=== PATIENT | female | born 1975 | race African-American/Black ===

== ENCOUNTER 2023-04-30 12:06 | Outpatient (OUT) | payer MEDICAID, SELFPAY ==
--- NOTE | 2023-04-30 13:29 | CA_ITS ---
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 PVR waveform with normal upstroke, amplitude and dicrotic notch Right: - no significant pressure gradient between cuffs - normal TIFFANIE and TBI Left: - no significant pressure gradient between cuffs - normal TIFFANIE and TBI Impression: - normal arterial evaluation of the lower extremities without hemodynamic impairment of the B/L lower extremity at rest (right TIFFANIE 1.20, left TIFFANIE 1.17) Electronically Signed On 04-30-2023 20:44:20 EDT by LUCIEN PATEL
== END 2023-04-30 12:07 | disposition home or self-care (01) ==
LOC: CARD 12:13
PROVIDERS: PCP Nurse Practitioner Family; Visit Provider Internal Medicine Cardiovascular Disease
DX: I73.9 Peripheral vascular disease, unspecified (principal)
CPT/HCPCS: 93924

== ENCOUNTER 2023-06-29 11:48 | Outpatient (OUT) | payer MEDICAID, SELFPAY ==
[2023-06-29 12:43] LABS: Basophils Percent Auto 0.6 % (0.2-2.0); Eosinophils Absolute Auto 0.2 10^3/uL (0.0-0.7); Eosinophils Percent Auto 3.8 % (0.9-7.0); Hemoglobin 13.1 g/dL (12.0-16.0); Immature Granulocytes Abs Auto 0.01 10^3/uL (0.00-0.03); Immature Granulocytes Pct Auto 0.2 % (0.0-0.5); Lymphocytes Absolute Auto 2.7 10^3/uL (1.2-3.8); Lymphocytes Percent Auto 42.7 % (20.5-60.0); Mean Corpuscular HGB Conc 31.2 g/dL (29.9-35.2); Mean Corpuscular Hemoglobin 26.4 pg (26.7-34.0); Mean Corpuscular Volume 84.5 fL (81.0-99.0); Mean Platelet Volume 11.3 fL (9.5-13.5); Monocytes Absolute Auto 0.6 10^3/uL (0.3-0.8); Monocytes Percent Auto 8.8 % (1.7-12.0); Neutrophils Absolute Auto 2.8 10^3/uL (1.4-6.5); Neutrophils Percent Auto 43.9 % (43.0-75.0); Platelet Count 302 10^3/uL (150-450); Red Blood Count 4.97 10^6/uL (4.20-5.40); White Blood Count 6.3 10^3/uL (4.0-11.0)
[2023-06-29 13:47] LABS: Alanine Aminotransferase 18 U/L (14-59); Albumin Globulin Ratio 0.8; Albumin Level 3.5 g/dL (3.4-5.0); Alkaline Phosphatase 105 U/L (46-116); Anion Gap 14.6; Aspartate Amino Transferase 9 U/L (15-37); BUN Creatinine Ratio 23.7; Bilirubin Total 0.2 mg/dL (0.2-1.0); Calcium 9.4 mg/dL (8.5-10.1); Carbon Dioxide 25.1 mmol/L (21.0-32.0); Chloride 103 mmol/L (98-107); Chol HDL Ratio 3.7; Cholesterol 142 mg/dL (<=200); Estimated GFR (African America >60 (>=60); Estimated GFR (Non-African Ame >60 (>=60); Free T3 2.77 pg/mL (2.18-3.98); Globulin 4.5 g/dL; Glucose 268 mg/dL (74-106); HDL Cholesterol 38 mg/dL (40-60); Potassium 4.7 mmol/L (3.5-5.1); Sodium 138 mmol/L (136-145); Thyroid Stimulating Hormone 0.501 uIU/mL (0.358-3.740); Triglycerides 130 mg/dL (<=150)
[2023-06-29 14:06] LABS: Estimated Average Glucose 266 mg/dL; Glycohemoglobin A1C 10.9 % (4.5-6.2)
[2023-06-30 11:59] LABS: Occult Blood Negative
[2023-06-30 12:08] LABS: Insulin 6.6 uIU/mL (2.6-24.9)
[2023-06-30 12:54] LABS: C. Difficile PCR NEGATIVE (NEGATIVE)
== END 2023-06-29 11:49 | disposition home or self-care (01) ==
LOC: LAB 11:50
PROVIDERS: PCP Nurse Practitioner Family; Visit Provider Nurse Practitioner Family
DX: R53.82 Chronic fatigue, unspecified (principal); K29.50 Unspecified chronic gastritis without bleeding; R19.7 Diarrhea, unspecified
CPT/HCPCS: 36415; 80053; 80061; 82306; 83036; 83525; 83540; 84436; 84443; 84481; 85025; 87045; 87046; 87427; 87493; 87507; G0328

== ENCOUNTER 2023-07-29 01:48 | Observation (INO) | payer MEDICAID, SELFPAY ==
[2023-07-29] VITALS (78 sets, daily range): BP systolic 105–203; BP diastolic 71–133; PULSE 85–101; RESP 2–98; TEMP 36.6–37.1; O2SAT 91–100; BMI 34.2; BMI 35.2
--- NOTE | 2023-07-29 01:54 | ECG_ITS ---
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
--- NOTE | 2023-07-29 01:54 | ECG_ITS ---
The [facility] Test Date: 2023-07-29 Pat Name: ANTONI DIAZ Department: Room: 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
--- NOTE | 2023-07-29 02:10 | ED.CHESTPAI1 ---
HPI - Chest Pain General Chief Complaint: Chest Pain Stated Complaint: Chest Pain Abdominal Pain Back pain Time Seen by Provider: 07/29/23 02:01 Source: patient History of Present Illness HPI narrative: past history of CAD , IDDM/diabetes and pancreatitis. Presents complaining of epigastric pain, chest pain radiating into her back associated with nausea. States she does not have cardiac stents and her heart disease is managed medically. pain started tonight when she was trying to go to sleep Related Data Home Medications Medication Instructions Recorded Confirmed aspirin 81 mg tablet,delayed mg 07/29/23 release atorvastatin 80 mg tablet mg 07/29/23 carvedilol 12.5 mg tablet mg 07/29/23 carvedilol 25 mg tablet mg 07/29/23 clopidogrel 75 mg tablet mg 07/29/23 dulaglutide 1.5 mg/0.5 mL mg subcut 07/29/23 subcutaneous pen injector (Trulicity) furosemide 20 mg tablet mg 07/29/23 insulin glargine 100 unit/mL (3 unit subcut 07/29/23 mL) subcutaneous pen (Lantus Solostar U-100 Insulin) metformin 1,000 mg tablet mg 07/29/23 metoprolol succinate 100 mg mg PO 07/29/23 tablet,extended release 24 hr omeprazole 40 mg capsule,delayed mg 07/29/23 release sacubitril 24 mg-valsartan 26 mg tab 07/29/23 tablet (Entresto) spironolactone 50 mg tablet mg 07/29/23 venlafaxine 150 mg mg PO 07/29/23 capsule,extended release 24 hr Allergies Allergy/AdvReac Type Severity Reaction Status Date / Time cephalexin [From Keflex] Allergy Verified 07/29/23 01:57 Review of Systems ROS Status of ROS 10 or more systems reviewed and unremarkable except as noted in history and below PFSH PFS Social History Smoking status: Current every day smoker Exam Constitutional Vital Signs, click to edit/add: Last Vital Signs Temp 98.1 F 07/29/23 01:51 Pulse 94 H 07/29/23 05:20 Resp 31 H 07/29/23 05:20 BP 148/103 H 07/29/23 05:00 Pulse Ox 100 07/29/23 05:20 O2 Del Method Room Air 07/29/23 01:51 Common normals: no apparent distress, average body habitus, oriented x3, no limitations, healthy appearing and alert Eye Common normals: EOMs intact bilaterally and conjunctivae normal Respiratory Common normals: normal respiratory effort, no retractions, no use of accessory muscles and clear to auscultation bilaterally Cardio Common normals: regular rate, regular rhythm, S1 normal heart sound and S2 normal heart sound GI Other: mild epigastric tenderness. No guarding Extremity Common normals: normal to inspection and full ROM Neuro Common normals: oriented x3, CN's II-XII intact bilaterally, moves all extremities, no focal motor deficits and no sensory deficits noted Psych Appearance: grossly normal Course Vital Signs Vital signs: Vital Signs Temperature 98.1 F 07/29/23 01:51 Pulse Rate 95 H 07/29/23 01:51 Respiratory Rate 18 07/29/23 01:51 Blood Pressure 161/104 H 07/29/23 01:51 Pulse Oximetry 100 07/29/23 01:51 Oxygen Delivery Method Room Air 07/29/23 01:51 Temperature 98.1 F 07/29/23 01:51 Pulse Rate 94 H 07/29/23 05:20 Respiratory Rate 31 H 07/29/23 05:20 Blood Pressure 148/103 H 07/29/23 05:00 Pulse Oximetry 100 07/29/23 05:20 Oxygen Delivery Method Room Air 07/29/23 01:51 MDM - Chest Pain MDM Narrative Medical decision making narrative: patient has multiple co morbidities. history of CAD, DM, pancreatitis and HTN.. Presents with substernal chest pain and pain left chest. Pain radiates into her back and pain associated with nausea. CT neg for pancreatitis. EKG with asymmetric T wave inversion. Serial troponin neg x 2. Fentanyl help with pain but not complete relief. Also benefited from GI cocktail but not complete relief. Serial troponin neg x 2. Unclear what is causing her pain. Discussed with Hospitalist Dr Salinas and patient accepted for obs admission to continue workup Lab Data Labs: Lab Results 07/29/23 07/29/23 Range/Units 02:50 04:45 WBC 8.5 (4.0-11.0) 10^3/uL RBC 4.96 (4.20-5.40) 10^6/uL Hgb 13.0 (12.0-16.0) g/dL Hct 41.4 (36.0-48.0) % MCV 83.5 (81.0-99.0) fL MCH 26.2 L (26.7-34.0) pg MCHC 31.4 (29.9-35.2) g/dL RDW 13.0 (11.0-15.0) % Plt Count 324 (150-450) 10^3/uL MPV 11.1 (9.5-13.5) fL Neut % (Auto) 46.2 (43.0-75.0) % Lymph % (Auto) 41.8 (20.5-60.0) % [place] % (Auto) 8.0 (1.7-12.0) % Eos % (Auto) 3.2 (0.9-7.0) % Baso % (Auto) 0.4 (0.2-2.0) % Neut # (Auto) 3.9 (1.4-6.5) 10^3/uL Lymph # (Auto) 3.6 (1.2-3.8) 10^3/uL [place] # (Auto) 0.7 (0.3-0.8) 10^3/uL Eos # (Auto) 0.3 (0.0-0.7) 10^3/uL Baso # (Auto) 0.0 (0.0-0.1) 10^3/uL Abs Immat Gran (auto) 0.03 (0.00-0.03) 10^3/uL Imm/Tot Granulo (auto) 0.4 (0.0-0.5) % Sodium 134 L (136-145) mmol/L Potassium 3.6 (3.5-5.1) mmol/L Chloride 95 L (98-107) mmol/L Carbon Dioxide 28.7 (21.0-32.0) mmol/L Anion Gap 13.9 BUN 19.0 H (7.0-18.0) mg/dL Creatinine 1.10 H (0.55-1.02) mg/dL Est GFR ( Amer) >60 (>=60) Est GFR (Non-Af Amer) 53 L (>=60) BUN/Creatinine Ratio 17.3 Glucose 324 H (74-106) mg/dL Calcium 9.6 (8.5-10.1) mg/dL Total Bilirubin 0.4 (0.2-1.0) mg/dL AST 8 L (15-37) U/L ALT 16 (14-59) U/L Alkaline Phosphatase 116 (46-116) U/L Troponin I High Sens 8.7 9.6 (4.0-51.3) pg/mL Total Protein 8.6 H (6.4-8.2) g/dL Albumin 4.0 (3.4-5.0) g/dL Globulin 4.6 g/dL Albumin/Globulin Ratio 0.9 Lipase 311.0 H (16.0-77.0) U/L Discharge Plan Discharge Chief Complaint: Chest Pain Clinical Impression: Abdominal pain, Chest pain Patient Disposition: Admitted as Observation
--- NOTE | 2023-07-29 02:13 | XR_ITS ---
The [address] [address] Patient Name: ANTONI DIAZ MRN: [id number] date: 1975 Sex: F Assigned Patient Location: ER Current Patient Location: ER Accession/Order Number: [id number] Exam Date: 07/29/2023 02:38 Report Date: 07/29/2023 03:44 At the request of: DELIA LR Procedure: XR chest 1V EXAM: XR chest 1V HISTORY: chest pain COMPARISON: Chest radiograph dated 12/17/2022. TECHNIQUE: One view of the chest was obtained. FINDINGS: The cardiac silhouette is normal in size. The lungs are clear. There is no significant pneumothorax or pleural effusion. No acute osseous abnormality is seen. XR/XR chest 1V IMPRESSION: 1. No acute cardiopulmonary abnormality. Electronically authenticated by: Emmanuel COLLINS Date: 07/29/2023 03:44
--- NOTE | 2023-07-29 02:14 | CT_ITS ---
The [address] [address] Patient Name: ANTONI DIAZ MRN: [id number] date: 1975 Sex: F Assigned Patient Location: ER Current Patient Location: ER Accession/Order Number: [id number] Exam Date: 07/29/2023 02:38 Report Date: 07/29/2023 04:13 At the request of: DELIA LR Procedure: CT abdomen pelvis w con EXAM: CT abdomen pelvis w con HISTORY: pancreatitis COMPARISON: CT abdomen and pelvis examination dated 11/16/2021. TECHNIQUE: Axial CT images through the abdomen and pelvis were obtained after the intravenous administration of 100 mL Omnipaque 300 contrast. Coronal and sagittal reformats were obtained. Dose reduction techniques were achieved by using automated exposure control and/or adjustment of mA and/or kV according to patient size and/or use of iterative reconstruction technique. FINDINGS: The visualized portions of the lung bases are clear. Abdomen: The liver and spleen enhance homogeneously without focal lesion. There is no intra or extrahepatic biliary duct dilatation. The gallbladder is surgically absent. There is a prominent amount of stool in the colon without evidence of bowel obstruction. Otherwise, the adrenal glands, kidneys, and bowel loops, including the appendix, are unremarkable. There is no mesenteric or retroperitoneal lymphadenopathy. There is stable focal dilatation of the distal pancreatic duct measuring up to [address] evidence of acute pancreatitis is seen. Pelvis: The bladder and rectum are unremarkable. There is no iliac or inguinal lymphadenopathy. The uterus is present with a suspected fibroid measuring up to 2.3 x 2.1 cm (series 3, image 96). The ovaries are not well evaluated. Bone windows show no aggressive osseous lesions. There is nonspecific sclerosis about the sacroiliac joints. CT/CT abdomen pelvis w con IMPRESSION: 1. No CT evidence of acute pancreatitis is seen. 2. Status post cholecystectomy. 3. Prominent amount of stool in the colon without evidence of bowel obstruction. 4. Normal appendix. 5. Uterine fibroid. Electronically authenticated by: Emmanuel COLLINS Date: 07/29/2023 04:13
[2023-07-29] MEDS: FENTANYL CITRATE/PF 100 MCG/2 ML VIAL IV (02:45)
[2023-07-29] MEDS: ONDANSETRON PF 4 MG/2 ML VIAL IV (02:45)
[2023-07-29 03:41] LABS: Alanine Aminotransferase 16 U/L (14-59); Albumin Globulin Ratio 0.9; Alkaline Phosphatase 116 U/L (46-116); Aspartate Amino Transferase 8 U/L (15-37); BUN Creatinine Ratio 17.3; Bilirubin Total 0.4 mg/dL (0.2-1.0); Calcium 9.6 mg/dL (8.5-10.1); Carbon Dioxide 28.7 mmol/L (21.0-32.0); Estimated GFR (African America >60 (>=60); Estimated GFR (Non-African Ame 53 (>=60); Globulin 4.6 g/dL; Glucose 324 mg/dL (74-106); Total Protein 8.6 g/dL (6.4-8.2); Troponin I High Sensitivity 8.7 pg/mL (4.0-51.3)
[2023-07-29 04:05] LABS: Basophils Percent Auto 0.4 % (0.2-2.0); Eosinophils Absolute Auto 0.3 10^3/uL (0.0-0.7); Eosinophils Percent Auto 3.2 % (0.9-7.0); Hematocrit 41.4 % (36.0-48.0); Immature Granulocytes Abs Auto 0.03 10^3/uL (0.00-0.03); Immature Granulocytes Pct Auto 0.4 % (0.0-0.5); Lymphocytes Absolute Auto 3.6 10^3/uL (1.2-3.8); Lymphocytes Percent Auto 41.8 % (20.5-60.0); Mean Corpuscular HGB Conc 31.4 g/dL (29.9-35.2); Mean Corpuscular Hemoglobin 26.2 pg (26.7-34.0); Mean Corpuscular Volume 83.5 fL (81.0-99.0); Mean Platelet Volume 11.1 fL (9.5-13.5); Monocytes Absolute Auto 0.7 10^3/uL (0.3-0.8); Neutrophils Absolute Auto 3.9 10^3/uL (1.4-6.5); Neutrophils Percent Auto 46.2 % (43.0-75.0); Platelet Count 324 10^3/uL (150-450); Red Blood Count 4.96 10^6/uL (4.20-5.40); White Blood Count 8.5 10^3/uL (4.0-11.0)
[2023-07-29 05:00] LABS: Anion Gap 13.9; Chloride 95 mmol/L (98-107); Potassium 3.6 mmol/L (3.5-5.1); Sodium 134 mmol/L (136-145)
[2023-07-29 05:13] LABS: Troponin I High Sensitivity 9.6 pg/mL (4.0-51.3)
[2023-07-29] MEDS: lidocaine HCL 15 ML, MAG HYDROX/ALUMINUM HYD/SIMETH 30 ML, HYOSCYAMINE SULFATE 0.25 MG PO (05:15)
[2023-07-29] MEDS: PROMETHAZINE HCL 25 MG/ML VIAL 12.5 MG IV (06:27)
--- NOTE | 2023-07-29 07:41 | CA_ITS ---
Patient: ANTONI DIAZ Exam Date: 07/30/2023 : 1975 Gender:F Ordering : DR Earnest Salinas . 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 DESCRIPTION: Limited ECHOCARDIOGRAM Real-time transthoracic echocardiography with 2D and M-mode performed. QUALITY: Technical quality was good. Limited echocardiogram per physician order. LEFT VENTRICLE: Normal chamber size. Moderate concentric left ventricular hypertrophy. LV EF: Global left ventricular systolic function is normal; ejection fraction is estimated to be 55 to 60%. No wall motion abnormalities. LEFT ATRIUM: Normal chamber size. RIGHT ATRIUM: Normal chamber size. RIGHT VENTRICLE: Normal chamber size. TRICUSPID VALVE: Normal mobility and thickness. MITRAL VALVE: Normal mobility and thickness. No evidence of mitral valve stenosis. There is no mitral annular calcification. AORTIC VALVE: Normal trileaflet appearance. No visible sclerosis. Normal leaflet mobility. AORTIC ROOT: Normal diameter and appearance. PULMONIC VALVE: Normal thickness and mobility. PERICARDIUM: No evidence of pericardial effusion. IVC: Collapses with inspirations. CONCLUSION: Global left ventricular systolic function is normal; ejection fraction is estimated to be 55 to 60%. No wall motion abnormalities. A limited echocardiogram was performed. Adult Echocardiography Procedure Report Left Ventricle LVEDD (3.7 - 5.6 cm): 3.73 cm LVESD (2.2 - 4.0 cm): 2.63 cm LVIVS thickness (0.6 - 1.2 cm): 1.30 cm LVPW thickness (0.5 - 1.0 cm): 1.20 cm LVOT Diameter 2.29 cm Left Atrium LA Volume Index (2D A2C): 29.74 ml/m2 Left Atrium Systolic Dimension: 2.78 cm Mitral Valve Right Ventricle Aorta AO Root Diam: 3.09 cm Ascending Ao Diam: 2.88 cm Aortic Valve Tricuspid Valve Pulmonic Valve Right Atrium Right Atrium Systolic Pressure: 43.66 ml, 43.66 ml Dictated by: Maye Keller M.D. on 07/30/2023 at 15:37 Approved by: Maye Keller M.D. on 07/30/2023 at 15:45
[2023-07-29 08:17] LABS: Amylase 61 U/L (25-115)
[2023-07-29] MEDS: ACETAMINOPHEN 500 MG TABLET 1000 MG PO ×2 (08:21→15:35)
[2023-07-29] MEDS: CLOPIDOGREL BISULFATE 75 MG TABLET PO (08:21)
[2023-07-29] MEDS: ASPIRIN 81 MG TABLET.DR PO (08:21)
[2023-07-29] MEDS: HYOSCYAMINE SULFATE 0.125 MG TAB.SUBL SL ×3 (08:21→15:35)
[2023-07-29] MEDS: VENLAFAXINE HCL ER 150 MG CAPSULE PO (08:21)
[2023-07-29] MEDS: NITROGLYCERIN 2% 1 GRAM PACKET 1 GM TD ×2 (08:22→15:35)
[2023-07-29] MEDS: ATORVASTATIN CALCIUM 40 MG TABLET 80 MG PO (08:22)
[2023-07-29] MEDS: 0.9 % SODIUM CHLORIDE 1,000 ML 75 ML IV ×2 (08:22→20:39)
[2023-07-29] MEDS: PANTOPRAZOLE SODIUM 40 MG VIAL IV (08:22)
[2023-07-29] MEDS: INSULIN ASPART 300 UNIT/3 ML PEN SUBQ ×3 (08:24→21:58)
[2023-07-29] MEDS: SACUBITRIL/VALSARTAN 24 MG-26 MG TABLET 1 TAB PO ×2 (08:28→20:37)
[2023-07-29] MEDS: CARVEDILOL 25 MG TABLET PO ×2 (08:28→20:37)
[2023-07-29 08:29] LABS: Magnesium 1.6 mg/dL (1.8-2.4); Thyroid Stimulating Hormone 1.292 uIU/mL (0.358-3.740); Troponin I High Sensitivity 9.1 pg/mL (4.0-51.3)
[2023-07-29 08:32] LABS: Glucometer 286 mg/dL (74-106)
[2023-07-29 08:35] LABS: D Dimer 0.26 mg/L FEU (<=0.59)
--- NOTE | 2023-07-29 10:53 | P.HP_ITS ---
H&P: HPI History of Present Illness Chief complaint: Chest Pain Abdominal Pain Back pain Narrative: Patient with a history of nonischemic cardiomyopathy with ejection fraction on last echo that I could find of 25 to 30%, presented to the emergency room with chest pain. Similar to her previous episodes of cardiac chest pain. In ER also found to have acute pancreatitis. Cardiac markers were negative in the ER. She does have some mild changes on her ECG. Patient admitted to ICU. Review of Systems ROS Status of ROS 10 or more systems reviewed and unremarkable except as noted in history and below Constitutional Denies: fever Eyes Denies: change in vision Ears, nose, mouth, and throat Denies: throat pain Cardiovascular Reports: chest pain; Denies: palpitations or edema Respiratory Reports: shortness of breath Gastrointestinal Reports: abdominal pain, nausea and vomiting Genitourinary Denies: painful urination Musculoskeletal Reports: back pain Neurological Denies: headache Psychiatric Denies: anxiety Endocrine Denies: excessive urination Hematologic/Lymphatic Denies: easy bruising PFSH PFSH Social History Smoking status: Current every day smoker Meds Home Medications and Allergies Home Medications Medication Instructions Recorded Confirmed Type aspirin 81 mg tablet,delayed 81 mg PO .am 07/29/23 07/29/23 History release atorvastatin 80 mg tablet 80 mg PO DAILY 07/29/23 07/29/23 History carvedilol 25 mg tablet 25 mg PO BID 07/29/23 07/29/23 History clopidogrel 75 mg tablet 75 mg PO DAILY 07/29/23 07/29/23 History dulaglutide 1.5 mg/0.5 mL 0.75 mg subcut .WEEKLY 07/29/23 07/29/23 History subcutaneous pen injector (Trulicity) furosemide 20 mg tablet 20 mg PO DAILY 07/29/23 07/29/23 History insulin glargine 100 unit/mL (3 40 unit subcut BID 07/29/23 07/29/23 History mL) subcutaneous pen (Lantus Solostar U-100 Insulin) metformin 1,000 mg tablet 1,000 mg PO BID 07/29/23 07/29/23 History metoprolol succinate 100 mg 100 mg PO .am 07/29/23 07/29/23 History tablet,extended release 24 hr omeprazole 40 mg capsule,delayed 40 mg PO BID 07/29/23 07/29/23 History release sacubitril 24 mg-valsartan 26 mg 1 tab PO BID 07/29/23 07/29/23 History tablet (Entresto) spironolactone 50 mg tablet 50 mg PO DAILY 07/29/23 07/29/23 History venlafaxine 150 mg 150 mg PO DAILY 07/29/23 07/29/23 History capsule,extended release 24 hr Allergies Allergy/AdvReac Type Severity Reaction Status Date / Time cephalexin [From Keflex] Allergy Verified 07/29/23 01:57 Exam Constitutional Vital Signs, click to edit/add: Last Vital Signs Temp 98 F 07/29/23 06:34 Pulse 92 H 07/29/23 10:00 Resp 14 07/29/23 06:40 BP 150/115 H 07/29/23 06:34 Pulse Ox 96 07/29/23 10:18 O2 Del Method Room Air 07/29/23 10:18 Documenting provider has reviewed patient's vital signs: yes Common normals: apparent distress (Patient notes painful distress) HENMT Common normals: oral mucous membranes not moist (Dry) Chest Common normals: inspection of chest normal Respiratory Common normals: normal respiratory effort, no retractions and clear to auscultation bilaterally Cardio Common normals: regular rate and no murmurs GI Common normals: Normal to inspection, nondistended, normoactive bowel sounds present; tender Palpation: tender (More in epigastric left upper quadrant area) Extremity Common normals: normal to inspection Results Labs Labs: Short CBC 07/29/23 Range/Units 02:50 WBC 8.5 (4.0-11.0) 10^3/uL Hgb 13.0 (12.0-16.0) g/dL Hct 41.4 (36.0-48.0) % Plt Count 324 (150-450) 10^3/uL BMP 07/29/23 02:50 Sodium 134 L Potassium 3.6 Chloride 95 L Carbon Dioxide 28.7 BUN 19.0 H Creatinine 1.10 H Glucose 324 H Calcium 9.6 Liver Function 07/29/23 Range/Units 02:50 Total Bilirubin 0.4 (0.2-1.0) mg/dL AST 8 L (15-37) U/L ALT 16 (14-59) U/L Alkaline Phosphatase 116 (46-116) U/L Albumin 4.0 (3.4-5.0) g/dL Assessment and Plan Assessment and Plan (1) Chest pain: (2) Abdominal pain: Plan Respiratory distress, borderline sinus tachycardia, uncontrolled hypertension, chest pain-patient with a history of nonischemic cardiomyopathy, repeat echocardiogram, consult to cardiology, Nitropaste, ECG not consistent with pericarditis. D-dimer negative so hold off on CTA Epigastric tenderness-add IV Protonix. Some chest wall tenderness-we will give 1 dose of Decadron. Mild pancreatitis-CT scan did not show fluid around the pancreas. May check ultrasound tomorrow. N.p.o. except medications for now. Moderate constipation-lactulose Poorly controlled diabetes mellitus-insulin sliding scale. We will hold off on oral agents as she is n.p.o. currently Morbid obesity-diet management Depression-continue with current medications Patient admitted as a chest pain rule out-so far cardiac markers were negative, maintain patient as observation status.
[2023-07-29] MEDS: LACTULOSE 10 GM/15 ML UD CUP 30 GM PO ×2 (11:14→20:38)
[2023-07-29] MEDS: MAGNESIUM OXIDE 400 MG TABLET PO ×2 (11:15→20:37)
[2023-07-29] MEDS: HYDROMORPHONE HCL 0.5 MG/0.5 ML SYRINGE IV ×2 (11:15→21:57)
[2023-07-29] MEDS: DEXAMETHASONE SOD PHOS 10 MG/ML VIAL IV (11:18)
[2023-07-29 11:19] LABS: Glucometer 136 mg/dL (74-106)
[2023-07-29 17:30] LABS: Glucometer 318 mg/dL (74-106)
[2023-07-29 20:38] LABS: Glucometer 241 mg/dL (74-106)
[2023-07-30] VITALS (72 sets, daily range): BP systolic 84–142; BP diastolic 55–93; PULSE 71–101; RESP 0–37; TEMP 36.3–36.9; O2SAT 94–99
[2023-07-30] MEDS: HYDROMORPHONE HCL 0.5 MG/0.5 ML SYRINGE IV ×2 (03:56→09:30)
[2023-07-30 04:32] LABS: Bilirubin Urine NEGATIVE (NEGATIVE); Blood Urine NEGATIVE (NEGATIVE); Clarity Urine CLEAR (CLEAR); Color Urine YELLOW (YELLOW); Glucose Urine UA >=1000 mg/dL (NEGATIVE); Ketones Urine 15 mg/dL (NEGATIVE); Leukocyte Esterase Urine NEGATIVE (NEGATIVE); Nitrite Urine NEGATIVE (NEGATIVE); Protein Urine 30 mg/dL (NEG/TRACE); Specific Gravity Urine >=1.030 (1.005-1.025); Urobilinogen Urine 0.2 EU/dL (0.2-1.0)
[2023-07-30 04:35] LABS: Urine Microscopic Indicated YES
[2023-07-30 04:41] LABS: Bacteria Urine TRACE #/HPF (NONE SEEN); Cast Seen? NONE SEEN #/LPF (NONE SEEN); Crystals Seen? None Seen #/HPF (None Seen); Mucus Urine TRACE (NONE SEEN); RBC Urine 0-2 #/HPF (0-2); Squamous Epithelial Cell Urine FEW #/LPF (NONE/RARE); Urine Culture Indicated NO; WBC Urine 0-2 #/HPF (NONE SEEN)
[2023-07-30 04:45] LABS: Basophils Percent Auto 0.1 % (0.2-2.0); Eosinophils Percent Auto 0.1 % (0.9-7.0); Hematocrit 34.1 % (36.0-48.0); Hemoglobin 10.8 g/dL (12.0-16.0); Immature Granulocytes Abs Auto 0.03 10^3/uL (0.00-0.03); Immature Granulocytes Pct Auto 0.4 % (0.0-0.5); Lymphocytes Absolute Auto 1.9 10^3/uL (1.2-3.8); Mean Corpuscular HGB Conc 31.7 g/dL (29.9-35.2); Mean Corpuscular Hemoglobin 26.6 pg (26.7-34.0); Mean Platelet Volume 10.5 fL (9.5-13.5); Monocytes Absolute Auto 0.5 10^3/uL (0.3-0.8); Monocytes Percent Auto 5.9 % (1.7-12.0); Neutrophils Percent Auto 71.5 % (43.0-75.0); Platelet Count 286 10^3/uL (150-450); Red Blood Count 4.06 10^6/uL (4.20-5.40); Red Cell Distribution Width 13.1 % (11.0-15.0); White Blood Count 8.5 10^3/uL (4.0-11.0)
[2023-07-30 05:14] LABS: Alanine Aminotransferase 17 U/L (14-59); Albumin Globulin Ratio 0.8; Albumin Level 3.1 g/dL (3.4-5.0); Alkaline Phosphatase 96 U/L (46-116); Amylase 27 U/L (25-115); Anion Gap 13.5; Aspartate Amino Transferase 9 U/L (15-37); BUN Creatinine Ratio 23.9; Bilirubin Total 0.4 mg/dL (0.2-1.0); Calcium 8.6 mg/dL (8.5-10.1); Carbon Dioxide 24.7 mmol/L (21.0-32.0); Chloride 103 mmol/L (98-107); Estimated GFR (African America >60 (>=60); Estimated GFR (Non-African Ame >60 (>=60); Globulin 3.9 g/dL; Glucose 233 mg/dL (74-106); Potassium 4.2 mmol/L (3.5-5.1); Sodium 137 mmol/L (136-145); Troponin I High Sensitivity 5.1 pg/mL (4.0-51.3)
--- NOTE | 2023-07-30 07:08 | ECG_ITS ---
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
--- NOTE | 2023-07-30 07:40 | P.DS_ITS ---
DS: Providers Provider Date of admission: 07/29/23 06:30 Primary care physician: ANG SALMERON Consults: 07/29/23 07:41 Consult to Cardiology Routine Reason for consultation: CP,. Hx Cardiomyopathy Has provider been notified: No 07/29/23 10:48 Consult to Cardiology Routine Reason for consultation: cardiomyopathy - tomorrow is fine Has provider been notified: No 07/30/23 09:00 Consult to Life Cycle Assessment Analyst Routine Reason for consult:: Other Other reason:: asking questions about the disability process and paperwork DS: Diagnosis Discharge Diagnosis (1) Chest pain: (2) Abdominal pain: Plan Respiratory distress, borderline sinus tachycardia, uncontrolled hypertension, chest pain-patient with a history of nonischemic cardiomyopathy Epigastric tenderness Some chest wall tenderness- Mild pancreatitis Moderate constipation Poorly controlled diabetes mellitus Morbid obesity Depression DS: Summary Hospital Course Hospital Course: Patient presented to emergency room with upper abdominal pain and chest pain. She has a significant history of nonischemic cardiomyopathy with ejection fraction last reported at 35%. With the chest pain patient was admitted to the ICU. Work-up in the ER also found acute pancreatitis. Patient was maintained n.p.o. The following morning her lipase is back to normal. Her pain was improving. We advanced her diet. Echocardiogram shows much improved ejection fraction. Cardiology consulted and cleared patient for discharge. No further work-up at this time. Patient be discharged home in improving condition. Medications see list. Follow-up with her PCP-T[facility] within the next week Time Spent with Patient Time attestation: Total time spent providing and/or coordinating discharge services: Exam Constitutional Vital Signs, click to edit/add: Last Vital Signs Temp 98.5 F 07/30/23 04:00 Pulse 85 07/30/23 05:00 Resp 16 07/30/23 04:00 BP 142/83 H 07/30/23 04:00 Pulse Ox 95 07/30/23 05:00 O2 Del Method Room Air 07/30/23 04:00 Documenting provider has reviewed patient's vital signs: yes Common normals: apparent distress (Patient notes painful distress) HENMT Common normals: oral mucous membranes not moist (Dry) Chest Common normals: inspection of chest normal Respiratory Common normals: normal respiratory effort, no retractions and clear to auscultation bilaterally Cardio Common normals: regular rate and no murmurs GI Common normals: Normal to inspection, nondistended, normoactive bowel sounds present Extremity Common normals: normal to inspection DS: Data Data Completed and Pending Labs on day of discharge: Labs from last 24 hours 07/30/23 07/30/23 07/29/23 04:00 03:54 20:36 WBC 8.5 RBC 4.06 L Hgb 10.8 L Hct 34.1 L MCV 84.0 MCH 26.6 L MCHC 31.7 RDW 13.1 Plt Count 286 MPV 10.5 Neut % (Auto) 71.5 Lymph % (Auto) 22.0 [facility] % (Auto) 5.9 Eos % (Auto) 0.1 L Baso % (Auto) 0.1 L Neut # (Auto) 6.0 Lymph # (Auto) 1.9 [facility] # (Auto) 0.5 Eos # (Auto) 0.0 Baso # (Auto) 0.0 Abs Immat Gran (auto) 0.03 Imm/Tot Granulo (auto) 0.4 D-Dimer Sodium 137 Potassium 4.2 Chloride 103 Carbon Dioxide 24.7 Anion Gap 13.5 BUN 21.0 H Creatinine 0.88 Est GFR ( Amer) >60 Est GFR (Non-Af Amer) >60 BUN/Creatinine Ratio 23.9 Glucose 233 H Lactate Calcium 8.6 Magnesium Total Bilirubin 0.4 AST 9 L ALT 17 Alkaline Phosphatase 96 Troponin I High Sens 5.1 NT-Pro-B Natriuret Pep 85.0 Total Protein 7.0 Albumin 3.1 L Globulin 3.9 Albumin/Globulin Ratio 0.8 Amylase 27 Lipase 17.0 TSH Thyroxine (T4) Urine Color Yellow Urine Clarity Clear Urine pH 6.0 Ur Specific [place] >=1.030 A Urine Protein 30 A Urine Glucose (UA) >=1000 A Urine Ketones 15 A Urine Occult Blood Negative Urine Nitrite Negative Urine Bilirubin Negative Urine Urobilinogen 0.2 Ur Leukocyte Esterase Negative Urine RBC 0-2 Urine WBC 0-2 A Ur Squamous Epith Cells Few A Urine Crystals None seen Urine Bacteria Trace A Urine Casts None seen Urine Mucus Trace A Ur Culture Indicated? No POC Glucose 241 H 07/29/23 07/29/23 07/29/23 17:25 11:12 08:20 WBC RBC Hgb Hct MCV MCH MCHC RDW Plt Count MPV Neut % (Auto) Lymph % (Auto) [facility] % (Auto) Eos % (Auto) Baso % (Auto) Neut # (Auto) Lymph # (Auto) [facility] # (Auto) Eos # (Auto) Baso # (Auto) Abs Immat Gran (auto) Imm/Tot Granulo (auto) D-Dimer Sodium Potassium Chloride Carbon Dioxide Anion Gap BUN Creatinine Est GFR ( Amer) Est GFR (Non-Af Amer) BUN/Creatinine Ratio Glucose Lactate Calcium Magnesium Total Bilirubin AST ALT Alkaline Phosphatase Troponin I High Sens NT-Pro-B Natriuret Pep Total Protein Albumin Globulin Albumin/Globulin Ratio Amylase Lipase TSH Thyroxine (T4) Urine Color Urine Clarity Urine pH Ur Specific [place] Urine Protein Urine Glucose (UA) Urine Ketones Urine Occult Blood Urine Nitrite Urine Bilirubin Urine Urobilinogen Ur Leukocyte Esterase Urine RBC Urine WBC Ur Squamous Epith Cells Urine Crystals Urine Bacteria Urine Casts Urine Mucus Ur Culture Indicated? POC Glucose 318 H 136 H 286 H 07/29/23 07:56 WBC RBC Hgb Hct MCV MCH MCHC RDW Plt Count MPV Neut % (Auto) Lymph % (Auto) [facility] % (Auto) Eos % (Auto) Baso % (Auto) Neut # (Auto) Lymph # (Auto) [facility] # (Auto) Eos # (Auto) Baso # (Auto) Abs Immat Gran (auto) Imm/Tot Granulo (auto) D-Dimer 0.26 Sodium Potassium Chloride Carbon Dioxide Anion Gap BUN Creatinine Est GFR ( Amer) Est GFR (Non-Af Amer) BUN/Creatinine Ratio Glucose Lactate 1.0 Calcium Magnesium 1.6 L Total Bilirubin AST ALT Alkaline Phosphatase Troponin I High Sens 9.1 NT-Pro-B Natriuret Pep 122.0 Total Protein Albumin Globulin Albumin/Globulin Ratio Amylase 61 Lipase TSH 1.292 Thyroxine (T4) 12.20 Urine Color Urine Clarity Urine pH Ur Specific [place] Urine Protein Urine Glucose (UA) Urine Ketones Urine Occult Blood Urine Nitrite Urine Bilirubin Urine Urobilinogen Ur Leukocyte Esterase Urine RBC Urine WBC Ur Squamous Epith Cells Urine Crystals Urine Bacteria Urine Casts Urine Mucus Ur Culture Indicated? POC Glucose Discharge Plan Discharge Disposition: Home, Self-Care Discharge Medications: Continued atorvastatin 80 mg tablet 80 mg PO DAILY carvedilol 25 mg tablet 25 mg PO BID metoprolol succinate 100 mg tablet extended release 24 hr 100 mg PO .am venlafaxine 150 mg capsule,extended release 24hr 150 mg PO DAILY clopidogrel 75 mg tablet 75 mg PO DAILY omeprazole 40 mg capsule,delayed release(DR/EC) 40 mg PO BID aspirin 81 mg tablet,delayed release (DR/EC) 81 mg PO .am metformin 1,000 mg tablet 1,000 mg PO BID furosemide 20 mg tablet 20 mg PO DAILY spironolactone 50 mg tablet 50 mg PO DAILY insulin glargine [Lantus Solostar U-100 Insulin] 100 unit/mL (3 mL) insulin pen 40 unit SUBCUT BID Trulicity 1.5 mg/0.5 mL pen injector 0.75 mg SUBCUT .WEEKLY Entresto 24-26 mg tablet 1 tab PO BID Activity: increase activity as tolerated Diet: advance to your usual diet and low fat, low cholesterol Print Language: [place] Patient Instructions: Chest Pain (DC) Forms: Portal Instructions Follow Up Appointments: Call Dr. Salinas's office at [phone] tomorrow 07/31/2023 to schedule follow up. Discharge Date/Time: 07/30/23 17:37
[2023-07-30 08:14] LABS: Glucometer 253 mg/dL (74-106)
[2023-07-30] MEDS: INSULIN ASPART 300 UNIT/3 ML PEN SUBQ ×2 (08:15→12:22)
[2023-07-30] MEDS: ASPIRIN 81 MG TABLET.DR PO (08:17)
[2023-07-30] MEDS: VENLAFAXINE HCL ER 150 MG CAPSULE PO (08:18)
[2023-07-30] MEDS: CLOPIDOGREL BISULFATE 75 MG TABLET PO (08:18)
[2023-07-30] MEDS: CARVEDILOL 25 MG TABLET PO (08:18)
[2023-07-30] MEDS: ACETAMINOPHEN 500 MG TABLET 1000 MG PO (08:18)
[2023-07-30] MEDS: SACUBITRIL/VALSARTAN 24 MG-26 MG TABLET 1 TAB PO (08:19)
[2023-07-30] MEDS: MAGNESIUM OXIDE 400 MG TABLET PO (08:19)
[2023-07-30] MEDS: HYOSCYAMINE SULFATE 0.125 MG TAB.SUBL SL ×3 (08:19→16:29)
[2023-07-30] MEDS: NITROGLYCERIN 2% 1 GRAM PACKET 1 GM TD ×2 (08:19→15:11)
[2023-07-30] MEDS: ATORVASTATIN CALCIUM 40 MG TABLET 80 MG PO (08:20)
[2023-07-30] MEDS: PANTOPRAZOLE SODIUM 40 MG VIAL IV (08:22)
[2023-07-30] MEDS: LACTULOSE 10 GM/15 ML UD CUP 30 GM PO ×2 (08:28→12:21)
[2023-07-30] MEDS: METFORMIN HCL 500 MG TABLET 1000 MG PO ×2 (08:29→16:29)
[2023-07-30] MEDS: POLYETHYLENE GLYCOL 3350 17 GM POWDER PACKET PO (08:30)
[2023-07-30] MEDS: INSULIN DETEMIR 300 UNIT/3 ML INSULN.PEN 40 UNIT SUBQ (08:49)
[2023-07-30] MEDS: 0.9 % SODIUM CHLORIDE 1,000 ML 75 ML IV ×2 (10:36→11:00)
--- NOTE | 2023-07-30 10:46 | SWNOTE1 ---
SW consulted due to pt wanting information in regards to disability. SW printed information from social security office online and also provided phone numbers for pt to call or assistance. Information provided to pt.
[2023-07-30 11:59] LABS: Glucometer 281 mg/dL (74-106)
--- NOTE | 2023-07-30 12:57 | PM.CACN ---
History of Present Illness History of Present Illness Consult date: 07/30/23 Requesting physician: Earnest Salinas Chief complaint: Chest Pain Abdominal Pain Back pain Narrative: Jennifer is a 47-year-old female with past medical history of non-ischemic cardiomopathy- heart failure improved ejection fraction, non-obstructive coronary artery disease, hypertension, hyperlipidemia, and type II diabetes mellitus seen in consultation for chest pain. She presented to the ED yesterday for evaluation of epigastric pain and chest pain radiating into her back associated with nausea. She reports mid-sternal sharp chest pain radiating across her chest wall ongoing for hours prior to ED presentation.She was found to have elevated blood pressure readings with systolic in the 180s. Her ECG showed T-wave abnormalities in the inferior leads, high-sensitive troponin and BNP were unremarkable. Review of Systems ROS Cardiovascular Reports: chest pain Respiratory Reports: shortness of breath PFSH PFSH Social History Smoking status: Current every day smoker Meds Home Medications and Allergies Home Medications Medication Instructions Recorded Confirmed Type aspirin 81 mg tablet,delayed 81 mg PO .am 07/29/23 07/29/23 History release atorvastatin 80 mg tablet 80 mg PO DAILY 07/29/23 07/29/23 History carvedilol 25 mg tablet 25 mg PO BID 07/29/23 07/29/23 History clopidogrel 75 mg tablet 75 mg PO DAILY 07/29/23 07/29/23 History dulaglutide 1.5 mg/0.5 mL 0.75 mg subcut .WEEKLY 07/29/23 07/29/23 History subcutaneous pen injector (Trulicity) furosemide 20 mg tablet 20 mg PO DAILY 07/29/23 07/29/23 History insulin glargine 100 unit/mL (3 40 unit subcut BID 07/29/23 07/29/23 History mL) subcutaneous pen (Lantus Solostar U-100 Insulin) metformin 1,000 mg tablet 1,000 mg PO BID 07/29/23 07/29/23 History metoprolol succinate 100 mg 100 mg PO .am 07/29/23 07/29/23 History tablet,extended release 24 hr omeprazole 40 mg capsule,delayed 40 mg PO BID 07/29/23 07/29/23 History release sacubitril 24 mg-valsartan 26 mg 1 tab PO BID 10/29/23 10/29/23 History tablet (Entresto) spironolactone 50 mg tablet 50 mg PO DAILY 07/29/23 07/29/23 History venlafaxine 150 mg 150 mg PO DAILY 07/29/23 07/29/23 History capsule,extended release 24 hr Allergies Allergy/AdvReac Type Severity Reaction Status Date / Time cephalexin [From Keflex] Allergy Verified 07/29/23 01:57 Exam Constitutional Vital Signs, click to edit/add: Last Vital Signs Temp 97.4 F L 07/30/23 09:18 Pulse 79 07/30/23 11:00 Resp 6 L 07/30/23 10:40 BP 126/93 H 07/30/23 08:18 Pulse Ox 97 07/30/23 11:24 O2 Del Method Room Air 07/30/23 11:24 Common normals: no apparent distress and oriented x3 General appearance: cooperative and comfortable Cardio Common normals: regular rate, regular rhythm, S1 normal heart sound, S2 normal heart sound, no gallops, no clicks and no murmurs Rate: regular rate Rhythm: regular rhythm Heart sounds: S1 normal and S2 normal Peripheral pulses: pulses 2+ throughout, radial pulses present and posterior tibial pulses present Extremity Common normals: normal to inspection Results Labs and Meds Lab results: Cardiac Enzymes 07/30/23 Range/Units 03:54 AST 9 L (15-37) U/L CBC 07/30/23 Range/Units 03:54 WBC 8.5 (4.0-11.0) 10^3/uL RBC 4.06 L (4.20-5.40) 10^6/uL Hgb 10.8 L (12.0-16.0) g/dL Hct 34.1 L (36.0-48.0) % Plt Count 286 (150-450) 10^3/uL Neut # (Auto) 6.0 (1.4-6.5) 10^3/uL Lymph # (Auto) 1.9 (1.2-3.8) 10^3/uL [facility] # (Auto) 0.5 (0.3-0.8) 10^3/uL Eos # (Auto) 0.0 (0.0-0.7) 10^3/uL Baso # (Auto) 0.0 (0.0-0.1) 10^3/uL Comprehensive Metabolic Panel 07/30/23 Range/Units 03:54 Sodium 137 (136-145) mmol/L Potassium 4.2 (3.5-5.1) mmol/L Chloride 103 (98-107) mmol/L Carbon Dioxide 24.7 (21.0-32.0) mmol/L BUN 21.0 H (7.0-18.0) mg/dL Creatinine 0.88 (0.55-1.02) mg/dL Glucose 233 H (74-106) mg/dL Calcium 8.6 (8.5-10.1) mg/dL AST 9 L (15-37) U/L ALT 17 (14-59) U/L Alkaline Phosphatase 96 (46-116) U/L Total Protein 7.0 (6.4-8.2) g/dL Albumin 3.1 L (3.4-5.0) g/dL Intake and Output 07/29/23 07/30/23 07/30/23 23:59 07:59 15:59 Intake Total 921.25 / 921.25 1000 / 1000 Balance 921.25 / 921.25 1000 / 1000 Intake: IV 921.25 / 921.25 1000 / 1000 0.9 % Sodium Chloride 1,000 ml 921.25 / 921.25 1000 / 1000 @ 75 mls/hr IV .[id number] [facility] Rx# :[id number] Other: # Voids 2 EKG Interpretation EKG: sinus rhythm Assessment and Plan Assessment and Plan (1) Chest pain: Assessment and Plan: -Atypical chest pain unlikely anginal, I reviewed recent coronary angiogram from 01/2022 which showed mild non-obstrutive CAD. Recommend continued Aspirin therapy and high intensity statin with LDL goal <70. -Needs aggressive risk factor modification including improved glycemic and hypertension control -Her repeat echo shows a recovered LVEF, no wall motion abnormalities noted -She is stable for discharge from a cardiac standpoint without further workup -Can follow-up with outpatient cardiology as scheduled (2) Abdominal pain:
[2023-07-30] MEDS: FLU VACC QS 23-24(6MS UP)CEL/PF 60 MCG/0.5 ML SYRINGE IM (16:27)
--- NOTE | 2023-07-31 13:06 | CM.DCFOLLOWU ---
Person spoke with: patient How are you feeling? well, still some diarrhea How is your pain? no pain Did you understand your discharge instructions? yes Do you have any questions about your discharge instructions? no Were you given any prescriptions at discharge? no Were you able to get your prescriptions filled? N/A Do you understand how to take your medications as ordered? yes Do you have any questions about your follow up appointment and do you plan to keep your follow up appointment? no questions, calling Dr. Richardson office today to make follow up Is there anything else that you would like to discuss? no Questions/Comments/Concerns/Other:
== END 2023-07-30 17:37 | disposition home or self-care (01) ==
LOC: ER 06:18 → ICU 06:34
PROVIDERS: Admitting Provider Family Medicine; Emergency Provider Internal Medicine; PCP Nurse Practitioner Family; Visit Provider Family Medicine
DX: R07.9 Chest pain, unspecified (principal); R06.03 Acute respiratory distress; R00.0 Tachycardia, unspecified; I10 Essential (primary) hypertension; I42.8 Other cardiomyopathies; R10.13 Epigastric pain; K85.90 Acute pancreatitis without necrosis or infection, unspecified; K59.00 Constipation, unspecified; E11.65 Type 2 diabetes mellitus with hyperglycemia; E66.01 Morbid (severe) obesity due to excess calories; F32.A Depression, unspecified; I25.10 Atherosclerotic heart disease of native coronary artery without angina pectoris; Z68.35 Body mass index [BMI] 35.0-35.9, adult; F17.210 Nicotine dependence, cigarettes, uncomplicated; Z23 Encounter for immunization; Z79.82 Long term (current) use of aspirin; Z79.899 Other long term (current) drug therapy; Z79.4 Long term (current) use of insulin; Z79.85 Long-term (current) use of injectable non-insulin antidiabetic drugs
CPT/HCPCS: 36415; 71045; 74177; 80053; 81001; 82150; 82948; 83605; 83690; 83735; 83880; 84436; 84443; 84484; 85025; 85378; 90674; 93005; 93308; 94761; 96374; 96375; 96376; 99285; G0008; G0378; J1100; J1170; Q9967

== ENCOUNTER 2024-01-04 15:21 | Outpatient (OUT) | payer MEDICAID, SELFPAY ==
--- OUTSIDE RECORDS SUMMARY | 2024-01-04 15:31 | XMS_ITS | CCD ---
Author Organization [facility] Care Team Providers Care Mining Analyst Name Role Phone JOSE Salmeron Primary Care Provider MD Zahraa Ferrara Admit Provider MD Zahraa Ferrara Attending Provider OMEGA, MOHAMAD Attending Unavailable YOEL SALINAS Primary Care Unavailable SELF, REFERRED Referring Unavailable ALGHOTHANI, MOHAMAD Admitting Unavailable TEAGANY ., DR DIALLO Consulting Unavailable TEAGANY ., DR DIALLO Attending Unavailable TEAGANY ., DR DIALLO Admitting Unavailable FAVIOLA, VIVI Primary Care Unavailable ALANA, DR BRYCE Ramirez Consulting UnavailDELIA Gibbs Consulting Unavailable FALMELLISSA, LILA Consulting Unavailable NESS BRAR Consulting Unavailable ANKIT ., DR ATKINS Consulting Unavailable FAVIOLA, VIVI Primary Care Unavailable ANKIT ., DR ATKINS Attending Unavailable ANKIT ., DR ATKINS Admitting Unavailable FAVIOLA, VIVI Consulting Unavailable FAVIOLA, VIVI Primary Care Unavailable FAVIOLA, VIVI Attending Unavailable FAVIOLA, VIVI Admitting Unavailable ALGHOTHANI, MOHAMAD Consulting Unavailable FAVIOLA, VIVI Primary Care Unavailable ALGHOTHANI, MOHAMAD Attending Unavailable ALGHOTHANI, MOHAMAD Admitting Unavailable ALGHOTHANI, MOHAMAD Consulting Unavailable FAVIOLA, VIVI Primary Care Unavailable ALGHOTHANI, MOHAMAD Attending Unavailable ALGHOTHANI, MOHAMAD Admitting Unavailable MISC, DR DORMAN Consulting Unavailable FAVIOLA, VIVI Primary Care Unavailable MISC, DR DORMAN Attending Unavailable MISC, DR DORMAN Admitting Unavailable FANNY, DR KEYSHAWN Liriano Consulting Unavailable FAVIOLA, VIVI Consulting Unavailable FAVIOLA, VIVI Primary Care Unavailable FAVIOLA, VVII Attending Unavailable FAVIOLA, VIVI Admitting Unavailable KRYSTYNA, DASHAWN Consulting Unavailable FAVIOLA, VIVI Primary Care Unavailable KRYSTYNA, DASHAWN Attending Unavailable KRYSTYNA, DASHAWN Admitting Unavailable KRYSTYNA, DASHAWN Consulting Unavailable FAVIOLA, VIVI Primary Care Unavailable KRYSTYNA, DASHAWN Attending Unavailable KRYSTYNA, DASHAWN Admitting Unavailable Caleb Colunga Consulting Unavailable ADELINE, DELIA Attending Unavailable ADELINE, DELIA Admitting Unavailable FAVIOLA, VIVI Primary Care Unavailable SANTOSH DANIEL Consulting Unavailable DR KEYSHAWN ESCOBEDO Consulting Unavailable JUDY ., DEMOND Attending Unavailable JUDY ., DEMOND Admitting Unavailable FAVIOLA, VIVI Primary Care Unavailable KATHY RAMÍREZ Consulting Unavailable JUDY ., DEMOND Consulting Unavailable WALE OCAMPO Consulting Unavailable VANNESSA ., BABAK Attending Unavailable VANNESSA ., BABAK Admitting Unavailable FAVIOLA, VIVI Primary Care Unavailable VANNESSA ., BABAK Consulting Unavailable DIAB ., ELIZABETH Consulting Unavailable Jose Carmona Unavailable [facility] Primary [facility] Provider MD Jose Carmona Attending Provider [phone] Jose Carmona Attending Unavailable Jose Carmona Admitting Unavailable Faviola, Vivi Dalila Primary Care Unavailable SHERRIE LANDAVERDE Attending Unavailable VISHAL FOWLER Attending Unavailable VISHAL FOWLER Attending Unavailable Allergies Allergy Classification Reported Allergen(s) Allergy Type Date of Onset Reaction(s) Facility (5 sources) Cephalexin; Translations: [cephalexin] Drug Allergy 01-31-2022 [facility] (4 sources) Penicillins; Translations: [Penicillins] Allergy to drug (finding) 01-31-2022 [facility] (3 sources) Cephalexin Drug Allergy 10-28-2018 Unknown [facility] (2 sources) Penicillin Drug Allergy Unknown [facility] (1 source) Cephalexin Drug Allergy 08-02-2023 [facility] (1 source) Penicillins Drug allergy (disorder) 08-02-2023 [facility] Medications Current Medications Medication Drug Class(es) Dates Sig (Normalized) Sig (Original) Albuterol (2 sources) beta2-Adrenergic Agonist Start: 01-31-2022 Albuterol Active 2 MCG INHALATION 2-4 TIMES DAILY January 31, 2022 6:07pm Start: 01-31-2022 Albuterol Acti ve 2 MCG INHALATION 2-4 TIMES DAILY January 30, 2022 11:00pm aspirin 81 mg chewable tablet (3 sources) Platelet Aggregation Inhibitor, Nonsteroidal Anti-inflammatory Drug Start: 02-02-2022 take 1 tablet by mouth once daily Aspirin (Children's Aspirin) 81 mg Tablet,Chewable Active 81 MG PO Daily February 02, 2022 1:44pm take 1 tablet by imer th every twenty-four hours Aspirin 81 81 MG 1 tablet Orally Once a day Active atorvastatin 40 mg oral tablet (5 sources) HMG-CoA Reductase Inhibitor Start: 01-31-2022 End: 01-31-2022 take 1 mg by mouth once daily at bedtime Atorvastatin Discontinued 1 MG PO Daily at bedtime January 31, 2022 6:07pm January 31, 2022 8:18pm Start: 01-31-2022 take 40 mg by mouth once daily Atorvastatin Active 40 MG PO Daily January 31, 2022 6:11pm take 1 tablet by imer th every twenty-four hours Atorvastatin Calcium 80 MG 1 tablet Orally Once a day Active carvedilol 6.25 mg oral tablet (3 sources) alpha-Adrenergic Chloe, beta-Adrenergic Chloe Start: 02-02-2022 take 6.25 mg by mouth twice daily at mealtime Carvedilol Active 6.25 MG PO Twice daily with meals 60 February 02, 2022 1:43pm take 1 tablet by imer th every twelve hours Carvedilol 25 MG 1 tablet with food Oral ly Twice a day Active clopidogrel 75 mg oral tablet (2 sources) P2Y12 Platelet Inhibitor Start: 09-04-2023 take 75 mg by mouth once daily Clopidogrel Active 75 MG PO Daily September 04, 2023 12:00am take 1 tablet by imer th every twenty-four hours Clopidogrel Bisulfate 75 MG 1 tablet Orally Once a day Active dexlansoprazole 60 mg delayed release oral capsule (1 source) Proton Pump Inhibitor Start: 09-04-2023 take 60 mg by mouth once daily Dexlansoprazole Active 60 MG PO Daily September 04, 2023 12:00am 0.5 ml dulaglutide 3 mg/ml auto-injector (2 sources) GLP-1 Receptor Agonist Start: 09-04-2023 Dulaglutide (ulicity) 1.5 mg/0.5 mL pen injector Active 1.5 MG SUBCUT every week September 04, 2023 12:00am Trulicity 1.5 MG /0.5ML as directed Subcutaneous Active empagliflozin 10 mg oral tablet (2 sources) Sodium-Glucose Cotransporter 2 Inhibitor Start: 02-02-2022 End: 09-04-2023 take 1 tablet by mouth once daily Empagliflozin (Jardiance) 10 mg tablet Active 10 MG PO Daily February 02, 2022 1:45pm ferrous sulfate 325 mg oral tablet (6 sources) Start: 02-02-2022 Ferrous Sulfate (Ferosul) 325 mg (65 mg iron) tablet Active 325 MG PO Q48H February 02, 2022 12:56pm Start: 01-31-2022 End: 02-02-2022 take 1 tablet by mouth once daily Ferrous Sulfate (Ferosul) 325 mg (65 mg iron) tablet Discontinued 325 MG PO Daily January 31, 2022 6:11pm February 02, 2022 1:57pm furosemide 20 mg oral tablet (3 sources) Loop Diuretic Start: 02-02-2022 take 1 tablet by mouth once daily Furosemide (Lasix) 20 mg tablet Active 20 MG PO Daily February 02, 2022 1:44pm insulin aspart, human (3 sources) Insulin Analog Start: 01-31-2022 Insulin Aspart U-100 Active SUBCUT 3x/Day before meals January 31, 2022 6:10pm sliding scale Start: 01-31-2022 inject 1 [IU] by sub cutaneous injection once before mealtime Insulin Aspart U-100 Active 1 UNIT SUBCUT 3x/Day before meals January 30, 2022 11:00pm sliding scale NovoLOG Active magnesium chloride 598 mg delayed release oral tablet (2 sources) Start: 02-02-2022 End: 09-04-2023 take 2 tablets by mouth once daily Magnesium Chloride (Slow-Mag) 71.5 mg tablet,delayed release (DR/EC) Active 143 MG PO Daily February 02, 2022 3:31pm 24 hr metoprolol succinate 100 mg extended release oral tablet (2 sources) beta-Adrenergic Chloe Start: 09-04-2023 take 100 mg by mouth once daily Metoprolol Succinate Active 100 MG PO Daily September 04, 2023 12:00am take 1 capsule by mouth once [place] ly Metoprolol Succinate 100 MG 1 capsule Orally Once a day Active sacubitril 24 mg / valsartan 26 mg oral tablet (5 sources) Angiotensin 2 Receptor Chloe Start: 02-02-2022 take 1 tablet by mouth twice daily Sacubitril-Valsartan (Entresto) 24-26 mg Tablet Active 1 TAB PO Twice daily 60 February 02, 2022 1:43pm ENTRESTO 24 mg/2 6 mg 1 orally twice a day Active spironolactone 25 mg oral tablet (3 sources) Aldosterone Antagonist Start: 02-02-2022 take 25 mg by mouth once daily Spironolactone Active 25 MG PO Daily 30 February 02, 2022 1:44pm take 1 tablet by imer th every twenty-four hours Spironolactone 50 MG 1 tablet Orally Onc e a day Active valACYclovir 500 mg oral tablet (2 sources) Herpesvirus Nucleoside Analog DNA Polymerase Inhibitor, Herpes Simplex Virus Nucleoside Analog DNA Polymerase Inhibitor, Herpes Zoster Virus Nucleoside Analog DNA Polymerase Inhibitor Start: 01-31-2022 take 500 mg by mouth once daily Valacyclovir Active 500 MG PO Daily January 31, 2022 6:14pm 24 hr venlafaxine 150 mg extended release oral capsule (3 sources) Serotonin and Norepinephrine Reuptake Inhibitor Start: 01-31-2022 take 150 mg by mouth once daily Venlafaxine Active 150 MG PO Daily January 31, 2022 6:15pm Venlafaxine HCl 150mg Active Completed/Discontinued Medications Medication Drug Class(es) Dates Sig (Normalized) Sig (Original) glipiZIDE 5 mg oral tablet (4 sources) Sulfonylurea Start: 01-31-2022 End: 02-02-2022 take 5 mg by mouth twice daily Glipizide Discontinued 5 MG PO Twice daily January 31, 2022 6:12pm February 02, 2022 1:57pm 3 ml insulin glargine 100 unt/ml pen injector (5 sources) Insulin Analog Start: 01-31-2022 inject 45 [IU] by subcutaneous injection twice daily Insulin Glargine Active 45 UNIT SUBCUT Twice daily January 31, 2022 6:07pm Start: 01-31-2022 End: 01-31-2022 Insulin Glargine (Lantus Lolita ostar U-100 Insulin) 100 unit/mL (3 mL) Insulin Pen Discontinued 45 UNIT SUBCUT Twice daily January 31, 2022 6:10pm January 31, 2022 8:18pm Start: 01-31-2022 inject 45 [IU] by pace bcutaneous injection twice daily Insulin Glargine Active 45 UNIT SUBCUT Twice daily January 30, 2022 11:00pm Lantus 40mg BID Active losartan potassium 100 mg oral tablet (4 sources) Angiotensin 2 Receptor Chloe Start: 01-31-2022 End: 02-02-2022 take 100 mg by mouth once daily at bedtime Losartan Discontinued 100 MG PO Daily at bedtime January 31, 2022 6:12pm January 31, 2022 8:18pm metFORMIN hydrochloride 1000 mg oral tablet (5 sources) Biguanide Start: 01-31-2022 End: 01-31-2022 take 1000 mg by mouth twice daily Metformin Discontinued 1000 MG PO Twice daily January 31, 2022 6:13pm January 31, 2022 8:18pm Glucophage 1,000 BID Active omeprazole 40 mg delayed release oral capsule (5 sources) Proton Pump Inhibitor Start: 02-02-2022 End: 09-04-2023 take 20 mg by mouth once daily Omeprazole Discontinued 20 MG PO Daily February 02, 2022 12:56pm September 04, 2023 1:22pm Start: 01-31-2022 End: 02-02-2022 take 40 mg by mouth twice daily Omeprazole Discontinue d 40 MG PO Twice daily January 31, 2022 6:14pm February 02, 2022 1:57pm take 1 capsule by [facility] once daily Omeprazole 40 MG 1 capsule 30 minutes before morning meal Orally Once a day Active Problems Active Problems Problem Classification Problem Date Documented Da te Episodic/Chronic Abdominal pain (3 sources) Indigestion; Translations: [Epigastric pain] Onset: 09-04-2023 Episodic Acute myocardial infarction (1 source) Non-ST elevation (NSTEMI) myocardial infarction; Translations: [NON-ST ELEVATION MYOCARDIAL INFARCT] Onset: 02-02-2022 Chronic Anxiety disorders (1 source) Anxiety disorder, unspecified; Translations: [ANXIETY DISORDER UNSPECIFIED] Onset: 12-20-2022 Chronic Asthma (1 source) Unspecified asthma, uncomplicated; Translations: [UNSPECIFIED ASTHMA UNCOMPLICATED] Onset: 06-16-2022 Chronic Congestive heart failure; nonhypertensive (16 sources) Acute combined systolic (congestive) and diastolic (congestive) heart failure; Translations: [Chronic diastolic (congestive) heart failure] Onset: 07-12-2022 Chronic Coronary atherosclerosis and other heart disease (7 sources) Ischemic myocardial dysfunction; Translations: [Ischemic cardiomyopathy] Onset: 05-15-2022 02-01-2022 Chronic Diabetes mellitus with complications (1 source) Type 2 diabetes mellitus with hyperglycemia; Translations: [TYPE 2 DM W/HYPERGLYCEMIA] Onset: 12-20-2022 Chronic Diabetes mellitus without complication (4 sources) Type 2 diabetes mellitus; Translations: [Type 2 diabetes mellitus without complications] Onset: 06-16-2022 02-01-2022 Chronic Disorders of lipid metabolism (4 sources) Pure hypercholesterolemia , unspecified; Translations: [Hyperlipidemia, unspecified] Onset: 06-20-2022 Chronic Esophageal disorders (1 source) Gastro-esophageal reflux disease without esophagitis; Translations: [GERD WITHOUT ESOPHAGITIS] Onset: 12-20-2022 Chronic Essential hypertension (3 sources) Essential (primary) hypertension; Translations: [ESSENTIAL PRIMARY HYPERTENSION] Onset: 05-15-2022 Chronic Gastritis and duodenitis (2 sources) Chronic gastritis; Translations: [Unspecified chronic gastritis without bleeding] Chronic Hypertension with complications and secondary hypertension (4 sources) Hypertensive heart disease without heart failure; Translations: [Hypertensive heart disease with heart failure] Onset: 01-05-2023 Chronic Mood disorders (1 source) Major depressive disorder, single episode, unspecified; Translations: [SULLY DEPRESS D/O SINGLE EPIS UNS] Onset: 06-16-2022 Chronic Mood disorders (1 source) Mood disorders; Translations: [DEPRESSION UNSPECIFIED] Onset: 12-20-2022 Nonspecific chest pain (5 sources) Chest pain, unspecified; Translations: [Other chest pain] Onset: 06-16-2022 Episodic Other aftercare (1 source) [facility] (current) use of aspirin; Translations: [GROUP HOME CURRENT USE OF ASPIRIN] Onset: 12-20-2022 Episodic Other aftercare (1 source) 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; Translations: [CHIEF INFORMATICS OFFICER CURRENT USE OF INSULIN] Onset: 12-20-2022 Episodic Other aftercare (5 sources) Other intermediate (current) drug therapy; Translations: [OTH CHIEF INFORMATICS OFFICER CURRENT DRUG THERAPY] Onset: 10-30-2022 Episodic Other aftercare (1 source) [facility] (current) use of oral hypoglycemic drugs; Translations: [GROUP HOME USE ORAL HYPOGLYCEMIC DX] Onset: 12-20-2022 Episodic Other aftercare (1 source) [facility] (current) use of antithrombotics/anti platelets; Translations: [GROUP HOME ANTITHROMBOT/ANTIPLA TLETS] Onset: 12-20-2022 Episodic Other circulatory disease (1 source) Personal history of transient ischemic attack (TIA), and cerebral infarction without residual deficits; Translations: [PERS HX TIA AND CI NO RESID DEFICIT] Onset: 12-20-2022 Episodic Other gastrointestinal disorders (1 source) Dysphagia; Translations: [Dysphagia, unspecified] Episodic Other gastrointestinal disorders (2 sources) Dysphagia, unspecified; Translations: [Dysphagia, unspecified] Onset: 09-04-2023 Episodic Other hematologic conditions (1 source) High troponin I level; Translations: [Other specified abnormalities of plasma proteins] 01-31-2022 Episodic Other hematologic conditions (1 source) Other specified abnormalities of plasma proteins; Translations: [Other abnormal blood chemistry] Episodic Other injuries and conditions due to external causes (1 source) Elevated urine levels of drugs, medicaments and biological substances; Translations: [ELEV URIN LEVELS RX MEDS AND BIO SUBS] Onset: 12-20-2022 Episodic Other lower respiratory disease (1 source) Personal history of pneumonia (recurrent); Translations: [PERSONAL HX OF PNEUMONIA RECURRENT] Onset: 12-20-2022 Episodic Other screening for suspected conditions (not mental disorders or infectious disease) (4 sources) Echocardiogram abnormal; Translations: [Nonspecific (abnormal) findings on radiological and other examination of other intrathoracic organs] 01-31-2022 Episodic Karen-; endo-; and myocarditis; cardiomyopathy (except that caused by tuberculosis or sexually transmitted disease) (2 sources) Cardiomyopathy, unspecified; Translations: [Cardiomyopathy, unspecified] Onset: 01-05-2023 Chronic Peripheral and visceral atherosclerosis (6 sources) Peripheral vascular disease, unspecified; Translations: [PERIPHERAL VASCULAR DISEASE UNS] Onset: 11-27-2022 Chronic Residual codes; unclassified (1 source) Acquired absence of other specified parts of digestive tract; Translations: [ACQ ABSENCE OTH PART DIGESTV TRACT] Onset: 12-20-2022 Episodic Residual codes; unclassified (1 source) Early satiety; Translations: [Early satiety] Episodic Residual codes; unclassified (2 sources) Early satiety; Translations: [Early satiety] Onset: 09-04-2023 Episodic Substance-related disorders (3 sources) Nicotine dependence, cigarettes, uncomplicated; Translations: [Nicotine dependence, unspecified, uncomplicated] Onset: 12-20-2022 Chronic Syncope (6 sources) Near syncope; Translations: [Syncope and collapse] Onset: 01-31-2022 02-01-2022 Episodic Unclassified (1 source) CONTACT W/AND (SUSP) EXPOS COVID-19; Translations: [CONTACT W/AND (SUSP) EXPOS COVID-19] Onset: 02-23-2022 Past or Other Problems Problem Classification Problem Date Documented Date Episodic/Chronic Deficiency and other anemia (1 source) Anemia, unspecified; Translations: [ANEMIA UNSPECIFIED] Onset: 06-20-2022 Episodic Diabetes mellitus without complication (1 source) Other abnormal glucose; Translations: [OTHER ABNORMAL GLUCOSE] Onset: 06-20-2022 Episodic Immunizations and screening for infectious disease (1 source) Encounter for screening for infections with a predominantly sexual mode of transmission; Translations: [ENC SCREEN INFECTIONS SEXL TRANSMS] Onset: 06-20-2022 Episodic Malaise and fatigue (1 source) Weakness; Translations: [WEAKNESS] Onset: 02-08-2022 Episodic Mycoses (4 sources) Candidiasis of vulva and vagina; Translations: [CANDIDIASIS OF VULVA AND VAGINA] Onset: 06-19-2022 Episodic Other connective tissue disease (4 sources) Facial weakness; Translations: [FACIAL WEAKNESS] Onset: 02-03-2022 Episodic Other lower respiratory disease (1 source) Dyspnea, unspecified; Translations: [DYSPNEA UNSPECIFIED] Onset: 06-16-2022 Episodic Results Test Name Value Interpretation Reference Range Facility Glucose Glucometer (BldC) [M ass/Vol]Ordered By: Jose Carmona on 09-04-2023 Glucose [Mass/Vol] 135 mg/dL [facility] Comment on above: Random Glucose Refer ence Range is dependent on time and content of last meal. Glucose of more than 200 mg/dL in a nonstressed, ambulatory subject supports the diagnosis of Diabetes Mellitus. Glucose Poct Glucometerson 1 11-05-2022 Commemt1 Glu2: Cleaned Meter Normal [facility] Comment on above: Result Comment: PERF ORMED BY: [place] [id number] PATHOLOGIST INBOUND SALES MANAGER FRANKIE QUEZADA M.D. Performed By: #### G LULS #### Point of Care testing , Glucose [Mass/Vol] 135 mg/dL Normal [facility] Comment on above: Result Comment: [facility] Glucose Reference Range is dependent on time and content of last meal. Glucose of more than 200 mg/dL in a nonstressed, ambulatory subject supports the diagnosis of Diabetes Mellitus. Performed By: #### G LULS #### Point of Care testing , HCG ( test) IA.rapi d Ql (U)Ordered By: Jose Carmona on 09-04-2023 HCG ( test) Ql (U) Negative [facility] HCG,Urineon 09-04-2023 Beta HCG ( test) Ql (U) Negative Normal [facility] Comment on above: Result Comment: PERF ORMED BY: [place] [address] PATHOLOGIST INBOUND SALES MANAGER FRANKIE QUEZADA M.D. Performed By: #### U HCG #### [place] [id number] [facility] 09-04-2023 L - -------- Specimen: [id number] Received: 09/04/23 Status: CHRIS Gunnar Num: [id number] Spec Type: Surgical Subm Dr: Jose Carmona MD Tissues: A Small Intestine - Biopsy/Polyp (SMALL BOWEL BX) B GASTRIC FOR HP (GASTRIC HP) Procedures: HE/4, Gross/Micro L4/2, H PYLORI, IHC First AB -------- Age/ Patient Sex Location Account Attending Physician -------- Jennifer Diaz 47/F [id number] Jose Carmona MD -------- SPEC NUM: [id number] RECD: 09/04/23 STATUS: CHRIS MAHER NUM: [id number] DANUTA: 09/04/23- [facility] DR: Jose Carmona MD ENTERED: 09/04/23 [facility] DR: VIKAS TYPE: Surgical DEPT: S ORDERED: HE/4, Gross/Micro L4/2, H PYLORI, IHC First AB ORDERED: HE/4, Gross/Micro L4/2, H PYLORI, IHC First AB Pathological Diagnosis A. Small bowel biopsy: - Duodenal mucosa with mild chronic duodenitis, including mildly associated gastric metaplasia, stromal edema, and minor congestion, otherwise without active erosion or any obvious or significant lymphocytic exocytosis observed, therefore also no obvious features of celiac sprue identified B. Gastric biopsy: - Antral mucosa with minor degrees of inactive chronic gastritis, otherwise without erosion, intestinal metaplasia, or significant stromal chronic inflammation observed - H. pylori immunostain with appropriate control is also negative for identified Helicobacter organisms Clinical Information Gastritis, rule out celiac, rule out H. pylori Gross Description A. Received in formalin labeled with the patient's name, date of and small bowel are two pepper tissues averaging 0.4 x 0.2 x 0.2 cm. Entirely submitted in one cassette labeled A1. B. Received in formalin labeled with the patient's name, date of and gastric is one -------- Specimen: [id number] Received: 09/04/23 Status: CHRIS Maher Num: [id number] Spec Type: Surgical Subm Dr: Jose Carmona MD Tissues: A Small Intestine - Biopsy/Polyp (SMALL BOWEL BX) B GASTRIC FOR HP (GASTRIC HP) Procedures: HE/4, Gross/Micro L4/2, H PYLORI, IHC First AB -------- Patient: DiazJennifer [id number] (Continued) -------- Specimen: [id number] Received: 09/04/23 (Continued) Gross Description (Continued) Signed (signature on file) Dimple Ward MD 09/05/231999 -------- Specimen: [id number] Received: 09/04/23 Status: CHRIS Maher Num: [id number] Spec Type: Surgical Subm Dr: Jose Carmona MD Tissues: A Small Intestine - Biopsy/Polyp (SMALL BOWEL BX) B GASTRIC FOR HP (GASTRIC HP) Procedures: HE/4, Gross/Micro L4/2, H PYLORI, IHC First AB -------- Patient: Jennifer Diaz [id number] (Continued) -------- Specimen: [id number] Received: 09/04/23 (Continued) Gross Description (Continued) pepper tissue measuring 0.5 x 0.3 x 0.2 cm. Entirely submitted in one cassette labeled B1. Microscopic Description A. Two H E slides reviewed. The microscopic examination confirms the diagnosis. B. Two H E slides reviewed. The microscopic examination confirms the diagnosis. CPT Codes [id number] -------- -------- Specimen: [id number] Received: 09/04/23 Status: CHRIS Maher Num: [id number] Spec Type: Surgical Subm Dr: Jose Carmona MD Tissues: A Small Intestine - Biopsy/Polyp (SMALL BOWEL BX) B GASTRIC FOR HP (GASTRIC HP) Procedures: HE/4, Gross/Micro L4/2, H PYLORI, IHC First AB -------- Patient: Jennifer Diaz [id number] (Continued) -------- Signed (signature on file) Dimple Ward MD 09/05/231999 [facility] No Panel InformationOrdered By: Jose Carmona on 09-04-2023 Bedside Glucose Comment Glu2: cleaned meter [facility] Office Visiton 04-06-2023 Follow-up visit [id number] Jennifer Diaz 1975 F Date Provider Department Center 04/06/2023 [id number] VISHAL CARD [facility] Family History Problem Relation Age of Onset Arthritis Mother Hypertension Mother Hyperlipidemia Mother Diabetes Paternal Grandmother Other Paternal Grandfather Family Status - Relation Status Age at Mother Paternal Grandmother Paternal Grandfather Level of Service:44578 [facility] OFFICE/OUTPATIENT ESTABLISHED LOW MDM 20-29 MIN Normal [facility] ECHOCARDIO M/2D COMPLETEon 0 01-17-2023 ECHOCARDIO M/2D COMPLETE Patient: JENNIFER DIAZ. Exam Date: 01/17/2023 : 1975 Gender:F Ordering : VISHAL FOWLER Admission #: [id number] Family : Order #: [id number] CLICK HERE TO VIEW EXAM ECHOCARDIOGRAM REPORT PROCEDURE: CARDIO PULMONARY ECHOCARDIO M/2D COMP INDICATIONS: Acute combined systolic and diastolic heart failure COMPARISON: None. DESCRIPTION: COMPLETE ECHOCARDIOGRAM Real-time transthoracic echocardiography with 2D, M-mode, spectral and color flow Doppler performed. QUALITY: Technical quality was good. LEFT VENTRICLE: Normal chamber size. Moderate concentric hypertrophy. Normal systolic function. LV EF: Estimated left ventricular ejection fraction is 60-65% DIASTOLIC: Diastolic function is indeterminate. ATRIAL SEPTUM: LEFT ATRIUM: Normal chamber size. RIGHT ATRIUM: Normal chamber size. RIGHT VENTRICLE: Normal chamber size. Normal right ventricular systolic function. TRICUSPID VALVE: Normal mobility and thickness. No stenosis with trivial regurgitation. Unable to assess right-sided pressures due to lack of measurable tricuspid regurgitation. MITRAL VALVE: Normal mobility and thickness. No mitral valve prolapse. No evidence of mitral valve stenosis. There is no mitral annular calcification. No mitral regurgitation. AORTIC VALVE: Normal trileaflet appearance. No visible sclerosis. Normal leaflet mobility. No evidence of aortic valve stenosis. No aortic regurgitation. AORTIC ROOT: Normal diameter and appearance. PULMONIC VALVE: Normal thickness and mobility. No stenosis. Trivial regurgitation. PERICARDIUM: Trivial pericardial effusion. IVC: Collapses with inspirations. Normal size, PLEURA: CONCLUSION: 1. Moderate concentric left ventricular hypertrophy. Normal systolic function. LVEF is 60 to 65%. 2. Normal right ventricular size and systolic function. 3. No significant valvular dysfunction. 4. Trivial pericardial effusion. Adult Echocardiography Procedure Report Left Ventricle LVEDD (3.7 - 5.6 cm): 3.73 cm LVESD (2.2 - 4.0 cm): 2.80 cm LVIVS thickness (0.6 - 1.2 cm): 1.56 cm LVPW thickness (0.5 - 1.0 cm): 1.33 cm e': 0.09 m/s E - e': 7.73 LVOT Max Gradient: 2.23 mm[Hg] Peak Velocity (LVOT): 0.75 m/s Mean Velocity (LVOT): 0.49 m/s LVOT Diameter 2.01 cm Left Ventricular Ejection Fraction: 60-65 % Left Atrium LA Volume Index (2D A2C): 46.60 ml, 46.60 ml Left Atrium Systolic Dimension: 3.55 cm Mitral Valve MV E to A Ratio: 0.73 Mitral Valve A-Wave Peak Velocity: 0.90 m/s Mitral Valve E-Wave Peak Velocity: 0.66 m/s Right Ventricle RV Internal Diastolic Dimension: 2.46 cm Aorta AO Root Diam: 3.19 cm Ascending Ao Diam: 2.63 cm Aortic Valve AoV Area (Peak Surinder): 1.80 cm2, 1.80 cm2 AoV Area (VTI): 2.56 cm2, 2.56 cm2 Peak Velocity(Antegrade Flow): 1.31 m/s, 1.31 m/s Peak Gradient(Antegrade Flow): 6.88 mm[Hg], 6.88 mm[Hg] Mean Velocity(Antegrade Flow): 0.89 m/s, 0.92 m/s Mean Gradient(Antegrade Flow): 3.69 mm[Hg], 3.84 mm[Hg] Velocity Time Integral: 20.61 cm, 20.49 cm Tricuspid Valve Peak Velocity (Regurgitant Flow): 1.59 m/s Peak Velocity: 0.53 m/s Pulmonic Valve Mean Gradient: 1.83 mm[Hg], 1.66 mm[Hg], 2.32 mm[Hg], 2.11 mm[Hg] Mean Velocity: 0.67 m/s, 0.63 m/s, 0.71 m/s, 0.68 m/s Peak Velocity: 0.78 m/s, 0.74 m/s, 1.06 m/s, 0.99 m/s Peak Gradient: 2.43 mm[Hg], 2.21 mm[Hg], 4.49 mm[Hg], 3.96 mm[Hg] Right Atrium Right Atrium Systolic Pressure: 37.86 ml, 37.86 ml Dictated by: Matt Montez M.D. on 01/17/2023 at 17:27 Approved by: Matt Montez M.D. on 01/17/2023 at 17:32 Normal [facility] Office Visiton 01-05-2023 Follow-up visit [id number] Jennifer Diaz 1975 F Date Provider Department Center 01/05/2023 3848-VISHAL FOWLER [facility] Family History Problem Relation Age of Onset Arthritis Mother Hypertension Mother Hyperlipidemia Mother Diabetes Paternal Grandmother Other Paternal Grandfather Family Status - Relation Status Age at Mother Paternal Grandmother Paternal Grandfather Level of Service:64104 [facility] OFFICE/OUTPATIENT ESTABLISHED MOD MDM 30-39 MIN Reason for Visit and Comments: Follow-up [624875] - 6 week marbin and us f/u Normal [facility] US ARTERY LEG BILon 01-04-20 US ARTERY LEG SANDRA EXAMINATION: US ARTERY LEG SANDRA HISTORY: Peripheral vascular disease (disorder) COMPARISON: No relevant comparison available. TECHNIQUE: Color and Duplex Doppler ultrasound evaluation analysis were performed in the usual manner. FINDINGS: RIGHT LOWER EXTREMITY ARTERIAL: Mild-moderate atherosclerotic disease within the distal lower extremity resulting in abnormal biphasic waveform within the posterior tibial arteries and distal anterior tibial artery. Mild atherosclerotic disease and normal triphasic waveform within the iliac, femoral, popliteal, and proximal anterior tibial arteries. External Iliac PSV: 67.3 cm/s External Iliac EDV: 0.0 cm/s Common Femoral PSV: 48.2 cm/s Common Femoral EDV: 0.0 cm/s Superficial Femoral Proximal PSV: 80.6 cm/s Proximal EDV: 2.9 cm/s Mid PSV: 59.9 cm/s Mid EDV: 0.0 cm/s Distal PSV: 32.7 cm/s Distal EDV: 0.0 cm/s Popliteal Proximal PSV: 68.9 cm/s Popliteal Proximal EDV: 5.5 cm/s Posterior Tibial Proximal PSV: 91.2 cm/s Proximal EDV: 14.5 cm/s Mid PSV: 98.2 cm/s Mid EDV: 12.2 cm/s Distal PSV: 119.1 cm/s Distal EDV: 19.2 cm/s Anterior Tibial Proximal PSV: 66.6 cm/s Proximal EDV: 8.5 cm/s Mid PSV: 50.5 cm/s Mid EDV: 3.6 cm/s Distal PSV: 102.8 cm/s Distal EDV: 14.5 cm/s LEFT LOWER EXTREMITY ARTERIAL: Mild atherosclerotic disease within the left lower extremity. Abnormal biphasic waveform within the distal posterior tibial artery. Otherwise normal triphasic waveform throughout the left lower extremity. External Iliac PSV: 100.5 cm/s External Iliac EDV: 0.0 cm/s Common Femoral PSV: 48.8 cm/s Common Femoral EDV: 0.0 cm/s Superficial Femoral Proximal PSV: 87.1 cm/s Proximal EDV: 0.0 cm/s Mid PSV: 88.7 cm/s Mid EDV: 0.0 cm/s Distal PSV: 64.4 cm/s Distal EDV: 0.0 cm/s Popliteal Proximal PSV: Popliteal Proximal EDV: Posterior Tibial Proximal PSV: 67.6 cm/s Proximal EDV: 0.0 cm/s Mid PSV: 82.1 cm/s Mid EDV: 0.0 cm/s Distal PSV: 82.2 cm/s Distal EDV: Anterior Tibial Proximal PSV: 49.3 cm/s Proximal EDV: 0.0 cm/s Mid PSV: 65.9 cm/s Mid EDV: 0.0 cm/s Distal PSV: 83.7 cm/s Distal EDV: 7.9 cm/s IMPRESSION: 1. Mild-moderate atherosclerotic disease within the distal right lower extremity. 2. Mild atherosclerotic disease within distal left lower extremity. Electronically authenticated by: KEYSHAWN ESCOBEDO Date: 2023-01-03 11:24 Normal [facility] T3, TOTAL (TRIIODOTHYRONINE) on 12-19-2022 T3, TOTAL 107 ng/dL Normal 71-180 [facility] Comment on above: Performed By: #### T 3TOTAL #### [facility] [address] [place] [address] Dr. Clem Ward CBC AUTO DIFFon 12-18-2022 BASO # 0.0 103/ul Normal 0.0-0.1 [facility] Comment on above: Performed By: #### P OCGLUC #### [facility] [address] [place] [address] Dr. Clem Ward Basophils/100 WBC (Bld) 0.1 % Critically low 0.2-2.0 [facility] Comment on above: Performed By: #### P OCGLUC #### [facility] [address] [place] [address] Dr. Clem Ward EO # 0.3 103/ul Normal 0.0-0.7 [facility] Comment on above: Performed By: #### P OCGLUC #### [facility] [address] [place] [address] Dr. Clem Ward Eosinophils/100 WBC (Bld) 3.7 % Normal 0.9-7.0 [facility] Comment on above: Performed By: #### P OCGLUC #### [facility] [address] [place] [address] Dr. Clem Ward Erythrocyte distribution width (RBC) [Ratio] 13.7 % Normal 11.0-15.0 [facility] Comment on above: Performed By: #### P OCGLUC #### [facility] [address] [place] [address] Dr. Clem Ward Hematocrit (Bld) [Volume fraction] 38.3 % Normal 36.0-48.0 [facility] Comment on above: Performed By: #### P OCGLUC #### [facility] [address] [place] [address] Dr. Clem Ward Hemoglobin (Bld) [Mass/Vol] 12.0 g/dL Normal 12.0-16.0 [facility] Comment on above: Performed By: #### P OCGLUC #### [facility] [address] [address] [address] Clem Ward IG # 0.01 10e3/ul Normal 0.00-0.03 [facility] Comment on above: Performed By: #### P OCGLUC #### [facility] [address] [place] [address] Dr. Clem Ward IG % 0.1 % Normal 0.0-0.5 [facility] Comment on above: Performed By: #### P OCGLUC #### [facility] [address] [place] [address] Dr. Clem Ward LYMPH # 2.8 103/ul Normal 1.2-3.8 [facility] Comment on above: Performed By: #### P OCGLUC #### [facility] [address] [place] [address] Dr. Clem Ward Lymphocytes/100 WBC (Bld) 37.1 % Normal 20.5-60.0 [facility] Comment on above: Performed By: #### P OCGLUC #### [facility] [address] [place] [address] Dr. Clem Ward MANUAL DIFF REQ NO Normal [facility] Comment on above: Performed By: #### P OCGLUC #### [facility] [address] [place] [address] Dr. Clem Ward MCH (RBC) [Entitic mass] 26.7 pg Normal 26.7-34.0 [facility] Comment on above: Performed By: #### P OCGLUC #### [facility] [address] [place] [address] Dr. Clem Ward MCHC (RBC) [Mass/Vol] 31.3 g/dL Normal 29.9-35.2 [facility] Comment on above: Performed By: #### P OCGLUC #### [facility] [address] [place] [address] Dr. Clem Ward MCV (RBC) [Entitic vol] 85.3 fL Normal 81.0-99.0 [facility] Comment on above: Performed By: #### P OCGLUC #### [facility] [address] [place] [address] Dr. Clem Ward MONO # 0.6 103/ul Normal 0.3-0.8 [facility] Comment on above: Performed By: #### P OCGLUC #### [facility] [address] [place] [address] Dr. Clem Ward Monocytes/100 WBC (Bld) 8.2 % Normal 1.7-12.0 [facility] Comment on above: Performed By: #### P OCGLUC #### [facility] [address] [place] [address] Dr. Clem Ward NEUT # 3.8 103/ul Normal 1.4-6.5 [facility] Comment on above: Performed By: #### P OCGLUC #### [facility] [address] [place] [address] Dr. Clem Ward Neutrophils/100 WBC (Bld) 50.8 % Normal 43.0-75.0 [facility] Comment on above: Performed By: #### P OCGLUC #### [facility] [address] [place] [address] Dr. Clem Ward Platelet mean volume (Bld) [Entitic vol] 11.2 fL Normal 9.5-13.5 [facility] Comment on above: Performed By: #### P OCGLUC #### [facility] [address] [place] [address] Dr. Clem Ward PLT 254 103/ul Normal 150-450 [facility] Comment on above: Performed By: #### P OCGLUC #### [facility] [address] [place] [address] Dr. Clem Ward RBC 4.49 106/ul Normal 4.20-5.40 [facility] Comment on above: Performed By: #### P OCGLUC #### [facility] [address] [place] [address] Dr. Clem Ward WBC 7.5 103/ul Normal 4.0-11.0 [facility] Comment on above: Performed By: #### P OCGLUC #### [facility] [address] [place] [address] Dr. Clem Ward DRUG SCREEN RAPID (URINE)on 12-18-2022 AMP Negative Normal NEGATIVE [facility] Comment on above: Performed By: #### P T, PTT, DDIM #### [facility] [address] [place] [address] Dr. Clem Ward BAR Negative Normal NEGATIVE [facility] Comment on above: Performed By: #### P T, PTT, DDIM #### [facility] [address] [place] [address] Dr. Clem Ward BUP Negative Normal NEGATIVE [facility] Comment on above: Performed By: #### P T, PTT, DDIM #### [facility] [address] [place] [address] Dr. Clem Ward BZO Negative Normal NEGATIVE [facility] Comment on above: Performed By: #### P T, PTT, DDIM #### [facility] [address] [place] [address] Dr. Clem Ward PENNY Negative Normal NEGATIVE [facility] Comment on above: Performed By: #### P T, PTT, DDIM #### [facility] [address] [place] [address] Dr. Clem Ward CUT-OFFS SEE BELOW Normal [facility] Comment on above: Result Comment: AMP (Amphetamine): 500ng/mL, BAR (Barbituates): 200 ng/mL, BZO (Benzodiazepines): 150 ng/mL, BUP (Buprenorphine): 10 ng/mL, PENNY (Cocaine): 150 ng/mL, mAMP (Methamphetamine): 500 ng/mL, MTD (Methadone): 200 ng/mL, OPI (Opiates): 100 ng/mL, OXY (Oxycodone): 100 ng/mL, PCP (Phencyclidine): 25 ng/mL, PPX (Propoxyphene): 300 ng/mL, THC (Cannabinoids): 50 ng/mL, TCA (Trycyclic Antidepressants): 300 ng/mL Performed By: #### P T, PTT, DDIM #### [facility] [address] [place] [address] Dr. Clem Ward DRUG CUT HEADER DRUG CLASS TEST SYSTEM CUT-OFF CONCENTRATIONS ARE FOLLOWS: Normal [facility] Comment on above: Performed By: #### P T, PTT, DDIM #### [facility] [address] [place] [address] Dr. Clem Ward mAMP Negative Normal NEGATIVE [facility] Comment on above: Performed By: #### P T, PTT, DDIM #### [facility] [address] [address] [address] Clem Ward MTD Negative Normal NEGATIVE [facility] Comment on above: Performed By: #### P T, PTT, DDIM #### [facility] [address] [place] [address] Dr. Clem Ward OPI Negative Normal NEGATIVE [facility] Comment on above: Performed By: #### P T, PTT, DDIM #### [facility] [address] [place] [address] Dr. Clem Ward OXY Negative Normal NEGATIVE [facility] Comment on above: Performed By: #### P T, PTT, DDIM #### [facility] [address] [place] [address] Dr. Clem Ward PCP Negative Normal NEGATIVE [facility] Comment on above: Performed By: #### P T, PTT, DDIM #### [facility] [address] [place] [address] Dr. Clem Ward PPX Negative Normal NEGATIVE [facility] Comment on above: Performed By: #### P T, PTT, DDIM #### [facility] [address] [place] [address] Dr. Clem Ward TCA Negative Normal NEGATIVE [facility] Comment on above: Performed By: #### P T, PTT, DDIM #### [facility] [address] [place] [address] Dr. Clem Ward THC Positive Abnormal NEGATIVE [facility] Comment on above: Performed By: #### P T, PTT, DDIM #### [facility] [address] [place] [address] Dr. Clem Ward GLYCOHEMOGLOBIN A1Con 2022 ADA RECOMMENDATION SEE BELOW Normal [facility] Comment on above: Result Comment: ADA RECOMMENDED LIMIT 4.0 - 6.0 ADA THERAPEUTIC TARGET < 7.0 ACTION SUGGESTED > 7.0 Performed By: #### A 1C #### [facility] [address] [address] [address] Clem Ward Glucose [Mass/Vol] 246 mg/dL Normal [facility] Comment on above: Performed By: #### A 1C #### [facility] [address] [address] [address] Clem Ward HbA1c (Bld) [Mass fraction] 10.2 % Critically high 4.5-6.2 [facility] Comment on above: Performed By: #### A 1C #### [facility] [address] [address] [address] Clem Ward LIPID PROFILEon 12-18-2022 CHOL-HDL RATIO NORM SEE BELOW Normal [facility] Comment on above: Result Comment: 3.3 - 4.4 LOW RISK 4.4 - 7.1 AVERAGE RISK 7.1 - 11.0 MODERATE RISK >11.0 HIGH RISK Performed By: #### T 3TOTAL #### [facility] [address] [address] [address] Clem Ward Cholesterol [Mass/Vol] 137 mg/dL Normal <=200 [facility] Comment on above: Performed By: #### T 3TOTAL #### [facility] [address] [place] [address] Dr. Clem Ward Cholesterol in HDL [Mass/Vol] 31 mg/dL Critically low 40-60 [facility] Comment on above: Performed By: #### T 3TOTAL #### [facility] [address] [address] [address] Clem Ward Cholesterol in LDL [Mass/Vol] 88.8 mg/dL Normal [facility] Comment on above: Performed By: #### T 3TOTAL #### [facility] [address] [address] [address] Clem Ward Cholesterol.total/Chol esterol in HDL [Mass ratio] 4.4 {ratio} Normal [facility] Comment on above: Performed By: #### T 3TOTAL #### [facility] [address] [address] [address] Clem Ward HDL NORMAL > or = 60 mg/dl - LO W CARDIOVASCULAR RISK <40 mg/dl - HIGH CARDIOVASCULAR RISK Normal [facility] Comment on above: Performed By: #### T 3TOTAL #### [facility] [address] [address] [address] Clem Ward LDL CALC NORMAL SEE BELOW Normal [facility] Comment on above: Result Comment: <100 mg/dl OPTIMAL 100 - 129 mg/dl NEAR OR ABOVE OPTIMAL 130 - 159 mg/dl BORDERLINE HIGH 160 - 189 mg/dl HIGH >190 mg/dl VERY HIGH Performed By: #### T 3TOTAL #### [facility] [address] [address] [address] Clem Ward Triglyceride [Mass/Vol] 86 mg/dL Normal <=150 [facility] Comment on above: Performed By: #### T 3TOTAL #### [facility] [address] [address] [address] Clem Ward VLDL CALC 17.2 mg/dL Normal [facility] Comment on above: Performed By: #### T 3TOTAL #### [facility] [address] [address] [address] Clem Ward PROF 14(COMP METB)on 023 Albumin [Mass/Vol] 3.0 g/dL Critically low 3.4-5.0 [facility] Comment on above: Performed By: #### P T, PTT, DDIM #### [facility] [address] [address] [address] Clem Ward Albumin/Globulin [Mass ratio] 0.8 {ratio} Normal [facility] Comment on above: Performed By: #### P T, PTT, DDIM #### [facility] [address] [address] [address] Clem Ward ALP [Catalytic activity/Vol] 97 U/L Normal 46-116 [facility] Comment on above: Performed By: #### P T, PTT, DDIM #### [facility] [address] [address] [address] Clem Ward ALT [Catalytic activity/Vol] 16 U/L Normal 14-59 [facility] Comment on above: Performed By: #### P T, PTT, DDIM #### [facility] [address] [address] [address] Clem Ward Anion gap [Moles/Vol] 11.7 mmol/L Normal [facility] Comment on above: Performed By: #### P T, PTT, DDIM #### [facility] [address] [address] [address] lCem Ward AST [Catalytic activity/Vol] 13 U/L Critically low 15-37 [facility] Comment on above: Performed By: #### P T, PTT, DDIM #### [facility] [address] [place] [address] Dr. Clem Ward Bilirubin [Mass/Vol] 0.2 mg/dL Normal 0.2-1.0 [facility] Comment on above: Performed By: #### P T, PTT, DDIM #### [facility] [address] [place] [address] Dr. Clem Ward Calcium [Mass/Vol] 8.0 mg/dL Critically low 8.5-10.1 [facility] Comment on above: Performed By: #### P T, PTT, DDIM #### [facility] [address] [place] [address] Dr. Clem Ward Chloride [Moles/Vol] 102 mmol/L Normal 98-107 [facility] Comment on above: Performed By: #### P T, PTT, DDIM #### [facility] [address] [place] [address] Dr. Clem Ward CO2 [Moles/Vol] 27.2 mmol/L Normal 21.0-32.0 [facility] Comment on above: Performed By: #### P T, PTT, DDIM #### [facility] [address] [place] [address] Dr. Clem Ward Creatinine [Mass/Vol] 0.56 mg/dL Normal 0.55-1.02 [facility] Comment on above: Performed By: #### P T, PTT, DDIM #### [facility] [address] [address] [address] Clem Ward EGFR-AF BURUNDIAN >60 Normal >=60 [facility] Comment on above: Performed By: #### P T, PTT, DDIM #### [facility] [address] [place] [address] Dr. Clem Ward EGFR-NON AF BURUNDIAN >60 Normal >=60 [facility] Comment on above: Performed By: #### P T, PTT, DDIM #### [facility] [address] [place] [address] Dr. Clem Ward Globulin (S) [Mass/Vol] 3.6 g/dL Normal [facility] Comment on above: Performed By: #### P T, PTT, DDIM #### [facility] [address] [place] [address] Dr. Clem Ward Glucose [Mass/Vol] 277 mg/dL Critically high 74-106 [facility] Comment on above: Performed By: #### P T, PTT, DDIM #### [facility] [address] [place] [address] Dr. Clem Ward Potassium [Moles/Vol] 3.9 mmol/L Normal 3.5-5.1 [facility] Comment on above: Performed By: #### P T, PTT, DDIM #### [facility] [address] [place] [address] Dr. Clem Ward Protein [Mass/Vol] 6.6 g/dL Normal 6.4-8.2 [facility] Comment on above: Performed By: #### P T, PTT, DDIM #### [facility] [address] [place] [address] Dr. Clem Ward Sodium [Moles/Vol] 137 mmol/L Normal 136-145 [facility] Comment on above: Performed By: #### P T, PTT, DDIM #### [facility] [address] [place] [address] Dr. Clem Ward Urea nitrogen [Mass/Vol] 8.0 mg/dL Normal 7.0-18.0 [facility] Comment on above: Performed By: #### P T, PTT, DDIM #### [facility] [address] [place] [address] Dr. Clem Ward Urea nitrogen/Creatinine [Mass ratio] 14.3 mg/mg Normal [facility] Comment on above: Performed By: #### P T, PTT, DDIM #### [facility] [address] [place] [address] Dr. Clem Ward T4on 12-18-2022 T4 [Mass/Vol] 9.10 ug/dL Normal 4.80-13.90 [facility] Comment on above: Performed By: #### T 3TOTAL #### [facility] [address] [place] [address] Dr. Clem Ward TSHon 12-18-2022 TSH 0.979 uIU/mL Normal 0.358-3.740 [facility] Comment on above: Performed By: #### T 3TOTAL #### [facility] [address] [place] [address] Dr. Clem Ward CARDIAC TAWNYA ADMITon 023 CK [Catalytic activity/Vol] 165 U/L Normal 26-192 [facility] Comment on above: Performed By: #### A 1C #### [facility] [address] [place] [address] Dr. Clem Ward CK.MB [Mass/Vol] ng/mL Normal <=3.60 [facility] Comment on above: Performed By: #### A 1C #### [facility] [address] [place] [address] Dr. Clem Ward HSTROP 6.0 pg/mL Normal 4.0-51.3 [facility] Comment on above: Result Comment: CUT- OFF POINTS HAVE BEEN ESTABLISHED BASED ON THE FOURTH UNIVERSAL DEFINITIONS OF MYOCARDIAL INFARCTION. THE UPPER REFERENCE LIMIT (URL) OF TROPONIN, DEFINED THE 99TH PERCENTILE OF cTnI DISTRIBUTION IN A REFERENCE POPULATION, HAS BEEN CONFIRMED THE DECISION THRESHOLD FOR [place] DIAGNOSIS. Performed By: #### A 1C #### [facility] [address] [place] [address] Dr. Clem Ward LANI 17 ng/mL Normal 9-82 [facility] Comment on above: Performed By: #### A 1C #### [facility] [address] [address] [address] Clem Ward CBC AUTO DIFFon 12-17-2022 BASO # 0.0 103/ul Normal 0.0-0.1 [facility] Comment on above: Performed By: #### A 1C #### [facility] [address] [place] [address] Dr. Clem Ward Basophils/100 WBC (Bld) 0.5 % Normal 0.2-2.0 [facility] Comment on above: Performed By: #### A 1C #### [facility] [address] [place] [address] Dr. Clem Ward EO # 0.4 103/ul Normal 0.0-0.7 [facility] Comment on above: Performed By: #### A 1C #### [facility] [address] [place] [address] Dr. Clem Ward Eosinophils/100 WBC (Bld) 5.6 % Normal 0.9-7.0 [facility] Comment on above: Performed By: #### A 1C #### [facility] [address] [place] [address] Dr. Clem Ward Erythrocyte distribution width (RBC) [Ratio] 13.6 % Normal 11.0-15.0 [facility] Comment on above: Performed By: #### A 1C #### [facility] [address] [place] [address] Dr. Clem Ward Hematocrit (Bld) [Volume fraction] 39.2 % Normal 36.0-48.0 [facility] Comment on above: Performed By: #### A 1C #### [facility] [address] [place] [address] Dr. Clem Ward Hemoglobin (Bld) [Mass/Vol] 12.4 g/dL Normal 12.0-16.0 [facility] Comment on above: Performed By: #### A 1C #### [facility] [address] [place] [address] Dr. Clem Ward IG # 0.02 10e3/ul Normal 0.00-0.03 [facility] Comment on above: Performed By: #### A 1C #### [facility] [address] [place] [address] Dr. Clem Ward IG % 0.3 % Normal 0.0-0.5 [facility] Comment on above: Performed By: #### A 1C #### [facility] [address] [place] [address] Dr. Clem Ward LYMPH # 3.0 103/ul Normal 1.2-3.8 [facility] Comment on above: Performed By: #### A 1C #### [facility] [address] [place] [address] Dr. Clem Ward Lymphocytes/100 WBC (Bld) 39.6 % Normal 20.5-60.0 [facility] Comment on above: Performed By: #### A 1C #### [facility] [address] [place] [address] Dr. Clem Ward MANUAL DIFF REQ NO Normal [facility] Comment on above: Performed By: #### A 1C #### [facility] [address] [place] [address] Dr. Clem Ward MCH (RBC) [Entitic mass] 27.0 pg Normal 26.7-34.0 [facility] Comment on above: Performed By: #### A 1C #### [facility] [address] [place] [address] Dr. Clem Ward MCHC (RBC) [Mass/Vol] 31.6 g/dL Normal 29.9-35.2 [facility] Comment on above: Performed By: #### A 1C #### [facility] [address] [place] [address] Dr. Clem Ward MCV (RBC) [Entitic vol] 85.2 fL Normal 81.0-99.0 [facility] Comment on above: Performed By: #### A 1C #### [facility] [address] [place] [address] Dr. Clem Ward MONO # 0.5 103/ul Normal 0.3-0.8 [facility] Comment on above: Performed By: #### A 1C #### [facility] [address] [place] [address] Dr. Clem Ward Monocytes/100 WBC (Bld) 6.1 % Normal 1.7-12.0 [facility] Comment on above: Performed By: #### A 1C #### [facility] [address] [place] [address] Dr. Clem Ward NEUT # 3.6 103/ul Normal 1.4-6.5 [facility] Comment on above: Performed By: #### A 1C #### [facility] [address] [place] [address] Dr. Clem Ward Neutrophils/100 WBC (Bld) 47.9 % Normal 43.0-75.0 [facility] Comment on above: Performed By: #### A 1C #### [facility] [address] [place] [address] Dr. Clem Ward Platelet mean volume (Bld) [Entitic vol] 9.7 fL Normal 9.5-13.5 [facility] Comment on above: Performed By: #### A 1C #### [facility] [address] [place] [address] Dr. Clem Ward PLT 341 103/ul Normal 150-450 [facility] Comment on above: Performed By: #### A 1C #### [facility] [address] [place] [address] Dr. Clem Ward RBC 4.60 106/ul Normal 4.20-5.40 [facility] Comment on above: Performed By: #### A 1C #### [facility] [address] [place] [address] Dr. Clem Ward WBC 7.6 103/ul Normal 4.0-11.0 [facility] Comment on above: Performed By: #### A 1C #### [facility] [address] [place] [address] Dr. Clem Ward PROF 14(COMP METB)on 023 Albumin [Mass/Vol] 3.3 g/dL Critically low 3.4-5.0 [facility] Comment on above: Performed By: #### A 1C #### [facility] [address] [place] [address] Dr. Clem Ward Albumin/Globulin [Mass ratio] 0.8 {ratio} Normal [facility] Comment on above: Performed By: #### A 1C #### [facility] [address] [place] [address] Dr. Clem Ward ALP [Catalytic activity/Vol] 108 U/L Normal 46-116 [facility] Comment on above: Performed By: #### A 1C #### [facility] [address] [place] [address] Dr. Clem Ward ALT [Catalytic activity/Vol] 18 U/L Normal 14-59 [facility] Comment on above: Performed By: #### A 1C #### [facility] [address] [place] [address] Dr. Clem Ward Anion gap [Moles/Vol] 10.7 mmol/L Normal [facility] Comment on above: Performed By: #### A 1C #### [facility] [address] [place] [address] Dr. Clem Ward AST [Catalytic activity/Vol] 28 U/L Normal 15-37 [facility] Comment on above: Performed By: #### A 1C #### [facility] [address] [place] [address] Dr. Clem Ward Bilirubin [Mass/Vol] 0.4 mg/dL Normal 0.2-1.0 [facility] Comment on above: Performed By: #### A 1C #### [facility] [address] [place] [address] Dr. Clem Ward Calcium [Mass/Vol] 8.0 mg/dL Critically low 8.5-10.1 [facility] Comment on above: Performed By: #### A 1C #### [facility] [address] [place] [address] Dr. Clem Ward Chloride [Moles/Vol] 103 mmol/L Normal 98-107 [facility] Comment on above: Performed By: #### A 1C #### [facility] [address] [place] [address] Dr. Clem Ward CO2 [Moles/Vol] 28.3 mmol/L Normal 21.0-32.0 [facility] Comment on above: Performed By: #### A 1C #### [facility] [address] [address] [address] Clem Ward Creatinine [Mass/Vol] 0.41 mg/dL Critically low 0.55-1.02 [facility] Comment on above: Performed By: #### A 1C #### [facility] [address] [address] [address] Clem Ward EGFR-AF BURUNDIAN >60 Normal >=60 [facility] Comment on above: Performed By: #### A 1C #### [facility] [address] [place] [address] Dr. Clem Ward EGFR-NON AF BURUNDIAN >60 Normal >=60 [facility] Comment on above: Performed By: #### A 1C #### [facility] [address] [address] [address] Clem Ward Globulin (S) [Mass/Vol] 4.0 g/dL Normal [facility] Comment on above: Performed By: #### A 1C #### [facility] [address] [address] [address] Clem Ward Glucose [Mass/Vol] 161 mg/dL Critically high 74-106 [facility] Comment on above: Performed By: #### A 1C #### [facility] [address] [place] [address] Dr. Clem Ward Potassium [Moles/Vol] 5.0 mmol/L Normal 3.5-5.1 [facility] Comment on above: Performed By: #### A 1C #### [facility] [address] [place] [address] Dr. Clme Ward Protein [Mass/Vol] 7.3 g/dL Normal 6.4-8.2 [facility] Comment on above: Performed By: #### A 1C #### [facility] [address] [place] [address] Dr. Clem Ward Sodium [Moles/Vol] 137 mmol/L Normal 136-145 [facility] Comment on above: Performed By: #### A 1C #### [facility] [address], [place] [address] Dr. Clem Ward Urea nitrogen [Mass/Vol] 6.0 mg/dL Critically low 7.0-18.0 [facility] Comment on above: Performed By: #### A 1C #### [facility] [address], [place] [address] Dr. Clem Ward Urea nitrogen/Creatinine [Mass ratio] 14.6 mg/mg Normal [facility] Comment on above: Performed By: #### A 1C #### [facility] [address] [address] [address] Clem Ward TROPONIN, HIGH SENSITIVITYon 12-17-2022 HSTROP 4.4 pg/mL Normal 4.0-51.3 [facility] Comment on above: Result Comment: CUT- OFF POINTS HAVE BEEN ESTABLISHED BASED ON THE FOURTH UNIVERSAL DEFINITIONS OF MYOCARDIAL INFARCTION. THE UPPER REFERENCE LIMIT (URL) OF TROPONIN, DEFINED THE 99TH PERCENTILE OF cTnI DISTRIBUTION IN A REFERENCE POPULATION, HAS BEEN CONFIRMED THE DECISION THRESHOLD FOR [place] DIAGNOSIS. Performed By: #### A 1C #### [facility] [address] [address] [address] Clem Ward XR CHEST 1 Von 12-17-2022 XR CHEST 1 V EXAM: Chest x-ray HISTORY: . CHEST PAIN, UNSPECIFIED . COMPARISON: None. TECHNIQUE: Single view of the chest FINDINGS: Heart and vascularity are unremarkable. Lungs are free of focal infiltrates. EKG leads overlie the chest. IMPRESSION: No acute heart or lung disease identified. Electronically authenticated by: WALE OCAMPO Date: 2022-12-17 13:46 Normal [facility] Office Visiton 11-27-2022 Follow-up visit [id number] Jennifer Diaz 1975 F Date Provider Department Center 11/27/2022 [id number]-FIAVIEIITSHERRIE LANDAVERDE [facility] Family History Problem Relation Age of Onset Arthritis Mother Hypertension Mother Hyperlipidemia Mother Diabetes Paternal Grandmother Other Paternal Grandfather Family Status - Relation Status Age at Mother Paternal Grandmother Paternal Grandfather Level of Service:23656 [facility] OFFICE/OUTPATIENT ESTABLISHED MOD MDM 30-39 MIN Reason for Visit and Comments: Follow-up [750204] - 3 mo f/u- had echo in Aug 2022 Normal [facility] QUANTIFERON TB GOLD PLUSon 0 11-01-2022 QuantiFERON Criteria Comment Normal [facility] Comment on above: Result Comment: Abilio tiFERON-TB Gold Plus is a qualitative indirect test for M tuberculosis infection (including disease) and is intended for use in conjunction with risk assessment, radiography, and other medical and diagnostic evaluations. The QuantiFERON-TB Gold Plus result is determined by subtracting the Nil value from either TB antigen (Ag) value. The Mitogen tube serves as a control for the test. Performed By: #### P OCGLUC #### [facility] [address] [place] [address] Dr. Clem Ward QuantiFERON Incubation Incubation performed. Normal [facility] Comment on above: Performed By: #### P OCGLUC #### [facility] [address] [place] [address] Dr. Clem Ward QuantiFERON Mitogen Value >10.00 Normal [facility] Comment on above: Performed By: #### P OCGLUC #### [facility] [address] [place] [address] Dr. Clem Ward QuantiFERON Nil Value 0.08 IU/mL Normal [facility] Comment on above: Performed By: #### P OCGLUC #### [facility] [address] [place] [address] Dr. Clem Ward QuantiFERON TB1 Ag Value 0.06 IU/mL Normal [facility] Comment on above: Performed By: #### P OCGLUC #### [facility] [address] [place] [address] Dr. Clem Ward QuantiFERON TB2 Ag Value 0.07 IU/mL Normal [facility] Comment on above: Performed By: #### P OCGLUC #### [facility] [address] [place] [address] Dr. Clem Ward QuantiFERON-TB Gold Plus Negative Normal Negative [facility] Comment on above: Result Comment: No r esponse to M tuberculosis antigens detected. Infection with M tuberculosis is unlikely, but high risk individuals should be considered for additional testing (ATS/IDSA/CDC Clinical Practice Guidelines, 2017). The reference range is an Antigen minus Nil result of <0.35 IU/mL. Chemiluminescence immunoassay methodology Performed By: #### P OCGLUC #### [facility] [address] [place] [address] Dr. Clem Ward DRUG SCREEN RAPID (URINE)on 10-30-2022 AMP Negative Normal NEGATIVE [facility] Comment on above: Performed By: #### T 3TOTAL #### [facility] [address] [place] [address] Dr. Clem Ward BAR Negative Normal NEGATIVE [facility] Comment on above: Performed By: #### T 3TOTAL #### [facility] [address] [place] [address] Dr. Clem Ward BUP Negative Normal NEGATIVE [facility] Comment on above: Performed By: #### T 3TOTAL #### [facility] [address] [place] [address] Dr. Clem Ward BZO Negative Normal NEGATIVE [facility] Comment on above: Performed By: #### T 3TOTAL #### [facility] [address] [place] [address] Dr. Clem Ward PENNY Negative Normal NEGATIVE [facility] Comment on above: Performed By: #### T 3TOTAL #### [facility] [address] [place] [address] Dr. Clem Ward CUT-OFFS SEE BELOW Normal [facility] Comment on above: Result Comment: AMP (Amphetamine): 500ng/mL, BAR (Barbituates): 200 ng/mL, BZO (Benzodiazepines): 150 ng/mL, BUP (Buprenorphine): 10 ng/mL, PENNY (Cocaine): 150 ng/mL, mAMP (Methamphetamine): 500 ng/mL, MTD (Methadone): 200 ng/mL, OPI (Opiates): 100 ng/mL, OXY (Oxycodone): 100 ng/mL, PCP (Phencyclidine): 25 ng/mL, PPX (Propoxyphene): 300 ng/mL, THC (Cannabinoids): 50 ng/mL, TCA (Trycyclic Antidepressants): 300 ng/mL Performed By: #### T 3TOTAL #### [facility] [address] [address] [address] Clem Ward DRUG CUT HEADER DRUG CLASS TEST SYSTEM CUT-OFF CONCENTRATIONS ARE FOLLOWS: Normal [facility] Comment on above: Performed By: #### T 3TOTAL #### [facility] [address] [address] [address] Clem Ward mAMP Negative Normal NEGATIVE [facility] Comment on above: Performed By: #### T 3TOTAL #### [facility] [address] [address] [address] Clem Ward MTD Negative Normal NEGATIVE [facility] Comment on above: Performed By: #### T 3TOTAL #### [facility] [address] [address] [address] Clem Ward OPI Negative Normal NEGATIVE [facility] Comment on above: Performed By: #### T 3TOTAL #### [facility] [address] [place] [address] Dr. Clem Ward OXY Negative Normal NEGATIVE [facility] Comment on above: Performed By: #### T 3TOTAL #### [facility] [address] [address] [address] Clem Ward PCP Negative Normal NEGATIVE [facility] Comment on above: Performed By: #### T 3TOTAL #### [facility] [address] [place] [address] Dr. Clem Ward PPX Negative Normal NEGATIVE [facility] Comment on above: Performed By: #### T 3TOTAL #### [facility] [address] [place] [address] Dr. Clem Ward TCA Negative Normal NEGATIVE [facility] Comment on above: Performed By: #### T 3TOTAL #### [facility] [address] [place] [address] Dr. Clem Ward THC Negative Normal NEGATIVE [facility] Comment on above: Performed By: #### T 3TOTAL #### [facility] [address] [place] [address] Dr. Clem Ward ECHOCARDIO M/2D COMPLETEon 1 10-03-2021 ECHOCARDIO M/2D COMPLETE Patient: JENNIFER DIAZ Exam Date: 08/03/2022 : 1975 Gender:F Ordering : DASHAWN GREENWOOD Admission #: [id number] Family : Order #: [id number] CLICK HERE TO VIEW EXAM ECHOCARDIOGRAM REPORT PROCEDURE: CARDIO PULMONARY ECHOCARDIO M/2D COMP INDICATIONS: Chronic systolic heart failure COMPARISON: None. DESCRIPTION: COMPLETE ECHOCARDIOGRAM Real-time transthoracic echocardiography with 2D, M-mode, spectral and color flow Doppler performed. QUALITY: Technical quality was good. LEFT VENTRICLE: Normal chamber size. Moderate concentric left ventricular hypertrophy. Global left ventricular systolic function is mildly decreased. LV EF: Calculated left ventricular ejection fraction is 42%. Estimated ejection fraction is 45%. DIASTOLIC: ATRIAL SEPTUM: LEFT ATRIUM: Normal chamber size. RIGHT ATRIUM: Normal chamber size. RIGHT VENTRICLE: Normal chamber size. Normal right ventricular systolic function. TRICUSPID VALVE: Normal mobility and thickness. No stenosis with trivial regurgitation. Unable to assess right-sided pressures due to lack of measurable tricuspid regurgitation. MITRAL VALVE: Normal mobility and thickness. No mitral valve prolapse. No evidence of mitral valve stenosis. There is no mitral annular calcification. Trivial mitral regurgitation. AORTIC VALVE: Normal trileaflet appearance. No visible sclerosis. Normal leaflet mobility. No evidence of aortic valve stenosis. DVI 0.6. No aortic regurgitation. AORTIC ROOT: Normal diameter and appearance. PULMONIC VALVE: Normal thickness and mobility. No stenosis. No regurgitation. PERICARDIUM: No evidence of pericardial effusion. IVC: Within normal limits. Normal size. PLEURA: CONCLUSION: 1. Moderate concentric left ventricular hypertrophy. Left ventricular systolic function is mildly reduced with global hypokinesis. LVEF is around 45%. 2. Normal right ventricular size and systolic function. 3. No significant valvular dysfunction. 4. Unable to assess right-sided pressures due to lack of measurable tricuspid regurgitation. 5. No pericardial effusion. Adult Echocardiography Procedure Report Left Ventricle LVEDD (3.7 - 5.6 cm): 4.18 cm LVESD (2.2 - 4.0 cm): 3.35 cm LVIVS thickness (0.6 - 1.2 cm): 1.55 cm LVPW thickness (0.5 - 1.0 cm): 1.56 cm e': 0.06 m/s E - e': 10.28 LVOT Max Gradient: 1.84 mm[Hg], 1.79 mm[Hg] Peak Velocity (LVOT): 0.68 m/s, 0.67 m/s Mean Velocity (LVOT): 0.51 m/s, 0.55 m/s LVOT Diameter 2.00 cm Left Ventricular Ejection Fraction: 45 % Left Atrium LA Volume Index (2D A2C): 57.95 ml, 57.95 ml Left Atrium Systolic Dimension: 2.71 cm Mitral Valve MV E to A Ratio: 0.75 Mitral Valve A-Wave Peak Velocity: 0.87 m/s Mitral Valve E-Wave Peak Velocity: 0.66 m/s Right Ventricle RV Internal Diastolic Dimension: 3.31 cm Aorta AO Root Diam: 3.35 cm Ascending Ao Diam: 2.96 cm Aortic Valve AoV Area (Peak Surinder): 1.69 cm2, 1.71 cm2 AoV Area (VTI): 1.83 cm2, 1.86 cm2 Peak Velocity(Antegrade Flow): 1.25 m/s Peak Gradient(Antegrade Flow): 6.22 mm[Hg] Mean Velocity(Antegrade Flow): 0.84 m/s Mean Gradient(Antegrade Flow): 3.27 mm[Hg] Velocity Time Integral: 23.12 cm Tricuspid Valve Peak Velocity (Regurgitant Flow): 1.55 m/s Peak Velocity: 0.58 m/s Pulmonic Valve Mean Gradient: 1.91 mm[Hg], 1.94 mm[Hg], 1.60 mm[Hg], 1.42 mm[Hg] Mean Velocity: 0.65 m/s, 0.66 m/s, 0.60 m/s, 0.55 m/s Peak Velocity: 0.87 m/s, 0.89 m/s, 0.81 m/s, 0.84 m/s Peak Gradient: 3.05 mm[Hg], 3.15 mm[Hg], 2.61 mm[Hg], 2.80 mm[Hg] Right Atrium Right Atrium Systolic Pressure: 34.72 ml, 34.27 ml, 35.17 ml Dictated by: Matt Montez M.D. on 08/03/2022 at 14:05 Approved by: Matt Montez M.D. on 08/03/2022 at 14:08 [place] [facility] PROF CHEM 8 (BAS METB)on Anion gap [Moles/Vol] 11.2 mmol/L Normal Th e [facility] Comment on above: Performed By: #### T 3TOTAL #### [facility] [address] [address] [address] Clem Ward Calcium [Mass/Vol] 8.9 mg/dL Normal 8.5-10.1 [facility] Comment on above: Performed By: #### T 3TOTAL #### [facility] [address] [address] [address] Clem Ward Chloride [Moles/Vol] 104 mmol/L Normal 98-107 [facility] Comment on above: Performed By: #### T 3TOTAL #### [facility] [address] [place] [address] Dr. Clem Ward CO2 [Moles/Vol] 28.6 mmol/L Normal 21.0-32.0 [facility] Comment on above: Performed By: #### T 3TOTAL #### [facility] [address] [address] [address] Clem Ward Creatinine [Mass/Vol] 0.58 mg/dL Normal 0.55-1.02 [facility] Comment on above: Performed By: #### T 3TOTAL #### [facility] [address] [place] [address] Dr. Clem Ward EGFR-AF BURUNDIAN >60 Normal >=60 [facility] Comment on above: Performed By: #### T 3TOTAL #### [facility] [address] [address] [address] Clem Ward EGFR-NON AF BURUNDIAN >60 Normal >=60 [facility] Comment on above: Performed By: #### T 3TOTAL #### [facility] [address] [address] [address] Clem Ward Glucose [Mass/Vol] 98 mg/dL Normal 74-106 [facility] Comment on above: Performed By: #### T 3TOTAL #### [facility] [address] [address] [address] Clem Ward Potassium [Moles/Vol] 3.8 mmol/L Normal 3.5-5.1 [facility] Comment on above: Performed By: #### T 3TOTAL #### [facility] [address] [place] [address] Dr. Clem Ward Sodium [Moles/Vol] 140 mmol/L Normal 136-145 [facility] Comment on above: Performed By: #### T 3TOTAL #### [facility] [address] [place] [address] Dr. Clem Ward Urea nitrogen [Mass/Vol] 8.0 mg/dL Normal 7.0-18.0 [facility] Comment on above: Performed By: #### T 3TOTAL #### [facility] [address] [place] [address] Dr. Clem Ward Urea nitrogen/Creatinine [Mass ratio] 13.8 mg/mg Normal [facility] Comment on above: Performed By: #### T 3TOTAL #### [facility] [address] [place] [address] Dr. Clem Ward CHLAMYDIA/GONOCOCCUS BENTLEY ( AB/URINE/PAPon 06-22-2022 Chlamydia trachomatis, BENTLEY Negative Normal Negative [facility] Comment on above: Performed By: #### P T, PTT, DDIM #### [facility] [address] [place] [address] Dr. Clem Ward Neisseria gonorrhoeae, BENTLEY Negative Normal Negative [facility] Comment on above: Performed By: #### P T, PTT, DDIM #### [facility] [address] [place] [address] Dr. Clem Ward VAGINITIS/VAGINOSIS DNA PROB [place] 06-21-2022 Jaycee species Negative Normal Negative [facility] Comment on above: Performed By: #### A 1C #### [facility] [address] [place] [address] Dr. Clem Ward Gardnerella vaginalis Positive Abnormal Negative [facility] Comment on above: Performed By: #### A 1C #### [facility] [address] [place] [address] Dr. Clem Ward Trichomonas vaginalis Negative Normal Negative [facility] Comment on above: Performed By: #### A 1C #### [facility] [address] [place] [address] Dr. Clem Ward INSULINon 06-20-2022 Insulin 7.2 uIU/mL Normal 2.6-24.9 [facility] Comment on above: Performed By: #### P T, PTT, DDIM #### [facility] [address] [place] [address] Dr. Clem Ward T4, T3U, FTI LABCORPon 06-20 Free Thyroxine Index 3.6 Normal 1.2-4.9 [facility] Comment on above: Performed By: #### C HARSHAD, BMP #### [facility] [address] [place] [address] Dr. Clem Ward T3 Uptake 33 % Normal 24-39 [facility] Comment on above: Performed By: #### C HARSHAD, BMP #### [facility] [address] [place] [address] Dr. Clem Ward T4 [Mass/Vol] 10.9 ug/dL Normal 4.5-12.0 [facility] Comment on above: Performed By: #### C HARSHAD, BMP #### [facility] [address] [place] [address] Dr. Clem Ward CBC AUTO DIFFon 06-19-2022 BASO # 0.0 103/ul Normal 0.0-0.1 [facility] Comment on above: Performed By: #### A 1C #### [facility] [address] [place] [address] Dr. Clem Ward Basophils/100 WBC (Bld) 0.3 % Normal 0.2-2.0 [facility] Comment on above: Performed By: #### A 1C #### [facility] [address] [place] [address] Dr. Celm Ward EO # 0.3 103/ul Normal 0.0-0.7 [facility] Comment on above: Performed By: #### A 1C #### [facility] [address] [place] [address] Dr. Clem Ward Eosinophils/100 WBC (Bld) 4.7 % Normal 0.9-7.0 [facility] Comment on above: Performed By: #### A 1C #### [facility] [address] [place] [address] Dr. Clem Ward Erythrocyte distribution width (RBC) [Ratio] 13.9 % Normal 11.0-15.0 [facility] Comment on above: Performed By: #### A 1C #### [facility] [address] [place] [address] Dr. Clem Ward Hematocrit (Bld) [Volume fraction] 41.2 % Normal 36.0-48.0 [facility] Comment on above: Performed By: #### A 1C #### [facility] [address] [place] [address] Dr. Clem Ward Hemoglobin (Bld) [Mass/Vol] 12.9 g/dL Normal 12.0-16.0 [facility] Comment on above: Performed By: #### A 1C #### [facility] [address] [place] [address] Dr. Clem Ward IG # 0.02 10e3/ul Normal 0.00-0.03 [facility] Comment on above: Performed By: #### A 1C #### [facility] [address] [place] [address] Dr. Clem Ward IG % 0.3 % Normal 0.0-0.5 [facility] Comment on above: Performed By: #### A 1C #### [facility] [address] [place] [address] Dr. Clem Ward LYMPH # 2.4 103/ul Normal 1.2-3.8 [facility] Comment on above: Performed By: #### A 1C #### [facility] [address] [place] [address] Dr. Clem Ward Lymphocytes/100 WBC (Bld) 35.3 % Normal 20.5-60.0 [facility] Comment on above: Performed By: #### A 1C #### [facility] [address] [place] [address] Dr. Clem Wadr MANUAL DIFF REQ NO Normal [facility] Comment on above: Performed By: #### A 1C #### [facility] [address] [place] [address] Dr. Clem Ward MCH (RBC) [Entitic mass] 26.2 pg Critically low 26.7-34.0 [facility] Comment on above: Performed By: #### A 1C #### [facility] [address] [place] [address] Dr. Clem Ward MCHC (RBC) [Mass/Vol] 31.3 g/dL Normal 29.9-35.2 [facility] Comment on above: Performed By: #### A 1C #### [facility] [address] [place] [address] Dr. Clem Ward MCV (RBC) [Entitic vol] 83.7 fL Normal 81.0-99.0 [facility] Comment on above: Performed By: #### A 1C #### [facility] [address] [place] [address] Dr. Clem Ward MONO # 0.6 103/ul Normal 0.3-0.8 [facility] Comment on above: Performed By: #### A 1C #### [facility] [address] [place] [address] Dr. Clem Ward Monocytes/100 WBC (Bld) 8.8 % Normal 1.7-12.0 [facility] Comment on above: Performed By: #### A 1C #### [facility] [address] [place] [address] Dr. Clem Ward NEUT # 3.4 103/ul Normal 1.4-6.5 [facility] Comment on above: Performed By: #### A 1C #### [facility] [address] [place] [address] Dr. Clem Ward Neutrophils/100 WBC (Bld) 50.6 % Normal 43.0-75.0 [facility] Comment on above: Performed By: #### A 1C #### [facility] [address] [place] [address] Dr. Clem Ward Platelet mean volume (Bld) [Entitic vol] 10.4 fL Normal 9.5-13.5 [facility] Comment on above: Performed By: #### A 1C #### [facility] [address] [address] [address] Clem Ward PLT 288 103/ul Normal 150-450 [facility] Comment on above: Performed By: #### A 1C #### [facility] [address] [address] [address] Clem Ward RBC 4.92 106/ul Normal 4.20-5.40 [facility] Comment on above: Performed By: #### A 1C #### [facility] [address] [address] [address] Clme Ward WBC 6.7 103/ul Normal 4.0-11.0 [facility] Comment on above: Performed By: #### A 1C #### [facility] [address] [place] [address] Dr. Celm Ward GLYCOHEMOGLOBIN A1Con 2021 ADA RECOMMENDATION SEE BELOW Normal [facility] Comment on above: Result Comment: ADA RECOMMENDED LIMIT 4.0 - 6.0 ADA THERAPEUTIC TARGET < 7.0 ACTION SUGGESTED > 7.0 Performed By: #### P T, PTT, DDIM #### [facility] [address] [place] [address] Dr. Clem Ward Glucose [Mass/Vol] 318 mg/dL Normal [facility] Comment on above: Performed By: #### P T, PTT, DDIM #### [facility] [address] [address] [address] Clem Ward HbA1c (Bld) [Mass fraction] 12.7 % Critically high 4.5-6.2 [facility] Comment on above: Performed By: #### P T, PTT, DDIM #### [facility] [address] [place] [address] Dr. Clem Ward IRONon 06-19-2022 Iron [Mass/Vol] 70.0 ug/dL Normal 50.0-170.[address] [facility] Comment on above: Performed By: #### P T, PTT, DDIM #### [facility] [address] [address] [address] Clem Ward LIPID PROFILEon 06-19-2022 CHOL-HDL RATIO NORM SEE BELOW Normal [facility] Comment on above: Result Comment: 3.3 - 4.4 LOW RISK 4.4 - 7.1 AVERAGE RISK 7.1 - 11.0 MODERATE RISK >11.0 HIGH RISK Performed By: #### P T, PTT, DDIM #### [facility] [address] [address] [address] Clem Ward Cholesterol [Mass/Vol] 163 mg/dL Normal <=200 [facility] Comment on above: Performed By: #### P T, PTT, DDIM #### [facility] [address] [address] [address] Clem Ward Cholesterol in HDL [Mass/Vol] 36 mg/dL Critically low 40-60 [facility] Comment on above: Performed By: #### P T, PTT, DDIM #### [facility] [address] [address] [address] Clem Ward Cholesterol in LDL [Mass/Vol] 98.2 mg/dL Normal [facility] Comment on above: Performed By: #### P T, PTT, DDIM #### [facility] [address] [place] [address] Dr. Clem Ward Cholesterol.total/Chol esterol in HDL [Mass ratio] 4.5 {ratio} Normal [facility] Comment on above: Performed By: #### P T, PTT, DDIM #### [facility] [address] [place] [address] Dr. Clem Ward HDL NORMAL > or = 60 mg/dl - LO W CARDIOVASCULAR RISK <40 mg/dl - HIGH CARDIOVASCULAR RISK Normal [facility] Comment on above: Performed By: #### P T, PTT, DDIM #### [facility] [address] [place] [address] Dr. Clem Ward LDL CALC NORMAL SEE BELOW Normal [facility] Comment on above: Result Comment: <100 mg/dl OPTIMAL 100 - 129 mg/dl NEAR OR ABOVE OPTIMAL 130 - 159 mg/dl BORDERLINE HIGH 160 - 189 mg/dl HIGH >190 mg/dl VERY HIGH Performed By: #### P T, PTT, DDIM #### [facility] [address] [place] [address] Dr. Clem Ward Triglyceride [Mass/Vol] 144 mg/dL Normal <=150 [facility] Comment on above: Performed By: #### P T, PTT, DDIM #### [facility] [address] [place] [address] Dr. Clem Ward VLDL CALC 28.8 mg/dL Normal [facility] Comment on above: Performed By: #### P T, PTT, DDIM #### [facility] [address] [place] [address] Dr. Clem Ward PROF 14(COMP METB)on 022 Albumin [Mass/Vol] 3.7 g/dL Normal 3.4-5.0 [facility] Comment on above: Performed By: #### P T, PTT, DDIM #### [facility] [address] [place] [address] Dr. Clem Ward Albumin/Globulin [Mass ratio] 0.9 {ratio} Normal [facility] Comment on above: Performed By: #### P T, PTT, DDIM #### [facility] [address] [place] [address] Dr. Clem Ward ALP [Catalytic activity/Vol] 103 U/L Normal 46-116 [facility] Comment on above: Performed By: #### P T, PTT, DDIM #### [facility] [address] [place] [address] Dr. Clem Ward ALT [Catalytic activity/Vol] 33 U/L Normal 14-59 [facility] Comment on above: Performed By: #### P T, PTT, DDIM #### [facility] [address] [place] [address] Dr. Clem aWrd Anion gap [Moles/Vol] 10.8 mmol/L Normal [facility] Comment on above: Performed By: #### P T, PTT, DDIM #### [facility] [address] [place] [address] Dr. Clem Ward AST [Catalytic activity/Vol] 10 U/L Critically low 15-37 [facility] Comment on above: Performed By: #### P T, PTT, DDIM #### [facility] [address] [place] [address] Dr. Clem Ward Bilirubin [Mass/Vol] 0.3 mg/dL Normal 0.2-1.0 [facility] Comment on above: Performed By: #### P T, PTT, DDIM #### [facility] [address] [place] [address] Dr. Clem Ward Calcium [Mass/Vol] 9.1 mg/dL Normal 8.5-10.1 [facility] Comment on above: Performed By: #### P T, PTT, DDIM #### [facility] [address] [place] [address] Dr. Clem Ward Chloride [Moles/Vol] 102 mmol/L Normal 98-107 [facility] Comment on above: Performed By: #### P T, PTT, DDIM #### [facility] [address] [place] [address] Dr. Clem Ward CO2 [Moles/Vol] 28.2 mmol/L Normal 21.0-32.0 [facility] Comment on above: Performed By: #### P T, PTT, DDIM #### [facility] [address] [place] [address] Dr. Clem Ward Creatinine [Mass/Vol] 0.69 mg/dL Normal 0.55-1.02 [facility] Comment on above: Performed By: #### P T, PTT, DDIM #### [facility] [address] [place] [address] Dr. Clem Ward EGFR-AF BURUNDIAN >60 Normal >=60 [facility] Comment on above: Performed By: #### P T, PTT, DDIM #### [facility] [address] [place] [address] Dr. Clem Ward EGFR-NON AF BURUNDIAN >60 Normal >=60 [facility] Comment on above: Performed By: #### P T, PTT, DDIM #### [facility] [address] [address] [address] Clem Ward Globulin (S) [Mass/Vol] 4.1 g/dL Normal [facility] Comment on above: Performed By: #### P T, PTT, DDIM #### [facility] [address] [address] [address] Clem Ward Glucose [Mass/Vol] 400 mg/dL Critically high 74-106 [facility] Comment on above: Performed By: #### P T, PTT, DDIM #### [facility] [address] [place] [address] Dr. Clem Ward Potassium [Moles/Vol] 4.0 mmol/L Normal 3.5-5.1 [facility] Comment on above: Performed By: #### P T, PTT, DDIM #### [facility] [address] [place] [address] Dr. Clem Ward Protein [Mass/Vol] 7.8 g/dL Normal 6.4-8.2 [facility] Comment on above: Performed By: #### P T, PTT, DDIM #### [facility] [address] [place] [address] Dr. Clem Ward Sodium [Moles/Vol] 137 mmol/L Normal 136-145 [facility] Comment on above: Performed By: #### P T, PTT, DDIM #### [facility] [address] [place] [address] Dr. Clem Ward Urea nitrogen [Mass/Vol] 9.0 mg/dL Normal 7.0-18.0 [facility] Comment on above: Performed By: #### P T, PTT, DDIM #### [facility] [address] [place] [address] Dr. Clem Ward Urea nitrogen/Creatinine [Mass ratio] 13.0 mg/mg Normal [facility] Comment on above: Performed By: #### P T, PTT, DDIM #### [facility] [address] [place] [address] Dr. Clem Ward TSHon 09-19-2022 TSH 0.820 uIU/mL Normal 0.358-3.740 [facility] Comment on above: Performed By: #### P T, PTT, DDIM #### [facility] [address] [place] [address] Dr. Clem Ward XR CHEST 1 Von 06-15-2022 XR CHEST 1 V EXAM: XR CHEST 1 V REASON FOR EXAM: Female, 46 years, CHEST PAIN, UNSPECIFIED. TECHNIQUE: A single AP view of the chest is performed. COMPARISON: 02/03/2022. FINDINGS: Cardiac monitoring leads project over the chest. The lungs are expanded and clear. Normal pleura. Normal size heart. Normal mediastinum and ancelmo. Normal visualized pulmonary arteries. Normal visualized aortic arch and descending thoracic aorta. Normal visualized thoracic spine. Normal visualized ribs, clavicles, and shoulders. There is no demonstrated abnormality of the visualized soft tissue structures of the upper abdomen. IMPRESSION: Normal examination of the chest. Electronically authenticated by: CALEB COLUNGA Date: 2022-06-14 22:12 Normal [facility] CBC AUTO DIFFon 06-14-2022 BASO # 0.0 103/ul Normal 0.0-0.1 [facility] Comment on above: Performed By: #### P OCGLUC #### [facility] [address] [place] [address] Dr. Clem Ward Basophils/100 WBC (Bld) 0.3 % Normal 0.2-2.0 [facility] Comment on above: Performed By: #### P OCGLUC #### [facility] [address] [address] [address] Clem Ward EO # 0.2 103/ul Normal 0.0-0.7 [facility] Comment on above: Performed By: #### P OCGLUC #### [facility] [address] [address] [address] Clem Ward Eosinophils/100 WBC (Bld) 3.2 % Normal 0.9-7.0 [facility] Comment on above: Performed By: #### P OCGLUC #### [facility] [address] [place] [address] Dr. Clem Ward Erythrocyte distribution width (RBC) [Ratio] 13.7 % Normal 11.0-15.0 [facility] Comment on above: Performed By: #### P OCGLUC #### [facility] [address] [place] [address] Dr. Clem Ward Hematocrit (Bld) [Volume fraction] 43.0 % Normal 36.0-48.0 [facility] Comment on above: Performed By: #### P OCGLUC #### [facility] [address] [place] [address] Dr. Clem Ward Hemoglobin (Bld) [Mass/Vol] 13.6 g/dL Normal 12.0-16.0 [facility] Comment on above: Performed By: #### P OCGLUC #### [facility] [address] [place] [address] Dr. Clem Ward IG # 0.02 10e3/ul Normal 0.00-0.03 [facility] Comment on above: Performed By: #### P OCGLUC #### [facility] [address] [place] [address] Dr. Clem Ward IG % 0.3 % Normal 0.0-0.5 [facility] Comment on above: Performed By: #### P OCGLUC #### [facility] [address] [place] [address] Dr. Clem Ward LYMPH # 2.5 103/ul Normal 1.2-3.8 [facility] Comment on above: Performed By: #### P OCGLUC #### [facility] [address] [place] [address] Dr. Clem Ward Lymphocytes/100 WBC (Bld) 36.3 % Normal 20.5-60.0 [facility] Comment on above: Performed By: #### P OCGLUC #### [facility] [address] [place] [address] Dr. Clem Ward MANUAL DIFF REQ NO Normal [facility] Comment on above: Performed By: #### P OCGLUC #### [facility] [address] [place] [address] Dr. Clem Ward MCH (RBC) [Entitic mass] 26.4 pg Critically low 26.7-34.0 [facility] Comment on above: Performed By: #### P OCGLUC #### [facility] [address] [address] [address] Clem Ward MCHC (RBC) [Mass/Vol] 31.6 g/dL Normal 29.9-35.2 [facility] Comment on above: Performed By: #### P OCGLUC #### [facility] [address] [place] [address] Dr. Clem Ward MCV (RBC) [Entitic vol] 83.3 fL Normal 81.0-99.0 [facility] Comment on above: Performed By: #### P OCGLUC #### [facility] [address] [place] [address] Dr. Clem Ward MONO # 0.5 103/ul Normal 0.3-0.8 [facility] Comment on above: Performed By: #### P OCGLUC #### [facility] [address] [place] [address] Dr. Clem Ward Monocytes/100 WBC (Bld) 7.0 % Normal 1.7-12.0 [facility] Comment on above: Performed By: #### P OCGLUC #### [facility] [address] [place] [address] Dr. Clem Ward NEUT # 3.6 103/ul Normal 1.4-6.5 [facility] Comment on above: Performed By: #### P OCGLUC #### [facility] [address] [place] [address] Dr. Clem Ward Neutrophils/100 WBC (Bld) 52.9 % Normal 43.0-75.0 [facility] Comment on above: Performed By: #### P OCGLUC #### [facility] [address] [place] [address] Dr. Clem Ward Platelet mean volume (Bld) [Entitic vol] 10.8 fL Normal 9.5-13.5 [facility] Comment on above: Performed By: #### P OCGLUC #### [facility] [address] [place] [address] Dr. Clem Ward PLT 300 103/ul Normal 150-450 [facility] Comment on above: Performed By: #### P OCGLUC #### [facility] [address] [place] [address] Dr. Clem Ward RBC 5.16 106/ul Normal 4.20-5.40 [facility] Comment on above: Performed By: #### P OCGLUC #### [facility] [address] [place] [address] Dr. Clem Ward WBC 6.8 103/ul Normal 4.0-11.0 [facility] Comment on above: Performed By: #### P OCGLUC #### [facility] [address] [place] [address] Dr. Clem Ward D-DIMERon 06-14-2022 D-DIMER <0.19 Normal <=0.59 [facility] Comment on above: Performed By: #### P OCGLUC #### [facility] [address] [place] [address] Dr. Clem Ward D-DIMER COMMENTS SEE BELOW Normal [facility] Comment on above: Result Comment: Incr eases in D-Dimer concentration observed with thromboembolic events can be variable due to localization, size, and age of the thrombus. Therefore, a thromboembolic event cannot be diagnosed with certainty on the basis of the reference range. D-Dimers may also be elevated for a variety of disorders including: advanced age, , coronary disease, cancer, liver disease, infection, inflammation, hematoma, DIC, trauma, post-surgery, diabetes, thrombolytic or anticoagulant therapy, stress, and generalized hospitalization. Performed By: #### P OCGLUC #### [facility] [address] [place] [address] Dr. Clem Ward PROF CHEM 8 (BAS METB)on Anion gap [Moles/Vol] 11.7 mmol/L Normal [facility] Comment on above: Performed By: #### A 1C #### [facility] [address] [place] [address] Dr. Clem Ward Calcium [Mass/Vol] 8.7 mg/dL Normal 8.5-10.1 [facility] Comment on above: Performed By: #### A 1C #### [facility] [address] [place] [address] Dr. Clem Ward Chloride [Moles/Vol] 100 mmol/L Normal 98-107 [facility] Comment on above: Performed By: #### A 1C #### [facility] [address] [address] [address] Clem Ward CO2 [Moles/Vol] 26.2 mmol/L Normal 21.0-32.0 [facility] Comment on above: Performed By: #### A 1C #### [facility] [address] [address] [address] Clem Ward Creatinine [Mass/Vol] 0.94 mg/dL Normal 0.55-1.02 [facility] Comment on above: Performed By: #### A 1C #### [facility] [address] [place] [address] Dr. Clem Ward EGFR-AF BURUNDIAN >60 Normal >=60 [facility] Comment on above: Performed By: #### A 1C #### [facility] [address] [place] [address] Dr. Clem Ward EGFR-NON AF BURUNDIAN >60 Normal >=60 [facility] Comment on above: Performed By: #### A 1C #### [facility] [address] [place] [address] Dr. Clem Ward Glucose [Mass/Vol] 464 mg/dL Critically high 74-106 [facility] Comment on above: Performed By: #### A 1C #### [facility] [address] [place] [address] Dr. Clem Ward Potassium [Moles/Vol] 3.9 mmol/L Normal 3.5-5.1 [facility] Comment on above: Performed By: #### A 1C #### [facility] [address] [place] [address] Dr. Clem Ward Sodium [Moles/Vol] 134 mmol/L Critically low 136-145 [facility] Comment on above: Performed By: #### A 1C #### [facility] [address] [place] [address] Dr. Clem Ward Urea nitrogen [Mass/Vol] 10.0 mg/dL Normal 7.0-18.0 [facility] Comment on above: Performed By: #### A 1C #### [facility] [address] [address] [address] Clem Ward Urea nitrogen/Creatinine [Mass ratio] 10.6 mg/mg Normal [facility] Comment on above: Performed By: #### A 1C #### [facility] [address] [address] [address] Clem Ward TROPONIN, HIGH SENSITIVITYon 06-14-2022 HSTROP 8.2 pg/mL Normal 4.0-51.3 [facility] Comment on above: Result Comment: CUT- OFF POINTS HAVE BEEN ESTABLISHED BASED ON THE FOURTH UNIVERSAL DEFINITIONS OF MYOCARDIAL INFARCTION. THE UPPER REFERENCE LIMIT (URL) OF TROPONIN, DEFINED THE 99TH PERCENTILE OF cTnI DISTRIBUTION IN A REFERENCE POPULATION, HAS BEEN CONFIRMED THE DECISION THRESHOLD FOR [place] DIAGNOSIS. Performed By: #### A 1C #### [facility] [address] [address] [address] Clem Ward Cardiovascular Lab Reporton 02-24-2022 Cardiovascular Lab Report [facility] Patient Name: [facility] Jennifer Adam MR #: [id number] Department of Physician: Vishal Fowler MD Division of Service Date: 02/23/2022 Cardiology Birthdate: 1975 Adult Cardiovascular Room #: [place] [address] Cardiovascular Laboratory Report PROCEDURES PERFORMED: 1. Right heart catheterization. 2. Left heart catheterization. 3. Bilateral selective coronary angiography. 4. Limited angiography of right common femoral artery. FINAL IMPRESSION: 1. Mild nonobstructive coronary artery disease. 2. Nonischemic cardiomyopathy. 3. Mildly elevated LVEDP. 4. Low cardiac output secondary to cardiomyopathy. FINAL RECOMMENDATIONS: 1. Optimization of medical management for nonobstructive coronary artery disease: Aspirin, high-intensity statin, beta-chloe/FRANCES/ARB as tolerated. 2. Optimization of medical management for nonischemic cardiomyopathy. We will switch Coreg to metoprolol succinate and increase dose to 75 mg daily. Additionally, we will increase spironolactone from 25 mg daily to 50 mg daily. 3. Repeat labs in 1 week. 4. Follow up with Cardiology as scheduled. PROCEDURE IN DETAIL: After risks, benefits, and alternatives were explained, written informed consent was obtained. The patient was prepped and draped in usual sterile fashion. Using 1% lidocaine solution, local infiltration of anesthesia was achieved over the right internal jugular vein. Using ultrasound guidance and with a micro kit, access to the right internal jugular vein was obtained. Montemayor catheter was advanced sequentially into the RA, RV, PA, and wedge position and pressures were measured. After reviewing the pressures, it was decided to conclude the right heart catheterization and proceed with coronary angiography. Using 1% lidocaine solution, local infiltration of anesthesia was achieved over the right common femoral artery. Using ultrasound guidance and with a micropuncture kit, access to the right common femoral artery was obtained. Bilateral selective coronary angiography was performed using a JR4 and JL4 diagnostic catheters. After reviewing the images, it was decided to conclude the procedure. The patient tolerated the procedure well. There were no immediate complications. She was to be transferred to recovery in stable condition. FINDINGS: 1. Hemodynamics. 2. AO: 121/90 (105). 3. LV: 107/13 (16). 4. RA: 14/10 (11). 5. RV: 42/8 (10). 6. PCWP: 17. 7. PA: 42/14 (31). Coronary arteries: 1. Left main: This arises from the left coronary cusp. It bifurcates into the LAD and left circumflex coronary arteries. It is patent and without significant stenosis. 2. LAD: There is mild, nonobstructive disease of the mid LAD, estimated approximately 20 to 30%. Otherwise, the vessel is patent without significant stenosis. 3. Left circumflex: This vessel is patent without significant stenosis. 4. RCA: This is a dominant vessel giving rise to the PDA and PLB branches. There are minor luminal irregularities throughout. There is 30% ostial stenosis of the posterior descending artery. Otherwise, this vessel is patent and without significant stenosis. INDICATIONS: Heart failure, cardiomyopathy, recent NSTEMI. Electronically Signed by: Vishal Fowler MD 03/22/2022 05:34 P Vishal Fowler MD Date Dict: 02/23/2022/01:41 P/Vishal Fowler MD Date Trans: 02/24/2022 06:18 A/jovanna [id number] cc: Yoel Salinas M.D. [address] Larry Jakub [facility] [id number] Normal [facility] Covid-19 PCR (CVDTB)on 01-30 SARS-CoV-2 (COVID-19) RNA BENTLEY+probe Ql (Unsp spec) Not detected Normal NOT DETECTED [facility] Comment on above: Result Comment: This test is not yet approved or cleared by the [place] FDA. When there are no FDA-approved or cleared tests available, and other criteria are met, FDA can make tests available under an emergency access mechanism called an Emergency Use Authorization (EUA). The EUA for this test is supported by the [place] of Health and Human Service's (HHS's) declaration that circumstances exist to justify the emergency use of in vitro diagnostics for the detection and/or diagnosis of the virus that causes COVID-19. This EUA will remain in effect (meaning this test can be used) for the duration of the COVID-19 declaration justifying emergency of IVDs, unless it is terminated or revoked by FDA (after which the test may no longer be used). When diagnostic testing is negative, the possibility of a false negative should be considered in the context of a patient's recent exposures and the presence of clinical signs and symptoms consistent with SARS-CoV-2. Performed By: #### P T, PTT, DDIM #### [facility] [address] [place] [id number] Clem Ferreira 02-04-2022 Natriuretic peptide B (Bld) [Mass/Vol] 608.0 pg/mL Critically high <=450.0 [facility] Comment on above: Performed By: #### P T, PTT, DDIM #### [facility] [address] [place] [address] Dr. Clem Ward CBC AUTO DIFFon 02-04-2022 BASO # 0.0 103/ul Normal 0.0-0.1 [facility] Comment on above: Performed By: #### P T, PTT, DDIM #### [facility] [address] [place] [address] Dr. Clem Ward Basophils/100 WBC (Bld) 0.3 % Normal 0.2-2.0 [facility] Comment on above: Performed By: #### P T, PTT, DDIM #### [facility] [address] [place] [address] Dr. Clem Ward EO # 0.3 103/ul Normal 0.0-0.7 [facility] Comment on above: Performed By: #### P T, PTT, DDIM #### [facility] [address] [place] [address] Dr. Clem Ward Eosinophils/100 WBC (Bld) 4.9 % Normal 0.9-7.0 [facility] Comment on above: Performed By: #### P T, PTT, DDIM #### [facility] [address] [place] [address] Dr. Clem Ward Erythrocyte distribution width (RBC) [Ratio] 13.5 % Normal 11.0-15.0 [facility] Comment on above: Performed By: #### P T, PTT, DDIM #### [facility] [address] [place] [address] Dr. Clem Ward Hematocrit (Bld) [Volume fraction] 43.5 % Normal 36.0-48.0 [facility] Comment on above: Performed By: #### P T, PTT, DDIM #### [facility] [address] [place] [address] Dr. Clem Ward Hemoglobin (Bld) [Mass/Vol] 13.4 g/dL Normal 12.0-16.0 [facility] Comment on above: Performed By: #### P T, PTT, DDIM #### [facility] [address] [place] [address] Dr. Clem Ward IG # 0.01 10e3/ul Normal 0.00-0.03 [facility] Comment on above: Performed By: #### P T, PTT, DDIM #### [facility] [address] [place] [address] Dr. Clem Ward IG % 0.2 % Normal 0.0-0.5 [facility] Comment on above: Performed By: #### P T, PTT, DDIM #### [facility] [address] [place] [address] Dr. Clem Ward LYMPH # 3.1 103/ul Normal 1.2-3.8 [facility] Comment on above: Performed By: #### P T, PTT, DDIM #### [facility] [address] [place] [address] Dr. Clem Ward Lymphocytes/100 WBC (Bld) 48.3 % Normal 20.5-60.0 [facility] Comment on above: Performed By: #### P T, PTT, DDIM #### [facility] [address] [place] [address] Dr. Clem Ward MANUAL DIFF REQ NO Normal [facility] Comment on above: Performed By: #### P T, PTT, DDIM #### [facility] [address] [place] [address] Dr. Clem Ward MCH (RBC) [Entitic mass] 25.4 pg Critically low 26.7-34.0 [facility] Comment on above: Performed By: #### P T, PTT, DDIM #### [facility] [address] [place] [address] Dr. Clem Ward MCHC (RBC) [Mass/Vol] 30.8 g/dL Normal 29.9-35.2 [facility] Comment on above: Performed By: #### P T, PTT, DDIM #### [facility] [address] [place] [address] Dr. Clem Ward MCV (RBC) [Entitic vol] 82.5 fL Normal 81.0-99.0 [facility] Comment on above: Performed By: #### P T, PTT, DDIM #### [facility] [address] [place] [address] Dr. Clem Ward MONO # 0.5 103/ul Normal 0.3-0.8 [facility] Comment on above: Performed By: #### P T, PTT, DDIM #### [facility] [address] [place] [address] Dr. Clem Ward Monocytes/100 WBC (Bld) 8.3 % Normal 1.7-12.0 [facility] Comment on above: Performed By: #### P T, PTT, DDIM #### [facility] [address] [place] [address] Dr. Clem Ward NEUT # 2.4 103/ul Normal 1.4-6.5 [facility] Comment on above: Performed By: #### P T, PTT, DDIM #### [facility] [address] [place] [address] Dr. Clem Ward Neutrophils/100 WBC (Bld) 38.0 % Critically low 43.0-75.0 [facility] Comment on above: Performed By: #### P T, PTT, DDIM #### [facility] [address] [place] [address] Dr. Clem Ward Platelet mean volume (Bld) [Entitic vol] 10.1 fL Normal 9.5-13.5 [facility] Comment on above: Performed By: #### P T, PTT, DDIM #### [facility] [address] [place] [address] Dr. Clem Ward PLT 310 103/ul Normal 150-450 [facility] Comment on above: Performed By: #### P T, PTT, DDIM #### [facility] [address] [place] [address] Dr. Clem Ward RBC 5.27 106/ul Normal 4.20-5.40 [facility] Comment on above: Performed By: #### P T, PTT, DDIM #### [facility] [address] [place] [address] Dr. Clem Ward WBC 6.4 103/ul Normal 4.0-11.0 [facility] Comment on above: Performed By: #### P T, PTT, DDIM #### [facility] [address] [place] [address] Dr. Clem Ward POINT OF CARE GLUCOSEon Glucose [Mass/Vol] 264 mg/dL Critically high 74-106 [facility] Comment on above: Performed By: #### P OCGLUC #### [facility] [address] [place] [address] Dr. Clem Ward Glucose [Mass/Vol] 222 mg/dL Critically high 74-106 [facility] Comment on above: Performed By: #### C MADM, BMP #### [facility] [address] [place] [address] Dr. Clem Ward Glucose [Mass/Vol] 184 mg/dL Critically high -106 [facility] Comment on above: Performed By: #### C MADM, BMP #### [facility] [address] [place] [address] Dr. Clem Ward PROF 14(COMP METB)on 022 Albumin [Mass/Vol] 3.1 g/dL Critically low 3.4-5.0 [facility] Comment on above: Performed By: #### P T, PTT, DDIM #### [facility] [address] [place] [address] Dr. Clem Ward Albumin/Globulin [Mass ratio] 0.7 {ratio} Normal [facility] Comment on above: Performed By: #### P T, PTT, DDIM #### [facility] [address] [place] [address] Dr. Clem Ward ALP [Catalytic activity/Vol] 86 U/L Normal 46-116 [facility] Comment on above: Performed By: #### P T, PTT, DDIM #### [facility] [address] [place] [address] Dr. Clem Ward ALT [Catalytic activity/Vol] 14 U/L Normal 14-59 [facility] Comment on above: Performed By: #### P T, PTT, DDIM #### [facility] [address] [place], [place] [id number] Dr. Clem Ward Anion gap [Moles/Vol] 11.5 mmol/L Normal [facility] Comment on above: Performed By: #### P T, PTT, DDIM #### [facility] [address] [place] [address] Dr. Clem Ward AST [Catalytic activity/Vol] 11 U/L Critically low 15-37 [facility] Comment on above: Performed By: #### P T, PTT, DDIM #### [facility] [address] [place] [address] Dr. Clem Ward Bilirubin [Mass/Vol] 0.2 mg/dL Normal 0.2-1.0 [facility] Comment on above: Performed By: #### P T, PTT, DDIM #### [facility] [address] [place] [address] Dr. Clem Ward Calcium [Mass/Vol] 8.3 mg/dL Critically low 8.5-10.1 [facility] Comment on above: Performed By: #### P T, PTT, DDIM #### [facility] [address] [place] [address] Dr. Clem Ward Chloride [Moles/Vol] 100 mmol/L Normal 98-107 [facility] Comment on above: Performed By: #### P T, PTT, DDIM #### [facility] [address] [place] [address] Dr. Clem Ward CO2 [Moles/Vol] 26.8 mmol/L Normal 21.0-32.0 [facility] Comment on above: Performed By: #### P T, PTT, DDIM #### [facility] [address] [place] [address] Dr. Clem Ward Creatinine [Mass/Vol] 0.56 mg/dL Normal 0.55-1.02 [facility] Comment on above: Performed By: #### P T, PTT, DDIM #### [facility] [address] [place] [address] Dr. Clem Ward EGFR-AF BURUNDIAN >60 Normal >=60 [facility] Comment on above: Performed By: #### P T, PTT, DDIM #### [facility] [address] [place] [address] Dr. Clem Ward EGFR-NON AF BURUNDIAN >60 Normal >=60 [facility] Comment on above: Performed By: #### P T, PTT, DDIM #### [facility] [address] [place] [address] Dr. Clem Ward Globulin (S) [Mass/Vol] 4.3 g/dL Normal [facility] Comment on above: Performed By: #### P T, PTT, DDIM #### [facility] [address] [place] [address] Dr. Clem Ward Glucose [Mass/Vol] 228 mg/dL Critically high 74-106 [facility] Comment on above: Performed By: #### P T, PTT, DDIM #### [facility] [address] [place] [address] Dr. Clem Ward Potassium [Moles/Vol] 4.3 mmol/L Normal 3.5-5.1 [facility] Comment on above: Performed By: #### P T, PTT, DDIM #### [facility] [address] [place] [address] Dr. Clem Ward Protein [Mass/Vol] 7.4 g/dL Normal 6.4-8.2 [facility] Comment on above: Performed By: #### P T, PTT, DDIM #### [facility] [address] [place] [address] Dr. Clem Ward Sodium [Moles/Vol] 134 mmol/L Critically low 136-145 [facility] Comment on above: Performed By: #### P T, PTT, DDIM #### [facility] [address] [place] [address] Dr. Clem Ward Urea nitrogen [Mass/Vol] 12.0 mg/dL Normal 7.0-18.0 [facility] Comment on above: Performed By: #### P T, PTT, DDIM #### [facility] [address] [place] [address] Dr. Clem Ward Urea nitrogen/Creatinine [Mass ratio] 21.4 mg/mg Normal [facility] Comment on above: Performed By: #### P T, PTT, DDIM #### [facility] [address] [place] [address] Dr. Clem Ward CARDIAC TAWNYA 3-6on 2 CK [Catalytic activity/Vol] 60 U/L Normal 26-192 [facility] Comment on above: Performed By: #### P OCGLUC #### [facility] [address] [place] [address] Dr. Clem Ward CK.MB [Mass/Vol] 1.19 ng/mL Normal <=3.60 [facility] Comment on above: Performed By: #### P OCGLUC #### [facility] [address] [place] [address] Dr. Clem Ward HSTROP 118.5 pg/mL Critically high 4.0-51.3 [facility] Comment on above: Result Comment: CUT- OFF POINTS HAVE BEEN ESTABLISHED BASED ON THE FOURTH UNIVERSAL DEFINITIONS OF MYOCARDIAL INFARCTION. THE UPPER REFERENCE LIMIT (URL) OF TROPONIN, DEFINED THE 99TH PERCENTILE OF cTnI DISTRIBUTION IN A REFERENCE POPULATION, HAS BEEN CONFIRMED THE DECISION THRESHOLD FOR [place] DIAGNOSIS. Performed By: #### P OCGLUC #### [facility] [address] [place] [address] Dr. Clem Ward CK [Catalytic activity/Vol] 63 U/L Normal 26-192 [facility] Comment on above: Performed By: #### P T, PTT, DDIM #### [facility] [address] [place] [address] Dr. Clem Ward CK.MB [Mass/Vol] 1.49 ng/mL Normal <=3.60 [facility] Comment on above: Performed By: #### P T, PTT, DDIM #### [facility] [address] [place] [address] Dr. Clem Ward HSTROP 150.9 pg/mL Critically high 4.0-51.3 [facility] Comment on above: Result Comment: CUT- OFF POINTS HAVE BEEN ESTABLISHED BASED ON THE FOURTH UNIVERSAL DEFINITIONS OF MYOCARDIAL INFARCTION. THE UPPER REFERENCE LIMIT (URL) OF TROPONIN, DEFINED THE 99TH PERCENTILE OF cTnI DISTRIBUTION IN A REFERENCE POPULATION, HAS BEEN CONFIRMED THE DECISION THRESHOLD FOR [place] DIAGNOSIS. Performed By: #### P T, PTT, DDIM #### [facility] [address] [place] [address] Dr. Clem Ward CARDIAC TAWNYA ADMITon 022 CK [Catalytic activity/Vol] 73 U/L Normal 26-192 [facility] Comment on above: Performed By: #### Neto PATRICIA, BMP #### [facility] [address] [place] [address] Dr. Clem Ward CK.MB [Mass/Vol] 1.49 ng/mL Normal <=3.60 [facility] Comment on above: Performed By: #### Neto PATRICIA BMP #### [facility] [address] [place] [address] Dr. Clem Ward HSTROP 186.1 pg/mL Critically high 4.0-51.3 [facility] Comment on above: Result Comment: CUT- OFF POINTS HAVE BEEN ESTABLISHED BASED ON THE FOURTH UNIVERSAL DEFINITIONS OF MYOCARDIAL INFARCTION. THE UPPER REFERENCE LIMIT (URL) OF TROPONIN, DEFINED THE 99TH PERCENTILE OF cTnI DISTRIBUTION IN A REFERENCE POPULATION, HAS BEEN CONFIRMED THE DECISION THRESHOLD FOR [place] DIAGNOSIS. Performed By: #### Neto PATRICIA BMP #### [facility] [address] [place] [address] Dr. Clem Ward LANI 32 ng/mL Normal 9-82 [facility] Comment on above: Performed By: #### Neto PATRICIA BMP #### [facility] [address] [place] [address] Dr. Clem Ward CBC AUTO DIFFon 02-03-2022 BASO # 0.0 103/ul Normal 0.0-0.1 [facility] Comment on above: Performed By: #### Neto PATRICIA BMP #### [facility] [address] [place] [address] Dr. Clem Ward Basophils/100 WBC (Bld) 0.4 % Normal 0.2-2.0 [facility] Comment on above: Performed By: #### Neto PATRICIA, BMP #### [facility] [address] [place] [address] Dr. Clem Ward EO # 0.3 103/ul Normal 0.0-0.7 [facility] Comment on above: Performed By: #### C HARSHAD, BMP #### [facility] [address] [place] [address] Dr. Clem Ward Eosinophils/100 WBC (Bld) 3.9 % Normal 0.9-7.0 [facility] Comment on above: Performed By: #### C HARSHAD, BMP #### [facility] [address] [place] [address] Dr. Clem Ward Erythrocyte distribution width (RBC) [Ratio] 13.7 % Normal 11.0-15.0 [facility] Comment on above: Performed By: #### C HARSHAD, BMP #### [facility] [address] [place] [address] Dr. Clem Ward Hematocrit (Bld) [Volume fraction] 45.6 % Normal 36.0-48.0 [facility] Comment on above: Performed By: #### C HARSHAD, BMP #### [facility] [address] [place] [address] Dr. Clem Ward Hemoglobin (Bld) [Mass/Vol] 14.1 g/dL Normal 12.0-16.0 [facility] Comment on above: Performed By: #### C HARSHAD, BMP #### [facility] [address] [place] [address] Dr. Clem Ward IG # 0.01 10e3/ul Normal 0.00-0.03 [facility] Comment on above: Performed By: #### C HARSHAD, BMP #### [facility] [address] [place] [address] Dr. Clem Ward IG % 0.1 % Normal 0.0-0.5 [facility] Comment on above: Performed By: #### C HARSHAD, BMP #### [facility] [address] [place] [address] Dr. Clem Ward LYMPH # 3.4 103/ul Normal 1.2-3.8 [facility] Comment on above: Performed By: #### C HARSHAD, BMP #### [facility] [address] [address] [address] Clem Ward Lymphocytes/100 WBC (Bld) 44.0 % Normal 20.5-60.0 [facility] Comment on above: Performed By: #### C MADM, BMP #### [facility] [address] [place] [address] Dr. Clem Ward MANUAL DIFF REQ NO Normal [facility] Comment on above: Performed By: #### C MADM, BMP #### [facility] [address] [place] [address] Dr. Clem Ward MCH (RBC) [Entitic mass] 25.6 pg Critically low 26.7-34.0 [facility] Comment on above: Performed By: #### C MADM, BMP #### [facility] [address] [place] [address] Dr. Clem Ward MCHC (RBC) [Mass/Vol] 30.9 g/dL Normal 29.9-35.2 [facility] Comment on above: Performed By: #### C MADM, BMP #### [facility] [address] [place] [address] Dr. Clem Ward MCV (RBC) [Entitic vol] 82.8 fL Normal 81.0-99.0 [facility] Comment on above: Performed By: #### C MADM, BMP #### [facility] [address] [place] [address] Dr. Clem Ward MONO # 0.6 103/ul Normal 0.3-0.8 [facility] Comment on above: Performed By: #### C MADM, BMP #### [facility] [address] [place] [address] Dr. Clem Ward Monocytes/100 WBC (Bld) 7.6 % Normal 1.7-12.0 [facility] Comment on above: Performed By: #### C MADM, BMP #### [facility] [address] [place] [address] Dr. Clem Ward NEUT # 3.4 103/ul Normal 1.4-6.5 [facility] Comment on above: Performed By: #### C HARSHAD, BMP #### [facility] [address] [address] [address] Clem Ward Neutrophils/100 WBC (Bld) 44.0 % Normal 43.0-75.0 [facility] Comment on above: Performed By: #### C HARSHAD, BMP #### [facility] [address] [address] [address] Clem Ward Platelet mean volume (Bld) [Entitic vol] 10.0 fL Normal 9.5-13.5 [facility] Comment on above: Performed By: #### C HARSHAD, BMP #### [facility] [address] [place] [address] Dr. Clem Ward PLT 296 103/ul Normal 150-450 [facility] Comment on above: Performed By: #### C HARSHAD, BMP #### [facility] [address] [place] [address] Dr. Clem Ward RBC 5.51 106/ul Critically high 4.20-5.40 [facility] Comment on above: Performed By: #### C HARSHAD, BMP #### [facility] [address] [place] [address] Dr. Clem Ward WBC 7.8 103/ul Normal 4.0-11.0 [facility] Comment on above: Performed By: #### C HARSHAD, BMP #### [facility] [address] [place] [address] STROKE HEAD WOon 02-04-[address] STROKE HEAD WO EXAM: CT STROKE HEAD WO CLINICAL INDICATION: Cerebrovascular accident COMPARISON: None TECHNIQUE: Axial CT images of the brain were obtained without contrast. Dose reduction techniques were achieved by using automated exposure control and/or adjustment of mA and/or kV according to patient size and/or use of iterative reconstruction technique. FINDINGS: Study is limited due to overlying artifact. Brain parenchyma: No mass effect or midline shift is seen. Ta-white differentiation is maintained. No findings suspicious for intracranial hemorrhage. No findings suggesting acute stroke. Periventricular hypoattenuation / patchy white matter hypodensities are statistically most often related to small vessel ischemic disease. Ventricles and extra-axial spaces: Ventricles are concordant with sulci. No findings suggesting hydrocephalus. Visualized paranasal sinuses: No findings suggesting acute sinusitis. Mastoid air cells: Clear. Included portions of the orbits:Included portions of the orbits with no evidence of fracture or other acute pathology. Bones: No fracture is seen. Impression: Study due to overlying artifact 1. No evidence for an acute intracranial abnormality. Findings relayed to Dr. Hill at 6:47 AM on 02/03/2022. No findings suspicious for acute stroke by noncontrast head CT. If there is high suspicion for acute intracranial pathology, please note that magnetic resonance imaging or other additional evaluation may be more sensitive than noncontrast head CT. Electronically authenticated by: NESS BRAR Date: 2022-02-03 06:47 Normal [facility] CTA HEAD WO W CONon 02-04-20 CTA HEAD WO W CON EXAMINATION: CTA HEA D WO W CON HISTORY: Cerebrovascular accident COMPARISON: Noncontrast CT head 02/03/2022 TECHNIQUE: Contrast enhanced head CT arteriogram was performed. Scanning performed during the arterial phase. 3D reconstructions were rendered on a separate 3D workstation to evaluate vascular anatomy. Dose reduction techniques were achieved by using automated exposure control and/or adjustment of mA and/or kV according to patient size and/or use of iterative reconstruction technique. FINDINGS: VASCULATURE FINDINGS: ICAs: Patent bilaterally to the carotid terminus. MCAs: Normal bilaterally. ACAs: Normal bilaterally. P-Comms: Visualized bilaterally. Vertebral arteries: Normal to the confluence with the basilar artery. Basilar artery: Normal. chore tender: Normal bilaterally. Aneurysm: None. BRAIN FINDINGS: No abnormal enhancement. IMPRESSION: No large vessel arterial occlusion, high-grade narrowing, or substantial luminal irregularity in the head. Electronically authenticated by: LILA KAISER Date: 2022-02-03 08:09 Normal [facility] Covid-19 PCR (CVDTB)on SARS-CoV-2 (COVID-19) RNA BENTLEY+probe Ql (Unsp spec) Not detected Normal NOT DETECTED [facility] Comment on above: Result Comment: When diagnostic testing is negative, the possibility of a false negative should be considered in the context of a patient's recent exposures and the presence of clinical signs and symptoms consistent with SARS-CoV-2. This test is not yet approved or cleared by the [place] FDA. When there are no FDA-approved or cleared tests available, and other criteria are met, FDA can make tests available under an emergency access mechanism called an Emergency Use Authorization (EUA). The EUA for this test is supported by the [place] of Health and Human Service's declaration that circumstances exist to justify the emergency use of in vitro diagnostics for the detection and/or diagnosis of the virus that causes COVID-19. This EUA will remain in effect for the duration of the COVID-19 declaration justifying emergency of IVDs, unless it is terminated or revoked by the FDA (after which the test may no longer be used). Performed By: #### P T, PTT, DDIM #### [facility] [address] [place] [address] Dr. Clem Ward ECHO LIMITED STUDYon 022 ECHO LIMITED STUDY Patient: JENNIFER DIAZ Exam Date: 02/03/2022 : 1975 Gender:F Ordering : DR YOEL SALINAS . Admission #: [id number] Family : DR PATEL CAMPOS Order #: [id number] CLICK HERE TO VIEW EXAM ECHOCARDIOGRAM REPORT PROCEDURE: CARDIO PULMONARY ECHO LIMITED STUDY INDICATIONS: TIA, h/o [place], HTN, echocardiogram done at [facility] 02/01/2022 EF 20-25% COMPARISON: None. DESCRIPTION: Limited ECHOCARDIOGRAM Real-time transthoracic echocardiography with 2D and M-mode performed. QUALITY: Technical quality was good. LEFT VENTRICLE: Normal chamber size. Left ventricular renee are at the upper limit of normal in thickness. There is global hypokinesis with moderately severely reduced left ventricular systolic function. LV EF: Moderately to severely reduced left ventricular ejection fraction, (25-30%). DIASTOLIC: ATRIAL SEPTUM: LEFT ATRIUM: Normal chamber size. RIGHT ATRIUM: Normal chamber size. RIGHT VENTRICLE: Normal chamber size. TRICUSPID VALVE: Normal mobility and thickness. MITRAL VALVE: Mildly thickened with normal mobility. Mild mitral annular calcification. AORTIC VALVE: Normal trileaflet appearance. No visible sclerosis. Normal leaflet mobility. AORTIC ROOT: Normal diameter and appearance. PULMONIC VALVE: Not well visualized. PERICARDIUM: No evidence of pericardial effusion. IVC: PLEURA: CONCLUSION: 1. Left ventricular systolic function is moderately to severely reduced with global hypokinesis. LVEF is estimated at 25 to 30%. 2. No pericardial effusion. Adult Echocardiography Procedure Report Left Ventricle LVEDD (3.7 - 5.6 cm): 5.39 cm LVESD (2.2 - 4.0 cm): 4.68 cm LVIVS thickness (0.6 - 1.2 cm): 9.71 mm LVPW thickness (0.5 - 1.0 cm): 1.02 cm LVOT Area (cm2): 4.52 cm2 LVOT Diameter 2.40 cm Left Ventricular Ejection Fraction: 25-30 % Left Atrium Left Atrium Systolic Dimension: 3.00 cm Left Atrium Systolic Area(A4C): 13.80 cm2 Left Atrium Systolic Volume(A4C): 27406 mm3 Mitral Valve Right Ventricle Aorta AO Root Diam: 3.00 cm Aortic Valve Tricuspid Valve Pulmonic Valve Right Atrium Dictated by: Matt Montez M.D. on 02/03/2022 at 18:57 Approved by: Matt Montez M.D. on 02/03/2022 at 19:00 Normal [facility] GLYCOHEMOGLOBIN A1Con 2021 ADA RECOMMENDATION SEE BELOW Normal [facility] Comment on above: Result Comment: ADA RECOMMENDED LIMIT 4.0 - 6.0 ADA THERAPEUTIC TARGET < 7.0 ACTION SUGGESTED > 7.0 Performed By: #### A 1C #### [facility] [address] [place] [address] Dr. Clem Ward Glucose [Mass/Vol] 197 mg/dL Normal [facility] Comment on above: Performed By: #### A 1C #### [facility] [address] [address] [address] Clem Ward HbA1c (Bld) [Mass fraction] 8.5 % Critically high 4.5-6.2 [facility] Comment on above: Performed By: #### A 1C #### [facility] [address] [place] [address] Dr. Clem Ward LIPID PROFILEon 02-03-2022 CHOL-HDL RATIO NORM SEE BELOW Normal [facility] Comment on above: Result Comment: 3.3 - 4.4 LOW RISK 4.4 - 7.1 AVERAGE RISK 7.1 - 11.0 MODERATE RISK >11.0 HIGH RISK Performed By: #### P OCGLUC #### [facility] [address] [address] [address] Clem Ward Cholesterol [Mass/Vol] 168 mg/dL Normal <=200 [facility] Comment on above: Performed By: #### P OCGLUC #### [facility] [address] [address] [address] Clem Ward Cholesterol in HDL [Mass/Vol] 37 mg/dL Critically low 40-60 [facility] Comment on above: Performed By: #### P OCGLUC #### [facility] [address] [address] [address] Clem Ward Cholesterol in LDL [Mass/Vol] 108.4 mg/dL Normal [facility] Comment on above: Performed By: #### P OCGLUC #### [facility] [address] [place] [address] Dr. Clem Ward Cholesterol.total/Chol esterol in HDL [Mass ratio] 4.5 {ratio} Normal [facility] Comment on above: Performed By: #### P OCGLUC #### [facility] [address] [address] [address] Clem Ward HDL NORMAL > or = 60 mg/dl - LO W CARDIOVASCULAR RISK <40 mg/dl - HIGH CARDIOVASCULAR RISK Normal [facility] Comment on above: Performed By: #### P OCGLUC #### [facility] [address] [address] [address] Clem Ward LDL CALC NORMAL SEE BELOW Normal [facility] Comment on above: Result Comment: <100 mg/dl OPTIMAL 100 - 129 mg/dl NEAR OR ABOVE OPTIMAL 130 - 159 mg/dl BORDERLINE HIGH 160 - 189 mg/dl HIGH >190 mg/dl VERY HIGH Performed By: #### P OCGLUC #### [facility] [address] [place] [address] Dr. Clem Ward Triglyceride [Mass/Vol] 113 mg/dL Normal <=150 [facility] Comment on above: Performed By: #### P OCGLUC #### [facility] [address] [address] [address] Clem Ward VLDL CALC 22.6 mg/dL Normal [facility] Comment on above: Performed By: #### P OCGLUC #### [facility] [address] [place] [address] Dr. Clem Ward MRI BRAIN WO CONon 2 MRI BRAIN WO CON EXAM: MRI BRAIN WO CON, MRA NECK WO CON CLINICAL INDICATION: Cerebrovascular accident COMPARISON: CTA head 02/03/2022 TECHNIQUE/PROTOCOL: 1) MRI of the brain with and without contrast. 2) 3D time of flight non contrast MRA neck performed. 3D reconstructions were performed to evaluate vascular anatomy. All internal carotid measurements were made according to the NASCET criteria. CONTRAST: None. BRAIN: No restricted diffusion, extra-axial fluid collection, hydrocephalus, midline shift, or other mass effect. Intracranial flow voids are maintained. Nonspecific partially empty sella. No Chiari I malformation. Normal marrow signal. No soft tissue abnormalities. Trace scattered paranasal sinus mucosal thickening. Mastoid air cells are well-aerated. VASCULATURE: CCAs: Patent bilaterally as visualized. The origins and aortic arch were not included in the [id number]. ICAs: Patent bilaterally from the skull base to the carotid terminus. Vertebral arteries: Normal to the confluence with the basilar artery. IMPRESSION: 1. No acute intracranial process or recent infarction. 2. Nonspecific partially empty sella. While this is often found incidentally in asymptomatic patients, this can be associated with endocrine abnormalities and/or radiographic intracranial hypertension. 3. Normal MRA of the neck. The common carotid origins and aortic arch are not included in the [id number]. Electronically authenticated by: LILA KAISER Date: 2022-02-03 14:19 Normal [facility] POINT OF CARE GLUCOSEon 05-0 Glucose [Mass/Vol] 109 mg/dL Critically high 74-106 [facility] Comment on above: Performed By: #### P T, PTT, DDIM #### [facility] [address] [place] [address] Dr. Clem Ward Glucose [Mass/Vol] 362 mg/dL Critically high 74-106 [facility] Comment on above: Performed By: #### T 3TOTAL #### [facility] [address] [address] [address] Clem Wadr PROF CHEM 8 (BAS METB)on Anion gap [Moles/Vol] 13.7 mmol/L Normal [facility] Comment on above: Performed By: #### C MADM, BMP #### [facility] [address] [place] [address] Dr. Clem Ward Calcium [Mass/Vol] 8.8 mg/dL Normal 8.5-10.1 [facility] Comment on above: Performed By: #### C MADM, BMP #### [facility] [address] [place] [address] Dr. Clem Ward Chloride [Moles/Vol] 99 mmol/L Normal 98-107 [facility] Comment on above: Performed By: #### C MADM, BMP #### [facility] [address] [place] [address] Dr. Clem Ward CO2 [Moles/Vol] 27.7 mmol/L Normal 21.0-32.0 [facility] Comment on above: Performed By: #### C MADM, BMP #### [facility] [address] [place] [address] Dr. Clem Ward Creatinine [Mass/Vol] 0.82 mg/dL Normal 0.55-1.02 [facility] Comment on above: Performed By: #### C MADM, BMP #### [facility] [address] [place] [address] Dr. Clem Ward EGFR-AF BURUNDIAN >60 Normal >=60 [facility] Comment on above: Performed By: #### C MADM, BMP #### [facility] [address] [place] [address] Dr. Clem Ward EGFR-NON AF BURUNDIAN >60 Normal >=60 [facility] Comment on above: Performed By: #### C MADM, BMP #### [facility] [address] [place] [address] Dr. Clem Ward Glucose [Mass/Vol] 236 mg/dL Critically high 74-106 [facility] Comment on above: Performed By: #### C MADM, BMP #### [facility] [address] [address] [address] Clem Ward Potassium [Moles/Vol] 5.4 mmol/L Critically high 3.5-5.1 [facility] Comment on above: Performed By: #### C MADM, BMP #### [facility] [address] [address] [address] lCem Ward Sodium [Moles/Vol] 135 mmol/L Critically low 136-145 [facility] Comment on above: Performed By: #### C MADM, BMP #### [facility] [address] [address] [address] Clem Ward Urea nitrogen [Mass/Vol] 16.0 mg/dL Normal 7.0-18.0 [facility] Comment on above: Performed By: #### C DAQUANM, BMP #### [facility] [address] [address] [address] Clem Ward Urea nitrogen/Creatinine [Mass ratio] 19.5 mg/mg Normal [facility] Comment on above: Performed By: #### C DAQUANM, BMP #### [facility] [address] [address] [address] Clem Ward XR CHEST 2 Von 02-03-2022 XR CHEST 2 V EXAM: XR CHEST 2 V HISTORY: Cerebrovascular accident COMPARISON: 01/31/2022 TECHNIQUE: AP FINDINGS: The cardiomediastinal silhouette is stable in size. The bilateral lung ramsay show no evidence for acute consolidation, infiltrate, pneumothorax or pleural effusions. The diaphragmatic and osseous structures are intact with no evidence for an acute osseous abnormality. IMPRESSION: No acute cardiopulmonary disease. Electronically authenticated by: NESS BRAR Date: 2022-02-03 06:50 Normal [facility] Creatinine and Glomerular fi ltration rate.predicted panel (S/P/Bld)Ordered By: Zahraa Ferrara on 02-02-2022 Creatinine [Mass/Vol] 0.70 mg/dL 0.44-1.03 [facility] Estimated glomerular filtrat ion rate (GFR) non- AmericanOrdered By: Zahraa Ferrara on 02-02-2022 GFR/1.73 sq M.predicted among non-blacks MDRD (S/P/Bld) [Vol rate/Area] > 60 mL/Min [facility] Glucose Glucometer (BldC) [M ass/Vol]Ordered By: Zahraa Ferrara on 02-02-2022 Glucose [Mass/Vol] 240 mg/dL [facility] Comment on above: Random Glucose Refer ence Range is dependent on time and content of last meal. Glucose of more than 200 mg/dL in a nonstressed, ambulatory subject supports the diagnosis of Diabetes Mellitus. No Panel InformationOrdered By: Zahraa Ferrara on 02-02-2022 Estimated GFR () > 60 mL/Min [facility] Comment on above: GFR estimated refere nce range: According to KDOQI guidelines, <60 ml/min/1.73m2 is sufficient to diagnose a patient with chronic kidney disease. Pharmacy Creatinine Clearance (Chem 104.27 [facility] Serum or plasma calcium matthew urement (mass/volume)Ordered By: Zahraa Ferrara on 02-02-2022 Calcium [Mass/Vol] 9.3 mg/dL 8.2-10.2 [facility] Serum or plasma chloride roge surement (moles/volume)Ordered By: Zahraa Ferrara on 02-02-2022 Chloride [Moles/Vol] 102 mmol/L 95-114 [facility] Serum or plasma glucose matthew urement (mass/volume)Ordered By: Zahraa Ferrara on 02-02-2022 Glucose [Mass/Vol] 227 mg/dL 70-100 [facility] Comment on above: Delta: 119 on ADA recommended reference range Random Glucose Reference Range is dependent on time and content of last meal. Glucose of more than 200 mg/dL in a nonstressed, ambulatory subject supports the diagnosis of Diabetes Mellitus. Serum or plasma potassium me asurement (moles/volume)Ordered By: Zahraa Ferrara on 02-02-2022 Potassium [Moles/Vol] 4.8 mmol/L 3.5-5.1 [facility] Serum or plasma sodium measu rement (moles/volume)Ordered By: Zahraa Ferrara on 02-02-2022 Sodium [Moles/Vol] 137 mmol/L 136-146 [facility] Serum or plasma total carbon dioxide measurement (moles/volume)Ordered By: Zahraa Ferrara on 02-02-2022 CO2 [Moles/Vol] 25.8 mmol/L 22.0-30.0 [facility] Serum or plasma urea nitroge n measurement (mass/volume)Ordered By: Zahraa Ferrara on 02-02-2022 Urea nitrogen [Mass/Vol] 7 mg/dL 9- [facility] Albumin [Mass/volume] in Ser um or PlasmaOrdered By: Zahraa Ferrara on 02-01-2022 Albumin [Mass/Vol] 3.1 g/dL 3.2-5.5 [facility] Basophils Auto (Bld) [#/Vol] Ordered By: Zahraa Ferrara on 02-01-2022 Basophils (Bld) [#/Vol] 0.1 10*3/uL 0.0-0.2 [facility] Basophils/100 WBC Auto (Bld) Ordered By: Zahraa Ferrara on 02-01-2022 Basophils/100 WBC (Bld) 1.5 % [facility] Blood hemoglobin measurement (mass/volume)Ordered By: Zahraa Ferrara on 02-01-2022 Hemoglobin (Bld) [Mass/Vol] 12.3 g/dL 11.8-15.4 [facility] Blood leukocytes automated c ount (number/volume)Ordered By: Zahraa Ferrara on 02-01-2022 WBC (Bld) [#/Vol] 5.9 10*3/uL 4.5-11.0 [facility] Cholesterol [Mass/volume] in Serum or PlasmaOrdered By: Zahraa Ferrara on 02-01-2022 Cholesterol [Mass/Vol] 135 mg/dL 140-200 [facility] Comment on above: Chol less than 200 m g/dl low risk Chol 201-239 mg/dl borderline risk Chol 240 mg/dl and greater high risk Cholesterol in LDL Calc [Mas s/Vol]Ordered By: Zahraa Ferrara on 02-01-2022 Cholesterol in LDL [Mass/Vol] 86 mg/dL 0-100 [facility] Comment on above: LDL ATP III CLASSIFI CATION LDL less than 100 mg/dL Optimal LDL 100-129 mg/dL Near or above optimal LDL 130-159 mg/dL Borderline high LDL 160-189 mg/dL High LDL greater than 189 mg/dL Very high Cholesterol in VLDL Calc [Ma ss/Vol]Ordered By: Zahraa Ferrara on 02-01-2022 Cholesterol in VLDL [Mass/Vol] 23 mg/dL [facility] Eosinophils Auto (Bld) [#/Vo l]Ordered By: Zahraa Ferrara on 02-01-2022 Eosinophils (Bld) [#/Vol] 0.3 10*3/uL 0.0-0.45 [facility] Eosinophils/100 WBC Auto (Bl d)Ordered By: Zahraa Ferrara on 02-01-2022 Eosinophils/100 WBC (Bld) 5.7 % [facility] Erythrocyte distribution wid th Auto (RBC) [Ratio]Ordered By: Zahraa Ferrara on 02-01-2022 Erythrocyte distribution width (RBC) [Ratio] 14.3 % 11.9-15.3 [facility] Globulin Calc (S) [Mass/Vol] Ordered By: Zahraa Ferrara on 02-01-2022 Globulin (S) [Mass/Vol] 3.4 g/dL [facility] Hematocrit Auto (Bld) [Volum e fraction]Ordered By: Zahraa Ferrara on 02-01-2022 Hematocrit (Bld) [Volume fraction] 37.8 % 34.0-46.4 [facility] - Chemistry and C hemistry - challengeOrdered By: Zahraa Ferrara on 02-01-2022 Lipase [Catalytic activity/Vol] 39.0 U/L 22-51 [facility] - Hematology and Cell countsOrdered By: Zahraa Ferrara on 02-01-2022 Nucleated RBC/100 WBC (Bld) [Ratio] 0.0 % 0-0.5 [facility] Lymphocytes Auto (Bld) [#/Vo l]Ordered By: Zahraa Ferrara on 02-01-2022 Lymphocytes (Bld) [#/Vol] 2.2 10*3/uL 1.00-4.8 [facility] Lymphocytes/100 WBC Auto (Bl d)Ordered By: Zahraa Ferrara on 02-01-2022 Lymphocytes/100 WBC (Bld) 36.8 % [facility] MCH Auto (RBC) [Entitic mass ]Ordered By: Zahraa Ferrara on 02-01-2022 MCH (RBC) [Entitic mass] 26.1 pg 24.7-34.3 [facility] MCHC Auto (RBC) [Mass/Vol]Or dered By: Zahraa Ferrara on 02-01-2022 MCHC (RBC) [Mass/Vol] 32.6 g/dL 32.0-35.0 [facility] MCV Auto (RBC) [Entitic vol] Ordered By: Zahraa Ferrara on 02-01-2022 MCV (RBC) [Entitic vol] 80.1 fL 80-100 [facility] Monocytes Auto (Bld) [#/Vol] Ordered By: Zahraa Ferrara on 02-01-2022 Monocytes (Bld) [#/Vol] 0.7 10*3/uL 0.0-0.8 [facility] Monocytes/100 WBC Auto (Bld) Ordered By: Zahraa Ferrara on 02-01-2022 Monocytes/100 WBC (Bld) 11.8 % [facility] Neutrophils Auto (Bld) [#/Vo l]Ordered By: Zahraa Ferrara on 02-01-2022 Neutrophils (Bld) [#/Vol] 2.6 10*3/uL 1.8-7.7 [facility] Neutrophils/100 WBC Auto (Bl d)Ordered By: Zahraa Ferrara on 02-01-2022 Neutrophils/100 WBC (Bld) 44.2 % [facility] No Panel InformationOrdered By: Zahraa Ferrara on 02-01-2022 Bedside Glucose #2 Comment Follow hypoglycemic [facility] Bedside Glucose Comment Glu2: cleaned meter [facility] Platelet mean volume Auto (B ld) [Entitic vol]Ordered By: Zahraa Ferrara on 02-01-2022 Platelet mean volume (Bld) [Entitic vol] 9.0 fL 6.3-10.7 [facility] Platelets Auto (Bld) [#/Vol] Ordered By: Zahraa Ferrara on 02-01-2022 Platelets (Bld) [#/Vol] 244 10*3/uL 150-450 [facility] Protein [Mass/volume] in Ser um or PlasmaOrdered By: Zahraa Ferrara on 02-01-2022 Protein [Mass/Vol] 6.5 g/dL 6.1-7.9 [facility] RBC Auto (Bld) [#/Vol]Ordere d By: Zahraa Ferrara on 02-01-2022 RBC (Bld) [#/Vol] 4.71 10*6/uL 3.60-5.00 [facility] Serum or plasma alanine valdes otransferase measurement without P-5'-P (enzymatic activiOrdered By: Zahraa Ferrara on 02-01-2022 ALT No additional P-5'-P [Catalytic activity/Vol] 13 U/L 10-60 [facility] Serum or plasma albumin/glob ulin mass ratioOrdered By: Zahraa Ferrara on 02-01-2022 Albumin/Globulin [Mass ratio] 0.9 {ratio} [facility] Serum or plasma alkaline erica sphatase measurement (enzymatic activity/volume)Ordered By: Zahraa Ferrara on 02-01-2022 ALP [Catalytic activity/Vol] 76 U/L 32-92 [facility] Serum or plasma aspartate am inotransferase measurement (enzymatic activity/volume)Ordered By: Zahraa Ferrara on 02-01-2022 AST [Catalytic activity/Vol] 14 U/L 10-42 [facility] Serum or plasma high density lipoprotein (HDL) cholesterol measurementOrdered By: Zahraa Ferrara on 02-01-2022 Cholesterol in HDL [Mass/Vol] 26 mg/dL 35-85 [facility] Comment on above: HDL CHOL ATP-III CLA SSIFICATION Cardiovascular Risk HDL > or equal to 60 mg/dL LOW HDL < 40 mg/dL HIGH Serum or plasma total biliru bin measurement (mass/volume)Ordered By: Zahraa Ferrara on 02-01-2022 Bilirubin [Mass/Vol] 0.4 mg/dL 0.3-1.2 [facility] Serum or plasma total choles terol/high density lipoprotein (HDL) cholesterol mass ratOrdered By: Zahraa Ferrara on 02-01-2022 Cholesterol.total/Chol esterol in HDL [Mass ratio] 5.2 {ratio} [facility] TSH DL <= 0.005 mIU/L QnOrde red By: Zahraa Ferrara on 02-01-2022 TSH Qn 1.11 m[IU]/L 0.45-5.33 [facility] Triglyceride [Mass/volume] i n Serum or PlasmaOrdered By: Zahraa Ferrara on 02-01-2022 Triglyceride [Mass/Vol] 117 mg/dL 35-149 [facility] Comment on above: TRIG ATP III CLASSIF ICATION TRIG less than 150 mg/dL Normal TRIG 150-199 mg/dL Borderline high TRIG 200-500 mg/dL High TRIG greater than 500 mg/dL Very high Standard traceable to the Center for Disease Conrtrol and Prevention (CDC) test method. Troponin I.cardiac [Mass/vol ume] in Serum or Plasma by High sensitivity methodOrdered By: Zahraa Ferrara on 02-01-2022 Troponin I.cardiac High sensitivity method [Mass/Vol] 200 pg/mL 0-15 [facility] Comment on above: Results called at 0650 on 02/01/22 ACETONE SERUMon 01-31-2022 ACETONE Negative Normal NEGATIVE [facility] Comment on above: Performed By: #### A CETON #### [facility] [address] [address] [address] Clem Ward AMYLASEon 01-31-2022 Amylase [Catalytic activity/Vol] 37 U/L Normal 25-115 [facility] Comment on above: Performed By: #### A 1C #### [facility] [address] [place] [address] Dr. Clem Ward BNPon 01-31-2022 Natriuretic peptide B (Bld) [Mass/Vol] 1567.0 pg/mL Critically high <=450.0 [facility] Comment on above: Result Comment: TEST REPEATED CRITICAL VALUE VERIFIED Performed By: #### T 3TOTAL #### [facility] [address] [address] [address] Clem Ward CARDIAC TAWNYA 3-6on 2 CK [Catalytic activity/Vol] 97 U/L Normal 26-192 [facility] Comment on above: Performed By: #### T 3TOTAL #### [facility] [address] [address] [address] Clem Ward CK.MB [Mass/Vol] 2.67 ng/mL Normal <=3.60 [facility] Comment on above: Performed By: #### T 3TOTAL #### [facility] [address] [place] [address] Dr. Clem Ward HSTROP 335.7 pg/mL Critically high 4.0-51.3 [facility] Comment on above: Result Comment: CUT- OFF POINTS HAVE BEEN ESTABLISHED BASED ON THE FOURTH UNIVERSAL DEFINITIONS OF MYOCARDIAL INFARCTION. THE UPPER REFERENCE LIMIT (URL) OF TROPONIN, DEFINED THE 99TH PERCENTILE OF cTnI DISTRIBUTION IN A REFERENCE POPULATION, HAS BEEN CONFIRMED THE DECISION THRESHOLD FOR [place] DIAGNOSIS. TEST REPEATED CRITICAL VALUE VERIFIED Performed By: #### T 3TOTAL #### [facility] [address] [place] [address] Dr. Clem Ward CK [Catalytic activity/Vol] 102 U/L Normal 26-192 [facility] Comment on above: Performed By: #### P T, PTT, DDIM #### [facility] [address] [place] [address] Dr. Clem Ward CK.MB [Mass/Vol] 2.99 ng/mL Normal <=3.60 [facility] Comment on above: Performed By: #### P T, PTT, DDIM #### [facility] [address] [place] [address] Dr. Clem Ward HSTROP 371.5 pg/mL Critically high 4.0-51.3 [facility] Comment on above: Result Comment: CUT- OFF POINTS HAVE BEEN ESTABLISHED BASED ON THE FOURTH UNIVERSAL DEFINITIONS OF MYOCARDIAL INFARCTION. THE UPPER REFERENCE LIMIT (URL) OF TROPONIN, DEFINED THE 99TH PERCENTILE OF cTnI DISTRIBUTION IN A REFERENCE POPULATION, HAS BEEN CONFIRMED THE DECISION THRESHOLD FOR [place] DIAGNOSIS. Performed By: #### P T, PTT, DDIM #### [facility] [address] [place] [address] Dr. Clem Ward CARDIAC TAWNYA ADMITon 022 CK [Catalytic activity/Vol] 159 U/L Normal 26-192 [facility] Comment on above: Performed By: #### C MADM, BMP #### [facility] [address] [place] [address] Dr. Clem Ward CK.MB [Mass/Vol] 2.80 ng/mL Normal <=3.60 [facility] Comment on above: Performed By: #### C DAQUANM, BMP #### [facility] [address] [place] [address] Dr. Clem Ward HSTROP 348.0 pg/mL Critically high 4.0-51.3 [facility] Comment on above: Result Comment: CUT- OFF POINTS HAVE BEEN ESTABLISHED BASED ON THE FOURTH UNIVERSAL DEFINITIONS OF MYOCARDIAL INFARCTION. THE UPPER REFERENCE LIMIT (URL) OF TROPONIN, DEFINED THE 99TH PERCENTILE OF cTnI DISTRIBUTION IN A REFERENCE POPULATION, HAS BEEN CONFIRMED THE DECISION THRESHOLD FOR [place] DIAGNOSIS. TEST REPEATED CRITICAL VALUE VERIFIED Performed By: #### C MADM, BMP #### [facility] [address] [place] [address] Dr. Clem Ward LANI 125 ng/mL Critically high 9-[address] [facility] Comment on above: Performed By: #### C MADM, BMP #### [facility] [address] [place] [address] Dr. Clem Ward CBC AUTO DIFFon 01-31-2022 BASO # 0.0 103/ul Normal 0.0-0.1 [facility] Comment on above: Performed By: #### P OCGLUC #### [facility] [address] [place] [address] Dr. Clem Ward Basophils/100 WBC (Bld) 0.2 % Normal 0.2-2.0 [facility] Comment on above: Performed By: #### P OCGLUC #### [facility] [address] [place] [address] Dr. Clem Ward EO # 0.2 103/ul Normal 0.0-0.7 [facility] Comment on above: Performed By: #### P OCGLUC #### [facility] [address] [place] [address] Dr. Clem Ward Eosinophils/100 WBC (Bld) 2.2 % Normal 0.9-7.0 [facility] Comment on above: Performed By: #### P OCGLUC #### [facility] [address] [place] [address] Dr. Clem Ward Erythrocyte distribution width (RBC) [Ratio] 13.8 % Normal 11.0-15.0 [facility] Comment on above: Performed By: #### P OCGLUC #### [facility] [address] [place] [address] Dr. Clem Ward Hematocrit (Bld) [Volume fraction] 46.1 % Normal 36.0-48.0 [facility] Comment on above: Performed By: #### P OCGLUC #### [facility] [address] [place] [address] Dr. Clem Ward Hemoglobin (Bld) [Mass/Vol] 14.3 g/dL Normal 12.0-16.0 [facility] Comment on above: Performed By: #### P OCGLUC #### [facility] [address] [place] [address] Dr. Clem Ward IG # 0.03 10e3/ul Normal 0.00-0.03 [facility] Comment on above: Performed By: #### P OCGLUC #### [facility] [address] [place] [address] Dr. Clem Ward IG % 0.3 % Normal 0.0-0.5 [facility] Comment on above: Performed By: #### P OCGLUC #### [facility] [address] [place] [address] Dr. Clem Ward LYMPH # 2.6 103/ul Normal 1.2-3.8 [facility] Comment on above: Performed By: #### P OCGLUC #### [facility] [address] [place] [address] Dr. Clem Ward Lymphocytes/100 WBC (Bld) 27.6 % Normal 20.5-60.0 [facility] Comment on above: Performed By: #### P OCGLUC #### [facility] [address] [place] [address] Dr. Clem Ward MANUAL DIFF REQ NO Normal [facility] Comment on above: Performed By: #### P OCGLUC #### [facility] [address] [place] [address] Dr. Clem Ward MCH (RBC) [Entitic mass] 25.7 pg Critically low 26.7-34.0 [facility] Comment on above: Performed By: #### P OCGLUC #### [facility] [address] [place] [address] Dr. Clem Ward MCHC (RBC) [Mass/Vol] 31.0 g/dL Normal 29.9-35.2 [facility] Comment on above: Performed By: #### P OCGLUC #### [facility] [address] [place] [address] Dr. Clem Ward MCV (RBC) [Entitic vol] 82.9 fL Normal 81.0-99.0 [facility] Comment on above: Performed By: #### P OCGLUC #### [facility] [address] [place] [address] Dr. Clem Ward MONO # 0.8 103/ul Normal 0.3-0.8 [facility] Comment on above: Performed By: #### P OCGLUC #### [facility] [address] [place] [address] Dr. Clem Ward Monocytes/100 WBC (Bld) 7.8 % Normal 1.7-12.0 [facility] Comment on above: Performed By: #### P OCGLUC #### [facility] [address] [place] [address] Dr. Clem Ward NEUT # 5.9 103/ul Normal 1.4-6.5 [facility] Comment on above: Performed By: #### P OCGLUC #### [facility] [address] [place] [address] Dr. Clem Ward Neutrophils/100 WBC (Bld) 61.9 % Normal 43.0-75.0 [facility] Comment on above: Performed By: #### P OCGLUC #### [facility] [address] [address] [address] Clem Ward Platelet mean volume (Bld) [Entitic vol] 10.6 fL Normal 9.5-13.5 [facility] Comment on above: Performed By: #### P OCGLUC #### [facility] [address] [address] [address] Clem Ward PLT 270 103/ul Normal 150-450 [facility] Comment on above: Performed By: #### P OCGLUC #### [facility] [address] [place] [address] Dr. Clem Ward RBC 5.56 106/ul Critically high 4.20-5.40 [facility] Comment on above: Performed By: #### P OCGLUC #### [facility] [address] [place] [address] Dr. Clem Ward WBC 9.6 103/ul Normal 4.0-11.0 [facility] Comment on above: Performed By: #### P OCGLUC #### [facility] [address] [place] [address] Dr. Clem Ward CTA CHEST WO W CONon 03-2 022 CTA CHEST WO W CON EXAMINATION: CTA CHEST WO W CON HISTORY: SYNCOPE AND COLLAPSE . ACUTE CHEST PAIN. COMPARISON: Chest x-ray 01/31/2022. TECHNIQUE: CT angiography of the pulmonary arteries following the administration of intravenous contrast. Coronal and sagittal MIP (maximum intensity projection) images were performed. Dose reduction techniques were achieved by using automated exposure control and/or adjustment of mA and/or kV according to patient size and/or use of iterative reconstruction technique. FINDINGS: Borderline cardiac enlargement. No evidence of pulmonary arterial embolism. Mild mosaic groundglass attenuation lung parenchyma indicating underlying small airways inflammatory change. The pleural spaces are clear. Prior cholecystectomy. Small sliding-type hiatal hernia. IMPRESSION: 1. No evidence of pulmonary arterial embolism. 2. Mild mosaic groundglass attenuation lung parenchyma bilaterally indicating underlying small airways inflammatory change. 3. Borderline cardiac enlargement. Electronically authenticated by: KATHY Elizondo: 2022-01-31 13:25 Normal [facility] Covid-19 PCR (CVDTBH)on SARS-CoV-2 (COVID-19) RNA BENTLEY+probe Ql (Unsp spec) Not detected Normal NOT DETECTED [facility] Comment on above: Result Comment: When diagnostic testing is negative, the possibility of a false negative should be considered in the context of a patient's recent exposures and the presence of clinical signs and symptoms consistent with SARS-CoV-2. This test is not yet approved or cleared by the [place] FDA. When there are no FDA-approved or cleared tests available, and other criteria are met, FDA can make tests available under an emergency access mechanism called an Emergency Use Authorization (EUA). The EUA for this test is supported by the Break Out Man of Health and Human Service's declaration that circumstances exist to justify the emergency use of in vitro diagnostics for the detection and/or diagnosis of the virus that causes COVID-19. This EUA will remain in effect for the duration of the COVID-19 declaration justifying emergency of IVDs, unless it is terminated or revoked by the FDA (after which the test may no longer be used). Performed By: #### C VDTBH #### [facility] [address] [place] [address] Dr. Clem Ward D-DIMERon 01-31-2022 D-DIMER 0.74 mg/L FEU Critically high 0.19-0.50 [facility] Comment on above: Performed By: #### P T, PTT, DDIM #### [facility] [address] [address] [address] Clem Ward D-DIMER COMMENTS SEE BELOW Normal [facility] Comment on above: Result Comment: Incr eases in D-Dimer concentration observed with thromboembolic events can be variable due to localization, size, and age of the thrombus. Therefore, a thromboembolic event cannot be diagnosed with certainty on the basis of the reference range. D-Dimers may also be elevated for a variety of disorders including: advanced age, , coronary disease, cancer, liver disease, infection, inflammation, hematoma, DIC, trauma, post-surgery, diabetes, thrombolytic or anticoagulant therapy, stress, and generalized hospitalization. Performed By: #### P T, PTT, DDIM #### [facility] [address] [address] [address] Clem Ward LIPASEon 01-31-2022 Lipase [Catalytic activity/Vol] 120.0 U/L Normal 73.0-393.0 [facility] Comment on above: Performed By: #### P T, PTT, DDIM #### [facility] [address] [address] [address] Clem Ward Laboratory - Chemistry and C hemistry - challengeOrdered By: Zahraa Ferrara on 01-31-2022 Magnesium [Mass/Vol] 1.4 mg/dL 1.6-2.6 [facility] POINT OF CARE GLUCOSEon Glucose [Mass/Vol] 100 mg/dL Normal 74-106 [facility] Comment on above: Performed By: #### P OCGLUC #### [facility] [address] [place] [address] Dr. Clem Ward Glucose [Mass/Vol] 163 mg/dL Critically high 74-106 [facility] Comment on above: Performed By: #### P T, PTT, DDIM #### [facility] [address] [address] [address] Clem Ward PREG HCG QUALon 01-31-2022 , QUAL Negative Normal NEGATIVE [facility] Comment on above: Performed By: #### P OCGLUC #### [facility] [address] [place] [address] Dr. Clem Ward PROF 14(COMP METB)on 022 Albumin [Mass/Vol] 3.5 g/dL Normal 3.4-5.0 [facility] Comment on above: Performed By: #### T 3TOTAL #### [facility] [address] [place] [address] Dr. Clem Ward Albumin/Globulin [Mass ratio] 0.7 {ratio} Normal [facility] Comment on above: Performed By: #### T 3TOTAL #### [facility] [address] [place] [address] Dr. Clem Ward ALP [Catalytic activity/Vol] 97 U/L Normal 46-116 [facility] Comment on above: Performed By: #### T 3TOTAL #### [facility] [address] [place] [address] Dr. Clem Ward ALT [Catalytic activity/Vol] 19 U/L Normal 14-59 [facility] Comment on above: Performed By: #### T 3TOTAL #### [facility] [address] [address] [address] Clem Ward Anion gap [Moles/Vol] 13.6 mmol/L Normal [facility] Comment on above: Performed By: #### T 3TOTAL #### [facility] [address] [place] [address] Dr. Clem Ward AST [Catalytic activity/Vol] 26 U/L Normal 15-37 [facility] Comment on above: Result Comment: SLIG HT HEMOLYSIS MAY AFFECT K+ AND AST Performed By: #### T 3TOTAL #### [facility] [address] [place] [address] Dr. Clem Ward Bilirubin [Mass/Vol] 0.4 mg/dL Normal 0.2-1.0 [facility] Comment on above: Performed By: #### T 3TOTAL #### [facility] [address] [place] [address] Dr. Clem Ward Calcium [Mass/Vol] 8.8 mg/dL Normal 8.5-10.1 [facility] Comment on above: Performed By: #### T 3TOTAL #### [facility] [address] [place] [address] Dr. Clem Ward Chloride [Moles/Vol] 100 mmol/L Normal 98-107 [facility] Comment on above: Performed By: #### T 3TOTAL #### [facility] [address] [place] [address] Dr. Clem Ward CO2 [Moles/Vol] 26.2 mmol/L Normal 21.0-32.0 [facility] Comment on above: Performed By: #### T 3TOTAL #### [facility] [address] [place] [address] Dr. Clem Ward Creatinine [Mass/Vol] 1.08 mg/dL Critically high 0.55-1.02 [facility] Comment on above: Performed By: #### T 3TOTAL #### [facility] [address] [address] [address] Clem Ward EGFR-AF BURUNDIAN >60 Normal >=60 [facility] Comment on above: Performed By: #### T 3TOTAL #### [facility] [address] [address] [address] Clem Ward EGFR-NON AF BURUNDIAN 55 mL/min/1.73m2 Critically low >=60 [facility] Comment on above: Performed By: #### T 3TOTAL #### [facility] [address] [place] [address] Dr. Clem Ward Globulin (S) [Mass/Vol] 4.7 g/dL Normal [facility] Comment on above: Performed By: #### T 3TOTAL #### [facility] [address] [place] [address] Dr. Clem Ward Glucose [Mass/Vol] 150 mg/dL Critically high 74-106 [facility] Comment on above: Performed By: #### T 3TOTAL #### [facility] [address] [place] [address] Dr. Clem Ward Potassium [Moles/Vol] 4.8 mmol/L Normal 3.5-5.1 [facility] Comment on above: Result Comment: SLIG HT HEMOLYSIS MAY AFFECT K+ AND AST Performed By: #### T 3TOTAL #### [facility] [address] [place] [address] Dr. Clem Ward Protein [Mass/Vol] 8.2 g/dL Normal 6.1-8.2 [facility] Comment on above: Performed By: #### T 3TOTAL #### [facility] [address] [place] [address] Dr. Clem Ward Sodium [Moles/Vol] 135 mmol/L Critically low 136-145 [facility] Comment on above: Performed By: #### T 3TOTAL #### [facility] [address] [place], [place] [id number] Dr. Clem Ward Urea nitrogen [Mass/Vol] 14.0 mg/dL Normal 7.0-18.0 [facility] Comment on above: Performed By: #### T 3TOTAL #### [facility] [address] [place] [address] Dr. Clem Ward Urea nitrogen/Creatinine [Mass ratio] 13.0 mg/mg Normal [facility] Comment on above: Performed By: #### T 3TOTAL #### [facility] [address] [place] [address] Dr. Clem Ward PROTIMEon 01-31-2022 INR Coag (PPP) [Relative time] 1.06 {INR} Normal [facility] Comment on above: Performed By: #### P T, PTT, DDIM #### [facility] [address] [place] [address] Dr. Clem Ward INR GUIDELINES SEE BELOW Normal The [facility] Comment on above: Result Comment: JOSH RED INR: 2.0 - 3.0 CONDITIONS NOT LISTED BELOW 2.5 - 3.5 FOR PROSTHETIC HEART VALVE REPLACEMENT 2.5 - 3.5 RECURRENT THROMBOSIS Performed By: #### P T, PTT, DDIM #### [facility] [address] [place] [address] Dr. Clem Ward PT Coag (PPP) [Time] 11.4 s Normal 9.0-11.6 [facility] Comment on above: Performed By: #### P T, PTT, DDIM #### [facility] [address] [place] [address] Dr. Clem Ward PTTon 01-31-2022 aPTT Coag (Bld) [Time] 23.0 s Normal 22.3-36.2 [facility] Comment on above: Performed By: #### P T, PTT, DDIM #### [facility] [address] [place] [address] Dr. Clem Ward XR CHEST 1 Von 01-31-2022 XR CHEST 1 V EXAMINATION: XR CHES T 1 V HISTORY: CHEST PAIN, UNSPECIFIED , dizziness COMPARISON: XR chest 09/01/2021 FINDINGS: LUNGS: No significant pulmonary parenchymal abnormalities. VASCULATURE: No increased pulmonary vasculature. PLEURA: No pneumothorax, effusion, or pleural thickening. CARDIAC: No cardiomegaly or cardiac silhouette abnormality. MEDIASTINUM: No visible mass or adenopathy. BONES: No fracture or visible bone lesion. OTHER: Negative. IMPRESSION: 1. No acute cardiopulmonary process. Electronically authenticated by: KEYSHAWN ESCOBEDO Date: 2022-01-31 11:29 Normal [facility] Provider Letteron 12-09-2021 Provider Letter December 09, 2021 JENNIFER DIAZ [address] [place] [address] [place] [address] JENNIFER DIAZ 1975 Dear Jennifer , We have been trying to reach you with no success. It is important that you return our call regarding your referral from Kat Salmeron upon receiving this letter. Also, at the time of your call, please provide us with your current information. Thank you for your prompt attention to this matter. Sincerely, General Surgery [phone] Normal [facility] Physician Referralon 022 Physician Referral [id number] Normal [facility] NEW MICROALBUMINon 9 Creatinine (U) [Mass/Vol] 82.4 mg/dL Normal [facility] Comment on above: Order Comment: THE M ICROALBUMIN IS < 6.0 THEREFORE THE MICROALBUMIN/CREATININE RATIO IS UNDETECTABLE. Performed By: #### 8 00 #### [facility] Unless Otherwise Noted [address] [address] / [facility] #[id number]/CLIA # [id number] Microalbumin <6.0 Normal 0.0-30.0 [facility] Comment on above: Order Comment: THE M ICROALBUMIN IS < 6.0 THEREFORE THE MICROALBUMIN/CREATININE RATIO IS UNDETECTABLE. Performed By: #### 8 00 #### [facility] Unless Otherwise Noted [address] [address] / [facility] #4724/CLIA # [id number] Urine A/C Ratio -99.0 mg/g Low 0.0-30.0 [facility] Comment on above: Order Comment: THE M ICROALBUMIN IS < 6.0 THEREFORE THE MICROALBUMIN/CREATININE RATIO IS UNDETECTABLE. Performed By: #### 8 00 #### [facility] Unless Otherwise Noted [address] [place] [id number] / [facility] #[id number]/CLIA # [id number] Vital Signs Date Time Vital Sign Value Performing Clinician Facility 09-04-2023 13:55-0500 Diastolic blood pressure 71 mm[Hg] [employer] SALES REPRESENTATIVE-C Vivi Chungmer Work Phone: [facility] 09-04-2023 13:55-0500 Heart rate 82 /min [employer] SALES REPRESENTATIVE-C Vivi Faviola Work Phone: [facility] 09-04-2023 13:55-0500 Respiratory rate 18 /min [employer] BUSINESS SALES REPRESENTATIVE-C Vivi Faviola Work Phone: [facility] 09-04-2023 13:55-0500 SaO2% (BldA) [Mass fraction] 98 % [employer] SALES REPRESENTATIVE-C Vivi Faviola Work Phone: [facility] 09-04-2023 13:55-0500 Systolic blood pressure 111 mm[Hg] [employer] BUSINESS SALES REPRESENTATIVE-C Vivi Faviola Work Phone: [facility] 09-04-2023 12:32-0500 Body height 152.4 cm [employer] BUSINESS SALES REPRESENTATIVE-C Vivi Faviola Work Phone: [facility] 09-04-2023 12:32-0500 Body weight 78.47 kg [employer] SALES REPRESENTATIVE-C Vivi Faviola Work Phone: [facility] 08-02-2023 13:15-0400 Body weight 79.7 kg Jose Carmona Other [employer] Other 08-02-2023 13:15-0400 Diastolic blood pressure 87 mm[Hg] Jose Carmona Other [facility] [employer] Other 08-02-2023 13:15-0400 Systolic blood pressure 129 mm[Hg] Jose Olivaresy Other [facility] [employer] Other 02-02-2022 15:01-0400 Body height 154.94 cm [employer] BUSINESS SALES REPRESENTATIVE-C Vivi Faviola Work Phone: [facility] 02-02-2022 12:00-0400 Body temperature 98 [degF] [employer] BUSINESS SALES REPRESENTATIVE-C Vivi Faviola Work Phone: [facility] 02-02-2022 12:00-0400 Diastolic blood pressure 114 mm[Hg] [employer] BUSINESS SALES REPRESENTATIVE-C Vivi Faviola Work Phone: [facility] 02-02-2022 12:00-0400 Heart rate 91 /min [employer] BUSINESS SALES REPRESENTATIVE-C Vivi Faviola Work Phone: [facility] 02-02-2022 12:00-0400 Respiratory rate 18 /min [employer] BUSINESS SALES REPRESENTATIVE-C Vivi Faviola Work Phone: [facility] 02-02-2022 12:00-0400 SaO2% (BldA) [Mass fraction] 99 % [employer] BUSINESS SALES REPRESENTATIVE-C Vivi Faviola Work Phone: [facility] 02-02-2022 12:00-0400 Systolic blood pressure 149 mm[Hg] [employer] BUSINESS SALES REPRESENTATIVE-C Vivi Faviola Work Phone: [facility] 02-02-2022 06:00-0400 Body weight 91 kg [employer] BUSINESS SALES REPRESENTATIVE-C Vivi Faviola Work Phone: [facility] 01-31-2022 18:18-0400 Body mass index (BMI) [Ratio] 38.1 kg/m2 [employer] SALES REPRESENTATIVE-C Vivi Faviola Work Phone: [facility] 01-31-2022 07:55-0400 25 1 Wilfredo Latham DO Work Phone: [facility] DO Work Phone: Comment on above: [id number] Encounters Encounter Date Encounter Type Care Provider Facility Start: 09-04-2023 End: 09-04-2023 ambulatory Jose Carmona Facility:[facility] Start: 09-04-2023 End: 09-04-2023 Admission to same day surgery center [employer] SALES REPRESENTATIVE-C Vivi Salmeron Work Phone: [facility] Work Phone: Start: 09-04-2023 End: 09-04-2023 ambulatory [employer] SALES REPRESENTATIVE-C Vivi Salmeron Work Phone: [facility] Work Phone: Start: 08-02-2023 End: 08-02-2023 ambulatory Jose Carmona Other [facility] [employer] Other Start: 08-02-2023 [facility] visit new patient Jose Carmona [facility] Start: 04-06-2023 End: 04-06-2023 ambulatory [facility] Start: 03-02-2023 Rx Renewal Wilfredo nieves DO Work Phone: [facility] 250 DO Work Phone: Start: 01-17-2023 End: 01-18-2023 ambulatory VISHAL FOWLER Facility:[facility] Start: 01-05-2023 End: [facility] Start: 01-03-2023 End: 01-04-[address] DOCTOR HANNAH Facility:[facility] Start: 12-17-2022 End: 12-18-2022 ambulatory WALE OCAMPO Facility:[facility] Start: 11-27-2022 End: 11-27-2022 ambulatory SHERRIE LANDAVERDE [facility] Start: 10-30-2022 End: 10-31-2022 ambulatory VIVI SALMERON Facility:[facility] Start: 08-03-2022 End: 08-04-2022 ambulatory DASHAWN KRYSTYNA Facility:[facility] Start: 08-02-2022 End: 08-03-2022 ambulatory DASHAWN GREENWOOD Facility:[facility] Start: 06-19-2022 End: 06-19-[address] WILBERT PHAM . Facility:[facility] Start: 06-19-2022 End: 06-20-2022 ambulatory VIVI SALMERON Facility:[facility] Start: 06-14-2022 End: 06-15-2022 ambulatory Caleb Colunga Facility:[facility] Start: 02-23-2022 Encounter for preprocedural laboratory examination [facility] Start: 02-23-2022 End: 02-24-2022 [facility] Start: 02-21-2022 End: 02-22-2022 [facility]: Start: 02-21-2022 End: 02-22-2022 Encounter for preprocedural laboratory [facility] [facility] Facility:H1 Start: 02-08-2022 FUV, Provider: Shanta Lentz, Status: Pen, Time: 12:00 PM Wilfredo Latham DO Work Phone: [facility] 250 DO Work Phone: Start: 02-03-2022 End: 02-04-[address] YOEL SALINAS . Facility: Start: 02-02-2022 Message Wilfredo nieves DO Work Phone: [facility] 250 DO Work Phone: Start: 01-31-2022 End: 02-02-2022 Evaluation and management of inpatient SMALL BUSINESS SALES REPRESENTATIVE-C Vivi Salmeron Work Phone: [facility] [place] [facility] Start: 01-31-2022 End: 01-31-[address] KEYSHAWN ESCOBEDO Facility:H1 Procedures Date Procedure Procedure Detail Performing Clinician Start: 09-04-2023 Esophagogastroduodenoscopy [employer] BUSINESS SALES REPRESENTATIVE-C Vivi Salmeron Work Phone: Cardiac catheterization Will herb Latham DO Work Phone: Cholecystectomy Wilfredo Serrano delores DO Work Phone: Hysterectomy Wilfredo Serranodon DO Work Phone: Plan of Treatment Date Care Activity Detail Author Start: 09-04-2023 [facility] Start: 02-13-2022 [facility], Provider: Wilfredo Latham, Status: Pen, Time: 10:00 AM [facility], Provider: Wilfredo Latham, Status: Pen, Time: 10:00 AM [facility] Work Phone: Start: 02-08-2022 FUV, Provider: Shanta Lentz, Status: Pen, Time: 12:00 PM [facility]UV, Provider: Shanta Lentz, Status: Pen, Time: 12:00 PM [facility] DO Work Phone: Patient Education Hiatal Hernia (DC) [facility] Work Phone: Patient referral [facility] Work Phone: Immunizations Immunization Date Immunization Notes Care Provider Mazin damico 09-22-2021 Moderna COVID-19 Vac cine 100 MCG/0.5ML Intramuscular Suspension Wilfredo Latham DO Work Phone: [facility] 10-29-2020 Moderna COVID-19 Vac cine 100 MCG/0.5ML Intramuscular Suspension Wilfredo Latham DO Work Phone: [facility] 09-29-2020 Moderna COVID-19 Vac cine 100 MCG/0.5ML Intramuscular Suspension Wilfredo Latham DO Work Phone: [facility] 07-01-2020 influenza, high dose seasonal, preservative-free Wilfredo Latham DO Work Phone: [facility] 250 DO Work Phone: 09-02-2014 tetanus toxoid, redu sylvain diphtheria toxoid, and acellular pertussis vaccine, adsorbed Wilfredo Latham DO Work Phone: [facility] 250 DO Work Phone: Payers Date Payer Category Payer Self-pay [id number] 2022 Medicaid [id number] 1975 Unknown [id number] 1975 Unknown [id number] 1975 Unknown [id number] 1975 Unknown [id number] 1975 Unknown [id number] 1975 Unknown [id number] 1975 Unknown [id number] 1975 Unknown [id number] 1975 Unknown [id number] 1975 Unknown [id number] 1975 Unknown [id number] 1975 Unknown [id number] 1975 Unknown [id number] 1958 Medicaid [id number] Unknown [place] [employer] Unknown [id number] Social History Date Type Detail Facility Start: 02-01-2022 End: 09-04-2023 Tobacco smoking status NHIS Smoker (finding) [facility] Start: 1975 Sex Assigned At Female F [facility] Sex Assigned At Sex Assigned At Bir th [employer] Other Goals Date Patient Goal Desired Activity /State Functional Status Date Assessment Result Facility 02-02-2022 Functional status Patient at Baseline [facility] Work Phone: Mental Status Date Assessment Result Facility 02-02-2022 Cognitive function Cognitive Sta tus Patient at Baseline [facility] Work Phone: Clinical Notes 01-31-2022 to 10-17-2023 Note Date & Type Note Facility 10-17-2023 Note This report has been cancelled. [facility] 10-17-2023 Note This report has been cancelled. [facility] 10-17-2023 Note This report has been cancelled. [facility] 10-17-2023 Note This report has been cancelled. [facility] 09-04-2023 Procedure note [facility] 08-02-2023 Evaluation note Encounter Date Diagnosis Assessment Notes Aug, Chronic gastritis, presence of bleeding unspecified, unspecified gastritis type (ICD-10 - K29.50) Pt states everytime she eats something she has cramping and diarrhea. Pt to proceed with EGD Pt to keep taking Omeprazole 40 mg Aug, Dysphagia, unspecified type (ICD-10 - R13.10) Aug, Dyspepsia (ICD-10 - R10.13) Aug, Early satiety (ICD-10 - R68.81) [facility] [employer] Other 07-07-2023 NoteCardiology Clinic Note Subjective Jennifer Diaz is a 47 y.o. year old female patient with NICM HFimpEF, non-obstructive CAD, HTN, type 2 diabetes, and hyperlipidemia. She presents today for follow up. Overall, patient states that she has been doing well from a cardiac standpoint. Emotionally, she is upset about losing her job and not being able to find another job thus far. She denies any SI or HI. Patient adamantly denies any cardiac complaints or concerns. Patient denies any chest pain or shortness of breath. Patient denies any lower extremity edema, orthopnea, or proximal nocturnal dyspnea. No near-syncope or syncope. No dizziness or lightheadedness. She is taking her blood pressure medications as prescribed but her blood pressure remains elevated. Patient had echo performed since her last visit. EF is normal. 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 Obesity Pneumonia Pruritus of vulva Syncope and collapse Vaginitis and vulvovaginitis Chronic systolic heart failure ([facility]) Mixed hyperlipidemia TIA (transient ischemic attack) Chest pain Cigarette smoker Diabetes mellitus type II, uncontrolled Food insecurity RAE (generalized anxiety disorder) Diabetic foot infection ([facility]) FCI current use of insulin ([facility]) Tobacco abuse Type 2 diabetes mellitus with hyperglycemia ([facility]) Family History Problem Relation Name Age of Onset Arthritis Mother Hypertension Mother Hyperlipidemia Mother Diabetes Paternal Grandmother Other (malignant mesothelioma) Paternal Grandfather Social History Tobacco Use Smoking status: Every Day Packs/day: 0.50 Types: Cigarettes Start date: 2002 Smokeless tobacco: Never Substance Use Topics Alcohol use: Yes Comment: occasional Drug use: Never Review of Systems Cardiovascular: Positive for claudication and leg swelling. Negative for chest pain, dyspnea on exertion, irregular heartbeat, near-syncope, orthopnea, palpitations, paroxysmal nocturnal dyspnea and syncope. Objective Visit Vitals BP (!) 154/104 (BP Location: Right arm, Patient Position: Sitting) Pulse 98 Ht 1.549 m (5' 1 ) Wt 85.7 kg (189 lb) SpO2 99% BMI 35.71 kg/m??? Smoking Status Every Day BSA 1.92 m??? Physical Exam General: Awake, alert, good spirits. NAD Pulm: Breath sounds clear to ascultation bilaterally with no wheeze, crackles or rhonchi Cards: Regular rate and rhythm, S1, S2. No S3 or S4 gallop. Murmur: none Abd: Soft, Nontender, physiologic bowel sounds are present Extr: Lower extremity edema: None. DP pulses:palpable Skin: warm, dry, well perfused Neuro: A&Ox3, No gross deficits Allergies Allergies Allergen Reactions Keflex [Cephalexin] Medications Current Outpatient Medications: albuterol 90 mcg/actuation inhaler, Inhale 2 puffs every 6 (six) hours if needed., Disp: , Rfl: aspirin 81 mg EC tablet, Take 1 tablet (81 mg) by mouth in the morning., Disp: 90 tablet, Rfl: 3 atorvastatin (Lipitor) 80 mg tablet, Take 1 tablet (80 mg) by mouth in the morning., Disp: 90 tablet, Rfl: 3 carvedilol (Coreg) 12.5 mg tablet, Take 1.5 tablets by mouth twice a day., Disp: 270 tablet, Rfl: 3 clopidogrel (Plavix) 75 mg tablet, Take 1 tablet (75 mg) by mouth in the morning., Disp: 90 tablet, Rfl: 3 furosemide (Lasix) 20 mg tablet, Take 1 tablet by mouth in the morning., Disp: , Rfl: insulin aspart (NovoLOG) 100 unit/mL injection, Inject under the skin before breakfast, before lunch, and before evening meal., Disp: , Rfl: insulin glargine (Lantus) 100 unit/mL injection, Inject under the skin at bedtime., Disp: , Rfl: metFORMIN (Glucophage) 1,000 mg tablet, Take 1,000 mg by mouth with breakfast and with evening meal., Disp: , Rfl: nitroglycerin (Nitrostat) 0.4 mg SL tablet, Place 0.4 mg under the tongue every 5 (five) minutes if needed., Disp: , Rfl: omeprazole (PriLOSEC) [address] capsule, Take 40 mg by mouth in the morning and at bedtime. Do not crush or chew., Disp: , Rfl: sacubitriL-valsartan (Entresto) 24-26 mg tablet, Take 1 tablet by mouth in the morning and at bedtime., Disp: 60 tablet, Rfl: 5 spironolactone (Aldactone) 50 mg tablet, Take 1 tablet (50 mg) by mouth in the morning., Disp: 90 tablet, Rfl: 3 valACYclovir (Valtrex) 500 mg tablet, Take 500 mg by mouth in the morning and at bedtime., Disp: , Rfl: venlafaxine XR (Effoxor-XR) 150 mg 24 hr capsule, Take 150 mg by mouth in the morning. Do not crush or chew., Disp: , Rfl: carvedilol (Coreg) 25 mg tablet, Take 1 tablet (25 mg) by mouth with breakfast and with evening meal., Disp: (more content not included)...[facility]07-07-2023 NotePatient here for 3 mo follow up. Had echo in December 2022. Denies chest pain. Still gets SOB with exertion and claudication. Review of Systems Cardiovascular: Positive for claudication and dyspnea on exertion. Neurological: Positive for dizziness and light-headedness. All other systems reviewed and are negative.[facility] 04-06-2023 NotePatient here for 3 mo follow up. Had echo in December 2022. Denies chest pain. Still gets SOB with exertion and claudication.[facility]04-07-2023 NoteCardiology Clinic Note Subjective Jennifer Diaz is a 47 y.o. year old female patient with NICM HFimpEF, non-obstructive CAD, HTN, type 2 diabetes, and hyperlipidemia. She presents today for follow up. Overall, patient states that she has been doing well. She was evaluated in the ER several weeks after an episode of chest pain. EKG had some new T wave inversions, but enzymes were negative. Patient states that her blood pressure had been elevated. She denies any recurrence of chest pain. No shortness of breath. No lower extremity edema, orthopnea, or PND. Of note: Patient had cardiac cath in 01/2022 which demonstrated mild non obstructive CAD. 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 Obesity Pneumonia Pruritus of vulva Syncope and collapse Vaginitis and vulvovaginitis Chronic systolic heart failure (CMS/HCC) Mixed hyperlipidemia TIA (transient ischemic attack) Chest pain Cigarette smoker Diabetes mellitus type II, uncontrolled Food insecurity RAE (generalized anxiety disorder) Diabetic foot infection (CMS/HCC) FCI current use of insulin (CMS/HCC) Tobacco abuse Type 2 diabetes mellitus with hyperglycemia ([facility]) Family History Problem Relation Name Age of Onset Arthritis Mother Hypertension Mother Hyperlipidemia Mother Diabetes Paternal Grandmother Other (malignant mesothelioma) Paternal Grandfather Social History Tobacco Use Smoking status: Every Day Packs/day: 0.50 Types: Cigarettes Start date: 2002 Smokeless tobacco: Never Substance Use Topics Alcohol use: Yes Comment: occasional Drug use: Never Review of Systems Cardiovascular: Positive for claudication and leg swelling. Negative for chest pain, dyspnea on exertion, irregular heartbeat, near-syncope, orthopnea, palpitations, paroxysmal nocturnal dyspnea and syncope. Objective Visit Vitals BP (!) 152/106 (BP Location: Right arm, Patient Position: Sitting) Pulse 98 Smoking Status Every Day Physical Exam General: Awake, alert, good spirits. NAD Pulm: Breath sounds clear to ascultation bilaterally with no wheeze, crackles or rhonchi Cards: Regular rate and rhythm, S1, S2. No S3 or S4 gallop. Murmur: none Abd: Soft, Nontender, physiologic bowel sounds are present Extr: Lower extremity edema: None. DP pulses:palpable Skin: warm, dry, well perfused Neuro: A&Ox3, No gross deficits Allergies Allergies Allergen Reactions Keflex [Cephalexin] Medications Current Outpatient Medications: albuterol 90 mcg/actuation inhaler, Inhale 2 puffs every 6 (six) hours if needed., Disp: , Rfl: aspirin 81 mg EC tablet, Take 81 mg by mouth in the morning., Disp: , Rfl: clopidogrel (Plavix) 75 mg tablet, Take 1 tablet by mouth in the morning., Disp: , Rfl: dulaglutide (Trulicity) 1.5 mg/0.5 mL pen injector, Inject 1.5 mg under the skin 1 (one) time per week., Disp: , Rfl: ferrous sulfate 325 (65 Fe) MG tablet, Take 65 mg by mouth with breakfast., Disp: , Rfl: ferrous sulfate 325 (65 Fe) MG tablet, 325 mg 1 (one) time each day at the same time., Disp: , Rfl: FreeStyle Ziggy reader (FreeStyle Ziggy 2 Point Baker) misc, FreeStyle Ziggy 2 Point Baker USE CONTINUOUSLY TO MONITOR BLOOD SUGARS DAILY, Disp: , Rfl: furosemide (Lasix) 20 mg tablet, Take 1 tablet by mouth in the morning., Disp: , Rfl: glipiZIDE (Glucotrol) 5 mg tablet, 5 mg., Disp: , Rfl: insulin aspart (NovoLOG) 100 unit/mL injection, Inject under the skin before breakfast, before lunch, and before evening meal., Disp: , Rfl: insulin glargine (Lantus) 100 unit/mL injection, Inject under the skin at bedtime., Disp: , Rfl: magnesium chloride 71.5 mg tablet,delayed release (DR/EC), Slow-Mag 71.5 mg tablet,delayed release take 2 tablets by mouth once daily, Disp: , Rfl: metFORMIN (Glucophage) 1,000 mg tablet, Take 1,000 mg by mouth with breakfast and with evening meal., Disp: , Rfl: metoprolol succinate XL (Toprol XL) 100 mg 24 hr tablet, Take 1 tablet (100 mg) by mouth in the morning. Do not crush or chew., Disp: 90 tablet, Rfl: 3 nitroglycerin (Nitrostat) 0.4 mg SL tablet, Place 0.4 mg under the tongue every 5 (five) minutes if needed., Disp: , Rfl: omeprazole (PriLOSEC) [address] capsule, Take 40 mg by mouth in the morning and at bedtime. Do not crush or chew., Disp: , Rfl: pen needle, diabetic 31 gauge x 3/16 needle, BD Ultra-Fine Mini Pen Needle 31 gauge x 3/16 use 1 PEN NEEDLE to inject MEDICATION subcutaneously four times a day, Disp: , Rfl: pen needle, diabetic 31 gauge x 5/16 needle, BD Ultra-Fine Short Pen Needle 31 gauge x 5/16 , Disp: , Rfl: spironolactone (Aldactone) 50 mg tablet, [place] (more content not included)... [facility]04-07-2023 NoteReview of Systems Respiratory: Positive for shortness of breath. All other systems reviewed and are negative.[facility] 11-27-2022 NoteCardiology Clinic Note Subjective Jennifer Adam Melissa is a 47 y.o. year old female patient with NICM HFimpEF, non-obstructive CAD, HTN, type 2 diabetes, and hyperlipidemia seen in follow-up. She reports she has been experiencing bilateral thigh pain with ambulation. She recently lost her job and started a new job which requires more ambulation. She reports having to rest about every 15-20 minutes due to the leg pain, symptoms resolve after about 5-10 minutes of rest. No recurrent of chest pain or dyspnea. No recent NTG use. Takes an additional dose of Lasix if notices LE edema. She is a 1/2 ppd smoker. 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 Obesity Pneumonia Pruritus of vulva Syncope and collapse Vaginitis and vulvovaginitis Chronic systolic heart failure (CMS/HCC) Mixed hyperlipidemia TIA (transient ischemic attack) Family History Problem Relation Name Age of Onset Arthritis Mother Hypertension Mother Hyperlipidemia Mother Diabetes Paternal Grandmother Other (malignant mesothelioma) Paternal Grandfather Social History Tobacco Use Smoking status: Every Day Packs/day: 0.50 Types: Cigarettes Start date: 2002 Smokeless tobacco: Never Substance Use Topics Alcohol use: Yes Comment: occasional Drug use: Never Review of Systems Cardiovascular: Positive for claudication and leg swelling. Negative for chest pain, dyspnea on exertion, irregular heartbeat, near-syncope, orthopnea, palpitations, paroxysmal nocturnal dyspnea and syncope. Objective Visit Vitals BP (!) 145/94 (BP Location: Right arm, Patient Position: Sitting, BP Cuff Size: Large adult) Pulse 97 Ht 1.549 m (5' 1 ) Wt 87.9 kg (193 lb 12.8 oz) SpO2 99% BMI 36.62 kg/m??? Smoking Status Every Day BSA 1.95 m??? Physical Exam General: Awake, alert, good spirits. NAD Pulm: Breath sounds clear to ascultation bilaterally with no wheeze, crackles or rhonchi Cards: Regular rate and rhythm, S1, S2. No S3 or S4 gallop. Murmur: none Abd: Soft, Nontender, physiologic bowel sounds are present Extr: Lower extremity edema: None. DP pulses:palpable Skin: warm, dry, well perfused Neuro: A&Ox3, No gross deficits Allergies Allergies Allergen Reactions Keflex [Cephalexin] Medications Current Outpatient Medications: albuterol 90 mcg/actuation inhaler, Inhale 2 puffs every 6 (six) hours if needed., Disp: , Rfl: aspirin 81 mg EC tablet, Take 81 mg by mouth in the morning., Disp: , Rfl: atorvastatin (Lipitor) 80 mg tablet, Take 80 mg by mouth in the morning., Disp: , Rfl: clopidogrel (Plavix) 75 mg tablet, Take 1 tablet by mouth in the morning., Disp: , Rfl: dulaglutide (Trulicity) 1.5 mg/0.5 mL pen injector, Inject 1.5 mg under the skin 1 (one) time per week., Disp: , Rfl: ferrous sulfate 325 (65 Fe) MG tablet, Take 65 mg by mouth with breakfast., Disp: , Rfl: furosemide (Lasix) 20 mg tablet, Take 1 tablet by mouth in the morning., Disp: , Rfl: insulin aspart (NovoLOG) 100 unit/mL injection, Inject under the skin before breakfast, before lunch, and before evening meal., Disp: , Rfl: insulin glargine (Lantus) 100 unit/mL injection, Inject under the skin at bedtime., Disp: , Rfl: metFORMIN (Glucophage) 1,000 mg tablet, Take 1,000 mg by mouth with breakfast and with evening meal., Disp: , Rfl: metoprolol succinate XL (Toprol XL) 100 mg 24 hr tablet, Take 1 tablet (100 mg) by mouth in the morning. Do not crush or chew., Disp: 90 tablet, Rfl: 3 nitroglycerin (Nitrostat) 0.4 mg SL tablet, Place 0.4 mg under the tongue every 5 (five) minutes if needed., Disp: , Rfl: omeprazole (PriLOSEC) [address] capsule, Take 40 mg by mouth in the morning and at bedtime. Do not crush or chew., Disp: , Rfl: spironolactone (Aldactone) 50 mg tablet, Take 50 mg by mouth in the morning., Disp: , Rfl: valACYclovir (Valtrex) 500 mg tablet, Take 500 mg by mouth in the morning and at bedtime., Disp: , Rfl: venlafaxine XR (Effoxor-XR) 150 mg 24 hr capsule, Take 150 mg by mouth in the morning. Do not crush or chew., Disp: , Rfl: sacubitriL-valsartan (Entresto) 24-26 mg tablet, Take 1 tablet by mouth in the morning and at bedtime., Disp: 60 tablet, Rfl: 5 Recent Labs BMP: 08/02/2022 Sodium 140, Potassium 3.8, BUN 8, Creatinine 0.58, GFR >60% 06/19/2022 Lipid profile: Cholesterol 163, HDL 36, TRIG 144, LDL 98.2 CBC: WBC 6.7, HGB: 12.9, Hematocrit 41.2, Platelets 288 Imaging and other tests Echo: 08/03/2022 Left ventricle: Normal chamber size. Moderate concentric ventricle hypertrophy. Global left ventricular systolic function is mildly decreased. Calculated left ventricular ejectio (more content not included)...[facility]02-27-2023 NotePatient is here today for a 3 month follow up. Patient echo was completed in Aug 2022. Patient states she has been having pain in both legs. Review of Systems Musculoskeletal: Positive for joint pain.[facility] 02-02-2022 Progress note Author W Yeison [facility] February 02, 2022 2:22pm Note Date/Time February 02, 2022 1:43pm [facility] [address] [place] [address] Cardiology Progress Note Signed Patient: Jennifer Diaz MR#: [id number] : 1975 Acct:[id number] Age/Sex: 46 / F Adm Date: 2 Loc: Room: [address] [place] [address] Type : ADM INOo Attending Dr: Zahraa Ferrara MD Copies to: ~ Date of Service: 02/02/2022 Subjective Principal diagnosis: Cardiomyopathy Interval history: Patient is stable and improved with no significant orthopnea, shortness of breath at this time denies any chest discomfort. We were able to successfully retrieve the October 2018 cardiac catheterization and echo from [facility] revealing 40% proximal LAD disease, otherwiseminimal circumflex and RCA disease and normal left ventricular function by echo with ejection fraction estimated to be 60%. Patient has been under tremendous amount of psychosocial stress at home, holdingdown a job and going to school and managing a family, in addition to underlying comorbidities including diabetes, tobacco use, obesity, hypertension. Most recent ejection fraction by echocardiogram from yesterday reveals ejection fraction of 20 to 25%. We have initiated appropriate guideline directed medicaltherapies including Entresto, carvedilol, spironolactone, SGLT2 inhibitor. Notably she is intolerant to Invokana in the past and will not take this therefore will utilize Jardiance as an outpatient. Case discussed with patient as well as with Dr. Ferrara, reviewed medications, follow-up. Will proceed with outpatient cardiac catheterization and TCM follow-up next week, after initiating appropriate guideline directed medical therapies presently. Exam Physical Exam Vital Signs: Temp Pulse Resp BP Pulse Ox 98.0 F 91 H 18 149/114 H 99 02/02/22 12:00 02/02/22 12:00 02/02/22 12:00 02/02/22 12:00 02/02/22 12:00 Const General: cooperative, comfortable and no acute distress Nutritional Appearance: obese Orientation: alert, awake and oriented x3 HEENT Head: normal to inspection Neck Neck: normal visual inspection Chest Chest palpation & inspection: normal inspection of the chest Resp Effort & Inspection: normal respiratory effort GI Inspection: obesity Skin General: no rashes or lesions noted Neuro General: patient alert, patient awake and patient oriented x3 Cognition: normal cognition Speech: speech normal Extrem General: no clubbing, cyanosis or edema Objective Labs CBC & Chem 7: 02/01/22 05:12 02/02/22 07:55 Labs: Laboratory Results - last 24 hr 02/01/22 02/01/22 02/01/22 05:12 05:12 17:21 PHA Creatinine Clear Sodium Potassium Chloride Carbon Dioxide BUN Creatinine Est GFR ( Amer) Est GFR (Non-Af Amer) Glucose POC Glucose 65 POC Glucose Comment Follow hypoglycemic Calcium TSH 3rd Generation 1.11 Cancelled 02/02/22 02/02/22 07:45 07:55 PHA Creatinine Clear 104.27 Sodium 137 Potassium 4.8 Chloride 102 Carbon Dioxide 25.8 BUN 7 L Creatinine 0.70 Est GFR ( Amer) > 60 Est GFR (Non-Af Amer) > 60 Glucose 227 H D POC Glucose 240 POC Glucose Comment Calcium 9.3 TSH 3rd Generation A&P - Cardiology (1) Troponin I above reference range: Code(s): R77.8 - Other specified abnormalities of plasma proteins Status: Acute (2) T2DM (type 2 diabetes mellitus): Code(s): E11.9 - Type 2 diabetes mellitus without complications Status: Acute (3) Ischemic cardiomyopathy: Code(s): I25.5 - Ischemic cardiomyopathy Status: Acute (4) Near syncope: Code(s): R55 - Syncope and collapse Status: Acute Plan Continue to monitor serial cardiac enzymes Continue on telemetry Documented By: Surjit Latham DO 02/02/22 1339 Signed By: <Electronically signed by Surjit Latham DO> 02/02/22 1422 [facility] Work Phone: [phone]) 743-370205-04-2022 Consult note Author Surjit Latham [facility] February 01, 2022 5:58pm Note Date/Time February 01, 2022 5:53pm [facility] [address] [place] [address] Cardiology Consult Note Signed Patient: Jennifer Diaz MR#: [id number] : 1975 Acct:[id number] Age/Sex: 46 / F Adm Date: 2 Loc: Room: [address] [place] [address] Type : ADM INOo Attending Dr: Zahraa Ferrara MD Copies to: KARINA Bhardwaj MD W Scott Sheldon, DO~ Cardiology HPI History of Present Illness Consult Date: 02/01/22 Reason for Consult: Elevated Troponin HPI: Ms. Diaz is a 46 year old female seen in cardiology and interventional cardiology consultation at the request of the hospitalist and in conjunction with fourth- year medical student Dr. Morgan. We have both interviewed and examined the patient conjointly, I have reviewed his note and we have developed aggressive plan given the patient's presentation and recent imaging studies. Patient presents with a PMHx of CAD, 2 previous WY's, T2DM presented to the ED after a syncopal episode. She states that she has previously had 2 cardiac catheterizations in June 2018 and October of 2018 without any stents placement for acute coronary events. Presently, she initially presented to [facility] after her syncopal episode at work, where her troponin was measured at 350. Serial troponin collected at this hospital showed 141 yesterday and 200 this morning. EKG collected this morning showed normal sinus rhythm with slight T-wave abnormalities. Pt denies any chest pain or shortness of breath. She states that her original symptom was nausea and vomiting that started to bother her 4-5days ago. She is still feeling slightly nauseous without any abdominal pain. Patient denies any angina. Her last cardiology visit was in [place] in 2019. Patient is a diabetic, active smoker, with increasing shortness of breath and exertional dyspnea over the past 6 months. Echocardiogram reveals an ejection fraction of 20 to 25%, ECG with sinus tachycardia, prolonged QT, and inferolateral T wave inversions with no comparisons available. Clinically she is currently asymptomatic other than reclining orthopnea, monitordoes not reveal any arrhythmias. Recommendations: Obtain cardiac catheterization films from [facility] from 2018 and 2019. We will initiate Entresto 24/26 twice daily, discontinue losartan, initiate carvedilol 6.25 twice daily, spironolactone 25 daily, aspirin 81 daily, smoking cessation counseling, as wellas SGLT2 inhibitor Invokana once daily. Once I have been able to review her cardiac cath films from 2017 in 2019 and determine anatomy and LV function we will make a decision in regards to invasive management versus continued medical therapy. Patient may likely be a candidate for LifeVest temporarily as well. Review of Systems Review of Systems All other systems reviewed & are negative unless noted below or in HPI Constitutional Constitutional: Denies chills, Reports excessive sweating, Denies fever(s) and Reports weakness Cardiovascular Cardiovascular: Reports as per HPI, Denies chest pain, Denies chest pain at rest, Denies chest pain with activity, Denies dyspnea, Reports dyspnea on exertion and Denies radiating jaw, neck or arm pain Respiratory Respiratory: Denies cough, Reports dyspnea on exertion and Denies excessive phlegm production Gastrointestinal Gastrointestinal: Denies abdominal pain, Reports nausea and Reports vomiting Neurologic Neurologic: Reports system reviewed and no additional complaints, except as documented Endocrine Endocrine: Reports as per HPI [facility] Vaccinated for COVID-19?: Yes Medical History (Updated 02/01/22 @ 17:58 by Surjit Latham DO) Anemia Anxiety Asthma Bronchitis Diabetes GERD (gastroesophageal reflux disease) Hiatal hernia Hypercholesteremia Myocardial infarction Pancreatitis Pneumonia Surgical History (Updated 01/31/22 @ 18:59 by Adilene Sanon RN) H/O: hysterectomy Hx of cholecystectomy Social History Smoking Status: Current every day smoker Tobacco Type: cigarettes Substance Use Type: None Meds Medications and Allergies Allergies cephalexin [From Keflex] Allergy (Verified 01/31/22 18:07) Rash Penicillins Allergy (Verified 01/31/22 18:07) Rash Home Medications albuterol 90 mcg/actuation aerosol inhaler 2 mcg INHALATION 2-4XD 01/31/22 [History Confirmed 01/31/22] atorvastatin 40 mg tablet 40 mg PO DAILY 01/31/22 [History Confirmed 01/31/22] ferrous sulfate 325 mg (65 mg iron) tablet (FeroSul) 325 mg PO DAILY 01/31/22 [History Confirmed 01/31/22] glipizide 5 mg tablet 5 mg PO BID 01/31/22 [History Confirmed 01/31/22] insulin aspart U-100 100 unit/mL (3 mL) subcutaneous pen SUBCUT TID.AC 01/31/22 [History] insulin glargine 100 unit/mL subcutaneous cartridge 45 unit SUBCUT BID 01/31/22 [History Confirmed 01/31/22] losartan 100 mg tablet 100 mg PO DAILY 01/31/22 [History Confirmed 01/31/22] metformin 1,000 mg tablet 1,000 mg PO BID 01/31/22 [History Confirmed 01/31/22] omeprazole 40 mg capsule,delayed release 40 mg PO BID 01/31/22 [History Confirmed 01/31/22] valacyclovir 500 mg tablet 500 mg PO DAILY 01/31/22 [History Confirmed 01/31/22] venlafaxine 150 mg capsule,extended release 24 hr 150 mg PO DAILY 01/31/22 [History Confirmed 01/31/22] Exam Physical Exam Vital Signs: Temp Pulse Resp BP Pulse Ox 98.5 F 91 H 14 130/90 97 02/01/22 08:00 02/01/22 09:39 02/01/22 08:00 02/01/22 09:39 02/01/22 08:00 Const General: cooperative, comfortable and no acute distress Nutritional Appearance: obese Orientation: alert, awake and oriented x3 HEENT Head: normal to inspection Neck Neck: normal visual inspection Chest Chest palpation & inspection: normal inspection of the chest Resp Effort & Inspection: normal respiratory effort Auscultation: clear to auscultation bilaterally, no rales, no rhonchi and no wheezes Cardio Rate: regular rate Rhythm: regular rhythm Heart Sounds: S1 normal, S2 normal, no gallops, no murmurs and no rubs GI Inspection: obesity Palpation: soft, hepatosplenomegaly present, no guarding and nontender Skin General: no rashes or lesions noted Neuro General: patient alert, patient awake and patient oriented x3 Cognition: normal cognition Speech: speech normal Extrem General: no clubbing, cyanosis or edema Results Labs CBC & CMP: 02/01/22 05:12 02/01/22 05:12 Lab results: Cardiac Enzymes 02/01/22 Range/Units 05:12 AST 14 (10-42) U/L Lipids 02/01/22 Range/Units 05:12 Triglycerides 117 (35-149) mg/dL Cholesterol 135 L (140-200) mg/dL HDL Cholesterol 26 L (35-85) mg/dL Cholesterol/HDL Ratio 5.2 (<5.0) CBC 02/01/22 Range/Units 05:12 RBC 4.71 (3.60-5.00) x10E6/uL Hgb 12.3 (11.8-15.4) g/dL Hct 37.8 (34.0-46.4) % Plt Count 244 (150-450) x10E3/uL Neut # (Auto) 2.6 (1.8-7.7) x10E3/uL Lymph # (Auto) 2.2 (1.00-4.8) x10E3/uL [place] # (Auto) 0.7 (0.0-0.8) x10E3/uL Eos # (Auto) 0.3 (0.0-0.45) x10E3/uL Baso # (Auto) 0.1 (0.0-0.2) x10E3/uL Comprehensive Metabolic Panel 02/01/22 Range/Units 05:12 Sodium 139 (136-146) mmol/L Potassium 3.6 (3.5-5.1) mmol/L Chloride 105 (95-114) mmol/L Carbon Dioxide 24.9 (22.0-30.0) mmol/L BUN 10 (9-23) mg/dL Creatinine 0.69 (0.44-1.03) mg/dL Glucose 119 H (70-100) mg/dL Calcium 8.8 (8.2-10.2) mg/dL AST 14 (10-42) U/L ALT 13 (10-60) U/L Alkaline Phosphatase 76 (32-92) U/L Total Protein 6.5 (6.1-7.9) gm/dL Albumin 3.1 L (3.2-5.5) gm/dL Intake and Output 01/31/22 02/01/22 02/01/22 23:59 07:59 15:59 Intake Total 350 / 350 300 / 1300 1000 / 1300 Balance 350 / 350 300 / 1300 1000 / 1300 Intake: IV 1000 / 1000 Sodium Chloride 0.9% 1,000 ml 1 1000 / 1000 ,000 ml @ 100 mls/hr IV .Q10H CARLY Rx#:[id number] Oral 350 / 350 300 / 300 Other: # Unmeasured Voids 2 2 Weight 91.5 kg 91 kg Date of Last Bowel Movement 01/31/22 01/31/22 Patient Weight 02/01/22 23:59 Weight 91 kg EKG Interpretations EKG EKG results cardiology: sinus rhythm Blocks, axis, hypertrophy, ST abn Repolarization changes or abnormalities: ST or T wave suggestive of ischemia A&P - Cardiology (1) Troponin I above reference range: Code(s): R77.8 - Other specified abnormalities of plasma proteins (2) T2DM (type 2 diabetes mellitus): Code(s): E11.9 - Type 2 diabetes mellitus without complications (3) Ischemic cardiomyopathy: Code(s): I25.5 - Ischemic cardiomyopathy (4) Near syncope: Code(s): R55 - Syncope and collapse Plan Continue to monitor serial cardiac enzymes Continue on telemetry Documented By: Surjit Latham DO 02/01/22 1006 Signed By: <Electronically signed by Surjit Latham DO> 02/01/22 1975 [facility] Work Phone: 1(900) 366-927805-04-2022 Progress note Author Zahraa Ferrara [facility] February 01, 2022 3:49pm Note Date/Time February 01, 2022 3:45pm [facility] [address] [place] [address] Hospitalist Progress Note Signed Patient: Jennifer Diaz MR#: [id number] : 1975 Acct:[id number] Age/Sex: 46 / F Adm Date: 2 Loc: 4 Room: [address] [place] [address] Type : ADM INOo Attending Dr: Zahraa Ferrara MD Copies to: ~ Date of Service: 02/01/2022 Subjective Subjective Narrative: Patient has been seen and examined today. She is doing better, still has some intermittent discomfort Physical exam: General -awake, alert, oriented ?3, not in acute distress Cardiovascular -S1 with S2, no murmurs, no rubs, no gallops Pulmonary - clear to auscultation bilaterally Gastrointestinal - abdomen is soft, nondistended, nontender, bowel sounds positive, there is no rigidity, no rebound Extremities -no edema Neurological -no focal neurological dysfunction noted Laboratory work up and Imaging studies reviewed clinical informatics manager - reviewed EKG - personally reviewed by me. NSR with nonspecific changes Exam Physical Exam Vital Signs: Temp Pulse Resp BP Pulse Ox 36.9 C 91 H 14 130/90 99 02/01/22 08:00 02/01/22 09:39 02/01/22 08:00 02/01/22 09:39 02/01/22 12:25 Objective Lab Results CBC & Chem 7: 02/01/22 05:12 02/01/22 05:12 Meds Allergies and Active Meds Allergies cephalexin [From Keflex] Allergy (Verified 01/31/22 18:07) Rash Penicillins Allergy (Verified 01/31/22 18:07) Rash Active Meds: Active Medications Generic Name Dose Route Start Last Admin Trade Name Freq PRN Reason Stop Dose Admin Acetaminophen 650 mg 01/31/22 20:05 Acetaminophen 325 Mg Tablet PO 01/31/23 20:04 Q4H PRN Pain Scale 1 - 5 Albuterol 2.5 mg 01/31/22 20:05 Albuterol Neb 2.5 Mg/3 Ml Vial.Neb INHALATION 01/31/23 20:04 Q2H PRN Shortness Of Breath Albuterol 2.5 mg 01/31/22 20:17 Albuterol Neb 2.5 Mg/3 Ml Vial.Neb INHALATION 01/31/23 20:16 Q4H PRN Shortness Of Breath Or Wheezing Aspirin 81 mg 02/01/22 09:00 02/01/22 09:39 Aspirin 81 Mg Tab.Chew PO 02/01/23 08:59 81 mg DAILY CARLY Administration Atorvastatin Calcium 40 mg 01/31/22 22:00 01/31/22 22:06 Atorvastatin 40 Mg Tablet PO 01/31/23 21:59 40 mg QHS CARLY Administration Dextrose 0 gm 01/31/22 20:05 02/01/22 14:47 Dextrose 50% In Water 25 Gm/50 Ml Syringe IV-PUSH 01/31/23 20:04 25 gm PRN PRN Administration Hypoglycemia Docusate Sodium 200 mg 01/31/22 20:05 Docusate 100 Mg Capsule PO 01/31/23 20:04 BID PRN Constipation Glucose 0 gm 01/31/22 20:05 Dextrose 40% Gel 15 Gm Tube PO 01/31/23 20:04 PRN PRN Hypoglycemia Hydralazine HCl 10 mg 01/31/22 20:05 Hydralazine 20 Mg/Ml Vial IV-PUSH 01/31/23 20:04 Q4H PRN if SBP > 185 Insulin Aspart 0 units 01/31/22 22:00 02/01/22 11:05 Insulin Aspart 300 Units/3 Ml Insuln.Pen SUBCUT 01/31/23 21:59 Not Given TID.WM.HS [facility] Protocol Insulin Detemir 45 units 01/31/22 21:00 02/01/22 09:42 Insulin Detemir 300 Units/3 Ml Insuln.Pen SUBCUT 01/31/23 20:59 45 units BID CARLY Administration Losartan Potassium 100 mg 02/01/22 09:00 02/01/22 09:39 Losartan 50 Mg Tablet PO 02/01/23 08:59 100 mg DAILY CARLY Administration Nitroglycerin 0.5 inch 01/31/22 21:00 02/01/22 09:39 Nitroglycerin 2% Oint Packet TRANSDERML 01/31/23 20:59 0.5 inch BID CARLY Administration Nitroglycerin 0.4 mg 01/31/22 20:21 Nitroglycerin 0.4 Mg Tab.Subl SUBLINGUAL 01/31/23 20:20 Q5MIN.X3 PRN Chest Pain Omeprazole 40 mg 01/31/22 21:00 02/01/22 09:39 Omeprazole 20 Mg Capsule.Dr PO 01/31/23 20:59 40 mg BID CARLY Administration Ondansetron HCl 4 mg 01/31/22 20:05 Ondansetron 4 Mg/2 Ml Vial IV-PUSH 01/31/23 20:04 Q6H PRN Nausea And Vomiting Valacyclovir HCl 500 mg 02/01/22 09:00 02/01/22 09:39 Valacyclovir 500 Mg Tablet PO 500 mg DAILY CARLY Administration Venlafaxine HCl 150 mg 02/01/22 09:00 02/01/22 09:39 Venlafaxine Er 150 Mg Cap.Er.24h PO 02/01/23 08:59 150 mg DAILY CARLY Administration A&P - Hospitalist Assessment/Plan (1) Troponin I above reference range: Plan 1. Abnormal cardiac enzymes with abnormal EKG Cardiac enzymes abnormal but flat Echocardiogram showed ejection fraction 20 to 25% with severe global hypokinesia, etiology unclear, denies any alcohol use, any illicit drug use. Check TSH Appreciate cardiology evaluation 2. Diabetes mellitus type 2, continue with home medications including insulin, hold metformin, added sliding scale 3. Hypertension, continue with patient's home medications 4. Hyperlipidemia, continue with statins, check fasting lipid profile 5. DVT prophylaxis SCDs Lovenox Documented By: Zahraa Ferrara MD 02/01/22 154 Signed By: <Electronically signed by Zahraa Ferrara MD> 02/01/22 1549 [facility] Work Phone: 1(843) 750-331005-03-2022 History and physical note Author Zahraa Ferrara [facility] January 31, 2022 8:23pm Note Date/Time January 31, 2022 8:18pm [facility] [address] [place] [address] Hospitalist H&P Signed Patient: Jennifer Diaz MR#: [id number] : 1975 Acct:[id number] Age/Sex: 46 / F Adm Date: 2 Loc: Room: [address] [place] [address] Type : ADM IN Attending Dr: Zahraa Ferrara MD Copies to: Vivi Salmeron, KARINA Ferrara MD~ HPI DATE OF EXAMINATION: 01/31/22 CHIEF COMPLAINT: Abnormal cardiac enzymes HISTORY OF PRESENT ILLNESS: 46 years old female with reported history of coronary artery disease and 2 MIs in the past, however without any intervention. Per patient she did have 2 cardiac catheterization with last being in 2019 without any stent placed. This time she presented with syncopal episode 2 [facility] emergency room where she was found to have abnormal cardiac enzymes troponins at 350 with reference range less than 40, with second troponinat 370 Patient has not been feeling well for couple of weeks. She was complaining of fatigue as well as shortness of breath with some sweating especially with exertion. She was complaining of bad taste in her mouth. During the last couple of days she has very poor appetite. Today she went to work where she hadshort syncopal episode also she developed some nausea with couple of episodes nonbloody vomitus and diarrhea. Patient has history of type 2 diabetes. Also she was diagnosed with pancreatitis in the past. She was very worried that she has pancreatitis again. She has a history of cholecystectomy years ago, denies any alcohol use. This time she denied any abdominal pain. She thinks that she may had some slight indigestion, retrosternal discomfort. She admits that she has been sweating but no objective fevers. She has been having cough with some whitish sputum production. In outside emergency room she was evaluated which showed unremarkable CBC, BMP breath abnormal troponins were noted at 370. Patient was transferred here for further evaluation and treatment When I saw her she denied any chest pain any shortness of breath Review of Systems Review of Systems Review of systems: 10 systems are reviewed and are negative apart what is mentioned in H&P PMFSH Vaccinated for COVID-19?: Yes Medical History (Updated 01/31/22 @ 20:23 by Zahraa Ferrara MD) Anemia Anxiety Asthma Bronchitis Diabetes GERD (gastroesophageal reflux disease) Hiatal hernia Hypercholesteremia Myocardial infarction Pancreatitis Pneumonia Surgical History (Updated 01/31/22 @ 18:59 by Adilene Sanon RN) H/O: hysterectomy Hx of cholecystectomy Social History Smoking Status: Current every day smoker Tobacco Type: cigarettes Substance Use Type: None Meds Medications and Allergies Allergies cephalexin [From Keflex] Allergy (Verified 01/31/22 18:07) Rash Penicillins Allergy (Verified 01/31/22 18:07) Rash Home Medications albuterol 90 mcg/actuation aerosol inhaler 2 mcg INHALATION 2-4XD 01/31/22 [History Confirmed 01/31/22] atorvastatin 40 mg tablet 40 mg PO DAILY 01/31/22 [History Confirmed 01/31/22] ferrous sulfate 325 mg (65 mg iron) tablet (FeroSul) 325 mg PO DAILY 01/31/22 [History Confirmed 01/31/22] glipizide 5 mg tablet 5 mg PO BID 01/31/22 [History Confirmed 01/31/22] insulin aspart U-100 100 unit/mL (3 mL) subcutaneous pen SUBCUT TID.AC 01/31/22 [History] insulin glargine 100 unit/mL subcutaneous cartridge 45 unit SUBCUT BID 01/31/22 [History Confirmed 01/31/22] losartan 100 mg tablet 100 mg PO DAILY 01/31/22 [History Confirmed 01/31/22] metformin 1,000 mg tablet 1,000 mg PO BID 01/31/22 [History Confirmed 01/31/22] omeprazole 40 mg capsule,delayed release 40 mg PO BID 01/31/22 [History Confirmed 01/31/22] valacyclovir 500 mg tablet 500 mg PO DAILY 01/31/22 [History Confirmed 01/31/22] venlafaxine 150 mg capsule,extended release 24 hr 150 mg PO DAILY 01/31/22 [History Confirmed 01/31/22] Exam Physical Exam Vital Signs: Temp Resp BP Pulse Ox 36.4 C 18 133/87 99 01/31/22 18:18 01/31/22 18:18 01/31/22 18:18 01/31/22 18:18 Narrative: General -patient is awake alert oriented ?3, does not appear to be in distress HEENT -normal oropharyngeal mucosa without any ulcers or exudates Cardiovascular -S1 plus S2, with regular rate, without any murmurs, gallops, rubs Pulmonary -clear to auscultation bilaterally Gastrointestinal -abdomen is soft, nondistended, nontender, bowel sounds positive, no rigidity, no rebound Genitourinary -deferred Musculoskeletal -no back tenderness, no significant joint swelling, full range of motion Neurological -no focal Skin -no significant ulcers, no rash noted Extremities - no edema in bilateral lower extremities noted Psychiatry - appropriate affect Laboratory work up, imaging studies reviewed EKG personally reviewed by me normal sinus with nonspecific ST-T wave changes and T wave inversions in lateral Previous records in the computer system reviewed Results Lab Results Labs: Laboratory Last Values POC Glucose 65 mg/dl 01/31/22 17:53 POC Glucose Comment Glu2: cleaned meter 01/31/22 17:53 Troponin I High Sens 128 pg/mL (0-15) H* 01/31/22 18:34 A&P - Hospitalist Assessment/Plan (1) Troponin I above reference range: Plan 1. Abnormal cardiac enzymes We will admit the patient to telemetry, currently patient is asymptomatic EKG normal sinus rhythm with T wave inversion in lateral Continue with serial cardiac enzymes, continue with telemetry Repeat EKG in a.m. and as needed if chest pain Start aspirin therapy, nitroglycerin and morphine as needed for chest pain Check fasting lipid profile in a.m. Consult cardiology for further evaluation and treatment 2. Diabetes mellitus type 2, continue with home medications including insulin, hold metformin, add sliding scale 3. Hypertension, continue with patient's home medications 4. Hyperlipidemia, continue with statins, check fasting lipid profile 5. DVT prophylaxis SCDs and got full dose of Lovenox Documented By: Zahraa Ferrara MD 01/31/222007 Signed By: <Electronically signed by Zahraa Ferrara MD> 01/31/222022 [facility] Work Phone: Discharge summary Author Zahraa Ferrara [facility] February 04, 2022 4:17pm Note Date/Time February 02, 2022 3:28pm [facility] [address] [place] [address] Discharge Summary Signed Patient: Jennifer Diaz MR#: [id number] : 1975 Acct:[id number] Age/Sex: 46 / F Adm Date: 2 Loc: Room: [address] [place] [address]: Zahraa Ferrara MD Copies to: Vivi Salmeron, SCHEDULE HANGER Zahraa Ferrara MD~ Providers Date of Discharge: 02/02/22 Discharging Provider: Zahraa Ferrara Primary Care Provider: Vivi Salmeron Consults: 01/31/22 20:06 Consult to Cardiology Routine Discharge Diagnosis (1) Troponin I above reference range: (2) T2DM (type 2 diabetes mellitus): (3) Ischemic cardiomyopathy: (4) Near syncope: Final Diagnosis Final Discharge Diagnosis: Non-ST elevation WY type II; plan for cardiac catheterization as outpatient Newly found chronic systolic congestive heart failure with ejection fraction 25% Hypertension Diabetes mellitus type 2 Hypomagnesemia, replaced Summary Hospital Course Hospital course: 46 years old female was transferred with abnormal cardiac enzymes and non-ST elevation WY type II. Patient was admitted to rule out acute coronary syndrome. Troponins were elevated but flat. Cardiology was consulted. Patient underwentechocardiogram which showed ejection fraction 25% with global hypokinesia. Patient did have cardiac catheterization in October 2018 at that time showed proximal LAD disease of 40% and minimal circumflex and RCA disease. Echocardiogram at that time showed preserved ejection fraction. She did have abnormal EKG with nonspecific findings. She was evaluated by respiratory care specialist and recommended cardiac catheterization as outpatient. She was placed on guideline directed therapy for low ejection fraction and was discharged home in stable condition On the discharge the patient was doing quite well. She denied any nausea any vomiting. She denied any pain. She denied any shortness of breath any palpitations any sweating. Symptoms improved. General -awake, alert, oriented ?3, not in acute distress Cardiovascular -S1 with S2, no murmurs, no rubs, no gallops Pulmonary - clear to auscultation bilaterally Gastrointestinal - abdomen is soft, nondistended, nontender, bowel sounds positive, there is no rigidity, no rebound Extremities -no edema Neurological -no focal neurological dysfunction noted Telemetry reviewed, normal sinus without any significant arrhythmias The patient CARE and further plan was discussed with the patient. All questionsanswered. Patient expressed understanding and was discharged home in a stable condition. The patient was given written and verbal instructions. The recommendations were made to follow-up as outpatient within one week.The patientwas informed if his symptoms get worse to go back to emergency room or call his primary care physician office. Time spent on the discharge day 35 min. Time Spent with Patient Time spent providing/coordinating discharge services (# min): 35 Diagnostic Studies Completed and Pending Studies Labs on day of discharge: 02/02/22 07:55: PHA Creatinine Clear 104.27, Sodium 137, Potassium 4.8, [id number], Carbon Dioxide 25.8, BUN 7 L, Creatinine 0.70, Est GFR ( Amer) > 60,Est GFR (Non-Af Amer) > 60, Glucose 227 H D, Calcium 9.3 02/02/22 07:45: POC Glucose 240 02/01/22 17:21: POC Glucose 65, POC Glucose Comment Follow hypoglycemic 02/01/22 05:12: TSH 3rd Generation Cancelled 02/01/22 05:12: TSH 3rd Generation 1.11 Exam Physical Exam Vital Signs: Temp Pulse Resp BP Pulse Ox 36.7 C 91 H 18 149/114 H 99 02/02/22 12:00 02/02/22 12:00 02/02/22 12:00 02/02/22 12:00 02/02/22 12:00 Discharge Plan Discharge Plan Patient Disposition: Home Activity: No Activity Restriction Diet: Carb Count and Low-Sodium Additional Instructions: You are scheduled for outpatient Cardiac Cath at [facility] on 02/13/2022t 8:30am; please follow instructions You are scheduled for outpatient lab (pre surgery testing)work prior to Cardiac Cath at [facility] on 02/09/2022 at 8:30am Stand Alone Forms: Work/School Release Form Prescriptions: New carvedilol 6.25 mg Tablet 6.25 mg PO BID.WITH.MEALS 30 Days Qty: 60 RF: 12 Entresto 24-26 mg Tablet 1 tab PO BID 30 Days Qty: 60 RF: 12 spironolactone 25 mg Tablet 25 mg PO DAILY 30 Days Qty: 30 RF: 12 aspirin [Children's Aspirin] 81 mg Tablet,Chewable 81 mg PO DAILY Qty: 0 RF: 0 furosemide [Lasix] 20 mg tablet 20 mg PO DAILY 30 Days Qty: 30 RF: 12 Jardiance 10 mg tablet 10 mg PO DAILY 30 Days Qty: 30 RF: 12 Slow-Mag 71.5 mg tablet,delayed release (DR/EC) 143 mg PO DAILY Qty: 30 RF: 0 Continued metformin 1,000 mg Tablet 1,000 mg PO BID RF: 0 albuterol 90 mcg/actuation Aerosol 2 mcg INHALATION 2-4XD RF: 0 insulin glargine 100 unit/mL Cartridge 45 unit SUBCUT BID RF: 0 insulin aspart U-100 100 unit/mL (3 mL) insulin pen SUBCUT TID.AC RF: 0 atorvastatin 40 mg tablet 40 mg PO DAILY RF: 0 valacyclovir 500 mg tablet 500 mg PO DAILY RF: 0 venlafaxine 150 mg capsule,extended release 24hr 150 mg PO DAILY RF: 0 Changed omeprazole 40 mg capsule,delayed release(DR/EC) 20 mg PO DAILY 30 Days Qty: 0 RF: 0 ferrous sulfate [FeroSul] 325 mg (65 mg iron) tablet 325 mg PO Q48H Qty: 30 RF: 0 Discontinued losartan 100 mg Tablet 100 mg PO DAILY RF: 0 glipizide 5 mg tablet 5 mg PO BID RF: 0 Other Ambulatory Orders: Basic Metabolic Panel (Routine) Timeframe: 5 Days Location: Determined by Patient Ordered By: Zahraa Ferrara Follow Up: Shanta Lentz APRN [Nurse Practitioner] - 02/08/22 12:00 pm Documented By: Zahraa Ferrara MD 02/02/22 1526 Signed By: <Electronically signed by Zahraa Ferrara MD> 02/04/22 1617 [facility] Work Phone: Evaluation note* Diagnosis Onset Date Resolution Status Ischemic cardiomyopathy acut e Near syncope acute T2DM (type 2 diabetes mellitus) acute Troponin I above reference range acute [facility] Work Phone: Evaluation noteNo assessment information available [facility] Work Phone: History and physical note Author Jose Carmona [facility] September 04, 2023 1:10pm Note Date/Time September 04, 2023 1 :10pm [facility] [address] [place] [address] Gastroenterology H&P Signed Patient: Jennifer Diaz MR#: [id number] : 1975 Acct:[id number] Age/Sex: 47 / F Adm Date: 3 Loc: Room: Type: [facility] Attending Dr: Jose Carmona MD Copies to: MD Vivi Saini CNP~ Date of Service: 09/04/2023 HISTORY & PHYSICAL: Patient's history with special attention to the cardiovascular, pulmonary systems and the current problem was reviewed with the patient immediately prior to the procedure. Present medications and doses reviewed in the EMR. Allergies and pertinent laboratory tests were also reviewedat this time in the EMR. The physical examination, as below, was then performed. Indication, assessment and HPI: 47-year-old female with history of multiple chronic GI complaints presents for EGD to evaluate dysphagia, early satiety and dyspepsia. Family history of GI malignancy? No PHYSICAL EXAMINATION Mouth and Pharynx : Moist mucus membranes, normal dentition Cardiac: Regular rate, regular rhythm Pulmonary: Clear to auscultation bilaterally, no wheezing Neurological: Alert and oriented x3, no focal deficits noted Abdomen: Abdomen soft, non-tender REVIEW OF SYSTEMS Constitutional: Denies malaise, fevers Cardiovascular: Denies chest pain, palpitations Respiratory: Denies shortness of breath, wheezing Gastrointestinal: Per HPI Genitourinary: Denies dysuria, polyuria Musculoskeletal: Denies joint swelling, joint stiffness Neurological: Denies numbness, tingling Integumentary: Denies rashes, skin lesions Endocrine: Denies fatigue, weight loss Written informed consent obtained from the patient. Risks (including but not limited to perforation, infection, bloating, bleeding, need for emergent surgeryand loss of life), benefits and alternatives explained and questions answered. The patient verbalized understanding. Based on history patient is an appropriate candidate for the procedure. Jose Carmona MD Documented By: Jose Carmona MD 09/04/23 1309 Signed By: <Electronically signed by Jose Carmona MD> 09/04/23 1310 [facility] Work Phone: History general Narrative - Reported* Type Description Date Medical History high blood pressure Medical History diabetes Surgical History gall bladder Surgical History boil removed from stomach Surgical History keyloids removed from behind le ft ear and left wrist Hospitalization History possible heart attack Hospitalization History blood pressure AskYou Other Hospital Discharge instructions Additional Instructions You are scheduled for outpatient Cardiac Cath at [facility] on 02/13/2022 at 8:30am; please follow instructions You are scheduled for outpatient lab (pre surgery testing)work prior to Cardiac Cath at [facility] on [facility] Work Phone: Hospital Discharge instructions Additional Instructions DISCHARGE INSTRUCTIONS FOR UPPER ENDOSCOPY WHAT TO EXPECT: - You may feel full, gassy or cramping after your procedure. In some cases, this may be from a few hours to a day. Walking may help relieve the discomfort. - Your throat may feel sore today from the scope that the doctor passed through your throat to visualize your stomach. Take a throat lozenge or suck on ice to ease the discomfort. - You may notice some streaks of blood in your sputum if the doctor has taken a biopsy. - You should begin to recover from anesthesia within 1 hour of the procedure, however may feel groggy for the next 24 hours. DO's AND DON'Ts: - Call your doctor right away if you have a hard abdomen, severe pain, vomiting or if you cough up large amounts of blood. - Call your doctor if you develop any rashes, hives or difficulty breathing. - If you take 81 mg aspirin for your heart it is safe to resume this medication. - If you take other blood thinner medications your doctor will instruct you when these can safely be resumed. - Do NOT drive for 24 hours. - Do NOT operate machinery such as power tools, lawn mowers, snow blowers, sewing machines, etc. for 24 hours. - Avoid alcoholic beverages and drugs for allergies, nerves, or sleep. - Do NOT stay alone. Do NOT leave your child unattended. - Do NOT make important personal or business decisions or sign any legal documents. - Eat solid foods and drink liquids in smaller amounts than usual until normal appetite returns. If you should experience an upset stomach, liquids high in sugar content (soda, Jordin-Aid, non-acid juices) are recommended. - Do NOT smoke. - Do take it easy today. You need not stay in bed, but avoid strenuous activities such as jogging or working out. FOLLOW UP & RECOMMENDATIONS: -Stop omeprazole, start dexlansoprazole. This has been sent to your pharmacy. -The GI office will schedule you a follow-up appointment to check on your symptoms and go over your pathology results. -Notify the doctor if you have any problems. -Follow up with PCP. -Office number [phone].[facility] Work Phone: Summary Purpose Family History No Family History Records Found Relationship Condition Age at Onset Recorded Date/T crystal Not Specified No pertinent family history Unknown Advance Directives No Advanced Directives Records Found Advance Directive Response Recorded Date/ Time Advance Directives No January 31, 2022 3:52pm Advance Directive Response Recorded Date/ Time Advance Directives No January 31, 2022 2:52pm Chief Complaint and Reason for Visit Chief Complaint Non STEMI Reason for Visit Ischemic cardiomyopa thy Near syncope T2DM (type 2 diabetes mellitus) Troponin I above reference range Chief Complaint chronic gastritis, u nspecific gastritis type Additional Source Comments INFORMATION SOURCE (unrecogn ized section and content) DATE CREATED AUTHOR 07/08/2019 [facility] DATE CREATED AUTHOR AUTHOR'S ORGANIZ ATION [facility] DATE CREATED AUTHOR AUTHOR'S ORGANIZ ATION 03/23/2022 [facility] DATE CREATED AUTHOR AUTHOR'S ORGANIZ ATION 01/22/2023 [facility] DATE CREATED AUTHOR AUTHOR'S ORGANIZ ATION 11/09/2023 [facility] DATE CREATED AUTHOR AUTHOR'S ORGANIZ ATION 11/18/2023 [facility] Care Teams (unrecognized sec tion and content) Team Status: Inactive Member Role Status Dates Vivi Salmeron NP-C Primary Care Provider Active Zahraa Ferrara MD Admit Provider, Attending Provide r Active Team Status: Active Member Role Status Dates Vivi Salmeron NP-C Primary Care Provider Active Team Status: Inactive Member Role Status Dates Vivi Salmeron NP-C Primary Care Provider Active Jose Carmona MD Attending Provider Active REASON FOR VISIT (unrecogniz ed section and content) PT HAS BEEN REFF BY VIVI BELTRE, CONSULT CHRONIC GASTRITIS FOR RECORDS PERTAINING TO PATIENTS WHO ARE OR HAVE BEEN ENROLLED IN A CHEMICAL DEPENDENCY/SUBSTANCEABUSE PROGRAM, SOME INFORMATION MAY BE OMITTED. This clinical summary was aggregated from multiple sources. Caution should be exercised in using it in the provision of clinical care. This summary normalizes information from multiple sources, and as a consequence, information in this document may materially change the coding, format and clinical context of patient data. In addition, data may be omitted in some cases. CLINICAL DECISIONS SHOULD BE BASED ON THE PRIMARY CLINICAL RECORDS. [employer] provides no warranty or guarantee of the accuracy or completeness of information in this document.
[2024-01-04 15:53] LABS: Basophils Percent Auto 0.4 % (0.2-2.0); Eosinophils Absolute Auto 0.2 10^3/uL (0.0-0.7); Eosinophils Percent Auto 2.6 % (0.9-7.0); Hematocrit 40.1 % (36.0-48.0); Hemoglobin 12.2 g/dL (12.0-16.0); Immature Granulocytes Abs Auto 0.02 10^3/uL (0.00-0.03); Immature Granulocytes Pct Auto 0.3 % (0.0-0.5); Lymphocytes Percent Auto 37.2 % (20.5-60.0); Mean Corpuscular HGB Conc 30.4 g/dL (29.9-35.2); Mean Corpuscular Volume 85.3 fL (81.0-99.0); Mean Platelet Volume 10.9 fL (9.5-13.5); Monocytes Absolute Auto 0.5 10^3/uL (0.3-0.8); Neutrophils Absolute Auto 4.3 10^3/uL (1.4-6.5); Neutrophils Percent Auto 53.5 % (43.0-75.0); Platelet Count 266 10^3/uL (150-450); White Blood Count 7.9 10^3/uL (4.0-11.0)
[2024-01-04 16:45] LABS: Alanine Aminotransferase 23 U/L (14-59); Albumin Globulin Ratio 0.8; Albumin Level 3.3 g/dL (3.4-5.0); Alkaline Phosphatase 99 U/L (46-116); Anion Gap 13.9; Aspartate Amino Transferase 9 U/L (15-37); BUN Creatinine Ratio 17.8; Bilirubin Total 0.2 mg/dL (0.2-1.0); Calcium 9.2 mg/dL (8.5-10.1); Carbon Dioxide 26.2 mmol/L (21.0-32.0); Chloride 98 mmol/L (98-107); Chol HDL Ratio 4.5; Cholesterol 162 mg/dL (<=200); Estimated GFR (African America >60 (>=60); Estimated GFR (Non-African Ame >60 (>=60); Globulin 4.1 g/dL; Glucose 282 mg/dL (74-106); HDL Cholesterol 36 mg/dL (40-60); Potassium 4.1 mmol/L (3.5-5.1); Sodium 134 mmol/L (136-145); Total Protein 7.4 g/dL (6.4-8.2); Triglycerides 150 mg/dL (<=150)
[2024-01-04 17:03] LABS: Estimated Average Glucose 355 mg/dL; Glycohemoglobin A1C >14.0 % (4.5-6.2)
== END 2024-01-04 15:22 | disposition home or self-care (01) ==
LOC: LAB 15:23
PROVIDERS: PCP Nurse Practitioner Family; Visit Provider Internal Medicine Cardiovascular Disease
DX: I11.9 Hypertensive heart disease without heart failure (principal)
CPT/HCPCS: 36415; 80053; 80061; 83036; 85025

== ENCOUNTER 2024-05-14 09:32 | Outpatient (OUT) | payer MEDICAID, SELFPAY ==
--- OUTSIDE RECORDS SUMMARY | 2024-05-14 09:51 | XMS_ITS | CCD ---
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 Name Role Phone JOSE Salmeron Primary Care Provider MD Zahraa Ferrara Admit Provider MD Zahraa Ferrara Attending Provider HOLDEN FOWLERD Attending Unavailable YOEL SALINAS Primary Care Unavailable SELF, REFERRED Referring Unavailable ALGHOTHANI, MOHAMAD Admitting Unavailable LENNY ., DR DIALLO Consulting Unavailable TEAGANY ., DR DIALLO Attending Unavailable TEAGANY ., DR DIALLO Admitting Unavailable FAVIOLA, VIVI Primary Care Unavailable ALANA, DR BRYCE Ramirez Consulting UnavailDELIA Gibbs Consulting Unavailable JOB, LILA Consulting Unavailable NESS BRAR Consulting Unavailable ANKIT ., DR ATKINS Consulting Unavailable FAVIOLA, VIVI Primary Care Unavailable ANKIT ., DR ATKINS Attending Unavailable ANKIT ., DR ATKINS Admitting Unavailable FAVIOLA, VIVI Consulting Unavailable FAVIOLA, VIVI Primary Care Unavailable VIVI SALMERON Attending Unavailable FAVIOLA, VIVI Admitting Unavailable ALGHOTHANI, MOHAMAD Consulting Unavailable FAVIOLA, VIVI Primary Care Unavailable ALGHOTHANI, MOHAMAD Attending Unavailable ALGHOTHANI, MOHAMAD Admitting Unavailable ALGHOTHANI, MOHAMAD Consulting Unavailable FAVIOLA, VIVI Primary Care Unavailable ALGHOTHANI, MOHAMAD Attending Unavailable ALGHOTHANI, MOHAMAD Admitting Unavailable MISC, DR DORMAN Consulting Unavailable FAVIOLA, VIVI Primary Care Unavailable MISC, DR DORMAN Attending Unavailable ANILC, DR DORMAN Admitting Unavailable ZIWILLIS, DR KEYSHAWN Liriano Consulting Unavailable FAVIOLA, VIVI Consulting Unavailable FAVIOLA, VIVI Primary Care Unavailable FAVIOLA VIVI Attending Unavailable FAVIOLA, VIVI Admitting Unavailable KRYSTYNA, [...] Consulting Unavailable Jose Carmona Unavailable JOSE Salmeron [facility] Primary Care Provider MD Jose Carmona Attending Provider [phone] Jose Carmona Attending Unavailable Jose Carmona Admitting Unavailable Faviola, Vivi Dalila Primary Care Unavailable VISHAL FOWLER Attending Unavailable VISHAL FOWLER Attending Unavailable NIKO TORREZ Attending Unavailable Allergies Allergy Classification Reported Allergen(s) Allergy Type Date of Onset Reaction(s) Facility (5 sources) Cephalexin; Translations: [cephalexin] Drug Allergy 01-31-2022 [facility] (5 sources) Penicillins; Translations: [Penicillins] Allergy to drug (finding) 01-31-2022 [facility] (3 sources) Cephalexin Drug Allergy 10-28-2018 Unknown [facility] (2 sources) Penicillin Drug Allergy Unknown [facility] (1 source) Cephalexin Drug Allergy 08-02-2023 [facility] (1 source) Penicillins Drug allergy (disorder) 08-02-2023 [facility] Medications Current Medications Medication Drug [...] mg Tablet,Chewable Active 81 MG PO Daily 0 February 02, 2022 1:44pm take 1 tablet [...] sources) GLP-1 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 Start: 09-04-2023 Dulaglutide (Trulicity) 1.5 mg/0.5 mL pen injector Active 1.5 [...] Active 1 TAB PO Twice daily 60 30 February 02, 2022 1:43pm ENTRESTO 24 mg/2 [...] daily Omeprazole Discontinued 20 MG PO Daily 0 February 02, 2022 12:56pm September 04, 2023 1:22pm Start: 01-31-2022 End: 02-02-2022 take 40 mg by mouth twice daily Omeprazole Discontinue d 40 MG PO Twice daily January 31, 2022 6:14pm February 02, 2022 1:57pm take 1 capsule by [facility] once daily Omeprazole 40 MG 1 capsule [...] Onset: 06-16-2022 Chronic Congestive heart failure; nonhypertensive (12 sources) Acute combined systolic (congestive) and diastolic (congestive) heart failure; Translations: [Chronic diastolic (congestive) heart failure] Onset: 08-02-2022 Chronic Coronary atherosclerosis and other heart disease (5 sources) Ischemic myocardial dysfunction; Translations: [Ischemic cardiomyopathy] Onset: 12-20-2022 02-01-2022 Chronic Diabetes mellitus with complications (1 source) Type 2 diabetes mellitus with hyperglycemia; Translations: [TYPE 2 DM W/HYPERGLYCEMIA] Onset: 12-20-2022 Chronic Diabetes mellitus without complication (4 sources) Type 2 diabetes mellitus; Translations: [Type 2 diabetes mellitus without complications] Onset: 06-16-2022 02-01-2022 Chronic Disorders of lipid metabolism (2 sources) Pure hypercholesterolemia , unspecified; Translations: [Hyperlipidemia, unspecified] Onset: 06-20-2022 Chronic Esophageal disorders (1 source) Gastro-esophageal reflux disease without esophagitis; Translations: [GERD WITHOUT ESOPHAGITIS] Onset: 12-20-2022 Chronic Essential hypertension (1 source) Essential (primary) hypertension; Translations: [ESSENTIAL PRIMARY HYPERTENSION] Onset: 12-20-2022 Chronic Gastritis and duodenitis (2 sources) Chronic gastritis; Translations: [Unspecified chronic gastritis without bleeding] Chronic Hypertension with complications and secondary hypertension (2 sources) Hypertensive heart disease without heart failure; Translations: [Hypertensive heart disease without heart failure] Onset: 04-06-2023 Chronic Mood disorders (1 source) Major depressive disorder, single episode, unspecified; Translations: [SULLY DEPRESS D/O SINGLE EPIS UNS] Onset: 06-16-2022 Chronic Mood disorders (1 source) Mood disorders; Translations: [DEPRESSION UNSPECIFIED] Onset: 12-20-2022 Nonspecific chest pain (5 sources) Chest pain, unspecified; Translations: [Other chest pain] Onset: 06-16-2022 Episodic Other aftercare (1 source) detention (current) use of aspirin; Translations: [GROUP HOME CURRENT USE OF ASPIRIN] Onset: 12-20-2022 Episodic Other aftercare (1 source) detention (current) use of insulin; Translations: [GROUP HOME CURRENT USE OF INSULIN] Onset: 12-20-2022 Episodic Other aftercare (5 sources) Other usp (current) drug therapy; Translations: [OTH GROUP HOME CURRENT DRUG THERAPY] Onset: 10-30-2022 Episodic Other aftercare (1 source) exterminator helper termite (current) use of oral hypoglycemic drugs; Translations: [GROUP HOME USE ORAL HYPOGLYCEMIC DX] Onset: 12-20-2022 Episodic Other aftercare (1 source) exterminator helper termite (current) use of antithrombotics/anti platelets; Translations: [GROUP [...] examination of other intrathoracic organs] 01-31-2022 Episodic Peripheral and visceral atherosclerosis (4 sources) Peripheral vascular disease, unspecified; Translations: [PERIPHERAL VASCULAR DISEASE UNS] Onset: 01-03-2023 Chronic Residual codes; unclassified (1 source) Acquired absence of other specified parts of digestive tract; Translations: [ACQ ABSENCE OTH PART DIGESTV TRACT] Onset: 12-20-2022 Episodic Residual codes; unclassified (1 source) Early satiety; Translations: [Early satiety] Episodic Residual codes; unclassified (2 sources) Early satiety; Translations: [Early satiety] Onset: 09-04-2023 Episodic Substance-related disorders (1 source) Nicotine dependence, cigarettes, uncomplicated; Translations: [NICOTINE DEPEND CIGARETTES UNCOMP] Onset: 12-20-2022 Chronic Syncope (6 sources) Near [...] Test Name Value Interpretation Reference Range Facility Office Visiton 01-08-2024 Follow-up visit [id number] Jennifer Diaz 1975 F Date Provider Department Center 01/08/2024 Jose8-VISHAL FOWLER MADAN [facility] Family History Problem Relation Age of Onset Arthritis Mother Hypertension Mother Hyperlipidemia Mother Diabetes Paternal Grandmother Other Paternal Grandfather Family Status - Relation Status Age at Mother Paternal Grandmother Paternal Grandfather Level of Service:55964 [place] OFFICE/OUTPATIENT ESTABLISHED LOW MDM 20 MIN Reason for Visit and Comments: Follow-up [598890] Normal [facility] Glucose Glucometer (BldC) [M ass/Vol]Ordered By: Jose Carmona on 09-04-2023 Glucose [Mass/Vol] 135 mg/dL [facility] Comment on above: Random Glucose Refer ence Range is dependent on time and content of last meal. Glucose of more than 200 mg/dL in a nonstressed, ambulatory subject supports the diagnosis of Diabetes Mellitus. Glucose Poct Glucometerson 1 11-05-2022 Commemt1 Glu2: Cleaned Meter Normal [facility] Comment on above: Result Comment: PERF ORMED BY: [place] [address] PATHOLOGIST BUSINESS SERVICES SALES AGENT FRANKIE QUEZADA M.D. Performed By: #### G LULS #### Point of Care testing , Glucose [Mass/Vol] 135 mg/dL Normal [facility] Comment on above: Result Comment: [place] om Glucose Reference Range is dependent on time and content of last meal. Glucose of more than 200 mg/dL in a nonstressed, ambulatory subject supports the diagnosis of Diabetes Mellitus. Performed By: #### G LULS #### Point of Care testing , HCG ( test) Kirsten barrios Ql (U)Ordered By: Jose Carmona on 09-04-2023 HCG ( test) Ql (U) Negative [facility] HCG,Urineon 09-04-2023 Beta HCG ( test) Ql (U) Negative Normal [facility] Comment on above: Result Comment: PERF ORMED BY: [place] [address] PATHOLOGIST BUSINESS SERVICES SALES AGENT FRANKIE QUEZADA M.D. Performed By: #### U HCG #### [place] [id number] [facility] 09-04-2023 L - -------- Specimen: [id number] Received: 09/04/23 Status: CHRIS Maher Num: [id number] Spec Type: Surgical Subm Dr: Jose Carmona MD Tissues: A Small Intestine - Biopsy/Polyp (SMALL BOWEL BX) B GASTRIC FOR HP (GASTRIC HP) Procedures: HE/4, Gross/Micro L4/2, H PYLORI, IHC First AB -------- Age/ Patient Sex Location Account Attending Physician -------- Jennifer Diaz 47/F [id number] Jose Carmona MD -------- SPEC NUM: [id number] RECD: 09/04/23 STATUS: CHRIS MAHER NUM: [id number] DANUTA: 09/04/23- DR: Jose Carmona MD ENTERED: 09/04/[address]: SPEC TYPE: Surgical DEPT: S ORDERED: HE/4, Gross/Micro [...] of and gastric is one -------- Specimen: [id number] Received: 09/04/23 Status: CHRIS Clearybrad Num: [id number] Spec Type: Surgical Subm Dr: Jose Carmona MD Tissues: A Small Intestine - Biopsy/Polyp (SMALL BOWEL BX) B GASTRIC FOR HP (GASTRIC HP) Procedures: HE/4, Gross/Micro L4/2, H PYLORI, IHC First AB -------- Patient: Jennifer Diaz [id number] (Continued) -------- Specimen: [id number] Received: 09/04/23 (Continued) Gross Description (Continued) Signed (signature on file) Dimple Ward MD 09/05/231999 -------- Specimen: [id number] Received: 09/04/23 Status: CHRIS Clearybrad Num: [id number] Spec Type: Surgical Subm Dr: Jose Carmona MD Tissues: A Small Intestine - Biopsy/Polyp (SMALL BOWEL BX) B GASTRIC FOR HP (GASTRIC HP) Procedures: HE/4, Gross/Micro L4/2, H PYLORI, IHC First AB -------- Patient: Jennifer Diaz [id number] (Continued) -------- Specimen: [id number] Received: 09/04/23 (Continued) Gross Description (Continued) pepper tissue measuring 0.5 x 0.3 x 0.2 cm. Entirely submitted in one cassette labeled B1. Microscopic Description A. Two H E slides reviewed. The microscopic examination confirms the diagnosis. B. Two H E slides reviewed. The microscopic examination confirms the diagnosis. CPT Codes [id number] -------- -------- Specimen: [id number] Received: 09/04/23 Status: CHRIS Gunnar Num: [id number] Spec Type: Surgical Subm Dr: Jose Carmona MD Tissues: A Small Intestine - Biopsy/Polyp (SMALL BOWEL BX) B GASTRIC FOR HP (GASTRIC HP) Procedures: HE/4, Gross/Micro L4/2, H PYLORI, IHC First AB -------- Patient: Jennifer Diaz [id number] (Continued) -------- Signed (signature on file) Dimple Ward MD 09/05/231999 [facility] No Panel InformationOrdered By: Jose Carmona on 09-04-2023 Bedside Glucose Comment Glu2: cleaned meter [facility] Office Visiton 04-06-2023 Follow-up visit [id number] Jennifer Diaz 1975 F Date Provider Department Center 04/06/2023 3848-VISHAL FOWLER MADAN [place] Family History Problem Relation Age of Onset Arthritis Mother Hypertension Mother Hyperlipidemia Mother Diabetes Paternal Grandmother Other Paternal Grandfather Family Status - Relation Status Age at Mother Paternal Grandmother Paternal Grandfather Level of Service:41059 [place] OFFICE/OUTPATIENT ESTABLISHED LOW MDM 20-29 MIN Normal [facility] ECHOCARDIO M/2D COMPLETEon 0 01-17-2023 ECHOCARDIO M/2D COMPLETE Patient: JENNIFER DIAZ. Exam Date: 01/17/2023 : 1975 Gender:F Ordering : VISHAL FOWLER Admission #: [id number] Family : Order #: [id number] CLICK HERE TO VIEW EXAM ECHOCARDIOGRAM REPORT [...] Montez M.D. on 01/17/2023 at 17:32 Normal [facility] US ARTERY LEG BILon 01-04-20 23 US ARTERY LEG SANDRA EXAMINATION: US ARTERY [...] KEYSHAWN ESCOBEDO Date: 2023-01-03 11:24 Normal [facility] T3, TOTAL (TRIIODOTHYRONINE) on 12-19-2022 T3, TOTAL 107 ng/dL Normal 71-180 [facility] Comment on above: Performed By: #### T 3TOTAL #### [facility] [address] [place] [address] Dr. Clem Ward CBC AUTO DIFFon 03-20-2023 BASO # 0.0 103/ul Normal 0.0-0.1 [facility] Comment on above: Performed By: #### P OCGLUC #### [facility] [address] [address] [address] Clem Ward Basophils/100 WBC (Bld) 0.1 % Critically low 0.2-2.0 [facility] Comment on above: Performed By: #### P OCGLUC #### [facility] [address] [address] [address] Clem Ward EO # 0.3 103/ul Normal 0.0-0.7 [facility] Comment on above: Performed By: #### P OCGLUC #### [facility] [address] [place] [address] Dr. Clem Ward Eosinophils/100 WBC (Bld) 3.7 % Normal 0.9-7.0 [facility] Comment on above: Performed By: #### P OCGLUC #### [facility] [address] [place] [address] Dr. Clem Ward Erythrocyte distribution width (RBC) [Ratio] 13.7 % Normal 11.0-15.0 [facility] Comment on above: Performed By: #### P OCGLUC #### [facility] [address] [place] [address] Dr. Clem Ward Hematocrit (Bld) [Volume fraction] 38.3 % Normal 36.0-48.0 [facility] Comment on above: Performed By: #### P OCGLUC #### [facility] [address] [place] [address] Dr. Clem Ward Hemoglobin (Bld) [Mass/Vol] 12.0 g/dL Normal 12.0-16.0 [facility] Comment on above: Performed By: #### P OCGLUC #### [facility] [address] [place] [address] Dr. Clem Ward IG # 0.01 10e3/ul Normal 0.00-0.03 [facility] Comment on above: Performed By: #### P OCGLUC #### [facility] [address] [place] [address] [address] Clem Ward IG % 0.1 % Normal 0.0-0.5 [facility] Comment on above: Performed By: #### P OCGLUC #### [facility] [address] [place] [address] Dr. Clem Ward LYMPH # 2.8 103/ul Normal 1.2-3.8 [facility] Comment on above: Performed By: #### P OCGLUC #### [facility] [address] [place] [address] Dr. Clem Ward Lymphocytes/100 WBC (Bld) 37.1 % Normal 20.5-60.0 [facility] Comment on above: Performed By: #### P OCGLUC #### [facility] [address] [place] [address] Dr. Clem Ward MANUAL DIFF REQ NO Normal [facility] Comment on above: Performed By: #### P OCGLUC #### [facility] [address] [place] [address] Dr. Clem Ward MCH (RBC) [Entitic mass] 26.7 pg Normal 26.7-34.0 [facility] Comment on above: Performed By: #### P OCGLUC #### [facility] [address] [place] [address] Dr. Clem Ward MCHC (RBC) [Mass/Vol] 31.3 g/dL Normal 29.9-35.2 [facility] Comment on above: Performed By: #### P OCGLUC #### [facility] [address] [place] [address] Dr. Clem Ward MCV (RBC) [Entitic vol] 85.3 fL Normal 81.0-99.0 [facility] Comment on above: Performed By: #### P OCGLUC #### [facility] [address] [place] [address] Dr. Clem Ward MONO # 0.6 103/ul Normal 0.3-0.8 [facility] Comment on above: Performed By: #### P OCGLUC #### [facility] [address] [place] [address] Dr. Clem Ward Monocytes/100 WBC (Bld) 8.2 % Normal 1.7-12.0 [facility] Comment on above: Performed By: #### P OCGLUC #### [facility] [address] [address] [address] Clem Ward NEUT # 3.8 103/ul Normal 1.4-6.5 [facility] Comment on above: Performed By: #### P OCGLUC #### [facility] [address] [address] [address] Clem Ward Neutrophils/100 WBC (Bld) 50.8 % Normal 43.0-75.0 [facility] Comment on above: Performed By: #### P OCGLUC #### [facility] [address] [place] [address] Dr. Clem Ward Platelet mean volume (Bld) [Entitic vol] 11.2 fL Normal 9.5-13.5 [facility] Comment on above: Performed By: #### P OCGLUC #### [facility] [address] [address] [address] Clem Ward PLT 254 103/ul Normal 150-450 [facility] Comment on above: Performed By: #### P OCGLUC #### [facility] [address] [place] [address] Dr. Clem Ward RBC 4.49 106/ul Normal 4.20-5.40 [facility] Comment on above: Performed By: #### P OCGLUC #### [facility] [address] [address] [address] Clem Ward WBC 7.5 103/ul Normal 4.0-11.0 [facility] Comment on above: Performed By: #### P OCGLUC #### [facility] [address] [address] [address] Clem Ward DRUG SCREEN RAPID (URINE)on 12-18-2022 AMP Negative Normal NEGATIVE [facility] Comment on above: Performed By: #### P T, PTT, DDIM #### [facility] [address] [address] [address] Clem Ward BAR Negative Normal NEGATIVE [facility] Comment on above: Performed By: #### P T, PTT, DDIM #### [facility] [address] [place] [address] Dr. Clem Ward BUP Negative Normal NEGATIVE [facility] Comment on above: Performed By: #### P T, PTT, DDIM #### [facility] [address] [place] [address] Dr. Clem Ward BZO Negative Normal NEGATIVE [facility] Comment on above: Performed By: #### P T, PTT, DDIM #### [facility] [address] [place] [address] Dr. Clem Ward PENNY Negative Normal NEGATIVE [facility] Comment on above: Performed By: #### P T, PTT, DDIM #### [facility] [address] [place] [address] Dr. Clem Ward CUT-OFFS SEE BELOW Normal [facility] Comment on above: Result Comment: AMP (Amphetamine): [...] By: #### P T, PTT, DDIM #### [facility] [address] [place] [address] Dr. Clem Ward DRUG CUT HEADER DRUG CLASS TEST SYSTEM CUT-OFF CONCENTRATIONS ARE FOLLOWS: Normal [facility] Comment on above: Performed By: #### P T, PTT, DDIM #### [facility] [address] [place] [address] Dr. Clem Ward mAMP Negative Normal NEGATIVE [facility] Comment on above: Performed By: #### P T, PTT, DDIM #### [facility] [address] [address] [address] Clem Ward MTD Negative Normal NEGATIVE [facility] Comment on above: Performed By: #### P T, PTT, DDIM #### [facility] [address] [address] [address] Clem Ward OPI Negative Normal NEGATIVE [facility] Comment on above: Performed By: #### P T, PTT, DDIM #### [facility] [address] [address] [address] Clem Ward OXY Negative Normal NEGATIVE [facility] Comment on above: Performed By: #### P T, PTT, DDIM #### [facility] [address] [place] [address] Dr. Clem Ward PCP Negative Normal NEGATIVE [facility] Comment on above: Performed By: #### P T, PTT, DDIM #### [facility] [address] [place] [address] Dr. Clem Ward PPX Negative Normal NEGATIVE [facility] Comment on above: Performed By: #### P T, PTT, DDIM #### [facility] [address] [address] [address] Clem Ward TCA Negative Normal NEGATIVE [facility] Comment on above: Performed By: #### P T, PTT, DDIM #### [facility] [address] [place] [address] Dr. Clem Ward THC Positive Abnormal NEGATIVE [facility] Comment on above: Performed By: #### P T, PTT, DDIM #### [facility] [address] [place] [address] Dr. Clem Ward GLYCOHEMOGLOBIN A1Con 2022 ADA RECOMMENDATION SEE BELOW Normal [facility] Comment on above: Result Comment: ADA RECOMMENDED LIMIT 4.0 - 6.0 ADA THERAPEUTIC TARGET < 7.0 ACTION SUGGESTED > 7.0 Performed By: #### A 1C #### [facility] [address] [place] [address] Dr. Clem Ward Glucose [Mass/Vol] 246 mg/dL Normal [facility] Comment on above: Performed By: #### A 1C #### [facility] [address] [address] [address] Clem Ward HbA1c (Bld) [Mass fraction] 10.2 % Critically high 4.5-6.2 [facility] Comment on above: Performed By: #### A 1C #### [facility] [address] [address] [address] Clem Ward LIPID PROFILEon 12-18-2022 CHOL-HDL RATIO NORM SEE BELOW Normal [facility] Comment on above: Result Comment: 3.3 - 4.4 LOW RISK 4.4 - 7.1 AVERAGE RISK 7.1 - 11.0 MODERATE RISK >11.0 HIGH RISK Performed By: #### T 3TOTAL #### [facility] [address] [address] [address] Clem Ward Cholesterol [Mass/Vol] 137 mg/dL Normal <=200 Th [facility] Comment on above: Performed By: #### T 3TOTAL #### [facility] [address] [address] [address] Clem Ward Cholesterol in HDL [Mass/Vol] 31 mg/dL Critically low 40-60 [facility] Comment on above: Performed By: #### T 3TOTAL #### [facility] [address] [address] [address] Clem Ward Cholesterol in LDL [Mass/Vol] 88.8 mg/dL Normal [facility] Comment on above: Performed By: #### T 3TOTAL #### [facility] [address] [address] [address] Clem Ward Cholesterol.total/Chol esterol in HDL [Mass ratio] 4.4 {ratio} Normal [facility] Comment on above: Performed By: #### T 3TOTAL #### [facility] [address] [address] [address] Clem Ward HDL NORMAL > or = 60 mg/dl - LO W CARDIOVASCULAR RISK <40 mg/dl - HIGH CARDIOVASCULAR RISK Normal [facility] Comment on above: Performed By: #### T 3TOTAL #### [facility] [address] [address] [address] Clem Ward LDL CALC NORMAL SEE BELOW Normal [facility] Comment on above: Result Comment: <100 mg/dl OPTIMAL 100 - 129 mg/dl NEAR OR ABOVE OPTIMAL 130 - 159 mg/dl BORDERLINE HIGH 160 - 189 mg/dl HIGH >190 mg/dl VERY HIGH Performed By: #### T 3TOTAL #### [facility] [address] [address] [address] Clem Ward Triglyceride [Mass/Vol] 86 mg/dL Normal <=150 [facility] Comment on above: Performed By: #### T 3TOTAL #### [facility] [address] [place] [address] Dr. Clem Ward VLDL CALC 17.2 mg/dL Normal [facility] Comment on above: Performed By: #### T 3TOTAL #### [facility] [address] [place] [address] Dr. Clem Ward PROF 14(COMP METB)on 023 Albumin [Mass/Vol] 3.0 g/dL Critically low 3.4-5.0 [facility] [facility] Comment on above: Performed By: #### P T, PTT, DDIM #### [facility] [address] [place] [address] Dr. Clem Ward Albumin/Globulin [Mass ratio] 0.8 {ratio} Normal [facility] Comment on above: Performed By: #### P T, PTT, DDIM #### [facility] [address] [place] [address] Dr. Clem Ward ALP [Catalytic activity/Vol] 97 U/L Normal 46-116 [facility] Comment on above: Performed By: #### P T, PTT, DDIM #### [facility] [address] [place] [address] Dr. Clem Ward ALT [Catalytic activity/Vol] 16 U/L Normal 14-59 [facility] Comment on above: Performed By: #### P T, PTT, DDIM #### [facility] [address] [place] [address] Dr. Clem Ward Anion gap [Moles/Vol] 11.7 mmol/L Normal [facility] Comment on above: Performed By: #### P T, PTT, DDIM #### [facility] [address] [place] [address] Dr. Clem Ward AST [Catalytic activity/Vol] 13 U/L Critically low 15-37 [facility] Comment on above: Performed By: #### P T, PTT, DDIM #### [facility] [address] [place] [address] Dr. Clem Ward Bilirubin [Mass/Vol] 0.2 mg/dL Normal 0.2-1.0 [facility] Comment on above: Performed By: #### P T, PTT, DDIM #### [facility] [address] [place] [address] Dr. Clem Ward Calcium [Mass/Vol] 8.0 mg/dL Critically low 8.5-10.1 [facility] Comment on above: Performed By: #### P T, PTT, DDIM #### [facility] [address] [place] [address] Dr. Clem Ward Chloride [Moles/Vol] 102 mmol/L Normal 98-107 [facility] Comment on above: Performed By: #### P T, PTT, DDIM #### [facility] [address] [place] [address] Dr. Clem Ward CO2 [Moles/Vol] 27.2 mmol/L Normal 21.0-32.0 [facility] Comment on above: Performed By: #### P T, PTT, DDIM #### [facility] [address] [place] [address] Dr. Clem Ward Creatinine [Mass/Vol] 0.56 mg/dL Normal 0.55-1.02 [facility] Comment on above: Performed By: #### P T, PTT, DDIM #### [facility] [address] [place] [address] Dr. Clem Ward EGFR-AF PAKISTANI >60 Normal >=60 [facility] Comment on above: Performed By: #### P T, PTT, DDIM #### [facility] [address] [place] [address] Dr. Clem Ward EGFR-NON AF PAKISTANI >60 Normal >=60 [facility] Comment on above: Performed By: #### P T, PTT, DDIM #### [facility] [address] [place] [address] Dr. Clem Ward Globulin (S) [Mass/Vol] 3.6 g/dL Normal [facility] Comment on above: Performed By: #### P T, PTT, DDIM #### [facility] [address] [place] [address] Dr. Clem Ward Glucose [Mass/Vol] 277 mg/dL Critically high 74-106 [facility] Comment on above: Performed By: #### P T, PTT, DDIM #### [facility] [address] [place] [address] Dr. Clem Ward Potassium [Moles/Vol] 3.9 mmol/L Normal 3.5-5.1 [facility] Comment on above: Performed By: #### P T, PTT, DDIM #### [facility] [address] [place] [address] Dr. Clem Wrad Protein [Mass/Vol] 6.6 g/dL Normal 6.4-8.2 [facility] Comment on above: Performed By: #### P T, PTT, DDIM #### [facility] [address] [place] [address] Dr. Clem Ward Sodium [Moles/Vol] 137 mmol/L Normal 136-145 [facility] Comment on above: Performed By: #### P T, PTT, DDIM #### [facility] [address] [place] [address] Dr. Clem Ward Urea nitrogen [Mass/Vol] 8.0 mg/dL Normal 7.0-18.0 [facility] Comment on above: Performed By: #### P T, PTT, DDIM #### [facility] [address] [place] [address] Dr. Clem Ward Urea nitrogen/Creatinine [Mass ratio] 14.3 mg/mg Normal [facility] Comment on above: Performed By: #### P T, PTT, DDIM #### [facility] [address] [address] [address] Clem Ward T4on 12-18-2022 T4 [Mass/Vol] 9.10 ug/dL Normal 4.80-13.90 [facility] Comment on above: Performed By: #### T 3TOTAL #### [facility] [address] [place] [address] Dr. Clem Ward TSHon 12-18-2022 TSH 0.979 uIU/mL Normal 0.358-3.740 [facility] Comment on above: Performed By: #### T 3TOTAL #### [facility] [address] [place] [address] Dr. Clem Ward CARDIAC TAWNYA ADMITon 023 CK [Catalytic activity/Vol] 165 U/L Normal 26-192 [facility] Comment on above: Performed By: #### A 1C #### [facility] [address] [place] [address] Dr. Clem Ward CK.MB [Mass/Vol] ng/mL Normal <=3.60 [facility] Comment on above: Performed By: #### A 1C #### [facility] [address] [place] [address] Dr. Clem Ward HSTROP 6.0 pg/mL Normal 4.0-51.3 [facility] Comment on above: Result Comment: CUT- OFF POINTS HAVE BEEN ESTABLISHED BASED ON THE FOURTH UNIVERSAL DEFINITIONS OF MYOCARDIAL INFARCTION. THE UPPER REFERENCE LIMIT (URL) OF TROPONIN, DEFINED THE 99TH PERCENTILE OF cTnI DISTRIBUTION IN A REFERENCE POPULATION, HAS BEEN CONFIRMED THE DECISION THRESHOLD FOR [place] DIAGNOSIS. Performed By: #### A 1C #### [facility] [address] [place] [address] Dr. Clem Ward LANI 17 ng/mL Normal 9-82 [facility] Comment on above: Performed By: #### A 1C #### [facility] [address] [place] [address] Dr. Clem Ward CBC AUTO DIFFon 12-17-2022 BASO # 0.0 103/ul Normal 0.0-0.1 [facility] Comment on above: Performed By: #### A 1C #### [facility] [address] [address] [address] Clem Ward Basophils/100 WBC (Bld) 0.5 % Normal 0.2-2.0 [facility] Comment on above: Performed By: #### A 1C #### [facility] [address] [address] [address] Clem Ward EO # 0.4 103/ul Normal 0.0-0.7 [facility] Comment on above: Performed By: #### A 1C #### [facility] [address] [place] [address] Dr. Clem Ward Eosinophils/100 WBC (Bld) 5.6 % Normal 0.9-7.0 [facility] Comment on above: Performed By: #### A 1C #### [facility] [address] [place] [address] Dr. Clem Ward Erythrocyte distribution width (RBC) [Ratio] 13.6 % Normal 11.0-15.0 [facility] Comment on above: Performed By: #### A 1C #### [facility] [address] [place] [address] Dr. Clem Ward Hematocrit (Bld) [Volume fraction] 39.2 % Normal 36.0-48.0 [facility] Comment on above: Performed By: #### A 1C #### [facility] [address] [place] [address] Dr. Clem Ward Hemoglobin (Bld) [Mass/Vol] 12.4 g/dL Normal 12.0-16.0 [facility] Comment on above: Performed By: #### A 1C #### [facility] [address] [place] [address] Dr. Clem Ward IG # 0.02 10e3/ul Normal 0.00-0.03 [facility] Comment on above: Performed By: #### A 1C #### [facility] [address] [place] [address] Dr. Clem Ward IG % 0.3 % Normal 0.0-0.5 [facility] Comment on above: Performed By: #### A 1C #### [facility] [address] [place] [address] Dr. Clem Ward LYMPH # 3.0 103/ul Normal 1.2-3.8 [facility] Comment on above: Performed By: #### A 1C #### [facility] [address] [place] [address] Dr. Clem Ward Lymphocytes/100 WBC (Bld) 39.6 % Normal 20.5-60.0 [facility] Comment on above: Performed By: #### A 1C #### [facility] [address] [place] [address] Dr. Clem Ward MANUAL DIFF REQ NO Normal [facility] Comment on above: Performed By: #### A 1C #### [facility] [address] [place] [address] Dr. Clem Ward MCH (RBC) [Entitic mass] 27.0 pg Normal 26.7-34.0 [facility] Comment on above: Performed By: #### A 1C #### [facility] [address] [place] [address] Dr. Clem Ward MCHC (RBC) [Mass/Vol] 31.6 g/dL Normal 29.9-35.2 [facility] Comment on above: Performed By: #### A 1C #### [facility] [address] [place] [address] Dr. Clem Ward MCV (RBC) [Entitic vol] 85.2 fL Normal 81.0-99.0 [facility] Comment on above: Performed By: #### A 1C #### [facility] [address] [place] [address] Dr. Clem Ward MONO # 0.5 103/ul Normal 0.3-0.8 [facility] Comment on above: Performed By: #### A 1C #### [facility] [address] [place] [address] Dr. Clem Ward Monocytes/100 WBC (Bld) 6.1 % Normal 1.7-12.0 [facility] Comment on above: Performed By: #### A 1C #### [facility] [address] [place] [address] Dr. Clem Ward NEUT # 3.6 103/ul Normal 1.4-6.5 [facility] Comment on above: Performed By: #### A 1C #### [facility] [address] [place] [address] Dr. Clem Ward Neutrophils/100 WBC (Bld) 47.9 % Normal 43.0-75.0 [facility] Comment on above: Performed By: #### A 1C #### [facility] [address] [place] [address] Dr. Clem Ward Platelet mean volume (Bld) [Entitic vol] 9.7 fL Normal 9.5-13.5 [facility] Comment on above: Performed By: #### A 1C #### [facility] [address] [place] [address] Dr. Clem Ward PLT 341 103/ul Normal 150-450 [facility] Comment on above: Performed By: #### A 1C #### [facility] [address] [place] [address] Dr. Clem Ward RBC 4.60 106/ul Normal 4.20-5.40 [facility] Comment on above: Performed By: #### A 1C #### [facility] [address] [place] [address] Dr. Clem Ward WBC 7.6 103/ul Normal 4.0-11.0 [facility] Comment on above: Performed By: #### A 1C #### [facility] [address] [place] [address] Dr. Clem Ward PROF 14(COMP METB)on 023 Albumin [Mass/Vol] 3.3 g/dL Critically low 3.4-5.0 [facility] Comment on above: Performed By: #### A 1C #### [facility] [address] [place] [address] Dr. Clem Ward Albumin/Globulin [Mass ratio] 0.8 {ratio} Normal [facility] Comment on above: Performed By: #### A 1C #### [facility] [address] [place] [address] Dr. Clem Ward ALP [Catalytic activity/Vol] 108 U/L Normal 46-116 [facility] Comment on above: Performed By: #### A 1C #### [facility] [address] [place] [address] Dr. Clem Ward ALT [Catalytic activity/Vol] 18 U/L Normal 14-59 [facility] Comment on above: Performed By: #### A 1C #### [facility] [address] [place] [address] Dr. Clem Ward Anion gap [Moles/Vol] 10.7 mmol/L Normal [facility] Comment on above: Performed By: #### A 1C #### [facility] [address] [place] [address] Dr. Clem Ward AST [Catalytic activity/Vol] 28 U/L Normal 15-37 [facility] Comment on above: Performed By: #### A 1C #### [facility] [address] [place] [address] Dr. Clem Ward Bilirubin [Mass/Vol] 0.4 mg/dL Normal 0.2-1.0 [facility] Comment on above: Performed By: #### A 1C #### [facility] [address] [place] [address] Dr. Clem Ward Calcium [Mass/Vol] 8.0 mg/dL Critically low 8.5-10.1 [facility] Comment on above: Performed By: #### A 1C #### [facility] [address] [place] [address] Dr. Clem Ward Chloride [Moles/Vol] 103 mmol/L Normal 98-107 [facility] Comment on above: Performed By: #### A 1C #### [facility] [address] [place] [address] Dr. Clem Ward CO2 [Moles/Vol] 28.3 mmol/L Normal 21.0-32.0 [facility] Comment on above: Performed By: #### A 1C #### [facility] [address] [place] [address] Dr. Clem Ward Creatinine [Mass/Vol] 0.41 mg/dL Critically low 0.55-1.02 [facility] Comment on above: Performed By: #### A 1C #### [facility] [address] [place] [address] Dr. Clem Ward EGFR-AF PAKISTANI >60 Normal >=60 [facility] Comment on above: Performed By: #### A 1C #### [facility] [address] [address] [address] Clem Ward EGFR-NON AF PAKISTANI >60 Normal >=60 [facility] Comment on above: Performed By: #### A 1C #### [facility] [address] [place] [address] Dr. Clem Ward Globulin (S) [Mass/Vol] 4.0 g/dL Normal [facility] Comment on above: Performed By: #### A 1C #### [facility] [address] [place] [address] Dr. Clem Ward Glucose [Mass/Vol] 161 mg/dL Critically high 74-106 [facility] Comment on above: Performed By: #### A 1C #### [facility] [address] [address] [address] Clem Ward Potassium [Moles/Vol] 5.0 mmol/L Normal 3.5-5.1 [facility] Comment on above: Performed By: #### A 1C #### [facility] [address] [place] [address] Dr. Clem Ward Protein [Mass/Vol] 7.3 g/dL Normal 6.4-8.2 [facility] Comment on above: Performed By: #### A 1C #### [facility] [address] [address] [address] Clem Ward Sodium [Moles/Vol] 137 mmol/L Normal 136-145 [facility] Comment on above: Performed By: #### A 1C #### [facility] [address] [place] [address] Dr. Clem Ward Urea nitrogen [Mass/Vol] 6.0 mg/dL Critically low 7.0-18.0 [facility] Comment on above: Performed By: #### A 1C #### [facility] [address] [address] [address] Clem Ward Urea nitrogen/Creatinine [Mass ratio] 14.6 mg/mg Normal [facility] Comment on above: Performed By: #### A 1C #### [facility] [address] [address] [address] Clem Ward TROPONIN, HIGH SENSITIVITYon 12-17-2022 HSTROP 4.4 pg/mL Normal 4.0-51.3 [facility] Comment on above: Result Comment: CUT- OFF POINTS HAVE BEEN ESTABLISHED BASED ON THE FOURTH UNIVERSAL DEFINITIONS OF MYOCARDIAL INFARCTION. THE UPPER REFERENCE LIMIT (URL) OF TROPONIN, DEFINED THE 99TH PERCENTILE OF cTnI DISTRIBUTION IN A REFERENCE POPULATION, HAS BEEN CONFIRMED THE DECISION THRESHOLD FOR [place] DIAGNOSIS. Performed By: #### A 1C #### [facility] [address] [place] [address] Dr. Clem Ward XR CHEST 1 Von 12-17-2022 XR CHEST 1 V EXAM: Chest x-ray HISTORY: . CHEST PAIN, UNSPECIFIED . COMPARISON: None. TECHNIQUE: Single view of the chest FINDINGS: Heart and vascularity are unremarkable. Lungs are free of focal infiltrates. EKG leads overlie the chest. IMPRESSION: No acute heart or lung disease identified. Electronically authenticated by: WALE OCAMPO Date: 2022-12-17 13:46 Normal [facility] QUANTIFERON TB GOLD PLUSon 0 11-01-2022 QuantiFERON Criteria Comment Normal [facility] Comment on above: Result Comment: Abilio tiFERON-TB [...] test. Performed By: #### P OCGLUC #### [facility] [address] [address] [address] Clem Ward QuantiFERON Incubation Incubation performed. Normal [facility] Comment on above: Performed By: #### P OCGLUC #### [facility] [address] [place] [address] Dr. Clem Ward QuantiFERON Mitogen Value >10.00 Normal [facility] Comment on above: Performed By: #### P OCGLUC #### [facility] [address] [place] [address] Dr. Clem Ward QuantiFERON Nil Value 0.08 IU/mL Normal [facility] Comment on above: Performed By: #### P OCGLUC #### [facility] [address] [place] [address] Dr. Clem Ward QuantiFERON TB1 Ag Value 0.06 IU/mL Normal [facility] Comment on above: Performed By: #### P OCGLUC #### [facility] [address] [place] [address] Dr. Clem Ward QuantiFERON TB2 Ag Value 0.07 IU/mL Normal [facility] Comment on above: Performed By: #### P OCGLUC #### [facility] [address] [place] [address] Dr. Clem Ward QuantiFERON-TB Gold Plus Negative Normal Negative [facility] Comment on above: Result Comment: No r esponse to M tuberculosis antigens detected. Infection with M tuberculosis is unlikely, but high risk individuals should be considered for additional testing (ATS/IDSA/CDC Clinical Practice Guidelines, 2017). The reference range is an Antigen minus Nil result of <0.35 IU/mL. Chemiluminescence immunoassay methodology Performed By: #### P OCGLUC #### [facility] [address] [place] [address] Dr. Clem Ward DRUG SCREEN RAPID (URINE)on 10-30-2022 AMP Negative Normal NEGATIVE [facility] Comment on above: Performed By: #### T 3TOTAL #### [facility] [address] [place] [address] Dr. Clem Ward BAR Negative Normal NEGATIVE [facility] Comment on above: Performed By: #### T 3TOTAL #### [facility] [address] [place] [address] Dr. Clem Ward BUP Negative Normal NEGATIVE [facility] Comment on above: Performed By: #### T 3TOTAL #### [facility] [address] [place] [address] Dr. Clem Ward BZO Negative Normal NEGATIVE [facility] Comment on above: Performed By: #### T 3TOTAL #### [facility] [address] [place] [address] Dr. Clem Ward PENNY Negative Normal NEGATIVE [facility] Comment on above: Performed By: #### T 3TOTAL #### [facility] [address] [place] [address] Dr. Clem Ward CUT-OFFS SEE BELOW Normal [facility] Comment on above: Result Comment: AMP (Amphetamine): 500ng/mL, BAR (Barbituates): 200 ng/mL, BZO (Benzodiazepines): 150 ng/mL, BUP (Buprenorphine): 10 ng/mL, PENNY (Cocaine): 150 ng/mL, mAMP (Methamphetamine): 500 ng/mL, MTD (Methadone): 200 ng/mL, OPI (Opiates): 100 ng/mL, OXY (Oxycodone): 100 ng/mL, PCP (Phencyclidine): 25 ng/mL, PPX (Propoxyphene): 300 ng/mL, THC (Cannabinoids): 50 ng/mL, TCA (Trycyclic Antidepressants): 300 ng/mL Performed By: #### T 3TOTAL #### [facility] [address] [place] [address] Dr. Clem Ward DRUG CUT HEADER DRUG CLASS TEST SYSTEM CUT-OFF CONCENTRATIONS ARE FOLLOWS: Normal [facility] Comment on above: Performed By: #### T 3TOTAL #### [facility] [address] [place] [address] Dr. Clem Ward mAMP Negative Normal NEGATIVE [facility] Comment on above: Performed By: #### T 3TOTAL #### [facility] [address] [place] [address] Dr. Clem Ward MTD Negative Normal NEGATIVE [facility] Comment on above: Performed By: #### T 3TOTAL #### [facility] [address] [place] [address] Dr. Clem Ward OPI Negative Normal NEGATIVE [facility] Comment on above: Performed By: #### T 3TOTAL #### [facility] [address] [address] [address] Clem Ward OXY Negative Normal NEGATIVE [facility] Comment on above: Performed By: #### T 3TOTAL #### [facility] [address] [address] [address] Clem Ward PCP Negative Normal NEGATIVE [facility] Comment on above: Performed By: #### T 3TOTAL #### [facility] [address] [address] [address] Clem Ward PPX Negative Normal NEGATIVE [facility] Comment on above: Performed By: #### T 3TOTAL #### [facility] [address] [address] [address] Clem Ward TCA Negative Normal NEGATIVE [facility] Comment on above: Performed By: #### T 3TOTAL #### [facility] [address] [address] [address] Clem Ward THC Negative Normal NEGATIVE [facility] Comment on above: Performed By: #### T 3TOTAL #### [facility] [address] [address] [address] Clem Ward ECHOCARDIO M/2D COMPLETEon 1 10-03-2021 ECHOCARDIO M/2D COMPLETE Patient: JENNIFER DIAZ Exam Date: 08/03/2022 : 1975 Gender:F Ordering : DASHAWN GREENWOOD Admission #: [id number] Family : Order #: [id number] CLICK HERE TO VIEW EXAM ECHOCARDIOGRAM REPORT [...] Matt Montez M.D. on 08/03/2022 at 14:08 Normal [facility] PROF CHEM 8 (BAS METB)on Anion gap [Moles/Vol] 11.2 mmol/L Normal [facility] Comment on above: Performed By: #### T 3TOTAL #### [facility] [address] [place] [address] Dr. Clem Ward Calcium [Mass/Vol] 8.9 mg/dL Normal 8.5-10.1 [facility] Comment on above: Performed By: #### T 3TOTAL #### [facility] [address] [place] [address] Dr. Clem Ward Chloride [Moles/Vol] 104 mmol/L Normal 98-107 [facility] Comment on above: Performed By: #### T 3TOTAL #### [facility] [address] [place] [address] Dr. Clem Ward CO2 [Moles/Vol] 28.6 mmol/L Normal 21.0-32.0 [facility] Comment on above: Performed By: #### T 3TOTAL #### [facility] [address] [address] [address] Clem Ward Creatinine [Mass/Vol] 0.58 mg/dL Normal 0.55-1.02 [facility] Comment on above: Performed By: #### T 3TOTAL #### [facility] [address] [address] [address] Clem Ward EGFR-AF PAKISTANI >60 Normal >=60 [facility] Comment on above: Performed By: #### T 3TOTAL #### [facility] [address] [address] [address] Clem Ward EGFR-NON AF PAKISTANI >60 Normal >=60 [facility] Comment on above: Performed By: #### T 3TOTAL #### [facility] [address] [address] [address] Clem Ward Glucose [Mass/Vol] 98 mg/dL Normal 74-106 [facility] Comment on above: Performed By: #### T 3TOTAL #### [facility] [address] [address] [address] Clem Ward Potassium [Moles/Vol] 3.8 mmol/L Normal 3.5-5.1 [facility] Comment on above: Performed By: #### T 3TOTAL #### [facility] [address] [address] [address] Celm Ward Sodium [Moles/Vol] 140 mmol/L Normal 136-145 The [facility] Comment on above: Performed By: #### T 3TOTAL #### [facility] [address] [address] [address] Clem Ward Urea nitrogen [Mass/Vol] 8.0 mg/dL Normal 7.0-18.0 [facility] Comment on above: Performed By: #### T 3TOTAL #### [facility] [address] [address] [address] Clem Ward Urea nitrogen/Creatinine [Mass ratio] 13.8 mg/mg Normal [facility] Comment on above: Performed By: #### T 3TOTAL #### [facility] [address] [place] [address] Dr. Clem Ward CHLAMYDIA/GONOCOCCUS BENTLEY (SW AB/URINE/PAPon 06-22-2022 Chlamydia trachomatis, BENTLEY Negative Normal Negative [facility] Comment on above: Performed By: #### P T, PTT, DDIM #### [facility] [address] [place] [address] Dr. Clem Ward Neisseria gonorrhoeae, BENTLEY Negative Normal Negative [facility] Comment on above: Performed By: #### P T, PTT, DDIM #### [facility] [address] [place] [address] Dr. Clem Ward VAGINITIS/VAGINOSIS DNA PROB Chapin 06-21-2022 Jaycee species Negative Normal Negative [facility] Comment on above: Performed By: #### A 1C #### [facility] [address] [place] [address] Dr. Clem Ward Gardnerella vaginalis Positive Abnormal Negative [facility] Comment on above: Performed By: #### A 1C #### [facility] [address] [place] [address] Dr. Clem Ward Trichomonas vaginalis Negative Normal Negative [facility] Comment on above: Performed By: #### A 1C #### [facility] [address] [place] [address] Dr. Clem Ward INSULINon 06-20-2022 Insulin 7.2 uIU/mL Normal 2.6-24.9 [facility] Comment on above: Performed By: #### P T, PTT, DDIM #### [facility] [address] [place] [address] Dr. Clem Ward T4, T3U, FTI LABCORPon 06-20 Free Thyroxine Index 3.6 Normal 1.2-4.9 [facility] Comment on above: Performed By: #### C MADM, BMP #### [facility] [address] [place] [address] Dr. Clem Ward T3 Uptake 33 % Normal 24-39 [facility] Comment on above: Performed By: #### C HARHSAD, BMP #### [facility] [address] [place] [address] Dr. Clem Ward T4 [Mass/Vol] 10.9 ug/dL Normal 4.5-12.0 [facility] Comment on above: Performed By: #### C HARSHAD, BMP #### [facility] [address] [place] [address] Dr. Clem Ward CBC AUTO DIFFon 06-19-2022 BASO # 0.0 103/ul Normal 0.0-0.1 [facility] Comment on above: Performed By: #### A 1C #### [facility] [address] [place] [address] Dr. Clem Ward Basophils/100 WBC (Bld) 0.3 % Normal 0.2-2.0 [facility] Comment on above: Performed By: #### A 1C #### [facility] [address] [place] [address] Dr. Clem Ward EO # 0.3 103/ul Normal 0.0-0.7 [facility] Comment on above: Performed By: #### A 1C #### [facility] [address] [place] [address] Dr. Clem Ward Eosinophils/100 WBC (Bld) 4.7 % Normal 0.9-7.0 [facility] Comment on above: Performed By: #### A 1C #### [facility] [address] [place] [address] Dr. Clem Ward Erythrocyte distribution width (RBC) [Ratio] 13.9 % Normal 11.0-15.0 [facility] Comment on above: Performed By: #### A 1C #### [facility] [address] [place] [address] Dr. Clem Ward Hematocrit (Bld) [Volume fraction] 41.2 % Normal 36.0-48.0 [facility] Comment on above: Performed By: #### A 1C #### [facility] [address] [place] [address] Dr. Clem Ward Hemoglobin (Bld) [Mass/Vol] 12.9 g/dL Normal 12.0-16.0 [facility] Comment on above: Performed By: #### A 1C #### [facility] [address] [place] [address] Dr. Clem Ward IG # 0.02 10e3/ul Normal 0.00-0.03 [facility] Comment on above: Performed By: #### A 1C #### [facility] [address] [place] [address] Dr. Clem Ward IG % 0.3 % Normal 0.0-0.5 [facility] Comment on above: Performed By: #### A 1C #### [facility] [address] [place] [address] Dr. Clem Ward LYMPH # 2.4 103/ul Normal 1.2-3.8 [facility] Comment on above: Performed By: #### A 1C #### [facility] [address] [place] [address] Dr. Clem Ward Lymphocytes/100 WBC (Bld) 35.3 % Normal 20.5-60.0 [facility] Comment on above: Performed By: #### A 1C #### [facility] [address] [place] [address] Dr. Clem Ward MANUAL DIFF REQ NO Normal [facility] Comment on above: Performed By: #### A 1C #### [facility] [address] [place] [address] Dr. Clem Ward MCH (RBC) [Entitic mass] 26.2 pg Critically low 26.7-34.0 [facility] Comment on above: Performed By: #### A 1C #### [facility] [address] [place] [address] Dr. Clem Ward MCHC (RBC) [Mass/Vol] 31.3 g/dL Normal 29.9-35.2 [facility] Comment on above: Performed By: #### A 1C #### [facility] [address] [place] [address] Dr. Clem Ward MCV (RBC) [Entitic vol] 83.7 fL Normal 81.0-99.0 [facility] Comment on above: Performed By: #### A 1C #### [facility] [address] [address] [address] Clem Ward MONO # 0.6 103/ul Normal 0.3-0.8 [facility] Comment on above: Performed By: #### A 1C #### [facility] [address] [place] [address] Dr. Clem Ward Monocytes/100 WBC (Bld) 8.8 % Normal 1.7-12.0 [facility] Comment on above: Performed By: #### A 1C #### [facility] [address] [place] [address] Dr. Clem Ward NEUT # 3.4 103/ul Normal 1.4-6.5 [facility] Comment on above: Performed By: #### A 1C #### [facility] [address] [place] [address] Dr. Clem Ward Neutrophils/100 WBC (Bld) 50.6 % Normal 43.0-75.0 [facility] Comment on above: Performed By: #### A 1C #### [facility] [address] [place] [address] Dr. Clem Ward Platelet mean volume (Bld) [Entitic vol] 10.4 fL Normal 9.5-13.5 [facility] Comment on above: Performed By: #### A 1C #### [facility] [address] [place] [address] Dr. Clem Ward PLT 288 103/ul Normal 150-450 [facility] Comment on above: Performed By: #### A 1C #### [facility] [address] [place] [address] Dr. Clem Ward RBC 4.92 106/ul Normal 4.20-5.40 [facility] Comment on above: Performed By: #### A 1C #### [facility] [address] [place] [address] Dr. Clem Ward WBC 6.7 103/ul Normal 4.0-11.0 [facility] Comment on above: Performed By: #### A 1C #### [facility] [address] [address] [address] Clem Ward GLYCOHEMOGLOBIN A1Con 2021 ADA RECOMMENDATION SEE BELOW Normal [facility] Comment on above: Result Comment: ADA RECOMMENDED LIMIT 4.0 - 6.0 ADA THERAPEUTIC TARGET < 7.0 ACTION SUGGESTED > 7.0 Performed By: #### P T, PTT, DDIM #### [facility] [address] [address] [address] Clem Ward Glucose [Mass/Vol] 318 mg/dL Normal [facility] Comment on above: Performed By: #### P T, PTT, DDIM #### [facility] [address] [address] [address] Clem Ward HbA1c (Bld) [Mass fraction] 12.7 % Critically high 4.5-6.2 [facility] Comment on above: Performed By: #### P T, PTT, DDIM #### [facility] [address] [place] [address] Dr. Clem Ward IRONon 06-19-2022 Iron [Mass/Vol] 70.0 ug/dL Normal 50.0-170.0 [facility] Comment on above: Performed By: #### P T, PTT, DDIM #### [facility] [address] [place] [address] Dr. Clem Ward LIPID PROFILEon 06-19-2022 CHOL-HDL RATIO NORM SEE BELOW Normal [facility] Comment on above: Result Comment: 3.3 - 4.4 LOW RISK 4.4 - 7.1 AVERAGE RISK 7.1 - 11.0 MODERATE RISK >11.0 HIGH RISK Performed By: #### P T, PTT, DDIM #### [facility] [address] [address] [address] Clem Ward Cholesterol [Mass/Vol] 163 mg/dL Normal <=200 [facility] Comment on above: Performed By: #### P T, PTT, DDIM #### [facility] [address] [place] [address] Dr. Clem Ward Cholesterol in HDL [Mass/Vol] 36 mg/dL Critically low 40-60 [facility] Comment on above: Performed By: #### P T, PTT, DDIM #### [facility] [address] [address] [address] Clem Ward Cholesterol in LDL [Mass/Vol] 98.2 mg/dL Normal [facility] Comment on above: Performed By: #### P T, PTT, DDIM #### [facility] [address] [address] [address] Clem Ward Cholesterol.total/Chol esterol in HDL [Mass ratio] 4.5 {ratio} Normal [facility] Comment on above: Performed By: #### P T, PTT, DDIM #### [facility] [address] [address] [address] Clem Ward HDL NORMAL > or = 60 mg/dl - LO W CARDIOVASCULAR RISK <40 mg/dl - HIGH CARDIOVASCULAR RISK Normal [facility] Comment on above: Performed By: #### P T, PTT, DDIM #### [facility] [address] [address] [address] Clem Ward LDL CALC NORMAL SEE BELOW Normal [facility] Comment on above: Result Comment: <100 mg/dl OPTIMAL 100 - 129 mg/dl NEAR OR ABOVE OPTIMAL 130 - 159 mg/dl BORDERLINE HIGH 160 - 189 mg/dl HIGH >190 mg/dl VERY HIGH Performed By: #### P T, PTT, DDIM #### [facility] [address] [address] [address] Clem Ward Triglyceride [Mass/Vol] 144 mg/dL Normal <=150 [facility] Comment on above: Performed By: #### P T, PTT, DDIM #### [facility] [address] [address] [address] Clem Ward VLDL CALC 28.8 mg/dL Normal [facility] Comment on above: Performed By: #### P T, PTT, DDIM #### [facility] [address] [address] [address] Clem Ward PROF 14(COMP METB)on 022 Albumin [Mass/Vol] 3.7 g/dL Normal 3.4-5.0 [facility] Comment on above: Performed By: #### P T, PTT, DDIM #### [facility] [address] [place] [address] Dr. Clem Ward Albumin/Globulin [Mass ratio] 0.9 {ratio} Normal [facility] Comment on above: Performed By: #### P T, PTT, DDIM #### [facility] [address] [place] [address] Dr. Clem Ward ALP [Catalytic activity/Vol] 103 U/L Normal 46-116 [facility] Comment on above: Performed By: #### P T, PTT, DDIM #### [facility] [address] [place] [address] Dr. Clem Ward ALT [Catalytic activity/Vol] 33 U/L Normal 14-59 [facility] Comment on above: Performed By: #### P T, PTT, DDIM #### [facility] [address] [place] [address] Dr. Clem Ward Anion gap [Moles/Vol] 10.8 mmol/L Normal [facility] Comment on above: Performed By: #### P T, PTT, DDIM #### [facility] [address] [place] [address] Dr. Clem Ward AST [Catalytic activity/Vol] 10 U/L Critically low 15-37 [facility] Comment on above: Performed By: #### P T, PTT, DDIM #### [facility] [address] [place] [address] Dr. Clem Ward Bilirubin [Mass/Vol] 0.3 mg/dL Normal 0.2-1.0 [facility] Comment on above: Performed By: #### P T, PTT, DDIM #### [facility] [address] [place] [address] Dr. Clem Ward Calcium [Mass/Vol] 9.1 mg/dL Normal 8.5-10.1 [facility] Comment on above: Performed By: #### P T, PTT, DDIM #### [facility] [address] [place] [address] Dr. Clem Ward Chloride [Moles/Vol] 102 mmol/L Normal 98-107 [facility] Comment on above: Performed By: #### P T, PTT, DDIM #### [facility] [address] [address] [address] Clem Ward CO2 [Moles/Vol] 28.2 mmol/L Normal 21.0-32.0 [facility] Comment on above: Performed By: #### P T, PTT, DDIM #### [facility] [address] [place] [address] Dr. Clem Ward Creatinine [Mass/Vol] 0.69 mg/dL Normal 0.55-1.02 [facility] Comment on above: Performed By: #### P T, PTT, DDIM #### [facility] [address] [place] [address] Dr. Clem Ward EGFR-AF PAKISTANI >60 Normal >=60 [facility] Comment on above: Performed By: #### P T, PTT, DDIM #### [facility] [address] [place] [address] Dr. Clem Ward EGFR-NON AF PAKISTANI >60 Normal >=60 [facility] Comment on above: Performed By: #### P T, PTT, DDIM #### [facility] [address] [place] [address] Dr. Clem Ward Globulin (S) [Mass/Vol] 4.1 g/dL Normal [facility] Comment on above: Performed By: #### P T, PTT, DDIM #### [facility] [address] [place] [address] Dr. Clem Ward Glucose [Mass/Vol] 400 mg/dL Critically high 74-106 [facility] Comment on above: Performed By: #### P T, PTT, DDIM #### [facility] [address] [place] [address] Dr. Clem Ward Potassium [Moles/Vol] 4.0 mmol/L Normal 3.5-5.1 [facility] Comment on above: Performed By: #### P T, PTT, DDIM #### [facility] [address] [address] [address] Clem Ward Protein [Mass/Vol] 7.8 g/dL Normal 6.4-8.2 [facility] Comment on above: Performed By: #### P T, PTT, DDIM #### [facility] [address] [address] [address] Clem Ward Sodium [Moles/Vol] 137 mmol/L Normal 136-145 [facility] Comment on above: Performed By: #### P T, PTT, DDIM #### [facility] [address] [address] [address] Clem Ward Urea nitrogen [Mass/Vol] 9.0 mg/dL Normal 7.0-18.0 [facility] Comment on above: Performed By: #### P T, PTT, DDIM #### [facility] [address] [place] [address] Dr. Clem Ward Urea nitrogen/Creatinine [Mass ratio] 13.0 mg/mg Normal [facility] Comment on above: Performed By: #### P T, PTT, DDIM #### [facility] [address] [place] [address] Dr. Clem Ward TSHon 06-19-2022 TSH 0.820 uIU/mL Normal 0.358-3.740 [facility] Comment on above: Performed By: #### P T, PTT, DDIM #### [facility] [address] [place] [address] Dr. Clem Ward XR CHEST 1 Von [...] CALEB COLUNGA Date: 2022-06-14 22:12 Normal [facility] CBC AUTO DIFFon 06-14-2022 BASO # 0.0 103/ul Normal 0.0-0.1 [facility] Comment on above: Performed By: #### P OCGLUC #### [facility] [address] [address] [address] Clem Ward Basophils/100 WBC (Bld) 0.3 % Normal 0.2-2.0 [facility] Comment on above: Performed By: #### P OCGLUC #### [facility] [address] [address] [address] Clem Ward EO # 0.2 103/ul Normal 0.0-0.7 [facility] Comment on above: Performed By: #### P OCGLUC #### [facility] [address] [address] [address] Clem Ward Eosinophils/100 WBC (Bld) 3.2 % Normal 0.9-7.0 [facility] Comment on above: Performed By: #### P OCGLUC #### [facility] [address] [address] [address] Clem Ward Erythrocyte distribution width (RBC) [Ratio] 13.7 % Normal 11.0-15.0 [facility] Comment on above: Performed By: #### P OCGLUC #### [facility] [address] [address] [address] Clem Ward Hematocrit (Bld) [Volume fraction] 43.0 % Normal 36.0-48.0 [facility] Comment on above: Performed By: #### P OCGLUC #### [facility] [address] [address] [address] Clem Ward Hemoglobin (Bld) [Mass/Vol] 13.6 g/dL Normal 12.0-16.0 [facility] Comment on above: Performed By: #### P OCGLUC #### [facility] [address] [address] [address] Clem Ward IG # 0.02 10e3/ul Normal 0.00-0.03 [facility] Comment on above: Performed By: #### P OCGLUC #### [facility] [address] [address] [address] Clem Ward IG % 0.3 % Normal 0.0-0.5 [facility] Comment on above: Performed By: #### P OCGLUC #### [facility] [address] [address] [address] Clem Ward LYMPH # 2.5 103/ul Normal 1.2-3.8 [facility] Comment on above: Performed By: #### P OCGLUC #### [facility] [address] [address] [address] Clem Ward Lymphocytes/100 WBC (Bld) 36.3 % Normal 20.5-60.0 [facility] Comment on above: Performed By: #### P OCGLUC #### [facility] [address] [address] [address] Clem Ward MANUAL DIFF REQ NO Normal [facility] Comment on above: Performed By: #### P OCGLUC #### [facility] [address] [address] [address] Clem Ward MCH (RBC) [Entitic mass] 26.4 pg Critically low 26.7-34.0 [facility] Comment on above: Performed By: #### P OCGLUC #### [facility] [address] [address] [address] Clem Ward MCHC (RBC) [Mass/Vol] 31.6 g/dL Normal 29.9-35.2 [facility] Comment on above: Performed By: #### P OCGLUC #### [facility] [address] [address] [address] Clem Ward MCV (RBC) [Entitic vol] 83.3 fL Normal 81.0-99.0 [facility] Comment on above: Performed By: #### P OCGLUC #### [facility] [address] [address] [address] Clem Ward MONO # 0.5 103/ul Normal 0.3-0.8 [facility] Comment on above: Performed By: #### P OCGLUC #### [facility] [address] [address] [address] Clem Ward Monocytes/100 WBC (Bld) 7.0 % Normal 1.7-12.0 [facility] Comment on above: Performed By: #### P OCGLUC #### [facility] [address] [address] [address] Clem Ward NEUT # 3.6 103/ul Normal 1.4-6.5 [facility] Comment on above: Performed By: #### P OCGLUC #### [facility] [address] [address] [address] Clem Ward Neutrophils/100 WBC (Bld) 52.9 % Normal 43.0-75.0 [facility] Comment on above: Performed By: #### P OCGLUC #### [facility] [address] [place] [address] Dr. Clem Ward Platelet mean volume (Bld) [Entitic vol] 10.8 fL Normal 9.5-13.5 [facility] Comment on above: Performed By: #### P OCGLUC #### [facility] [address] [address] [address] Clem Ward PLT 300 103/ul Normal 150-450 [facility] Comment on above: Performed By: #### P OCGLUC #### [facility] [address] [place] [address] Dr. Clem Ward RBC 5.16 106/ul Normal 4.20-5.40 [facility] Comment on above: Performed By: #### P OCGLUC #### [facility] [address] [address] [address] Clem Ward WBC 6.8 103/ul Normal 4.0-11.0 [facility] Comment on above: Performed By: #### P OCGLUC #### [facility] [address] [place] [address] Dr. Clem Ward D-DIMERon 06-14-2022 D-DIMER <0.19 Normal <=0.59 [facility] Comment on above: Performed By: #### P OCGLUC #### [facility] [address] [place] [address] Dr. Clem Ward D-DIMER COMMENTS SEE BELOW Normal [facility] Comment on above: Result Comment: Incr [...] hospitalization. Performed By: #### P OCGLUC #### [facility] [address] [place] [address] Dr. Clem Ward PROF CHEM 8 (BAS METB)on Anion gap [Moles/Vol] 11.7 mmol/L Normal [facility] Comment on above: Performed By: #### A 1C #### [facility] [address] [place] [address] Dr. Clem Ward Calcium [Mass/Vol] 8.7 mg/dL Normal 8.5-10.1 [facility] Comment on above: Performed By: #### A 1C #### [facility] [address] [place] [address] Dr. Clem Ward Chloride [Moles/Vol] 100 mmol/L Normal 98-107 [facility] Comment on above: Performed By: #### A 1C #### [facility] [address] [place] [address] Dr. Clem Ward CO2 [Moles/Vol] 26.2 mmol/L Normal 21.0-32.0 [facility] Comment on above: Performed By: #### A 1C #### [facility] [address] [place] [address] Dr. Clem Ward Creatinine [Mass/Vol] 0.94 mg/dL Normal 0.55-1.02 [facility] Comment on above: Performed By: #### A 1C #### [facility] [address] [place] [address] Dr. Clem Ward EGFR-AF PAKISTANI >60 Normal >=60 [facility] Comment on above: Performed By: #### A 1C #### [facility] [address] [place] [address] Dr. Clem Ward EGFR-NON AF PAKISTANI >60 Normal >=60 [facility] Comment on above: Performed By: #### A 1C #### [facility] [address] [address] [address] Clem Ward Glucose [Mass/Vol] 464 mg/dL Critically high 74-106 [facility] Comment on above: Performed By: #### A 1C #### [facility] [address] [address] [address] Clem Ward Potassium [Moles/Vol] 3.9 mmol/L Normal 3.5-5.1 [facility] Comment on above: Performed By: #### A 1C #### [facility] [address] [address] [address] Clem Ward Sodium [Moles/Vol] 134 mmol/L Critically low 136-145 [facility] Comment on above: Performed By: #### A 1C #### [facility] [address] [address] [address] Clem Ward Urea nitrogen [Mass/Vol] 10.0 mg/dL Normal 7.0-18.0 [facility] Comment on above: Performed By: #### A 1C #### [facility] [address] [place] [address] Dr. Clem Ward Urea nitrogen/Creatinine [Mass ratio] 10.6 mg/mg Normal [facility] Comment on above: Performed By: #### A 1C #### [facility] [address] [address] [address] Clem Ward TROPONIN, HIGH SENSITIVITYon 06-14-2022 HSTROP 8.2 pg/mL Normal 4.0-51.3 [facility] Comment on above: Result Comment: CUT- OFF POINTS HAVE BEEN ESTABLISHED BASED ON THE FOURTH UNIVERSAL DEFINITIONS OF MYOCARDIAL INFARCTION. THE UPPER REFERENCE LIMIT (URL) OF TROPONIN, DEFINED THE 99TH PERCENTILE OF cTnI DISTRIBUTION IN A REFERENCE POPULATION, HAS BEEN CONFIRMED THE DECISION THRESHOLD FOR [place] DIAGNOSIS. Performed By: #### A 1C #### [facility] [address] [place], [place] [address] Dr. Clem Ward Cardiovascular Lab Reporton 02-24-2022 Cardiovascular Lab Report [facility] MR #: [id number] Department of Physician: Vishal Fowler MD Division of Service Date: 02/23/2022 Cardiology Birthdate: 1975 Adult Cardiovascular Room #: [facility] [address] [place], [place] [address] Cardiovascular Laboratory Report PROCEDURES PERFORMED: 1. Right [...] Fowler MD Date Trans: 02/24/2022 06:18 A/jovanna [id number] cc: Yoel Salinas M.D. [facility] [address] [facility] [facility] [id number] Normal [facility] Covid-19 PCR (CVDTBH)on 01-30 SARS-CoV-2 (COVID-19) RNA BENTLEY+probe Ql (Unsp spec) Not detected Normal NOT DETECTED [facility] Comment on above: Result Comment: This test is not yet approved or cleared by the [place] FDA. When there are no FDA-approved or cleared tests available, and other criteria are met, FDA can make tests available under an emergency access mechanism called an Emergency Use Authorization (EUA). The EUA for this test is supported by the T[employer] As[employer]er of Health and Human Service's (HHS's) declaration [...] By: #### P T, PTT, DDIM #### [facility] [address] [place] [address] Dr. Clem Ward BNPon 02-04-2022 Natriuretic peptide B (Bld) [Mass/Vol] 608.0 pg/mL Critically high <=450.0 [facility] Comment on above: Performed By: #### P T, PTT, DDIM #### [facility] [address] [place] [address] Dr. Clem Ward CBC AUTO DIFFon 02-04-2022 BASO # 0.0 103/ul Normal 0.0-0.1 [facility] Comment on above: Performed By: #### P T, PTT, DDIM #### [facility] [address] [place] [address] Dr. Clem Ward Basophils/100 WBC (Bld) 0.3 % Normal 0.2-2.0 [facility] Comment on above: Performed By: #### P T, PTT, DDIM #### [facility] [address] [place] [address] Dr. Clem Ward EO # 0.3 103/ul Normal 0.0-0.7 [facility] Comment on above: Performed By: #### P T, PTT, DDIM #### [facility] [address] [place] [address] Dr. Clem Ward Eosinophils/100 WBC (Bld) 4.9 % Normal 0.9-7.0 [facility] Comment on above: Performed By: #### P T, PTT, DDIM #### [facility] [address] [place] [address] Dr. Clem Ward Erythrocyte distribution width (RBC) [Ratio] 13.5 % Normal 11.0-15.0 [facility] Comment on above: Performed By: #### P T, PTT, DDIM #### [facility] [address] [place] [address] Dr. Clem Ward Hematocrit (Bld) [Volume fraction] 43.5 % Normal 36.0-48.0 [facility] Comment on above: Performed By: #### P T, PTT, DDIM #### [facility] [address] [place] [address] Dr. Clem Ward Hemoglobin (Bld) [Mass/Vol] 13.4 g/dL Normal 12.0-16.0 [facility] Comment on above: Performed By: #### P T, PTT, DDIM #### [facility] [address] [place] [address] Dr. Clem Ward IG # 0.01 10e3/ul Normal 0.00-0.03 [facility] Comment on above: Performed By: #### P T, PTT, DDIM #### [facility] [address] [place] [address] Dr. Clem Ward IG % 0.2 % Normal 0.0-0.5 [facility] Comment on above: Performed By: #### P T, PTT, DDIM #### [facility] [address] [place] [address] Dr. Clem Ward LYMPH # 3.1 103/ul Normal 1.2-3.8 [facility] Comment on above: Performed By: #### P T, PTT, DDIM #### [facility] [address] [place] [address] Dr. Clem Ward Lymphocytes/100 WBC (Bld) 48.3 % Normal 20.5-60.0 [facility] Comment on above: Performed By: #### P T, PTT, DDIM #### [facility] [address] [place] [address] Dr. Clem Ward MANUAL DIFF REQ NO Normal [facility] Comment on above: Performed By: #### P T, PTT, DDIM #### [facility] [address] [place] [address] Dr. Clem Ward MCH (RBC) [Entitic mass] 25.4 pg Critically low 26.7-34.0 [facility] Comment on above: Performed By: #### P T, PTT, DDIM #### [facility] [address] [place] [address] Dr. Clem Ward MCHC (RBC) [Mass/Vol] 30.8 g/dL Normal 29.9-35.2 [facility] Comment on above: Performed By: #### P T, PTT, DDIM #### [facility] [address] [place] [address] Dr. Clem Ward MCV (RBC) [Entitic vol] 82.5 fL Normal 81.0-99.0 [facility] Comment on above: Performed By: #### P T, PTT, DDIM #### [facility] [address] [place] [address] Dr. Clem Ward MONO # 0.5 103/ul Normal 0.3-0.8 [facility] Comment on above: Performed By: #### P T, PTT, DDIM #### [facility] [address] [place] [address] Dr. Clem Ward Monocytes/100 WBC (Bld) 8.3 % Normal 1.7-12.0 [facility] Comment on above: Performed By: #### P T, PTT, DDIM #### [facility] [address] [place] [address] Dr. Clem Ward NEUT # 2.4 103/ul Normal 1.4-6.5 [facility] Comment on above: Performed By: #### P T, PTT, DDIM #### [facility] [address] [place] [address] Dr. Clem Ward Neutrophils/100 WBC (Bld) 38.0 % Critically low 43.0-75.0 [facility] Comment on above: Performed By: #### P T, PTT, DDIM #### [facility] [address] [place] [address] Dr. Clem Ward Platelet mean volume (Bld) [Entitic vol] 10.1 fL Normal 9.5-13.5 [facility] Comment on above: Performed By: #### P T, PTT, DDIM #### [facility] [address] [place] [address] Dr. Clem Ward PLT 310 103/ul Normal 150-450 [facility] Comment on above: Performed By: #### P T, PTT, DDIM #### [facility] [address] [place] [address] Dr. Clem Ward RBC 5.27 106/ul Normal 4.20-5.40 [facility] Comment on above: Performed By: #### P T, PTT, DDIM #### [facility] [address] [place] [address] Dr. Clem Ward WBC 6.4 103/ul Normal 4.0-11.0 [facility] Comment on above: Performed By: #### P T, PTT, DDIM #### [facility] [address] [place] [address] Dr. Clem Ward POINT OF CARE GLUCOSEon 05-0 Glucose [Mass/Vol] 264 mg/dL Critically high 74-106 [facility] Comment on above: Performed By: #### P OCGLUC #### [facility] [address] [place] [address] Dr. Clem Ward Glucose [Mass/Vol] 222 mg/dL Critically high -106 [facility] Comment on above: Performed By: #### C MADM, BMP #### [facility] [address] [place] [address] Dr. Clem Ward Glucose [Mass/Vol] 184 mg/dL Critically high 74-106 [facility] Comment on above: Performed By: #### C MADM, BMP #### [facility] [address] [place] [address] Dr. Clem Ward PROF 14(COMP METB)on 022 Albumin [Mass/Vol] 3.1 g/dL Critically low 3.4-5.0 [facility] Comment on above: Performed By: #### P T, PTT, DDIM #### [facility] [address] [place] [address] Dr. Clem Ward Albumin/Globulin [Mass ratio] 0.7 {ratio} Normal [facility] Comment on above: Performed By: #### P T, PTT, DDIM #### [facility] [address] [place] [address] Dr. Clem Ward ALP [Catalytic activity/Vol] 86 U/L Normal 46-116 [facility] Comment on above: Performed By: #### P T, PTT, DDIM #### [facility] [address] [place] [address] Dr. Clem Ward ALT [Catalytic activity/Vol] 14 U/L Normal 14-59 [facility] Comment on above: Performed By: #### P T, PTT, DDIM #### [facility] [address] [place] [address] Dr. Clem Ward Anion gap [Moles/Vol] 11.5 mmol/L Normal [facility] Comment on above: Performed By: #### P T, PTT, DDIM #### [facility] [address] [place] [address] Dr. Clem Ward AST [Catalytic activity/Vol] 11 U/L Critically low 15-37 [facility] Comment on above: Performed By: #### P T, PTT, DDIM #### [facility] [address] [place] [address] Dr. Clem Ward Bilirubin [Mass/Vol] 0.2 mg/dL Normal 0.2-1.0 [facility] Comment on above: Performed By: #### P T, PTT, DDIM #### [facility] [address] [place] [address] Dr. Clem Ward Calcium [Mass/Vol] 8.3 mg/dL Critically low 8.5-10.1 [facility] Comment on above: Performed By: #### P T, PTT, DDIM #### [facility] [address] [place] [address] [address] Clem Ward Chloride [Moles/Vol] 100 mmol/L Normal 98-107 [facility] Comment on above: Performed By: #### P T, PTT, DDIM #### [facility] [address] [place] [address] [address] Clem Ward CO2 [Moles/Vol] 26.8 mmol/L Normal 21.0-32.0 [facility] Comment on above: Performed By: #### P T, PTT, DDIM #### [facility] [address] [place] [address] Dr. Clem Ward Creatinine [Mass/Vol] 0.56 mg/dL Normal 0.55-1.02 [facility] Comment on above: Performed By: #### P T, PTT, DDIM #### [facility] [address] [place] [address] Dr. Clem Ward EGFR-AF PAKISTANI >60 Normal >=60 [facility] Comment on above: Performed By: #### P T, PTT, DDIM #### [facility] [address] [place] [address] Dr. Clem Ward EGFR-NON AF PAKISTANI >60 Normal >=60 [facility] Comment on above: Performed By: #### P T, PTT, DDIM #### [facility] [address] [place] [address] Dr. Clem Ward Globulin (S) [Mass/Vol] 4.3 g/dL Normal [facility] Comment on above: Performed By: #### P T, PTT, DDIM #### [facility] [address] [place] [address] Dr. Clem Ward Glucose [Mass/Vol] 228 mg/dL Critically high 74-106 [facility] Comment on above: Performed By: #### P T, PTT, DDIM #### [facility] [address] [place] [address] [address] Clem Ward Potassium [Moles/Vol] 4.3 mmol/L Normal 3.5-5.1 [facility] Comment on above: Performed By: #### P T, PTT, DDIM #### [facility] [address] [place] [address] [address] Clem Ward Protein [Mass/Vol] 7.4 g/dL Normal 6.4-8.2 [facility] Comment on above: Performed By: #### P T, PTT, DDIM #### [facility] [address] [place] [address] [address] Clem Ward Sodium [Moles/Vol] 134 mmol/L Critically low 136-145 [facility] Comment on above: Performed By: #### P T, PTT, DDIM #### [facility] [address] [place] [address] Dr. Clem Ward Urea nitrogen [Mass/Vol] 12.0 mg/dL Normal 7.0-18.0 [facility] Comment on above: Performed By: #### P T, PTT, DDIM #### [facility] [address] [place] [address] [address] Clem Ward Urea nitrogen/Creatinine [Mass ratio] 21.4 mg/mg Normal [facility] Comment on above: Performed By: #### P T, PTT, DDIM #### [facility] [address] [place] [address] Dr. Clem Ward CARDIAC TAWNYA 3-6on 2 CK [Catalytic activity/Vol] 60 U/L Normal 26-192 [facility] Comment on above: Performed By: #### P OCGLUC #### [facility] [address] [place] [address] Dr. Clem Ward CK.MB [Mass/Vol] 1.19 ng/mL Normal <=3.60 [facility] Comment on above: Performed By: #### P OCGLUC #### [facility] [address] [place] [address] Dr. Clem Ward HSTROP 118.5 pg/mL Critically high 4.0-51.3 [facility] Comment on above: Result Comment: CUT- OFF POINTS HAVE BEEN ESTABLISHED BASED ON THE FOURTH UNIVERSAL DEFINITIONS OF MYOCARDIAL INFARCTION. THE UPPER REFERENCE LIMIT (URL) OF TROPONIN, DEFINED THE 99TH PERCENTILE OF cTnI DISTRIBUTION IN A REFERENCE POPULATION, HAS BEEN CONFIRMED THE DECISION THRESHOLD FOR [place] DIAGNOSIS. Performed By: #### P OCGLUC #### [facility] [address] [place] [address] [address] Clem Ward CK [Catalytic activity/Vol] 63 U/L Normal 26-192 [facility] Comment on above: Performed By: #### P T, PTT, DDIM #### [facility] [address] [place] [address] [address] Clem SUH.MB [Mass/Vol] 1.49 ng/mL Normal <=3.60 [facility] Comment on above: Performed By: #### P T, PTT, DDIM #### [facility] [address] [place] [address] Dr. Clem Ward HSTROP 150.9 pg/mL Critically high 4.0-51.3 [facility] Comment on above: Result Comment: CUT- OFF POINTS HAVE BEEN ESTABLISHED BASED ON THE FOURTH UNIVERSAL DEFINITIONS OF MYOCARDIAL INFARCTION. THE UPPER REFERENCE LIMIT (URL) OF TROPONIN, DEFINED THE 99TH PERCENTILE OF cTnI DISTRIBUTION IN A REFERENCE POPULATION, HAS BEEN CONFIRMED THE DECISION THRESHOLD FOR [place] DIAGNOSIS. Performed By: #### P T, PTT, DDIM #### [facility] [address] [place] [address] Dr. Clem Ward CARDIAC TAWNYA ADMITon 022 CK [Catalytic activity/Vol] 73 U/L Normal 26-192 [facility] Comment on above: Performed By: #### C MADM, BMP #### [facility] [address] [place] [address] Dr. Clem SUH.MB [Mass/Vol] 1.49 ng/mL Normal <=3.60 [facility] Comment on above: Performed By: #### C MADM, BMP #### [facility] [address] [place] [address] Dr. Clem Ward HSTROP 186.1 pg/mL Critically high 4.0-51.3 [facility] Comment on above: Result Comment: CUT- OFF POINTS HAVE BEEN ESTABLISHED BASED ON THE FOURTH UNIVERSAL DEFINITIONS OF MYOCARDIAL INFARCTION. THE UPPER REFERENCE LIMIT (URL) OF TROPONIN, DEFINED THE 99TH PERCENTILE OF cTnI DISTRIBUTION IN A REFERENCE POPULATION, HAS BEEN CONFIRMED THE DECISION THRESHOLD FOR [place] DIAGNOSIS. Performed By: #### C HARSHAD, BMP #### [facility] [address] [place] [address] Dr. Clem Ward LANI 32 ng/mL Normal 9-82 [facility] Comment on above: Performed By: #### C DAQUANM, BMP #### [facility] [address] [place] [address] Dr. Clem Ward CBC AUTO DIFFon 02-03-2022 BASO # 0.0 103/ul Normal 0.0-0.1 [facility] Comment on above: Performed By: #### C HARSHAD, BMP #### [facility] [address] [place] [address] Dr. Clem Ward Basophils/100 WBC (Bld) 0.4 % Normal 0.2-2.0 [facility] Comment on above: Performed By: #### C HARSHAD, BMP #### [facility] [address] [place] [address] Dr. Clem Ward EO # 0.3 103/ul Normal 0.0-0.7 [facility] Comment on above: Performed By: #### C HARSHAD, BMP #### [facility] [address] [place] [address] Dr. Clem Ward Eosinophils/100 WBC (Bld) 3.9 % Normal 0.9-7.0 [facility] Comment on above: Performed By: #### C HARSHAD, BMP #### [facility] [address] [place] [address] Dr. Clem Ward Erythrocyte distribution width (RBC) [Ratio] 13.7 % Normal 11.0-15.0 [facility] Comment on above: Performed By: #### C DAQUANM, BMP #### [facility] [address] [place] [address] Dr. Clem Ward Hematocrit (Bld) [Volume fraction] 45.6 % Normal 36.0-48.0 [facility] Comment on above: Performed By: #### C HARSHAD, BMP #### [facility] [address] [place] [address] Dr. Clem Ward Hemoglobin (Bld) [Mass/Vol] 14.1 g/dL Normal 12.0-16.0 [facility] Comment on above: Performed By: #### C HARSHAD, BMP #### [facility] [address] [place] [address] Dr. Clem Ward IG # 0.01 10e3/ul Normal 0.00-0.03 [facility] Comment on above: Performed By: #### C HARSHAD, BMP #### [facility] [address] [place] [address] Dr. Clem Ward IG % 0.1 % Normal 0.0-0.5 [facility] Comment on above: Performed By: #### C HARSHAD, BMP #### [facility] [address] [place] [address] Dr. Clem Ward LYMPH # 3.4 103/ul Normal 1.2-3.8 [facility] Comment on above: Performed By: #### C HARSHAD, BMP #### [facility] [address] [place] [address] Dr. Clem Ward Lymphocytes/100 WBC (Bld) 44.0 % Normal 20.5-60.0 [facility] Comment on above: Performed By: #### C HARSHAD, BMP #### [facility] [address] [place] [address] Dr. Clem Ward MANUAL DIFF REQ NO Normal [facility] Comment on above: Performed By: #### C HARSHAD, BMP #### [facility] [address] [place] [address] Dr. Clem Ward MCH (RBC) [Entitic mass] 25.6 pg Critically low 26.7-34.0 [facility] Comment on above: Performed By: #### C HARSHAD, BMP #### [facility] [address] [place] [address] Dr. Clem Ward MCHC (RBC) [Mass/Vol] 30.9 g/dL Normal 29.9-35.2 [facility] Comment on above: Performed By: #### C HARSHAD, BMP #### [facility] [address] [place] [address] Dr. Clem Ward MCV (RBC) [Entitic vol] 82.8 fL Normal 81.0-99.0 [facility] Comment on above: Performed By: #### C HARSHAD, BMP #### [facility] [address] [place] [address] Dr. Clem Ward MONO # 0.6 103/ul Normal 0.3-0.8 [facility] Comment on above: Performed By: #### C HARSHAD, BMP #### [facility] [address] [place] [address] Dr. Clem Ward Monocytes/100 WBC (Bld) 7.6 % Normal 1.7-12.0 [facility] Comment on above: Performed By: #### C HARSHAD, BMP #### [facility] [address] [place] [address] Dr. Clem Ward NEUT # 3.4 103/ul Normal 1.4-6.5 [facility] Comment on above: Performed By: #### C HARSHAD, BMP #### [facility] [address] [place] [address] Dr. Clem Ward Neutrophils/100 WBC (Bld) 44.0 % Normal 43.0-75.0 [facility] Comment on above: Performed By: #### C HARSHAD, BMP #### [facility] [address] [place] [address] Dr. Clem Ward Platelet mean volume (Bld) [Entitic vol] 10.0 fL Normal 9.5-13.5 [facility] Comment on above: Performed By: #### C HARSHAD, BMP #### [facility] [address] [place] [address] Dr. Clem Ward PLT 296 103/ul Normal 150-450 [facility] Comment on above: Performed By: #### C HARSHAD, BMP #### [facility] [address] [place], [place] [address] Dr. Clem Ward RBC 5.51 106/ul Critically high 4.20-5.40 [facility] Comment on above: Performed By: #### C DAQUANM, BMP #### [facility] [address] [place], [place] [address] Dr. Clem Ward WBC 7.8 103/ul Normal 4.0-11.0 [facility] Comment on above: Performed By: #### C DAQUANM, BMP #### [facility] [address] [place], [place] [address] STROKE HEAD WOon [...] NESS BRAR Date: 2022-02-03 06:47 Normal [facility] CTA HEAD WO W CONon 02-04-20 22 CTA HEAD WO W CON EXAMINATION: CTA [...] with the basilar artery. Basilar artery: Normal. personal care assistant: Normal bilaterally. Aneurysm: None. BRAIN FINDINGS: No abnormal enhancement. IMPRESSION: No large vessel arterial occlusion, high-grade narrowing, or substantial luminal irregularity in the head. Electronically authenticated by: LILA KAISER Date: 2022-02-03 08:09 Normal [facility] Covid-19 PCR (CVDTB)on SARS-CoV-2 (COVID-19) RNA BETNLEY+probe Ql (Unsp spec) Not detected Normal NOT DETECTED [facility] Comment on above: Result Comment: When diagnostic [...] for this test is supported by the [employer] As[employer]er of Health and Human Service's declaration that [...] By: #### P T, PTT, DDIM #### [facility] [address] [place] [address] [address] Clem Ward ECHO LIMITED STUDYon 022 ECHO LIMITED STUDY Patient: JENNIFER DIAZ Exam Date: 02/03/2022 : 1975 Gender:F Ordering : DR YOEL SALINAS . Admission #: [id number] Family : DR VERONICAERNST CAMPOS Order #: [id number] CLICK HERE TO VIEW EXAM ECHOCARDIOGRAM REPORT PROCEDURE: CARDIO PULMONARY ECHO LIMITED STUDY INDICATIONS: TIA, h/o [place], HTN, echocardiogram done at [facility] 02/01/2022 EF 20-25% COMPARISON: None. DESCRIPTION: [...] Area(A4C): 13.80 cm2 Left Atrium Systolic Volume(A4C): 43189 mm3 Mitral Valve Right Ventricle Aorta AO Root Diam: 3.00 cm Aortic Valve Tricuspid Valve Pulmonic Valve Right Atrium Dictated by: Matt Montez M.D. on 02/03/2022 at 18:57 Approved by: Matt Montez M.D. on 02/03/2022 at 19:00 Normal [facility] GLYCOHEMOGLOBIN A1Con 2021 ADA RECOMMENDATION SEE BELOW Normal [facility] Comment on above: Result Comment: ADA RECOMMENDED LIMIT 4.0 - 6.0 ADA THERAPEUTIC TARGET < 7.0 ACTION SUGGESTED > 7.0 Performed By: #### A 1C #### [facility] [address] [address] [address] Clem Ward Glucose [Mass/Vol] 197 mg/dL Normal [facility] Comment on above: Performed By: #### A 1C #### [facility] [address] [place] [address] Dr. Clem Ward HbA1c (Bld) [Mass fraction] 8.5 % Critically high 4.5-6.2 [facility] Comment on above: Performed By: #### A 1C #### [facility] [address] [place] [address] Dr. Clem Ward LIPID PROFILEon 02-03-2022 CHOL-HDL RATIO NORM SEE BELOW Normal [facility] Comment on above: Result Comment: 3.3 - 4.4 LOW RISK 4.4 - 7.1 AVERAGE RISK 7.1 - 11.0 MODERATE RISK >11.0 HIGH RISK Performed By: #### P OCGLUC #### [facility] [address] [place] [address] Dr. Clem Ward Cholesterol [Mass/Vol] 168 mg/dL Normal <=200 [facility] Comment on above: Performed By: #### P OCGLUC #### [facility] [address] [place] [address] Dr. Clem Ward Cholesterol in HDL [Mass/Vol] 37 mg/dL Critically low 40-60 [facility] Comment on above: Performed By: #### P OCGLUC #### [facility] [address] [place] [address] Dr. Clem Ward Cholesterol in LDL [Mass/Vol] 108.4 mg/dL Normal [facility] Comment on above: Performed By: #### P OCGLUC #### [facility] [address] [address] [address] Clem Ward Cholesterol.total/Chol esterol in HDL [Mass ratio] 4.5 {ratio} Normal [facility] Comment on above: Performed By: #### P OCGLUC #### [facility] [facility] [address] [address] [address] Clem Ward HDL NORMAL > or = 60 mg/dl - LO W CARDIOVASCULAR RISK <40 mg/dl - HIGH CARDIOVASCULAR RISK Normal [facility] Comment on above: Performed By: #### P OCGLUC #### [facility] [address] [address] [address] Clem Ward LDL CALC NORMAL SEE BELOW Normal [facility] Comment on above: Result Comment: <100 mg/dl OPTIMAL 100 - 129 mg/dl NEAR OR ABOVE OPTIMAL 130 - 159 mg/dl BORDERLINE HIGH 160 - 189 mg/dl HIGH >190 mg/dl VERY HIGH Performed By: #### P OCGLUC #### [facility] [address] [address] [address] Clem Ward Triglyceride [Mass/Vol] 113 mg/dL Normal <=150 [facility] Comment on above: Performed By: #### P OCGLUC #### [facility] [address] [address] [address] Clem Ward VLDL CALC 22.6 mg/dL Normal [facility] Comment on above: Performed By: #### P OCGLUC #### [facility] [address] [place] [address] Dr. Clem Ward MRI BRAIN WO CONon [...] aortic arch were not included in the [id number]. ICAs: Patent bilaterally from the skull base [...] aortic arch are not included in the [id number]. Electronically authenticated by: LILA KAISER Date: 2022-02-03 14:19 Normal [facility] POINT OF CARE GLUCOSEon 05 Glucose [Mass/Vol] 109 mg/dL Critically high 74-106 [facility] Comment on above: Performed By: #### P T, PTT, DDIM #### [facility] [address] [place] [address] Dr. Clem Ward Glucose [Mass/Vol] 362 mg/dL Critically high 74-106 [facility] Comment on above: Performed By: #### T 3TOTAL #### [facility] [address] [place] [address] Dr. Clem Ward PROF CHEM 8 (BAS METB)on Anion gap [Moles/Vol] 13.7 mmol/L Normal [facility] Comment on above: Performed By: #### C HARSHAD, BMP #### [facility] [address] [place] [address] Dr. Clem Ward Calcium [Mass/Vol] 8.8 mg/dL Normal 8.5-10.1 [facility] Comment on above: Performed By: #### C HARSHAD, BMP #### [facility] [address] [place] [address] Dr. Clem Ward Chloride [Moles/Vol] 99 mmol/L Normal 98-107 [facility] Comment on above: Performed By: #### C HARSHAD, BMP #### [facility] [address] [address] [address] Clem Ward CO2 [Moles/Vol] 27.7 mmol/L Normal 21.0-32.0 [facility] Comment on above: Performed By: #### C DAQUANM, BMP #### [facility] [address] [address] [address] Clem Ward Creatinine [Mass/Vol] 0.82 mg/dL Normal 0.55-1.02 [facility] Comment on above: Performed By: #### C MADM, BMP #### [facility] [address] [address] [address] Clem Ward EGFR-AF PAKISTANI >60 Normal >=60 [facility] Comment on above: Performed By: #### C DAQUANM, BMP #### [facility] [address] [address] [address] Clem Ward EGFR-NON AF PAKISTANI >60 Normal >=60 [facility] Comment on above: Performed By: #### C HARSHAD, BMP #### [facility] [address] [address] [address] Clem Ward Glucose [Mass/Vol] 236 mg/dL Critically high 74-106 [facility] Comment on above: Performed By: #### C HARSHAD, BMP #### [facility] [address] [address] [address] Clem Ward Potassium [Moles/Vol] 5.4 mmol/L Critically high 3.5-5.1 [facility] Comment on above: Performed By: #### C DAQUANM, BMP #### [facility] [address] [address] [address] Clem Ward Sodium [Moles/Vol] 135 mmol/L Critically low 136-145 [facility] Comment on above: Performed By: #### C DAQUANM, BMP #### [facility] [address] [address] [address] Clem Ward Urea nitrogen [Mass/Vol] 16.0 mg/dL Normal 7.0-18.0 [facility] Comment on above: Performed By: #### C HARSHAD, BMP #### [facility] [address] [place], [place] [address] Dr. Clem Ward Urea nitrogen/Creatinine [Mass ratio] 19.5 mg/mg Normal [facility] Comment on above: Performed By: #### C HARSHAD, BMP #### [facility] [address] [place], [place] [address] Dr. Clem Ward XR CHEST 2 Von [...] NESS BRAR Date: 2022-02-03 06:50 Normal [facility] Creatinine and Glomerular fi ltration rate.predicted panel (S/P/Bld)Ordered By: Zahraa Ferrara on 02-02-2022 Creatinine [Mass/Vol] 0.70 mg/dL 0.44-1.03 [facility] Estimated glomerular filtrat ion rate (GFR) non- AmericanOrdered By: Zahraa Ferrara on 02-02-2022 GFR/1.73 sq M.predicted among non-blacks MDRD (S/P/Bld) [Vol rate/Area] > 60 mL/Min [facility] Glucose Glucometer (BldC) [M ass/Vol]Ordered By: Zahraa Ferrara on 02-02-2022 Glucose [Mass/Vol] 240 mg/dL [facility] Comment on above: Random Glucose Refer ence Range is dependent on time and content of last meal. Glucose of more than 200 mg/dL in a nonstressed, ambulatory subject supports the diagnosis of Diabetes Mellitus. No Panel InformationOrdered By: Zahraa Ferrara on 02-02-2022 Estimated GFR () > 60 mL/Min [facility] Comment on above: GFR estimated refere nce range: According to KDOQI guidelines, <60 ml/min/1.73m2 is sufficient to diagnose a patient with chronic kidney disease. Pharmacy Creatinine Clearance (Chem 104.27 [facility] Serum or plasma calcium matthew urement (mass/volume)Ordered By: Zahraa Ferrara on 02-02-2022 Calcium [Mass/Vol] 9.3 mg/dL 8.2-10.2 [facility] Serum or plasma chloride roge surement (moles/volume)Ordered By: Zahraa Ferrara on 02-02-2022 Chloride [Moles/Vol] 102 mmol/L 95-114 [facility] Serum or plasma glucose matthew urement (mass/volume)Ordered By: Zahraa Ferrara on 02-02-2022 Glucose [Mass/Vol] 227 mg/dL 70-100 [facility] Comment on above: Delta: 119 on ADA recommended reference range Random Glucose Reference Range is dependent on time and content of last meal. Glucose of more than 200 mg/dL in a nonstressed, ambulatory subject supports the diagnosis of Diabetes Mellitus. Serum or plasma potassium me asurement (moles/volume)Ordered By: Zahraa Ferrara on 02-02-2022 Potassium [Moles/Vol] 4.8 mmol/L 3.5-5.1 [facility] Serum or plasma sodium measu rement (moles/volume)Ordered By: Zahraa Ferrara on 02-02-2022 Sodium [Moles/Vol] 137 mmol/L 136-146 [facility] Serum or plasma total carbon dioxide measurement (moles/volume)Ordered By: Zahraa Ferrara on 02-02-2022 CO2 [Moles/Vol] 25.8 mmol/L 22.0-30.0 [facility] Serum or plasma urea nitroge n measurement (mass/volume)Ordered By: Zahraa Ferrara on 02-02-2022 Urea nitrogen [Mass/Vol] 7 mg/dL 9-23 [facility] Albumin [Mass/volume] in Ser um or PlasmaOrdered By: Zahraa Ferrara on 02-01-2022 Albumin [Mass/Vol] 3.1 g/dL 3.2-5.5 [facility] Basophils Auto (Bld) [#/Vol] Ordered By: Zahraa Ferrara on 02-01-2022 Basophils (Bld) [#/Vol] 0.1 10*3/uL 0.0-0.2 [facility] Basophils/100 WBC Auto (Bld) Ordered By: Zahraa Ferrara on 02-01-2022 Basophils/100 WBC (Bld) 1.5 % [facility] Blood hemoglobin measurement (mass/volume)Ordered By: Zahraa Ferrara on 02-01-2022 Hemoglobin (Bld) [Mass/Vol] 12.3 g/dL 11.8-15.4 [facility] Blood leukocytes automated c ount (number/volume)Ordered By: Zahraa Ferrara on 02-01-2022 WBC (Bld) [#/Vol] 5.9 10*3/uL 4.5-11.0 [facility] Cholesterol [Mass/volume] in Serum or PlasmaOrdered By: Zahraa Ferrara on 02-01-2022 Cholesterol [Mass/Vol] 135 mg/dL 140-200 [facility] Comment on above: Chol less than 200 m g/dl low risk Chol 201-239 mg/dl borderline risk Chol 240 mg/dl and greater high risk Cholesterol in LDL Calc [Mas s/Vol]Ordered By: Zahraa Ferrara on 02-01-2022 Cholesterol in LDL [Mass/Vol] 86 mg/dL 0-100 [facility] Comment on above: LDL ATP III CLASSIFI CATION LDL less than 100 mg/dL Optimal LDL 100-129 mg/dL Near or above optimal LDL 130-159 mg/dL Borderline high LDL 160-189 mg/dL High LDL greater than 189 mg/dL Very high Cholesterol in VLDL Calc [Ma ss/Vol]Ordered By: Zahraa Ferrara on 02-01-2022 Cholesterol in VLDL [Mass/Vol] 23 mg/dL [facility] Eosinophils Auto (Bld) [#/Vo l]Ordered By: Zahraa Ferrara on 02-01-2022 Eosinophils (Bld) [#/Vol] 0.3 10*3/uL 0.0-0.45 [facility] Eosinophils/100 WBC Auto (Bl d)Ordered By: Zahraa Ferrara on 05-04-2022 Eosinophils/100 WBC (Bld) 5.7 % [facility] Erythrocyte distribution wid th Auto (RBC) [Ratio]Ordered By: Zahraa Ferrara on 02-01-2022 Erythrocyte distribution width (RBC) [Ratio] 14.3 % 11.9-15.3 [facility] Globulin Calc (S) [Mass/Vol] Ordered By: Zahraa Ferrara on 02-01-2022 Globulin (S) [Mass/Vol] 3.4 g/dL [facility] Hematocrit Auto (Bld) [Volum e fraction]Ordered By: Zahraa Ferrara on 02-01-2022 Hematocrit (Bld) [Volume fraction] 37.8 % 34.0-46.4 [facility] - Chemistry and C hemistry - challengeOrdered By: Zahraa Ferrara on 02-01-2022 Lipase [Catalytic activity/Vol] 39.0 U/L 22-51 [facility] - Hematology and Cell countsOrdered By: Zahraa Ferrara on 02-01-2022 Nucleated RBC/100 WBC (Bld) [Ratio] 0.0 % 0-0.5 [facility] Lymphocytes Auto (Bld) [#/Vo l]Ordered By: Zahraa Ferrara on 02-01-2022 Lymphocytes (Bld) [#/Vol] 2.2 10*3/uL 1.00-4.8 [facility] Lymphocytes/100 WBC Auto (Bl d)Ordered By: Zahraa Ferrara on 02-01-2022 Lymphocytes/100 WBC (Bld) 36.8 % [facility] MCH Auto (RBC) [Entitic mass ]Ordered By: Zahraa Ferrara on 02-01-2022 MCH (RBC) [Entitic mass] 26.1 pg 24.7-34.3 [facility] MCHC Auto (RBC) [Mass/Vol]Or dered By: Zahraa Ferrara on 02-01-2022 MCHC (RBC) [Mass/Vol] 32.6 g/dL 32.0-35.0 [facility] MCV Auto (RBC) [Entitic vol] Ordered By: Zahraa Ferrara on 02-01-2022 MCV (RBC) [Entitic vol] 80.1 fL 80-100 [facility] Monocytes Auto (Bld) [#/Vol] Ordered By: Zahraa Ferrara on 02-01-2022 Monocytes (Bld) [#/Vol] 0.7 10*3/uL 0.0-0.8 [facility] Monocytes/100 WBC Auto (Bld) Ordered By: Zahraa Ferrara on 02-01-2022 Monocytes/100 WBC (Bld) 11.8 % [facility] Neutrophils Auto (Bld) [#/Vo l]Ordered By: Zahraa Ferrara on 02-01-2022 Neutrophils (Bld) [#/Vol] 2.6 10*3/uL 1.8-7.7 [facility] Neutrophils/100 WBC Auto (Bl d)Ordered By: Zahraa Ferrara on 02-01-2022 Neutrophils/100 WBC (Bld) 44.2 % [facility] No Panel InformationOrdered By: Zahraa Ferrara on 02-01-2022 Bedside Glucose #2 Comment Follow hypoglycemic [facility] Bedside Glucose Comment Glu2: cleaned meter [facility] Platelet mean volume Auto (B ld) [Entitic vol]Ordered By: Zahraa Ferrara on 02-01-2022 Platelet mean volume (Bld) [Entitic vol] 9.0 fL 6.3-10.7 [facility] Platelets Auto (Bld) [#/Vol] Ordered By: Zahraa Ferrara on 02-01-2022 Platelets (Bld) [#/Vol] 244 10*3/uL 150-450 [facility] Protein [Mass/volume] in Ser um or PlasmaOrdered By: Zahraa Ferrara on 02-01-2022 Protein [Mass/Vol] 6.5 g/dL 6.1-7.9 [facility] RBC Auto (Bld) [#/Vol]Ordere d By: Zahraa Ferrara on 02-01-2022 RBC (Bld) [#/Vol] 4.71 10*6/uL 3.60-5.00 [facility] Serum or plasma alanine valdes otransferase measurement without P-5'-P (enzymatic activiOrdered By: Zahraa Ferrara on 02-01-2022 ALT No additional P-5'-P [Catalytic activity/Vol] 13 U/L 10-60 [facility] Serum or plasma albumin/glob ulin mass ratioOrdered By: Zahraa Ferrara on 02-01-2022 Albumin/Globulin [Mass ratio] 0.9 {ratio} [facility] Serum or plasma alkaline erica sphatase measurement (enzymatic activity/volume)Ordered By: Zahraa Ferrara on 02-01-2022 ALP [Catalytic activity/Vol] 76 U/L 32-92 [facility] Serum or plasma aspartate am inotransferase measurement (enzymatic activity/volume)Ordered By: Zahraa Ferrara on 02-01-2022 AST [Catalytic activity/Vol] 14 U/L 10-42 [facility] Serum or plasma high density lipoprotein (HDL) cholesterol measurementOrdered By: Zahraa Ferrara on 02-01-2022 Cholesterol in HDL [Mass/Vol] 26 mg/dL 35-85 [facility] Comment on above: HDL CHOL ATP-III CLA SSIFICATION Cardiovascular Risk HDL > or equal to 60 mg/dL LOW HDL < 40 mg/dL HIGH Serum or plasma total biliru bin measurement (mass/volume)Ordered By: Zahraa Ferrara on 02-01-2022 Bilirubin [Mass/Vol] 0.4 mg/dL 0.3-1.2 [facility] Serum or plasma total choles terol/high density lipoprotein (HDL) cholesterol mass ratOrdered By: Zahraa Ferrara on 02-01-2022 Cholesterol.total/Chol esterol in HDL [Mass ratio] 5.2 {ratio} [facility] TSH DL <= 0.005 mIU/L QnOrde red By: Zahraa Ferrara on 02-01-2022 TSH Qn 1.11 m[IU]/L 0.45-5.33 [facility] Triglyceride [Mass/volume] i n Serum or PlasmaOrdered By: Zahraa Ferrara on 02-01-2022 Triglyceride [Mass/Vol] 117 mg/dL 35-149 [facility] Comment on above: TRIG ATP III [...] High sensitivity method [Mass/Vol] 200 pg/mL 0-15 [facility] Comment on above: Results called at 0650 on 02/01/22 ACETONE SERUMon 01-31-2022 ACETONE Negative Normal NEGATIVE [facility] Comment on above: Performed By: #### A CETON #### [facility] [address] [place] [address] Dr. Clem Ward AMYLASEon 01-31-2022 Amylase [Catalytic activity/Vol] 37 U/L Normal 25-115 [facility] Comment on above: Performed By: #### A 1C #### [facility] [address] [place] [address] Dr. Clem Ward BNPon 01-31-2022 Natriuretic peptide B (Bld) [Mass/Vol] 1567.0 pg/mL Critically high <=450.0 [facility] Comment on above: Result Comment: TEST REPEATED CRITICAL VALUE VERIFIED Performed By: #### T 3TOTAL #### [facility] [address] [place] [address] Dr. Clem Ward CARDIAC TAWNYA 3-6on 2 CK [Catalytic activity/Vol] 97 U/L Normal 26-192 [facility] Comment on above: Performed By: #### T 3TOTAL #### [facility] [address] [place] [address] Dr. Clem Ward CK.MB [Mass/Vol] 2.67 ng/mL Normal <=3.60 [facility] Comment on above: Performed By: #### T 3TOTAL #### [facility] [address] [place] [address] Dr. Clem Ward HSTROP 335.7 pg/mL Critically high 4.0-51.3 [facility] Comment on above: Result Comment: CUT- OFF POINTS HAVE BEEN ESTABLISHED BASED ON THE FOURTH UNIVERSAL DEFINITIONS OF MYOCARDIAL INFARCTION. THE UPPER REFERENCE LIMIT (URL) OF TROPONIN, DEFINED THE 99TH PERCENTILE OF cTnI DISTRIBUTION IN A REFERENCE POPULATION, HAS BEEN CONFIRMED THE DECISION THRESHOLD FOR [place] DIAGNOSIS. TEST REPEATED CRITICAL VALUE VERIFIED Performed By: #### T 3TOTAL #### [facility] [address] [place] [address] Dr. Clem Ward CK [Catalytic activity/Vol] 102 U/L Normal 26-192 [facility] Comment on above: Performed By: #### P T, PTT, DDIM #### [facility] [address] [place] [address] Dr. Clem Ward CK.MB [Mass/Vol] 2.99 ng/mL Normal <=3.60 [facility] Comment on above: Performed By: #### P T, PTT, DDIM #### [facility] [address] [place] [address] Dr. Clem Ward HSTROP 371.5 pg/mL Critically high 4.0-51.3 [facility] Comment on above: Result Comment: CUT- OFF POINTS HAVE BEEN ESTABLISHED BASED ON THE FOURTH UNIVERSAL DEFINITIONS OF MYOCARDIAL INFARCTION. THE UPPER REFERENCE LIMIT (URL) OF TROPONIN, DEFINED THE 99TH PERCENTILE OF cTnI DISTRIBUTION IN A REFERENCE POPULATION, HAS BEEN CONFIRMED THE DECISION THRESHOLD FOR [place] DIAGNOSIS. Performed By: #### P T, PTT, DDIM #### [facility] [address] [place] [address] Dr. Clem Ward CARDIAC TAWNYA ADMITon 022 CK [Catalytic activity/Vol] 159 U/L Normal 26-192 [facility] Comment on above: Performed By: #### C MADM, BMP #### [facility] [address] [address] [address] Clem Ward CK.MB [Mass/Vol] 2.80 ng/mL Normal <=3.60 [facility] Comment on above: Performed By: #### C MADM, BMP #### [facility] [address] [place] [address] Dr. Clem Ward HSTROP 348.0 pg/mL Critically high 4.0-51.3 [facility] Comment on above: Result Comment: CUT- OFF POINTS HAVE BEEN ESTABLISHED BASED ON THE FOURTH UNIVERSAL DEFINITIONS OF MYOCARDIAL INFARCTION. THE UPPER REFERENCE LIMIT (URL) OF TROPONIN, DEFINED THE 99TH PERCENTILE OF cTnI DISTRIBUTION IN A REFERENCE POPULATION, HAS BEEN CONFIRMED THE DECISION THRESHOLD FOR [place] DIAGNOSIS. TEST REPEATED CRITICAL VALUE VERIFIED Performed By: #### C MADM, BMP #### [facility] [address] [address] [address] Clem Ward LANI 125 ng/mL Critically high 9-82 [facility] Comment on above: Performed By: #### C MADM, BMP #### [facility] [address] [address] [address] Clem Ward CBC AUTO DIFFon 01-31-2022 BASO # 0.0 103/ul Normal 0.0-0.1 [facility] Comment on above: Performed By: #### P OCGLUC #### [facility] [address] [place] [address] Dr. Clem Ward Basophils/100 WBC (Bld) 0.2 % Normal 0.2-2.0 [facility] Comment on above: Performed By: #### P OCGLUC #### [facility] [address] [place] [address] Dr. Clem Ward EO # 0.2 103/ul Normal 0.0-0.7 [facility] Comment on above: Performed By: #### P OCGLUC #### [facility] [address] [place] [address] Dr. Clem Ward Eosinophils/100 WBC (Bld) 2.2 % Normal 0.9-7.0 [facility] Comment on above: Performed By: #### P OCGLUC #### [facility] [address] [place] [address] Dr. Clem Ward Erythrocyte distribution width (RBC) [Ratio] 13.8 % Normal 11.0-15.0 [facility] Comment on above: Performed By: #### P OCGLUC #### [facility] [address] [place] [address] Dr. Clem Ward Hematocrit (Bld) [Volume fraction] 46.1 % Normal 36.0-48.0 [facility] Comment on above: Performed By: #### P OCGLUC #### [facility] [address] [place] [address] Dr. Clem Ward Hemoglobin (Bld) [Mass/Vol] 14.3 g/dL Normal 12.0-16.0 [facility] Comment on above: Performed By: #### P OCGLUC #### [facility] [address] [place] [address] Dr. Clem Ward IG # 0.03 10e3/ul Normal 0.00-0.03 [facility] Comment on above: Performed By: #### P OCGLUC #### [facility] [address] [place] [address] Dr. Clem Ward IG % 0.3 % Normal 0.0-0.5 [facility] Comment on above: Performed By: #### P OCGLUC #### [facility] [address] [place] [address] Dr. Clem Ward LYMPH # 2.6 103/ul Normal 1.2-3.8 [facility] Comment on above: Performed By: #### P OCGLUC #### [facility] [address] [place] [address] Dr. Clem Ward Lymphocytes/100 WBC (Bld) 27.6 % Normal 20.5-60.0 [facility] Comment on above: Performed By: #### P OCGLUC #### [facility] [address] [place] [address] Dr. Clem Ward MANUAL DIFF REQ NO Normal [facility] Comment on above: Performed By: #### P OCGLUC #### [facility] [address] [place] [address] Dr. Clem Ward MCH (RBC) [Entitic mass] 25.7 pg Critically low 26.7-34.0 [facility] Comment on above: Performed By: #### P OCGLUC #### [facility] [address] [place] [address] Dr. Clem Ward MCHC (RBC) [Mass/Vol] 31.0 g/dL Normal 29.9-35.2 [facility] Comment on above: Performed By: #### P OCGLUC #### [facility] [address] [address] [address] Clem Ward MCV (RBC) [Entitic vol] 82.9 fL Normal 81.0-99.0 [facility] Comment on above: Performed By: #### P OCGLUC #### [facility] [address] [address] [address] Clem Ward MONO # 0.8 103/ul Normal 0.3-0.8 [facility] Comment on above: Performed By: #### P OCGLUC #### [facility] [address] [place] [address] Dr. Clem Ward Monocytes/100 WBC (Bld) 7.8 % Normal 1.7-12.0 [facility] Comment on above: Performed By: #### P OCGLUC #### [facility] [address] [place] [address] Dr. Clem Ward NEUT # 5.9 103/ul Normal 1.4-6.5 [facility] Comment on above: Performed By: #### P OCGLUC #### [facility] [address] [place] [address] Dr. Clem Ward Neutrophils/100 WBC (Bld) 61.9 % Normal 43.0-75.0 [facility] Comment on above: Performed By: #### P OCGLUC #### [facility] [address] [address] [address] Clem Ward Platelet mean volume (Bld) [Entitic vol] 10.6 fL Normal 9.5-13.5 [facility] Comment on above: Performed By: #### P OCGLUC #### [facility] [address] [place] [address] Dr. Clem Ward PLT 270 103/ul Normal 150-450 [facility] Comment on above: Performed By: #### P OCGLUC #### [facility] [address] [address] [address] Clem Ward RBC 5.56 106/ul Critically high 4.20-5.40 [facility] Comment on above: Performed By: #### P OCGLUC #### [facility] [address] [place], [place] [address] Dr. Clem Ward WBC 9.6 103/ul Normal 4.0-11.0 [facility] Comment on above: Performed By: #### P OCGLUC #### [facility] [address] [place], [place] [address] Dr. Clem Ward CTA CHEST WO W CONon 022 CTA CHEST WO W CON EXAMINATION: [...] Borderline cardiac enlargement. Electronically authenticated by: KATHY RAMÍREZ Date: 2022-01-31 13:25 Normal [facility] Covid-19 PCR (CVDTBH)on SARS-CoV-2 (COVID-19) RNA BENTLEY+probe Ql (Unsp spec) Not detected Normal NOT DETECTED [facility] Comment on above: Result Comment: When diagnostic [...] for this test is supported by the [employer] of [employer] and Human Service's declaration that [...] used). Performed By: #### C VDTBH #### [facility] [address] [place] [address] Dr. Clem Ward D-DIMERon 01-31-2022 D-DIMER 0.74 mg/L FEU Critically high 0.19-0.50 [facility] Comment on above: Performed By: #### P T, PTT, DDIM #### [facility] [address] [place] [address] Dr. Clem Ward D-DIMER COMMENTS SEE BELOW Normal [facility] Comment on above: Result Comment: Incr [...] By: #### P T, PTT, DDIM #### [facility] [address] [place] [address] Dr. Clem Ward LIPASEon 01-31-2022 Lipase [Catalytic activity/Vol] 120.0 U/L Normal 73.0-393.0 [facility] Comment on above: Performed By: #### P T, PTT, DDIM #### [facility] [facility] [address] [place] [address] Dr. Clem Ward Laboratory - Chemistry and C hemistry - challengeOrdered By: Zahraa Ferrara on 01-31-2022 Magnesium [Mass/Vol] 1.4 mg/dL 1.6-2.6 [facility] POINT OF CARE GLUCOSEon 05-0 Glucose [Mass/Vol] 100 mg/dL Normal 74-106 [facility] Comment on above: Performed By: #### P OCGLUC #### [facility] [address] [address] [address] Clem Ward Glucose [Mass/Vol] 163 mg/dL Critically high 74-106 [facility] Comment on above: Performed By: #### P T, PTT, DDIM #### [facility] [address] [address] [address] Clem Ward PREG HCG QUALon 01-31-2022 , QUAL Negative Normal NEGATIVE [facility] Comment on above: Performed By: #### P OCGLUC #### [facility] [address] [address] [address] Clem Ward PROF 14(COMP METB)on 022 Albumin [Mass/Vol] 3.5 g/dL Normal 3.4-5.0 [facility] Comment on above: Performed By: #### T 3TOTAL #### [facility] [address] [address] [address] Clem Ward Albumin/Globulin [Mass ratio] 0.7 {ratio} Normal [facility] Comment on above: Performed By: #### T 3TOTAL #### [facility] [address] [place] [address] Dr. Clem Ward ALP [Catalytic activity/Vol] 97 U/L Normal 46-116 [facility] Comment on above: Performed By: #### T 3TOTAL #### [facility] [address] [address] [address] Clem Ward ALT [Catalytic activity/Vol] 19 U/L Normal 14-59 [facility] Comment on above: Performed By: #### T 3TOTAL #### [facility] [address] [address] [address] Clem Ward Anion gap [Moles/Vol] 13.6 mmol/L Normal [facility] Comment on above: Performed By: #### T 3TOTAL #### [facility] [address] [place] [address] Dr. Clem Ward AST [Catalytic activity/Vol] 26 U/L Normal 15-37 [facility] Comment on above: Result Comment: SLIG HT HEMOLYSIS MAY AFFECT K+ AND AST Performed By: #### T 3TOTAL #### [facility] [address] [address] [address] Clem Ward Bilirubin [Mass/Vol] 0.4 mg/dL Normal 0.2-1.0 [facility] Comment on above: Performed By: #### T 3TOTAL #### [facility] [address] [address] [address] Clem Ward Calcium [Mass/Vol] 8.8 mg/dL Normal 8.5-10.1 [facility] Comment on above: Performed By: #### T 3TOTAL #### [facility] [address] [address] [address] Clem Ward Chloride [Moles/Vol] 100 mmol/L Normal 98-107 [facility] Comment on above: Performed By: #### T 3TOTAL #### [facility] [address] [place] [address] Dr. Clem Ward CO2 [Moles/Vol] 26.2 mmol/L Normal 21.0-32.0 [facility] Comment on above: Performed By: #### T 3TOTAL #### [facility] [address] [place] [address] Dr. Clem Ward Creatinine [Mass/Vol] 1.08 mg/dL Critically high 0.55-1.02 [facility] Comment on above: Performed By: #### T 3TOTAL #### [facility] [address] [place] [address] Dr. Clem Ward EGFR-AF PAKISTANI >60 Normal >=60 [facility] Comment on above: Performed By: #### T 3TOTAL #### [facility] [address] [place] [address] Dr. Clem Ward EGFR-NON AF PAKISTANI 55 mL/min/1.73m2 Critically low >=60 [facility] Comment on above: Performed By: #### T 3TOTAL #### [facility] [address] [place] [address] Dr. Clem Ward Globulin (S) [Mass/Vol] 4.7 g/dL Normal [facility] Comment on above: Performed By: #### T 3TOTAL #### [facility] [address] [address] [address] Clem Ward Glucose [Mass/Vol] 150 mg/dL Critically high 74-106 [facility] Comment on above: Performed By: #### T 3TOTAL #### [facility] [address] [place] [address] Dr. Clem Ward Potassium [Moles/Vol] 4.8 mmol/L Normal 3.5-5.1 [facility] Comment on above: Result Comment: SLIG HT HEMOLYSIS MAY AFFECT K+ AND AST Performed By: #### T 3TOTAL #### [facility] [address] [place] [address] Dr. Clem Ward Protein [Mass/Vol] 8.2 g/dL Normal 6.1-8.2 [facility] Comment on above: Performed By: #### T 3TOTAL #### [facility] [address] [place] [address] Dr. Clem Ward Sodium [Moles/Vol] 135 mmol/L Critically low 136-145 [facility] Comment on above: Performed By: #### T 3TOTAL #### [facility] [address] [place] [address] Dr. Clem Ward Urea nitrogen [Mass/Vol] 14.0 mg/dL Normal 7.0-18.0 [facility] Comment on above: Performed By: #### T 3TOTAL #### [facility] [address] [place] [address] Dr. Clem Ward Urea nitrogen/Creatinine [Mass ratio] 13.0 mg/mg Normal [facility] Comment on above: Performed By: #### T 3TOTAL #### [facility] [address] [place] [address] Dr. Clem Ward PROTIMEon 01-31-2022 INR Coag (PPP) [Relative time] 1.06 {INR} Normal [facility] Comment on above: Performed By: #### P T, PTT, DDIM #### [facility] [address] [place] [address] Dr. Clem Ward INR GUIDELINES SEE BELOW Normal The [facility] Comment on above: Result Comment: JOSH RED INR: 2.0 - 3.0 CONDITIONS NOT LISTED BELOW 2.5 - 3.5 FOR PROSTHETIC HEART VALVE REPLACEMENT 2.5 - 3.5 RECURRENT THROMBOSIS Performed By: #### P T, PTT, DDIM #### [facility] [address] [address] [address] Clem Ward PT Coag (PPP) [Time] 11.4 s Normal 9.0-11.6 [facility] Comment on above: Performed By: #### P T, PTT, DDIM #### [facility] [address] [address] [address] Clem Ward PTTon 01-31-2022 aPTT Coag (Bld) [Time] 23.0 s Normal 22.3-36.2 Th [facility] Comment on above: Performed By: #### P T, PTT, DDIM #### [facility] [address] [address] [address] Clem Ward XR CHEST 1 Von [...] KEYSHAWN ESCOBEDO Date: 2022-01-31 11:29 Normal [facility] Provider Letteron 12-09-2021 Provider Letter December 09, 2021 JENNIFER DIAZ [address] [place] [address] [address] JENNIFER DIAZ 1975 Dear Jennifer , We have been trying to reach you with no success. It is important that you return our call regarding your referral from Kat Salmeron upon receiving this letter. Also, at the time of your call, please provide us with your current information. Thank you for your prompt attention to this matter. Sincerely, General Surgery [phone] Normal [facility] Physician Referralon 022 Physician Referral [id number] Normal [facility] NEW MICROALBUMINon 9 Creatinine (U) [Mass/Vol] 82.4 mg/dL Normal [facility] Comment on above: Order Comment: THE M ICROALBUMIN IS < 6.0 THEREFORE THE MICROALBUMIN/CREATININE RATIO IS UNDETECTABLE. Performed By: #### 8 00 #### [facility] Unless Otherwise Noted [address] [address] / [facility] #4724/CLIA # [id number] Microalbumin <6.0 Normal 0.0-30.0 [facility] Comment on above: Order Comment: THE M ICROALBUMIN IS < 6.0 THEREFORE THE MICROALBUMIN/CREATININE RATIO IS UNDETECTABLE. Performed By: #### 8 00 #### [facility] Unless Otherwise Noted [address] [address] / [facility] #4724/CLIA # [id number] Urine A/C Ratio -99.0 mg/g Low 0.0-30.0 [facility] Comment on above: Order Comment: THE M ICROALBUMIN IS < 6.0 THEREFORE THE MICROALBUMIN/CREATININE RATIO IS UNDETECTABLE. Performed By: #### 8 00 #### [facility] Unless Otherwise Noted [address] [facility] [address] [place] [address] / [facility] #[id number]/CLIA # [id number] Vital Signs Date Time Vital Sign Value Performing Clinician Facility 09-04-2023 13:55-0500 Diastolic blood pressure 71 mm[Hg] [employer] Vivi Salmeron Work Phone: [facility] 09-04-2023 13:55-0500 Heart rate 82 /min [employer] Vivi Faviola Work Phone: [facility] 09-04-2023 13:55-0500 Respiratory rate 18 /min [employer] Vivi Faviola Work Phone: [facility] 09-04-2023 13:55-0500 SaO2% (BldA) [Mass fraction] 98 % [employer] Vivi Faviola Work Phone: [facility] 09-04-2023 13:55-0500 Systolic blood pressure 111 mm[Hg] [employer] Vivi Faviola Work Phone: [facility] 09-04-2023 12:32-0500 Body height 152.4 cm [employer] Vivi Faviola Work Phone: [facility] 09-04-2023 12:32-0500 Body weight 78.47 kg [employer] Vivi Chungmer Work Phone: [facility] 08-02-2023 13:15-0400 Body weight 79.7 kg Jose Wellsmalviny Other [facility] [employer] Other 08-02-2023 13:15-0400 Diastolic blood pressure 87 mm[Hg] Joes Ditty Other [facility] [employer] Other 08-02-2023 13:15-0400 Systolic blood pressure 129 mm[Hg] Jose Ditty Other [facility] [employer] Other 02-02-2022 15:01-0400 Body height 154.94 cm [employer] Vivimindy Chungmer Work Phone: [facility] 02-02-2022 12:00-0400 Body temperature 98 [degF] [employer] Vivi Faviola Work Phone: [facility] 02-02-2022 12:00-0400 Diastolic blood pressure 114 mm[Hg] [employer] Vivi Faviola Work Phone: [facility] 02-02-2022 12:00-0400 Heart rate 91 /min [employer] Vivi Faviola Work Phone: [facility] 02-02-2022 12:00-0400 Respiratory rate 18 /min [employer] Vivi Faviola Work Phone: [facility] 02-02-2022 12:00-0400 SaO2% (BldA) [Mass fraction] 99 % [employer] Vivi Faviola Work Phone: [facility] 02-02-2022 12:00-0400 Systolic blood pressure 149 mm[Hg] [employer] Vivi Faviola Work Phone: [facility] 02-02-2022 06:00-0400 Body weight 91 kg [employer] Vivi Faviola Work Phone: [facility] 01-31-2022 18:18-0400 Body mass index (BMI) [Ratio] 38.1 kg/m2 [employer] Vivi Faviola Work Phone: [facility] 01-31-2022 07:55-0400 25 1 Wilfredo Latham DO Work Phone: [facility] DO Work Phone: Comment on above: [id number] Encounters Encounter Date Encounter Type Care Provider Facility Start: 04-09-2024 End: 04-09-2024 ambulatory NIKO TORREZ Not Available Start: 01-08-2024 End: 01-08-[facility]24 [facility] Start: 09-04-2023 End: 09-04-2023 ambulatory Jose Carmona Facility:[facility] Start: 09-04-2023 End: 09-04-2023 Admission to same day surgery center [employer] Vivi Faviola Work Phone: [facility] Work Phone: Start: 09-04-2023 End: 09-04-2023 ambulatory [employer] Vivi Salmeron Work Phone: [facility] Work Phone: Start: 08-02-2023 End: 08-02-2023 ambulatory Jose Carmona Other [facility] [employer] Other Start: 08-02-2023 FQ[facility] visit new patient Jose Carmona [facility] Start: 04-06-2023 End: 04-06-2023 [facility] Start: 03-02-2023 Rx Renewal Wilfredo Ricci n DO Work Phone: -[facility] DO Work Phone: Start: 01-17-2023 End: 01-18-2023 ambulatory VISHAL FOWLER Facility:[facility] Start: 01-03-2023 End: 01-04-[address] DOCTOR HANNAH Facility:[facility] Start: 12-17-2022 End: 12-18-2022 ambulatory WALE OCAMPO Facility:[facility] Start: 10-30-2022 End: 10-31-2022 ambulatory VIVI SALMERON Facility:[facility] Start: 08-03-2022 End: 08-04-2022 ambulatory DASHAWN GREENWOOD Facility:[facility] Start: 08-02-2022 End: 08-03-2022 ambulatory DASHAWN GREENWOOD Facility:[facility] Start: 06-19-2022 End: 06-19-[address] WILBERT PHAM . Facility:[facility] Start: 06-19-2022 End: 06-20-2022 ambulatory VIVI SALMERON Facility:[facility] Start: 06-14-2022 End: 06-15-2022 ambulatory Caleb Colunga Facility:[facility] Start: 02-23-2022 Encounter for preprocedural laboratory examination VISHAL FOWLER [facility] Start: 02-23-2022 End: 02-24-2022 ambulatory VISHAL FOWLER Facility:[facility] Start: 02-21-2022 End: 02-22-2022 ambulatory VISHAL FOWLER Facility:[facility] Start: 02-21-2022 End: 02-22-2022 Encounter for preprocedural laboratory examination VISHAL FOWLER Facility:[facility] Start: 02-08-2022 [facility]UV, Provider: Shanta Lentz, Status: Pen, Time: 12:00 PM Wilfredo Latham DO Work Phone: [facility] DO Work Phone: Start: 02-03-2022 End: 02-04-[address] YOEL SALINAS . Facility:[facility] Start: 02-02-2022 Message Wilfredo Serrano n DO Work Phone: [facility] 250 DO Work Phone: Start: 01-31-2022 End: 02-02-2022 Evaluation and management of inpatient [employer] Vivi Salmeron Work Phone: [facility] Start: 01-31-2022 End: 01-31-[address] KEYSHAWN ESCOBEDO Facility:[facility] Procedures Date Procedure Procedure Detail Performing Clinician Start: 01-08-2024 Follow-up visit Follow-up VISHAL FOWLER Start: 09-04-2023 Esophagogastroduodenoscopy [employer] Vivi Salmeron Work Phone: Cardiac catheterization Will herb Yeison DO Work Phone: Cholecystectomy Wilfredo estrella DO Work Phone: Hysterectomy Wilfredo Latham DO Work Phone: Plan of Treatment Date Care Activity Detail Author Start: 09-04-2023 [facility] Start: 02-13-2022 [facility], Provider: Wilfredo Latham, Status: Pen, Time: 10:00 AM [facility], Provider: Wilfredo Latham, Status: Pen, Time: 10:00 AM [facility] 250 DO Work Phone: Start: 02-08-2022 [facility], Provider: Shanta Lentz, Status: Pen, Time: 12:00 PM [facility], Provider: Shanta Lentz, Status: Pen, Time: 12:00 PM [facility] 250 DO Work Phone: Patient Education Hiatal Hernia (DC) [facility] Work Phone: Patient referral [facility] Work Phone: Immunizations Immunization Date Immunization Notes Care Provider Mazin damico 09-22-2021 Moderna COVID-19 Vac cine 100 MCG/0.5ML Intramuscular Suspension Wilfredo Latham DO Work Phone: [facility] 10-29-2020 Moderna COVID-19 Vac cine 100 MCG/0.5ML Intramuscular Suspension Wilfredo Latham DO Work Phone: [facility] 09-29-2020 Moderna COVID-19 Vac cine 100 MCG/0.5ML Intramuscular Suspension Wilfredo Latham DO Work Phone: [facility] 07-01-2020 influenza, high dose seasonal, preservative-free Wilfredo Latham DO Work Phone: [facility] 250 DO Work Phone: 09-02-2014 tetanus toxoid, redu sylvain diphtheria toxoid, and acellular pertussis vaccine, adsorbed Wilfredo Latham DO Work Phone: [facility] Work Phone: Payers Date Payer Category Payer Self-pay [id number] 2022 Medicaid [id number] 1975 Unknown [id number] 1975 Unknown [id number] 1975 Unknown [id number] 1975 Unknown [id number] 1975 Unknown [id number] 1975 Unknown [id number] 1975 Unknown [id number] 1975 Unknown [id number] 1975 Unknown [id number] 1975 Unknown [id number] 1975 Unknown [id number] 1975 Unknown [id number] [id number] 1975 Unknown [id number] [id number] 1975 Unknown [id number] [id number] 1958 Medicaid [id number] Unknown [employer] Unknown [id number] Social History Date Type Detail Facility Start: 02-01-2022 End: 09-04-2023 Tobacco smoking status NHIS Smoker (finding) [facility] Start: 1975 Sex Assigned At Female F [facility] Sex Assigned At Sex Assigned At Bir th [facility] [employer] Other Goals Date Patient Goal Desired Activity /State Functional Status Date Assessment Result Facility 02-02-2022 Functional status Patient at Baseline [facility] Work Phone: Mental Status Date Assessment Result Facility 02-02-2022 Cognitive function Cognitive Sta tus Patient at Baseline [facility] Work Phone: Clinical Notes 01-31-2022 to 01-08-2024 Note Date & Type Note Facility 01-08-2024 Note Cardiology Clinic No te Subjective Jennifer Diaz is a 48 y.o. year old female patient with NICM HFimpEF, non-obstructive CAD, HTN, type 2 diabetes, and hyperlipidemia. She presents today for follow up. Overall, patient states that she has been doing well from a cardiac standpoint. Patient denies any chest pain or shortness of breath. Patient denies any lower extremity edema, orthopnea, or proximal nocturnal dyspnea. No near-syncope or syncope. No dizziness or lightheadedness. She is taking her blood pressure medications as prescribed. 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 Obesity Pneumonia Pruritus of vulva Syncope and collapse Vaginitis and vulvovaginitis Chronic systolic heart failure ([facility]) Mixed hyperlipidemia TIA (transient ischemic attack) Chest pain Cigarette smoker Diabetes mellitus type II, uncontrolled Food insecurity RAE (generalized anxiety disorder) Diabetic foot infection ([facility]) detention current use of insulin ([facility]) Tobacco abuse Type 2 diabetes mellitus with hyperglycemia ([facility]) Family History Problem Relation Name Age of Onset Arthritis Mother Hypertension Mother Hyperlipidemia Mother Diabetes Paternal Grandmother Other (malignant mesothelioma) Paternal Grandfather Social History Tobacco Use Smoking status: Every Day Packs/day: .5 Types: Cigarettes Start date: 2002 Smokeless tobacco: Never Substance Use Topics Alcohol use: Yes Comment: occasional Drug use: Never Review of Systems Cardiovascular: Positive for claudication and leg swelling. Negative for chest pain, dyspnea on exertion, irregular heartbeat, near-syncope, orthopnea, palpitations, paroxysmal nocturnal dyspnea and syncope. Objective Visit Vitals BP 110/80 (BP Location: Left arm, Patient Position: Sitting, BP Cuff Size: Adult) Pulse 86 Resp 12 Ht 1.549 m (5' 1 ) Wt 73.8 kg (162 lb 12.8 oz) SpO2 98% BMI 30.76 kg/m??? Smoking Status Every Day BSA 1.78 m??? Physical Exam General: Awake, alert, good [...] deficits Allergies Allergies Allergen Reactions Keflex [Cephalexin] Penicillins Rash Medications Current Outpatient Medications: albuterol 90 mcg/actuation inhaler, Inhale 2 puffs every 6 (six) hours if needed., Disp: , Rfl: carvedilol (Coreg) 25 mg tablet, Take 1 tablet (25 mg) by mouth with breakfast and with evening meal., Disp: 180 tablet, Rfl: 3 furosemide (Lasix) 20 mg tablet, Take 1 tablet (20 mg) by mouth once daily as directed., Disp: 90 tablet, Rfl: 3 glipiZIDE (Glucotrol) 5 mg tablet, 5 mg., [...] meal., Disp: , Rfl: metoprolol succinate XL (Toprol-XL) 100 mg 24 hr tablet, take 1 tablet by mouth every morning - DO NOT CRUSH OR CHEW, Disp: 90 tablet, Rfl: 3 nitroglycerin (Nitrostat) 0.4 mg SL tablet, Place 0.4 mg under the tongue every 5 (five) minutes if needed., Disp: , Rfl: omeprazole (PriLOSEC) [address] capsule, Take 40 mg by mouth in the morning and at bedtime. Do not crush or chew., Disp: , Rfl: pen needle, diabetic (BD Ultra-Fine Maribell Pen Needle) 32 gauge x 5/32 needle, BD Ultra-Fine Maribell Pen Needle 32 gauge x /32 , Disp: , Rfl: sacubitril-valsartan (Entresto) 24-26 mg tablet, Take 1 tablet by mouth in the morning and at bedtime., Disp: 60 tablet, Rfl: 11 valACYclovir (Valtrex) 500 mg tablet, Take 500 mg by mouth in the morning and at bedtime., Disp: , Rfl: venlafaxine XR (Effoxor-XR) 150 mg 24 hr capsule, Take 150 mg by mouth in the morning. Do not crush or chew., Disp: , Rfl: aspirin 81 mg EC tablet, take 1 tablet by mouth every morning, Disp: 90 tablet, Rfl: 3 atorvastatin (Lipitor) 80 mg tablet, take 1 tablet by mouth every morning, Disp: 90 tablet, Rfl: 3 carvedilol (Coreg) 12.5 mg tablet, TAKE 1 AND 1/2 TABLETS BY MOUTH TWICE A DAY (Patient not taking: Reported on 01/08/2024), Disp: 270 tablet, Rfl: 3 clopidogrel (Plavix) 75 mg tablet, take 1 tablet (more content not included)... [facility] 10-17-2023 Note This report has been cancelled. [facility] 10-17-2023 Note This report has been cancelled. [facility] 10-17-2023 Note This report has been cancelled. [facility] 10-17-2023 Note This report has been cancelled. [facility] 09-04-2023 Procedure note [facility] 08-02-2023 Evaluation note Encounter Date Diagnosis Assessment Notes Aug, Chronic gastritis, presence of bleeding unspecified, unspecified gastritis type (ICD-10 - K29.50) Pt states everytime she eats something she has cramping and diarrhea. Pt to proceed with EGD Pt to keep taking Omeprazole 40 mg Aug, Dysphagia, unspecified type (ICD-10 - R13.10) Aug, Dyspepsia (ICD-10 - R10.13) Aug, Early satiety (ICD-10 - R68.81) [employer] Other 07-07-2023 NoteCardiology Clinic Note Subjective Jennifer [...] (generalized anxiety disorder) Diabetic foot infection (CMS/HCC) detention current use of insulin ([facility]) Tobacco abuse Type 2 diabetes mellitus with hyperglycemia ([facility]) Family History Problem Relation Name Age of [...] with evening meal., Disp: (more content not included)...[facility]07-07-2023 NotePatient here for 3 mo follow up. Had echo in December 2022. Denies chest pain. Still gets SOB with exertion and claudication.[facility]07-07-2023 NotePatient here for 3 mo follow up. Had echo in December 2022. Denies chest pain. Still gets SOB with exertion and claudication. Review of Systems Cardiovascular: Positive for claudication and dyspnea on exertion. Neurological: Positive for dizziness and light-headedness. All other systems reviewed and are negative.[facility] 02-02-2022 Progress note Author Surjit Latham [facility] February 02, 2022 2:22pm Note Date/Time February 02, 2022 1:43pm [facility] [address] [place] [address] Cardiology Progress Note Signed Patient: Jennifer Diaz MR#: [id number] : 1975 Acct:[id number] Age/Sex: 46 / F Adm Date: 2 Loc: Room: [address] [place] [address] Type : ADM INOo Attending Dr: Zahraa Ferrara MD Copies to: ~ Date of Service: 02/02/2022 Subjective Principal diagnosis: Cardiomyopathy Interval history: Patient is stable and improved with no significant orthopnea, shortness of breath at this time denies any chest discomfort. We were able to successfully retrieve the October 2018 cardiac catheterization and echo from [facility] revealing 40% proximal LAD disease, otherwiseminimal circumflex [...] telemetry Documented By: Surjit Latham DO 02/02/22 7053 Signed By: <Electronically signed by Surjit Latham DO> 02/02/22 1425 [facility] Work Phone: 1(290) 812-279005-04-2022 Consult note Author Surjit Latham [facility] February 01, 2022 5:58pm Note Date/Time February 01, 2022 5:53pm [facility] [address] [place] [address] Cardiology Consult Note Signed Patient: Jennifer Diaz MR#: [id number] : 1975 Acct:[id number] Age/Sex: 46 / F Adm Date: 2 Loc: Room: [address] [place] [address] Type : ADM INOo Attending Dr: Zahraa Ferrara MD Copies to: Vivi Salmeron, MD Surjit Oliveira DO~ Cardiology HPI History of Present Illness [...] with a PMHx of CAD, 2 previous NY's, T2DM presented to the ED after a syncopal episode. She states that she has previously had 2 cardiac catheterizations in June 2018 and Kristel of 2019 without any stents placement for acute coronary events. Presently, she initially presented to [facility] after her syncopal episode at work, where [...] angina. Her last cardiology visit was in [place] in 2019. Patient is a diabetic, active [...] arrhythmias. Recommendations: Obtain cardiac catheterization films from [facility] from 2018 and 2019. We will [...] documented Endocrine Endocrine: Reports as per HPI PMFSH Vaccinated for COVID-19?: Yes Medical History [...] x10E3/uL Lymph # (Auto) 2.2 (1.00-4.8) x10E3/uL [place] # (Auto) 0.7 (0.0-0.8) x10E3/uL Eos # [...] ml @ 100 mls/hr IV .Q10H CARLY Rx#:[id number] Oral 350 / 350 300 / 300 [...] <Electronically signed by Surjit Latham DO> 02/01/22 1758 [facility] Work Phone: 1(932) 686-346305-04-2022 Progress note Author Zahraa Ferrara [facility] February 01, 2022 3:49pm Note Date/Time February 01, 2022 3:45pm [facility] [address] [place] [address] Hospitalist Progress Note Signed Patient: Jennifer Diaz MR#: [id number] : 1975 Acct:[id number] Age/Sex: 46 / F Adm Date: 2 Loc: Room: [address] [place] [address] Type : ADM INOo Attending Dr: Zahraa [...] Laboratory work up and Imaging studies reviewed secured entrance monitor - reviewed EKG - personally reviewed by [...] Insuln.Pen SUBCUT 01/31/23 21:59 Not Given TID.[facility] Protocol Insulin Detemir 45 units [...] 01/31/22 21:00 02/01/22 09:39 Omeprazole 20 Mg Capsule. PO 01/31/23 20:59 40 mg BID CARLY [...] <Electronically signed by Zahraa Ferrara MD> 02/01/22 154 [facility] Work Phone: 1(624) 177-377905-03-2022 History and physical note Author Zahraa Ferrara [facility] January 31, 2022 8:23pm Note Date/Time January 31, 2022 8:18pm [facility] [address] [place] [address] Hospitalist H&P Signed Patient: Jennifer Diaz MR#: [id number] : 1975 Acct:[id number] Age/Sex: 46 / F Adm Date: 2 Loc: Room: [address] [place] [address] Type : ADM IN Attending Dr: Zahraa [...] time she presented with syncopal episode 2 [facility] emergency room where she was found to [...] <Electronically signed by Zahraa Ferrara MD> 01/31/222022 [facility] Work Phone: Discharge summary Author Zahraa Ferrara [facility] February 04, 2022 4:17pm Note Date/Time February 02, 2022 3:28pm [facility] [address] [place] [address] Discharge Summary Signed Patient: Jennifer Diaz MR#: [id number] : 1975 Acct:[id number] Age/Sex: 46 / F Adm Date: 2 Loc: Room: [address] [place] [address]: Zahraa Ferrara MD Copies to: Vivi Salmeron, KARINA Ferrara MD~ Providers Date of Discharge: 02/02/22 Discharging Provider: Zahraa Ferrara Primary Care Provider: Vivi Samleron Consults: 05/03/22 20:06 Consult to Cardiology Routine Discharge Diagnosis (1) Troponin I above reference range: (2) T2DM (type 2 diabetes mellitus): (3) Ischemic cardiomyopathy: (4) Near syncope: Final Diagnosis Final Discharge Diagnosis: Non-ST elevation [place] type II; plan for cardiac catheterization as outpatient Newly found chronic systolic congestive heart failure with ejection fraction 25% Hypertension Diabetes mellitus type 2 Hypomagnesemia, replaced Summary Hospital Course Hospital course: 46 years old female was transferred with abnormal cardiac enzymes and non-ST elevation [place] type II. Patient was admitted to rule [...] with nonspecific findings. She was evaluated by child watch attendant and recommended cardiac catheterization as outpatient. She [...] Creatinine Clear 104.27, Sodium 137, Potassium 4.8, [id number], Carbon Dioxide 25.8, BUN 7 L, Creatinine [...] are scheduled for outpatient Cardiac Cath at [facility] on 02/13/2022t 8:30am; please follow instructions You are scheduled for outpatient lab (pre surgery testing)work prior to Cardiac Cath at [facility] on 02/09/2022 at 8:30am Stand Alone Forms: [...] signed by Zahraa Ferrara MD> 02/04/22 1617 [facility] Work Phone: Evaluation note* Diagnosis Onset Date Resolution Status Ischemic cardiomyopathy acut e Near syncope acute T2DM (type 2 diabetes mellitus) acute Troponin I above reference range acute [facility] Work Phone: Evaluation noteNo assessment information available [facility] Work Phone: History and physical note Author Jose Carmona [facility] September 04, 2023 1:10pm Note Date/Time September 04, 2023 1 :10pm [facility] [address] [place] [address] Gastroenterology H&P Signed Patient: Jennifer Diaz MR#: [id number] : 1975 Acct:[id number] Age/Sex: 47 / F Adm Date: 3 Loc: Room: Type: [facility] Attending Dr: Jose Carmona MD Copies to: [...] signed by Jose Carmona MD> 09/04/23 1310 [facility] Work Phone: History general Narrative - Reported* Type Description Date Medical History high blood pressure Medical History diabetes Surgical History gall bladder Surgical History boil removed from stomach Surgical History keyloids removed from behind le ft ear and left wrist Hospitalization History possible heart attack Hospitalization History blood pressure [facility] [employer] [facility] Other Hospital Discharge instructions Additional Instructions You are scheduled for outpatient Cardiac Cath at [facility] on 02/13/2022 at 8:30am; please follow instructions You are scheduled for outpatient lab (pre surgery testing)work prior to Cardiac Cath at [facility] on 02[facility]09[facility]20[facility] Hospital Discharge instructions Additional Instructions [...] NOT operate machinery such as power tools, [employer], [employer], [employer]ers[employer]coming machines, etc. for 24 hours. - Avoid [...] problems. -Follow up with PCP. -Office number [phone].[facility] Work Phone: Summary Purpose Family History No [...] DATE CREATED AUTHOR AUTHOR'S ORGANIZ ATION 12/11/2021 [facility] DATE CREATED AUTHOR AUTHOR'S ORGANIZ ATION 03/23/2022 [facility] DATE CREATED AUTHOR AUTHOR'S ORGANIZ ATION 01/22/2023 [facility] DATE CREATED AUTHOR AUTHOR'S ORGANIZ ATION 11/09/2023 [facility] DATE CREATED AUTHOR AUTHOR'S ORGANIZ ATION 03/27/2024 [facility] DATE CREATED AUTHOR AUTHOR'S ORGANIZ ATION 04/16/2024 [facility] EPIC Care Teams (unrecognized sec tion and content) [...] BE BASED ON THE PRIMARY CLINICAL RECORDS. [facility]. provides no warranty or guarantee of the accuracy or completeness of information in this document.
[2024-05-14 11:54] LABS: Estimated Average Glucose 200 mg/dL; Glycohemoglobin A1C 8.6 % (4.5-6.2)
== END 2024-05-14 09:33 | disposition home or self-care (01) ==
LOC: LAB 09:34
PROVIDERS: PCP Nurse Practitioner Family; Visit Provider Nurse Practitioner Family
DX: E11.65 Type 2 diabetes mellitus with hyperglycemia (principal)
CPT/HCPCS: 36415; 83036

== ENCOUNTER 2024-07-09 13:45 | Outpatient (OUT) | payer MEDICAID, BC, SELFPAY ==
[2024-07-09 14:51] LABS: Anion Gap 12.9; BUN Creatinine Ratio 24.1; Calcium 9.7 mg/dL (8.5-10.1); Carbon Dioxide 27.3 mmol/L (21.0-32.0); Chloride 99 mmol/L (98-107); Estimated GFR (African America >60 (>=60 mL/min/1.73m^2); Estimated GFR (Non-African Ame 52 (>=60 mL/min/1.73m^2); Glucose 191 mg/dL (74-106); Potassium 4.2 mmol/L (3.5-5.1); Sodium 135 mmol/L (136-145)
== END 2024-07-09 13:46 | disposition home or self-care (01) ==
LOC: LAB 13:48
PROVIDERS: PCP Nurse Practitioner Family; Visit Provider Nurse Practitioner Family
DX: I50.22 Chronic systolic (congestive) heart failure (principal)
CPT/HCPCS: 36415; 80048

== ENCOUNTER 2024-11-17 04:53 | Emergency (ER) | payer MEDICAID, SELFPAY ==
--- OUTSIDE RECORDS SUMMARY | 2024-11-17 05:04 | XMS_ITS | CCD ---
Author Organization [facility] Care Team Providers Care Drama Director Name Role Phone JOSE Salmeron Primary Care Provider MD Zahraa Ferrara Admit Provider MD Zahraa Ferrara Attending Provider VISHAL FOWLER Attending Unavailable YOEL SALINAS Primary Care Unavailable SELF, REFERRED Referring Unavailable ALGHOTHANI, MOHAMAD Admitting Unavailable LENNY ., DR DIALLO Consulting Unavailable HOY ., DR DIALLO Attending Unavailable HOY ., DR DIALLO Admitting Unavailable FAVIOLA, VIVI Primary Care Unavailable ALANA, DR BRYCE Ramirez Consulting UnavailDELIA Gibbs Consulting Unavailable LILA KAISER Consulting Unavailable NESS BRAR Consulting Unavailable ANKIT ., DR ATKINS Consulting Unavailable FAVIOLA, VIVI Primary Care Unavailable ANKIT ., DR ATKINS Attending Unavailable ANKIT ., DR ATKINS Admitting Unavailable VIVI SALMERON Consulting Unavailable FAVIOLA, VIVI Primary Care Unavailable [...] Attending Unavailable MISC, DR DORMAN Admitting Unavailable ZIWILLIS, DR KEYSHAWN Liriano Consulting Unavailable VIVI SALMERON Consulting Unavailable FAVIOLA, VIVI Primary Care Unavailable [...] Primary Care Unavailable SANTOSH DANIEL Consulting Unavailable FANNY, DR KEYSHAWN Liriano Consulting Unavailable JUDY ., DEMOND Attending Unavailable JUDY ., DEMOND Admitting Unavailable FAVIOLA, VIVI Primary Care Unavailable KATHY RAMÍREZ Consulting Unavailable JUDY ., DEMOND Consulting Unavailable WALE OCAMPO Consulting Unavailable VANNESSA ., BABAK Attending Unavailable VANNESSA ., BABAK Admitting Unavailable FAVIOLA, VIVI Primary Care Unavailable VANNESSA ., BABAK Consulting Unavailable DIAB ., ELIZABETH Consulting Unavailable Jose Carmona Unavailable JOSE Salmeron Vivi Dalila Primary Care Provider MD Jose Carmona Attending Provider [phone] Jose Carmona Attending Unavailable Jose Carmona Admitting Unavailable Faviola, Vivi Dalila Primary Care Unavailable NIKO TORREZ Attending Unavailable SYLVIA KNOX Attending Unavailable VISHAL FOWLER Attending Unavailable VISHAL FOWLER Attending Unavailable Allergies Allergy Classification Reported Allergen(s) Allergy Type Date of Onset Reaction(s) Facility (5 sources) Cephalexin; Translations: [cephalexin] Drug Allergy 01-31-2022 [facility] (5 sources) Penicillins; Translations: [Penicillins] Allergy to drug (finding) 01-31-2022 [facility] (3 sources) Cephalexin Drug Allergy 10-28-2018 Unknown [facility] Repository (2 sources) Penicillin Drug Allergy Unknown [facility] Repository (1 source) Cephalexin Drug Allergy 08-02-2023 [facility]ository (1 source) Penicillins Drug allergy (disorder) 08-02-2023 [facility] Medications Current Medications Medication Drug Class(es) [...] daily Spironolactone Active 25 MG PO Daily February 02, 2022 1:44pm [...] 02, 2022 1:57pm take 1 capsule by [facility] once daily Omeprazole 40 MG 1 capsule [...] Onset: 06-16-2022 Chronic Congestive heart failure; nonhypertensive (14 sources) Acute combined systolic (congestive) and diastolic [...] Translations: [Unspecified chronic gastritis without bleeding] Chronic Mood disorders (1 source) Major depressive disorder, single episode, unspecified; Translations: [SULLY DEPRESS D/O SINGLE EPIS UNS] Onset: 06-16-2022 Chronic Mood disorders (1 source) Mood disorders; Translations: [DEPRESSION UNSPECIFIED] Onset: 12-20-2022 Nonspecific chest pain (5 sources) Chest pain, unspecified; Translations: [Other chest pain] Onset: 06-16-2022 Episodic Other aftercare (1 source) retirement (current) use of aspirin; 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] Onset: 12-20-2022 Episodic Other aftercare (1 source) 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 She describes the chest pain as a stabbing pain under her right breast that comes up . She said it's a different pain than her prior IN. Pain is not constant, and denies SOB. 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 I asked if they could do an ECG. Apparently someone told her they couldn't do one since she is not a patient there. I told her I'm going to fax them an order for one and if they refuse to do it, I would call and speak with someone there. Order faxed to [phone]. [facility] 36on 07-24-2024 36 Patient called back and I relayed message to her. She verbalized understanding and will stop hydrochlorothiazide. Normal [facility] 36 Regarding lab result s from 07/09/2024: Sylvia Knox, IDA Tejeda MA Her labs show she's on the dry side/dehydrated. I would recommend she hold the hydrochlorothiazide and take an extra tablet of lasix as needed for leg swelling. If she's taking the extra dose more often than not, then she should let us know so we can repeat lab work to make sure she isn't getting dehydrated. Thanks! for patient to return my call. Normal [facility] 37on 07-09-2024 37 *Stop Metoprolol Normal [facility] Office Visiton 07-09-2024 Follow-up visit [id number] Kareem Diazcee Adam 1975 Provider Department Center 07/09/2024 166-SYLVIA KNOX Family History Problem Relation Age of Onset Arthritis Mother Hypertension Mother Hyperlipidemia Mother Diabetes Paternal Grandmother Other Paternal Grandfather Family Status - Relation Status Age at Mother Paternal Grandmother Paternal Grandfather Level of Service:09888 [place] OFFICE/OUTPATIENT ESTABLISHED MOD MDM 30 MIN Reason for Visit and Comments: Congestive Heart Failure [127] Hypertension [165671] [facility] Office Visiton 01-08-2024 Follow-up visit [id number] MelissaJennifer Adam 1975 Provider Department Center 01/08/2024 3848-VISHAL FOWLER MADAN Nelson Family History Problem Relation Age of Onset Arthritis Mother Hypertension Mother Hyperlipidemia Mother Diabetes Paternal Grandmother Other Paternal Grandfather Family Status - Relation Status Age at Mother Paternal Grandmother Paternal Grandfather Level of Service:73540 [place] OFFICE/OUTPATIENT ESTABLISHED LOW MDM 20 MIN Reason for Visit and Comments: Follow-up [608349] [facility] Glucose Glucometer (BldC) [M ass/Vol]Ordered By: Jose Carmona on 09-04-2023 Glucose [Mass/Vol] 135 mg/dL [facility] Comment on above: Random Glucose Refer ence Range is dependent on time and content of last meal. Glucose of more than 200 mg/dL in a nonstressed, ambulatory subject supports the diagnosis of Diabetes Mellitus. Glucose Poct Glucometerson 1 11-05-2022 Commemt1 Glu2: Cleaned Meter Normal [facility] Comment on above: Result Comment: PERF ORMED BY: [address] [address] PATHOLOGIST [employer] MELTER FRANKIE QUEZADA M.D. Performed By: #### G LULS #### Point of Care testing , Glucose [Mass/Vol] 135 mg/dL Normal [facility] Comment on above: Result Comment: [facility] Glucose Reference Range is dependent on time and content of last meal. Glucose of more than 200 mg/dL in a nonstressed, ambulatory subject supports the diagnosis of Diabetes Mellitus. Performed By: #### G LULS #### Point of Care testing , HCG ( test) IAmert d Ql (U)Ordered By: Jose Carmona on 09-04-2023 HCG ( test) Ql (U) Negative [facility] HCG,Urineon 09-04-2023 Beta HCG ( test) Ql (U) Negative Normal [facility] Comment on above: Result Comment: PERF ORMED BY: [place] [address] PATHOLOGIST [employer] FRANKIE QUEZADA M.D. Performed By: #### U HCG #### [place] [id number] [facility] [place] 09-04-2023 L - -------- Specimen: [id number] Received: 09/04/23 Status: CHRIS Maher Num: [id number] Spec Type: Surgical Subm Dr: Jose Carmona MD Tissues: A Small Intestine - Biopsy/Polyp (SMALL BOWEL BX) B GASTRIC FOR HP (GASTRIC HP) Procedures: HE/4, Gross/Micro L4/2, H PYLORI, IHC First AB -------- Age/ Patient Sex Location Account Attending Physician -------- Jennifer Diaz 47/F [id number] Jose Carmona MD -------- SPEC NUM: [id number] RECD: 09/04/23 STATUS: CHRIS KAIN NUM: [id number] DANUTA: 09/04/23- SUBM DR: Jose Carmona MD ENTERED: 09/04/23 [facility] DR: VIKAS TYPE: Surgical DEPT: S ORDERED: [...] of and gastric is one -------- Specimen: [id number] Received: 09/04/23 Status: CHRIS Maher Num: [id number] Spec Type: Surgical Subm Dr: Jose Cramona MD Tissues: A Small Intestine - Biopsy/Polyp (SMALL BOWEL BX) B GASTRIC FOR HP (GASTRIC HP) Procedures: HE/4, Gross/Micro L4/2, H PYLORI, IHC First AB -------- Patient: Jennifer Diaz [id number] (Continued) -------- Specimen: [id number] Received: 09/04/23 (Continued) Gross Description (Continued) Signed (signature on file) Dimple Ward MD 09/05/231999 -------- Specimen: [id number] Received: 09/04/23 Status: CHRIS Maher Num: [id number] Spec Type: Surgical Subm Dr: Jose Carmona MD Tissues: A Small Intestine - Biopsy/Polyp (SMALL BOWEL BX) B GASTRIC FOR HP (GASTRIC HP) Procedures: HE/4, Gross/Micro L4/2, H PYLORI, IHC First AB -------- Patient: Jennifer Diaz [id number] (Continued) -------- Specimen: [id number] Received: 09/04/23 (Continued) Gross Description (Continued) pepper tissue measuring 0.5 x 0.3 x 0.2 cm. Entirely submitted in one cassette labeled B1. Microscopic Description A. Two H E slides reviewed. The microscopic examination confirms the diagnosis. B. Two H E slides reviewed. The microscopic examination confirms the diagnosis. CPT Codes [id number] -------- -------- Specimen: [id number] Received: 09/04/23 Status: PACHECOTrevor Kain Num: [id number] Spec Type: Surgical Subm Dr: Jose Carmona MD Tissues: A Small Intestine - Biopsy/Polyp (SMALL BOWEL BX) B GASTRIC FOR HP (GASTRIC HP) Procedures: HE/4, Gross/Micro L4/2, H PYLORI, IHC First AB -------- Patient: Jennifer Diaz [id number] (Continued) -------- Signed (signature on file) Dimple Ward MD 09/05/231999 Normal [facility] No Panel InformationOrdered By: Jose Carmona on 09-04-2023 Bedside Glucose Comment Glu2: cleaned meter [facility] ECHOCARDIO M/2D COMPLETEon 0 01-17-2023 ECHOCARDIO M/2D COMPLETE Patient: JENNIFER DAIZ Exam Date: 01/17/2023 : 1975 Gender:F Ordering : VISHAL FOWLER Admission #: [id number] Family : Order #: [id number] CLICK HERE TO VIEW EXAM ECHOCARDIOGRAM REPORT [...] Montez M.D. on 01/17/2023 at 17:32 Normal [facility] US ARTERY LEG BILon 01-03- 23 US ARTERY LEG SANDRA EXAMINATION: US [...] Date: 2023-01-03 11:24 [address] [facility] T3, TOTAL (TRIIODOTHYRONINE) on 12-19-2022 T3, TOTAL 107 ng/dL Normal 71-[address] [facility] Comment on above: Performed By: #### T 3TOTAL #### [facility] [address] [place] [address] Dr. Clem Ward CBC AUTO DIFFon 12-18-2022 BASO # 0.0 103/ul Normal 0.0-0.[address] [facility] Comment on above: Performed By: #### P OCGLUC #### [facility] [address] [place] [address] Dr. Clem Ward Basophils/100 WBC (Bld) 0.1 % Critically low 0.2-2.[address] [facility] Comment on above: Performed By: #### P OCGLUC #### [facility] [address] [place] [address] Dr. Clem Ward EO # 0.3 103/ul Normal 0.0-0.[address] [facility] Comment on above: Performed By: #### P OCGLUC #### [facility] [address] [address] [address] Clem Ward Eosinophils/100 WBC (Bld) 3.7 % Normal 0.9-7.0 [facility] Comment on above: Performed By: #### P OCGLUC #### [facility] [address] [place] [address] Dr. Clem Ward Erythrocyte distribution width (RBC) [Ratio] 13.7 % Normal 11.0-15.0 [facility] Comment on above: Performed By: #### P OCGLUC #### [facility] [address] [place] [address] Dr. Clem Ward Hematocrit (Bld) [Volume fraction] 38.3 % Normal 36.0-48.0 [facility] Comment on above: Performed By: #### P OCGLUC #### [facility] [address] [place] [address] Dr. Clem Ward Hemoglobin (Bld) [Mass/Vol] 12.0 g/dL Normal 12.0-16.0 [facility] Comment on above: Performed By: #### P OCGLUC #### [facility] [address] [place] [address] Dr. Clem Ward IG # 0.01 10e3/ul Normal 0.00-0.03 [facility] Comment on above: Performed By: #### P OCGLUC #### [facility] [address] [place] [address] Dr. Clem Ward IG % 0.1 % Normal 0.0-0.5 [facility] Comment on above: Performed By: #### P OCGLUC #### [facility] [address] [place] [address] Dr. Clem Ward LYMPH # 2.8 103/ul Normal 1.2-3.8 [facility] Comment on above: Performed By: #### P OCGLUC #### [facility] [address] [place] [address] Dr. Clem Ward Lymphocytes/100 WBC (Bld) 37.1 % Normal 20.5-60.0 [facility] Comment on above: Performed By: #### P OCGLUC #### [facility] [address] [address] [address] Clem Ward MANUAL DIFF REQ NO [facility] Comment on above: Performed By: #### P OCGLUC #### [facility] [address] [address] [address] Clem Ward MCH (RBC) [Entitic mass] 26.7 pg Normal 26.7-34.0 [facility] Comment on above: Performed By: #### P OCGLUC #### [facility] [address] [address] [address] Clem Ward MCHC (RBC) [Mass/Vol] 31.3 g/dL Normal 29.9-35.2 [facility] Comment on above: Performed By: #### P OCGLUC #### [facility] [address] [place] [address] Dr. Clem Ward MCV (RBC) [Entitic vol] 85.3 fL Normal 81.0-99.0 [facility] Comment on above: Performed By: #### P OCGLUC #### [facility] [address] [place] [address] Dr. Clem Ward MONO # 0.6 103/ul Normal 0.3-0.8 [facility] Comment on above: Performed By: #### P OCGLUC #### [facility] [address] [place] [address] Dr. Clem Ward Monocytes/100 WBC (Bld) 8.2 % Normal 1.7-12.0 [facility] Comment on above: Performed By: #### P OCGLUC #### [facility] [address] [place] [address] Dr. Clem Ward NEUT # 3.8 103/ul Normal 1.4-6.5 [facility] Comment on above: Performed By: #### P OCGLUC #### [facility] [address] [place] [address] Dr. Clem Ward Neutrophils/100 WBC (Bld) 50.8 % Normal 43.0-75.0 [facility] Comment on above: Performed By: #### P OCGLUC #### [facility] [address] [place] [address] Dr. Clem Ward Platelet mean volume (Bld) [Entitic vol] 11.2 fL Normal 9.5-13.5 [facility] Comment on above: Performed By: #### P OCGLUC #### [facility] [address] [place] [address] Dr. Clem Ward PLT 254 103/ul Normal 150-[address] [facility] Comment on above: Performed By: #### P OCGLUC #### [facility] [address] [place] [address] Dr. Clem Ward RBC 4.49 106/ul Normal 4.20-5.40 [facility] Comment on above: Performed By: #### P OCGLUC #### [facility] [address] [place] [address] Dr. Clem Ward WBC 7.5 103/ul Normal 4.0-11.0 [facility] Comment on above: Performed By: #### P OCGLUC #### [facility] [address] [place] [address] Dr. Clem Ward DRUG SCREEN RAPID (URINE)on 12-18-2022 AMP Negative Normal NEGATIVE [facility] Comment on above: Performed By: #### P T, PTT, DDIM #### [facility] [address] [place] [address] Dr. Clem Ward BAR Negative Normal NEGATIVE [facility] Comment on above: Performed By: #### P T, PTT, DDIM #### [facility] [address] [place] [address] Dr. Clem Ward BUP Negative Normal NEGATIVE [facility] Comment on above: Performed By: #### P T, PTT, DDIM #### [facility] [address] [place] [address] Dr. Clem Ward BZO Negative Normal NEGATIVE [facility] Comment on above: Performed By: #### P T, PTT, DDIM #### [facility] [address] [place] [address] Dr. Clem Ward PENNY Negative Normal NEGATIVE [facility] Comment on above: Performed By: #### P T, PTT, DDIM #### [facility] [address] [place] [address] Dr. Clem Ward CUT-OFFS SEE BELOW Normal [facility] [...] P T, PTT, DDIM #### [facility] [address] [place] [address] Dr. Celm Ward DRUG CUT HEADER DRUG CLASS TEST SYSTEM CUT-OFF CONCENTRATIONS ARE FOLLOWS: Normal [facility] Comment on above: Performed By: #### P T, PTT, DDIM #### [facility] [address] [place] [address] Dr. Clem aWrd mAMP Negative Normal NEGATIVE [facility] Comment on above: Performed By: #### P T, PTT, DDIM #### [facility] [address] [place] [address] Dr. Clem Ward MTD Negative Normal NEGATIVE [facility] Comment on above: Performed By: #### P T, PTT, DDIM #### [facility] [address] [place] [address] Dr. Clem Ward OPI Negative Normal NEGATIVE [facility] Comment on above: Performed By: #### P T, PTT, DDIM #### [facility] [address] [place] [address] Dr. Clem Ward OXY Negative Normal NEGATIVE [facility] Comment on above: Performed By: #### P T, PTT, DDIM #### [facility] [address] [address] [address] Clem Ward PCP Negative Normal NEGATIVE [facility] Comment on above: Performed By: #### P T, PTT, DDIM #### [facility] [address] [place] [address] Dr. Clem Ward PPX Negative Normal NEGATIVE [facility] Comment on above: Performed By: #### P T, PTT, DDIM #### [facility] [address] [address] [address] Clem Ward TCA Negative Normal NEGATIVE [facility] Comment on above: Performed By: #### P T, PTT, DDIM #### [facility] [address] [place] [address] Dr. Clem Ward THC Positive Abnormal NEGATIVE [facility] Comment on above: Performed By: #### P T, PTT, DDIM #### [facility] [address] [place] [address] Dr. Clem Ward GLYCOHEMOGLOBIN A1Con 2022 ADA RECOMMENDATION SEE BELOW Normal [facility] Comment on above: Result Comment: ADA RECOMMENDED LIMIT 4.0 - 6.0 ADA THERAPEUTIC TARGET < 7.0 ACTION SUGGESTED > 7.0 Performed By: #### A 1C #### [facility] [address] [place] [address] Dr. Clem Ward Glucose [Mass/Vol] 246 mg/dL Normal [facility] Comment on above: Performed By: #### A 1C #### [facility] [address] [place] [address] Dr. Clem Ward HbA1c (Bld) [Mass fraction] 10.2 % Critically high 4.5-6.2 [facility] Comment on above: Performed By: #### A 1C #### [facility] [address] [place] [address] Dr. Clem Ward LIPID PROFILEon 12-18-2022 CHOL-HDL RATIO NORM SEE BELOW Normal [facility] Comment on above: Result Comment: 3.3 - 4.4 LOW RISK 4.4 - 7.1 AVERAGE RISK 7.1 - 11.0 MODERATE RISK >11.0 HIGH RISK Performed By: #### T 3TOTAL #### [facility] [address] [address] [address] Clem Ward Cholesterol [Mass/Vol] 137 mg/dL Normal <=200 [facility] Comment on above: Performed By: #### T 3TOTAL #### [facility] [address] [address] [address] Clem Ward Cholesterol in HDL [Mass/Vol] 31 mg/dL Critically low 40-60 [facility] Comment on above: Performed By: #### T 3TOTAL #### [facility] [address] [address] [address] Clem Ward Cholesterol in LDL [Mass/Vol] 88.8 mg/dL Normal [facility] Comment on above: Performed By: #### T 3TOTAL #### [facility] [address] [address] [address] Clem Ward Cholesterol.total/Chol esterol in HDL [Mass ratio] 4.4 {ratio} Normal [facility] Comment on above: Performed By: #### T 3TOTAL #### [facility] [address] [address] [address] Clem Ward HDL NORMAL > or = 60 mg/dl - LO W CARDIOVASCULAR RISK <40 mg/dl - HIGH CARDIOVASCULAR RISK Normal [facility] Comment on above: Performed By: #### T 3TOTAL #### [facility] [address] [address] [address] Clem Ward LDL CALC NORMAL SEE BELOW [facility] Comment on above: Result Comment: <100 mg/dl OPTIMAL 100 - 129 mg/dl NEAR OR ABOVE OPTIMAL 130 - 159 mg/dl BORDERLINE HIGH 160 - 189 mg/dl HIGH >190 mg/dl VERY HIGH Performed By: #### T 3TOTAL #### [facility] [address] [address] [address] Clem Ward Triglyceride [Mass/Vol] 86 mg/dL Normal <=150 [facility] Comment on above: Performed By: #### T 3TOTAL #### [facility] [address] [address] [address] Clem Ward VLDL CALC 17.2 mg/dL Normal [facility] Comment on above: Performed By: #### T 3TOTAL #### [facility] [address] [place] [address] Dr. Clem Ward PROF 14(COMP METB)on 023 Albumin [Mass/Vol] 3.0 g/dL Critically low 3.4-5.0 [facility] Comment on above: Performed By: #### P T, PTT, DDIM #### [facility] [address] [place] [address] Dr. Clem Ward Albumin/Globulin [Mass ratio] 0.8 {ratio} Normal [facility] Comment on above: Performed By: #### P T, PTT, DDIM #### [facility] [address] [place] [address] Dr. Clem Ward ALP [Catalytic activity/Vol] 97 U/L Normal 46-116 [facility] Comment on above: Performed By: #### P T, PTT, DDIM #### [facility] [address] [place] [address] Dr. Clem Ward ALT [Catalytic activity/Vol] 16 U/L Normal 14-59 [facility] Comment on above: Performed By: #### P T, PTT, DDIM #### [facility] [address] [place] [address] Dr. Clem Ward Anion gap [Moles/Vol] 11.7 mmol/L Normal [facility] Comment on above: Performed By: #### P T, PTT, DDIM #### [facility] [address] [place] [address] Dr. Clem Ward AST [Catalytic activity/Vol] 13 U/L Critically low 15-37 [facility] Comment on above: Performed By: #### P T, PTT, DDIM #### [facility] [address] [place] [address] Dr. Clem Ward Bilirubin [Mass/Vol] 0.2 mg/dL Normal 0.2-1.0 [facility] Comment on above: Performed By: #### P T, PTT, DDIM #### [facility] [address] [address] [address] Clem Ward Calcium [Mass/Vol] 8.0 mg/dL Critically low 8.5-10.1 [facility] Comment on above: Performed By: #### P T, PTT, DDIM #### [facility] [address] [address] [address] Clem Ward Chloride [Moles/Vol] 102 mmol/L Normal 98-107 [facility] Comment on above: Performed By: #### P T, PTT, DDIM #### [facility] [address] [place] [address] Dr. Clem Ward CO2 [Moles/Vol] 27.2 mmol/L Normal 21.0-32.0 [facility] Comment on above: Performed By: #### P T, PTT, DDIM #### [facility] [address] [place] [address] Dr. Clem Ward Creatinine [Mass/Vol] 0.56 mg/dL Normal 0.55-1.02 [facility] Comment on above: Performed By: #### P T, PTT, DDIM #### [facility] [address] [place] [address] Dr. Clem Ward EGFR-AF [place]ER >60 Normal >=60 [facility] Comment on above: Performed By: #### P T, PTT, DDIM #### [facility] [address] [place] [address] Dr. Clem Ward EGFR-NON AF [place] >60 Normal >=60 [facility] Comment on above: Performed By: #### P T, PTT, DDIM #### [facility] [address] [place] [address] Dr. Clem Ward Globulin (S) [Mass/Vol] 3.6 g/dL Normal [facility] Comment on above: Performed By: #### P T, PTT, DDIM #### [facility] [address] [place] [address] Dr. Clem Ward Glucose [Mass/Vol] 277 mg/dL Critically high 74-106 [facility] Comment on above: Performed By: #### P T, PTT, DDIM #### [facility] [address] [place] [address] Dr. Clem Ward Potassium [Moles/Vol] 3.9 mmol/L Normal 3.5-5.1 [facility] Comment on above: Performed By: #### P T, PTT, DDIM #### [facility] [address] [place] [address] Dr. Clem Ward Protein [Mass/Vol] 6.6 g/dL Normal 6.4-8.2 [facility] Comment on above: Performed By: #### P T, PTT, DDIM #### [facility] [address] [place] [address] Dr. Clem Ward Sodium [Moles/Vol] 137 mmol/L Normal 136-145 [facility] Comment on above: Performed By: #### P T, PTT, DDIM #### [facility] [address] [place] [address] Dr. Clem Ward Urea nitrogen [Mass/Vol] 8.0 mg/dL Normal 7.0-18.0 [facility] Comment on above: Performed By: #### P T, PTT, DDIM #### [facility] [address] [place] [address] Dr. Clem Ward Urea nitrogen/Creatinine [Mass ratio] 14.3 mg/mg Normal [facility] Comment on above: Performed By: #### P T, PTT, DDIM #### [facility] [address] [place] [address] Dr. Clem Ward T4on 12-18-2022 T4 [Mass/Vol] 9.10 ug/dL Normal 4.80-13.90 [facility] Comment on above: Performed By: #### T 3TOTAL #### [facility] [address] [place] [address] Dr. Clem Ward TSHon 12-18-2022 TSH 0.979 uIU/mL Normal 0.358-3.740 [facility] Comment on above: Performed By: #### T 3TOTAL #### [facility] [address] [place] [address] Dr. Clem Ward CARDIAC TAWNYA ADMITon 023 CK [Catalytic activity/Vol] 165 U/L Normal 26-[address] [facility] Comment on above: Performed By: #### A 1C #### [facility] [address] [place] [address] Dr. Clem Ward CK.MB [Mass/Vol] ng/mL Normal <=3.[address] [facility] Comment on above: Performed By: #### A 1C #### [facility] [address] [place] [address] Dr. Clem Ward HSTROP 6.0 pg/mL Normal 4.0-51.[address] [facility] Comment on above: Result Comment: CUT- OFF POINTS HAVE BEEN ESTABLISHED BASED ON THE FOURTH UNIVERSAL DEFINITIONS OF MYOCARDIAL INFARCTION. THE UPPER REFERENCE LIMIT (URL) OF TROPONIN, DEFINED THE 99TH PERCENTILE OF cTnI DISTRIBUTION IN A REFERENCE POPULATION, HAS BEEN CONFIRMED THE DECISION THRESHOLD FOR IN DIAGNOSIS. Performed By: #### A 1C #### [facility] [address] [place] [address] Dr. Clem Ward LANI 17 ng/mL Normal 9-[address] [facility] Comment on above: Performed By: #### A 1C #### [facility] [address] [place] [address] Dr. Clem Ward CBC AUTO DIFFon 12-17-2022 BASO # 0.0 103/ul Normal 0.0-0.[address] [facility] Comment on above: Performed By: #### A 1C #### [facility] [address] [place] [address] Dr. Clem Ward Basophils/100 WBC (Bld) 0.5 % Normal 0.2-2.[address] [facility] Comment on above: Performed By: #### A 1C #### [facility] [address] [place] [address] Dr. Clem Ward EO # 0.4 103/ul Normal 0.0-0.[address] [facility] Comment on above: Performed By: #### A 1C #### [facility] [address] [place] [address] Dr. Clem Ward Eosinophils/100 WBC (Bld) 5.6 % Normal 0.9-7.0 [facility] Comment on above: Performed By: #### A 1C #### [facility] [address] [place] [address] Dr. Clem Ward Erythrocyte distribution width (RBC) [Ratio] 13.6 % Normal 11.0-15.0 [facility] Comment on above: Performed By: #### A 1C #### [facility] [address] [place] [address] Dr. Clem Ward Hematocrit (Bld) [Volume fraction] 39.2 % Normal 36.0-48.0 [facility] Comment on above: Performed By: #### A 1C #### [facility] [address] [place] [address] Dr. Clem Ward Hemoglobin (Bld) [Mass/Vol] 12.4 g/dL Normal 12.0-16.0 [facility] Comment on above: Performed By: #### A 1C #### [facility] [address] [place] [address] Dr. Clem Ward IG # 0.02 10e3/ul Normal 0.00-0.03 [facility] Comment on above: Performed By: #### A 1C #### [facility] [address] [place] [address] Dr. Clem Ward IG % 0.3 % Normal 0.0-0.5 [facility] Comment on above: Performed By: #### A 1C #### [facility] [address] [place] [address] Dr. Clem Wrad LYMPH # 3.0 103/ul Normal 1.2-3.[address] [facility] Comment on above: Performed By: #### A 1C #### [facility] [address] [place] [address] Dr. Clem Ward Lymphocytes/100 WBC (Bld) 39.6 % Normal 20.5-60.[address] [facility] Comment on above: Performed By: #### A 1C #### [facility] [address] [place] [address] Dr. Clem Ward MANUAL DIFF REQ NO [facility] Comment on above: Performed By: #### A 1C #### [facility] [address] [place] [address] Dr. Clem Ward MCH (RBC) [Entitic mass] 27.0 pg Normal 26.7-34.0 [facility] Comment on above: Performed By: #### A 1C #### [facility] [address] [place] [address] Dr. Clem Ward MCHC (RBC) [Mass/Vol] 31.6 g/dL Normal 29.9-35.2 [facility] Comment on above: Performed By: #### A 1C #### [facility] [address] [place] [address] Dr. Clem Ward MCV (RBC) [Entitic vol] 85.2 fL Normal 81.0-99.0 [facility] Comment on above: Performed By: #### A 1C #### [facility] [address] [place] [address] Dr. Clem Ward MONO # 0.5 103/ul Normal 0.3-0.8 [facility] Comment on above: Performed By: #### A 1C #### [facility] [address] [place] [address] Dr. Clem Ward Monocytes/100 WBC (Bld) 6.1 % Normal 1.7-12.0 [facility] Comment on above: Performed By: #### A 1C #### [facility] [address] [place] [address] Dr. Clem Ward NEUT # 3.6 103/ul Normal 1.4-6.[address] [facility] Comment on above: Performed By: #### A 1C #### [facility] [address] [place] [address] Dr. Clem Ward Neutrophils/100 WBC (Bld) 47.9 % Normal 43.0-75.0 [facility] Comment on above: Performed By: #### A 1C #### [facility] [address] [place] [address] Dr. Clem Ward Platelet mean volume (Bld) [Entitic vol] 9.7 fL Normal 9.5-13.5 [facility] Comment on above: Performed By: #### A 1C #### [facility] [address] [place] [address] Dr. Clem Ward PLT 341 103/ul Normal 150-450 [facility] Comment on above: Performed By: #### A 1C #### [facility] [address] [place] [address] Dr. Clem Ward RBC 4.60 106/ul Normal 4.20-5.40 [facility] Comment on above: Performed By: #### A 1C #### [facility] [address] [place] [address] Dr. Clem Ward WBC 7.6 103/ul Normal 4.0-11.0 [facility] Comment on above: Performed By: #### A 1C #### [facility] [address] [place] [address] Dr. Clem Ward PROF 14(COMP METB)on 023 Albumin [Mass/Vol] 3.3 g/dL Critically low 3.4-5.0 [facility] Comment on above: Performed By: #### A 1C #### [facility] [address] [place] [address] Dr. Clem Ward Albumin/Globulin [Mass ratio] 0.8 {ratio} Normal [facility] Comment on above: Performed By: #### A 1C #### [facility] [address] [place] [address] Dr. Clem Ward ALP [Catalytic activity/Vol] 108 U/L Normal 46-116 [facility] Comment on above: Performed By: #### A 1C #### [facility] [address] [place] [address] Dr. Clem Ward ALT [Catalytic activity/Vol] 18 U/L Normal 14-59 [facility] Comment on above: Performed By: #### A 1C #### [facility] [address] [place] [address] Dr. Clem Ward Anion gap [Moles/Vol] 10.7 mmol/L Normal [facility] Comment on above: Performed By: #### A 1C #### [facility] [address] [address] [address] Clem Ward AST [Catalytic activity/Vol] 28 U/L Normal 15-37 [facility] Comment on above: Performed By: #### A 1C #### [facility] [address] [address] [address] Clem Ward Bilirubin [Mass/Vol] 0.4 mg/dL Normal 0.2-1.0 [facility] Comment on above: Performed By: #### A 1C #### [facility] [address] [address] [address] Clem Ward Calcium [Mass/Vol] 8.0 mg/dL Critically low 8.5-10.1 [facility] Comment on above: Performed By: #### A 1C #### [facility] [address] [place] [address] Dr. Clem Ward Chloride [Moles/Vol] 103 mmol/L Normal 98-107 [facility] Comment on above: Performed By: #### A 1C #### [facility] [address] [address] [address] Clem Ward CO2 [Moles/Vol] 28.3 mmol/L Normal 21.0-32.0 [facility] Comment on above: Performed By: #### A 1C #### [facility] [address] [place] [address] Dr. Clem Ward Creatinine [Mass/Vol] 0.41 mg/dL Critically low 0.55-1.02 [facility] Comment on above: Performed By: #### A 1C #### [facility] [address] [place] [address] Dr. Clem Ward EGFR-AF [place] >60 Normal >=[address] [facility] Comment on above: Performed By: #### A 1C #### [facility] [address] [place] [address] Dr. Clem Ward EGFR-NON AF [place] >60 Normal >=60 [facility] Comment on above: Performed By: #### A 1C #### [facility] [address] [address] [address] Clem Ward Globulin (S) [Mass/Vol] 4.0 g/dL Normal [facility] Comment on above: Performed By: #### A 1C #### [facility] [address] [place] [address] Dr. Clem Ward Glucose [Mass/Vol] 161 mg/dL Critically high 74-[address] [facility] Comment on above: Performed By: #### A 1C #### [facility] [address] [address] [address] Clem Ward Potassium [Moles/Vol] 5.0 mmol/L Normal 3.5-5.1 [facility] Comment on above: Performed By: #### A 1C #### [facility] [address] [place] [address] Dr. Clem Ward Protein [Mass/Vol] 7.3 g/dL Normal 6.4-8.2 [facility] Comment on above: Performed By: #### A 1C #### [facility] [address] [place] [address] Dr. Clem Ward Sodium [Moles/Vol] 137 mmol/L Normal 136-145 [facility] Comment on above: Performed By: #### A 1C #### [facility] [address] [place] [address] Dr. Clem Ward Urea nitrogen [Mass/Vol] 6.0 mg/dL Critically low 7.0-18.0 [facility] Comment on above: Performed By: #### A 1C #### [facility] [address] [place] [address] Dr. Clem Ward Urea nitrogen/Creatinine [Mass ratio] 14.6 mg/mg Normal [facility] Comment on above: Performed By: #### A 1C #### [facility] [address] [place] [address] Dr. Clem Ward TROPONIN, HIGH SENSITIVITYon 12-17-2022 HSTROP 4.4 pg/mL Normal 4.0-51.3 [facility] Comment on above: Result Comment: CUT- OFF POINTS HAVE BEEN ESTABLISHED BASED ON THE FOURTH UNIVERSAL DEFINITIONS OF MYOCARDIAL INFARCTION. THE UPPER REFERENCE LIMIT (URL) OF TROPONIN, DEFINED THE 99TH PERCENTILE OF cTnI DISTRIBUTION IN A REFERENCE POPULATION, HAS BEEN CONFIRMED THE DECISION THRESHOLD FOR IN DIAGNOSIS. Performed By: #### A 1C #### [facility] [address] [place] [address] Dr. Clem Ward XR CHEST 1 Von [...] WALE OCAMPO Date: 2022-12-17 13:46 Normal [facility] QUANTIFERON TB GOLD PLUSon 0 11-01-2022 QuantiFERON Criteria Comment Normal [facility] Comment on [...] By: #### P OCGLUC #### [facility] [address] [place] [address] Dr. Clem Ward QuantiFERON Incubation Incubation performed. Normal [facility] Comment on above: Performed By: #### P OCGLUC #### [facility] [address] [place] [address] Dr. Clem Ward QuantiFERON Mitogen Value >10.00 Normal [facility] Comment on above: Performed By: #### P OCGLUC #### [facility] [address] [place] [address] Dr. Clem Ward QuantiFERON Nil Value 0.08 IU/mL [facility] Comment on above: Performed By: #### P OCGLUC #### [facility] [address] [place] [address] Dr. Clem Ward QuantiFERON TB1 Ag Value 0.06 IU/mL [facility] Comment on above: Performed By: #### P OCGLUC #### [facility] [address] [place] [address] Dr. Clem Ward QuantiFERON TB2 Ag Value 0.07 IU/mL Normal [facility] Comment on above: Performed By: #### P OCGLUC #### [facility] [address] [address] [address] Clem Ward QuantiFERON-TB Gold Plus Negative Normal Negative [facility] Comment on above: Result Comment: No r esponse to M tuberculosis antigens detected. Infection with M tuberculosis is unlikely, but high risk individuals should be considered for additional testing (ATS/IDSA/CDC Clinical Practice Guidelines, 2017). The reference range is an Antigen minus Nil result of <0.35 IU/mL. Chemiluminescence immunoassay methodology Performed By: #### P OCGLUC #### [facility] [address] [place] [address] Dr. Clem Ward DRUG SCREEN RAPID (URINE)on 10-30-2022 AMP Negative Normal NEGATIVE [facility] Comment on above: Performed By: #### T 3TOTAL #### [facility] [address] [address] [address] Clem Ward BAR Negative Normal NEGATIVE [facility] Comment on above: Performed By: #### T 3TOTAL #### [facility] [address] [place] [address] Dr. Clem Ward BUP Negative Normal NEGATIVE [facility] Comment on above: Performed By: #### T 3TOTAL #### [facility] [address] [place] [address] Dr. Celm Ward BZO Negative Normal NEGATIVE [facility] Comment on above: Performed By: #### T 3TOTAL #### [facility] [address] [place] [address] Dr. Clem Ward PENNY Negative Normal NEGATIVE [facility] Comment on above: Performed By: #### T 3TOTAL #### [facility] [address] [place] [address] Dr. Clem Ward CUT-OFFS SEE BELOW Normal [facility] [...] By: #### T 3TOTAL #### [facility] [address] [place] [address] Dr. Clem Ward DRUG CUT HEADER DRUG CLASS TEST SYSTEM CUT-OFF CONCENTRATIONS ARE FOLLOWS: Normal [facility] Comment on above: Performed By: #### T 3TOTAL #### [facility] [address] [place] [address] Dr. Clem Ward mAMP Negative Normal NEGATIVE [facility] Comment on above: Performed By: #### T 3TOTAL #### [facility] [address] [place] [address] Dr. Clem Ward MTD Negative Normal NEGATIVE [facility] Comment on above: Performed By: #### T 3TOTAL #### [facility] [address] [place] [address] Dr. Clem Ward OPI Negative Normal NEGATIVE [facility] Comment on above: Performed By: #### T 3TOTAL #### [facility] [address] [place] [address] Dr. Clem Ward OXY Negative Normal NEGATIVE [facility] Comment on above: Performed By: #### T 3TOTAL #### [facility] [address] [place] [address] Dr. Clem Ward PCP Negative Normal NEGATIVE [facility] Comment on above: Performed By: #### T 3TOTAL #### [facility] [address] [place] [address] Dr. Clem Ward PPX Negative Normal NEGATIVE [facility] Comment on above: Performed By: #### T 3TOTAL #### [facility] [address] [address] [address] Clem Ward TCA Negative Normal NEGATIVE [facility] Comment on above: Performed By: #### T 3TOTAL #### [facility] [address] [address] [address] Clem Ward THC Negative Normal NEGATIVE [facility] Comment on above: Performed By: #### T 3TOTAL #### [facility] [address] [address] [address] Clem Ward ECHOCARDIO M/2D COMPLETEon 1 10-03-2021 ECHOCARDIO M/2D COMPLETE Patient: JENNIFER DIAZ Exam Date: 08/03/2022 : 1975 Gender:F Ordering : DASHAWN GREENWOOD Admission #: [id number] Family : Order #: [id number] CLICK HERE TO VIEW EXAM ECHOCARDIOGRAM REPORT [...] Montez M.D. on 08/03/2022 at 14:08 Normal [facility] PROF CHEM 8 (BAS METB)on Anion gap [Moles/Vol] 11.2 mmol/L Normal [facility] Comment on above: Performed By: #### T 3TOTAL #### [facility] [address] [place] [address] Dr. Clem Ward Calcium [Mass/Vol] 8.9 mg/dL Normal 8.5-10.1 [facility] Comment on above: Performed By: #### T 3TOTAL #### [facility] [address] [address] [address] Clem Ward Chloride [Moles/Vol] 104 mmol/L Normal 98-107 [facility] Comment on above: Performed By: #### T 3TOTAL #### [facility] [address] [address] [address] Clem Ward CO2 [Moles/Vol] 28.6 mmol/L Normal 21.0-32.0 [facility] Comment on above: Performed By: #### T 3TOTAL #### [facility] [address] [address] [address] Clem Ward Creatinine [Mass/Vol] 0.58 mg/dL Normal 0.55-1.02 [facility] Comment on above: Performed By: #### T 3TOTAL #### [facility] [address] [place] [address] Dr. Clem Ward EGFR-AF [place] >60 Normal >=60 [facility] Comment on above: Performed By: #### T 3TOTAL #### [facility] [address] [address] [address] Clem Ward EGFR-NON AF [place] >60 Normal >=60 [facility] Comment on above: Performed By: #### T 3TOTAL #### [facility] [address] [address] [address] Clem Ward Glucose [Mass/Vol] 98 mg/dL Normal 74-106 [facility] Comment on above: Performed By: #### T 3TOTAL #### [facility] [address] [place] [address] Dr. Clem Ward Potassium [Moles/Vol] 3.8 mmol/L Normal 3.5-5.1 [facility] Comment on above: Performed By: #### T 3TOTAL #### [facility] [address] [place] [address] Dr. Clem Ward Sodium [Moles/Vol] 140 mmol/L Normal 136-145 [facility] Comment on above: Performed By: #### T 3TOTAL #### [facility] [address] [place] [address] Dr. Clem Ward Urea nitrogen [Mass/Vol] 8.0 mg/dL Normal 7.0-18.0 [facility] Comment on above: Performed By: #### T 3TOTAL #### [facility] [address] [place] [address] Dr. Clem Ward Urea nitrogen/Creatinine [Mass ratio] 13.8 mg/mg Normal [facility] Comment on above: Performed By: #### T 3TOTAL #### [facility] [address] [place] [address] Dr. Clem Ward CHLAMYDIA/GONOCOCCUS BENTLEY ( AB/URINE/PAPon 06-22-2022 Chlamydia trachomatis, BENTLEY Negative Normal Negative [facility] Comment on above: Performed By: #### P T, PTT, DDIM #### [facility] [address] [place] [address] Dr. Clem Ward Neisseria gonorrhoeae, BENTLYE Negative Normal Negative [facility] Comment on above: Performed By: #### P T, PTT, DDIM #### [facility] [address] [place] [address] Dr. Clem Ward VAGINITIS/VAGINOSIS DNA PROB Chapin 06-21-2022 Jaycee species Negative Normal Negative [facility] Comment on above: Performed By: #### A 1C #### [facility] [address] [place] [address] Dr. Clem Ward Gardnerella vaginalis Positive Abnormal Negative [facility] Comment on above: Performed By: #### A 1C #### [facility] [address] [place] [address] Dr. Clem Ward Trichomonas vaginalis Negative Normal Negative [facility] Comment on above: Performed By: #### A 1C #### [facility] [address] [place] [address] Dr. Clem Ward INSULINon 06-20-2022 Insulin 7.2 uIU/mL Normal 2.6-24.[address] [facility] Comment on above: Performed By: #### P T, PTT, DDIM #### [facility] [address] [place] [address] Dr. Clem Ward T4, T3U, FTI LABCORPon 06-20 Free Thyroxine Index 3.6 Normal 1.2-4.[address] [facility] Comment on above: Performed By: #### C HARSHAD BMP #### [facility] [address] [place] [address] Dr. Clem Ward T3 Uptake 33 % Normal 24-[address] [facility] Comment on above: Performed By: #### C HARSHAD BMP #### [facility] [address] [place] [address] Dr. Clem Ward T4 [Mass/Vol] 10.9 ug/dL Normal 4.5-12.0 [facility] Comment on above: Performed By: #### C HARSHAD BMP #### [facility] [address] [place] [address] Dr. Clem Ward CBC AUTO DIFFon 06-19-2022 BASO # 0.0 103/ul Normal 0.0-0.1 [facility] Comment on above: Performed By: #### A 1C #### [facility] [address] [place] [address] Dr. Clem Ward Basophils/100 WBC (Bld) 0.3 % Normal 0.2-2.[address] [facility] Comment on above: Performed By: #### A 1C #### [facility] [address] [place] [address] Dr. Clem Ward EO # 0.3 103/ul Normal 0.0-0.[address] [facility] Comment on above: Performed By: #### A 1C #### [facility] [address] [place] [address] Dr. Clem Ward Eosinophils/100 WBC (Bld) 4.7 % Normal 0.9-7.[address] [facility] Comment on above: Performed By: #### A 1C #### [facility] [address] [place] [address] Dr. Clem Ward Erythrocyte distribution width (RBC) [Ratio] 13.9 % Normal 11.0-15.0 [facility] Comment on above: Performed By: #### A 1C #### [facility] [address] [place] [address] Dr. Clem Ward Hematocrit (Bld) [Volume fraction] 41.2 % Normal 36.0-48.0 [facility] Comment on above: Performed By: #### A 1C #### [facility] [address] [place] [address] Dr. Clem Ward Hemoglobin (Bld) [Mass/Vol] 12.9 g/dL Normal 12.0-16.[address] [facility] Comment on above: Performed By: #### A 1C #### [facility] [address] [place] [address] Dr. Clem Ward IG # 0.02 10e3/ul Normal 0.00-0.[address] [facility] Comment on above: Performed By: #### A 1C #### [facility] [address] [place] [address] Dr. Clem Ward IG % 0.3 % Normal 0.0-0.[address] [facility] Comment on above: Performed By: #### A 1C #### [facility] [address] [place] [address] Dr. Clem Ward LYMPH # 2.4 103/ul Normal 1.2-3.[address] [facility] Comment on above: Performed By: #### A 1C #### [facility] [address] [place] [address] Dr. Clem Ward Lymphocytes/100 WBC (Bld) 35.3 % Normal 20.5-60.0 [facility] Comment on above: Performed By: #### A 1C #### [facility] [address] [place] [address] Dr. Clem Ward MANUAL DIFF REQ NO Normal [facility] Comment on above: Performed By: #### A 1C #### [facility] [address] [place] [address] Dr. Clem Ward MCH (RBC) [Entitic mass] 26.2 pg Critically low 26.7-34.0 [facility] Comment on above: Performed By: #### A 1C #### [facility] [address] [place] [address] Dr. Clem Ward MCHC (RBC) [Mass/Vol] 31.3 g/dL Normal 29.9-35.[address] [facility] Comment on above: Performed By: #### A 1C #### [facility] [address] [place] [address] Dr. Clem Ward MCV (RBC) [Entitic vol] 83.7 fL Normal 81.0-99.0 [facility] Comment on above: Performed By: #### A 1C #### [facility] [address] [place] [address] Dr. Clem Ward MONO # 0.6 103/ul Normal 0.3-0.[address] [facility] Comment on above: Performed By: #### A 1C #### [facility] [address] [place] [address] Dr. Clem Ward Monocytes/100 WBC (Bld) 8.8 % Normal 1.7-12.[address] [facility] Comment on above: Performed By: #### A 1C #### [facility] [address] [place] [address] Dr. Clem Ward NEUT # 3.4 103/ul Normal 1.4-6.5 [facility] Comment on above: Performed By: #### A 1C #### [facility] [address] [place] [address] Dr. Clem Ward Neutrophils/100 WBC (Bld) 50.6 % Normal 43.0-75.0 [facility] Comment on above: Performed By: #### A 1C #### [facility] [address] [place] [address] Dr. Clem Ward Platelet mean volume (Bld) [Entitic vol] 10.4 fL Normal 9.5-13.5 [facility] Comment on above: Performed By: #### A 1C #### [facility] [address] [place] [address] Dr. Clem Ward PLT 288 103/ul Normal 150-450 [facility] Comment on above: Performed By: #### A 1C #### [facility] [address] [place] [address] Dr. Clem Ward RBC 4.92 106/ul Normal 4.20-5.40 [facility] Comment on above: Performed By: #### A 1C #### [facility] [address] [place] [address] Dr. Clem Ward WBC 6.7 103/ul Normal 4.0-11.0 [facility] Comment on above: Performed By: #### A 1C #### [facility] [address] [place] [address] Dr. Clem Ward GLYCOHEMOGLOBIN A1Con 2021 ADA RECOMMENDATION SEE BELOW Normal [facility] Comment on above: Result Comment: ADA RECOMMENDED LIMIT 4.0 - 6.0 ADA THERAPEUTIC TARGET < 7.0 ACTION SUGGESTED > 7.0 Performed By: #### P T, PTT, DDIM #### [facility] [address] [place] [address] Dr. Clem Ward Glucose [Mass/Vol] 318 mg/dL Normal [facility] Comment on above: Performed By: #### P T, PTT, DDIM #### [facility] [address] [place] [address] Dr. Clem Ward HbA1c (Bld) [Mass fraction] 12.7 % Critically high 4.5-6.2 [facility] Comment on above: Performed By: #### P T, PTT, DDIM #### [facility] [address] [address] [address] Clem Ward IRONon 06-19-2022 Iron [Mass/Vol] 70.0 ug/dL Normal 50.0-170.0 [facility] Comment on above: Performed By: #### P T, PTT, DDIM #### [facility] [address] [address] [address] Clem Ward LIPID PROFILEon 06-19-2022 CHOL-HDL RATIO NORM SEE BELOW Normal [facility] Comment on above: Result Comment: 3.3 - 4.4 LOW RISK 4.4 - 7.1 AVERAGE RISK 7.1 - 11.0 MODERATE RISK >11.0 HIGH RISK Performed By: #### P T, PTT, DDIM #### [facility] [address] [address] [address] Clem Ward Cholesterol [Mass/Vol] 163 mg/dL Normal <=200 [facility] Comment on above: Performed By: #### P T, PTT, DDIM #### [facility] [address] [place] [address] Dr. Clem Ward Cholesterol in HDL [Mass/Vol] 36 mg/dL Critically low 40-60 [facility] Comment on above: Performed By: #### P T, PTT, DDIM #### [facility] [address] [address] [address] Clem Ward Cholesterol in LDL [Mass/Vol] 98.2 mg/dL Normal [facility] Comment on above: Performed By: #### P T, PTT, DDIM #### [facility] [address] [address] [address] Clem Ward Cholesterol.total/Chol esterol in HDL [Mass ratio] 4.5 {ratio} Normal [facility] Comment on above: Performed By: #### P T, PTT, DDIM #### [facility] [address] [address] [address] Clem Ward HDL NORMAL > or = 60 mg/dl - LO W CARDIOVASCULAR RISK <40 mg/dl - HIGH CARDIOVASCULAR RISK Normal [facility] Comment on above: Performed By: #### P T, PTT, DDIM #### [facility] [address] [address] [address] Clem Ward LDL CALC NORMAL SEE BELOW Normal [facility] Comment on above: Result Comment: <100 mg/dl OPTIMAL 100 - 129 mg/dl NEAR OR ABOVE OPTIMAL 130 - 159 mg/dl BORDERLINE HIGH 160 - 189 mg/dl HIGH >190 mg/dl VERY HIGH Performed By: #### P T, PTT, DDIM #### [facility] [address] [address] [address] Clem Ward Triglyceride [Mass/Vol] 144 mg/dL Normal <=150 [facility] Comment on above: Performed By: #### P T, PTT, DDIM #### [facility] [address] [address] [address] Clem Ward VLDL CALC 28.8 mg/dL Normal [facility] Comment on above: Performed By: #### P T, PTT, DDIM #### [facility] [address] [address] [address] Clem Ward PROF 14(COMP METB)on 022 Albumin [Mass/Vol] 3.7 g/dL Normal 3.4-5.0 [facility] Comment on above: Performed By: #### P T, PTT, DDIM #### [facility] [address] [place] [address] Dr. Clem Ward Albumin/Globulin [Mass ratio] 0.9 {ratio} Normal [facility] Comment on above: Performed By: #### P T, PTT, DDIM #### [facility] [address] [place] [address] Dr. Clem Ward ALP [Catalytic activity/Vol] 103 U/L Normal 46-116 [facility] Comment on above: Performed By: #### P T, PTT, DDIM #### [facility] [address] [address] [address] Clem Ward ALT [Catalytic activity/Vol] 33 U/L Normal 14-59 [facility] Comment on above: Performed By: #### P T, PTT, DDIM #### [facility] [address] [place] [address] Dr. Clem Ward Anion gap [Moles/Vol] 10.8 mmol/L Normal [facility] Comment on above: Performed By: #### P T, PTT, DDIM #### [facility] [address] [place] [address] Dr. Clem Ward AST [Catalytic activity/Vol] 10 U/L Critically low 15-37 [facility] Comment on above: Performed By: #### P T, PTT, DDIM #### [facility] [address] [place] [address] Dr. Clem Ward Bilirubin [Mass/Vol] 0.3 mg/dL Normal 0.2-1.0 [facility] Comment on above: Performed By: #### P T, PTT, DDIM #### [facility] [address] [place] [address] Dr. Clem Ward Calcium [Mass/Vol] 9.1 mg/dL Normal 8.5-10.1 [facility] Comment on above: Performed By: #### P T, PTT, DDIM #### [facility] [address] [place] [address] Dr. Clem Ward Chloride [Moles/Vol] 102 mmol/L Normal 98-107 [facility] Comment on above: Performed By: #### P T, PTT, DDIM #### [facility] [address] [place] [address] Dr. Clem Ward CO2 [Moles/Vol] 28.2 mmol/L Normal 21.0-32.0 [facility] Comment on above: Performed By: #### P T, PTT, DDIM #### [facility] [address] [place] [address] Dr. Clem Ward Creatinine [Mass/Vol] 0.69 mg/dL Normal 0.55-1.02 [facility] Comment on above: Performed By: #### P T, PTT, DDIM #### [facility] [address] [address] [address] Clem Ward EGFR-AF [place] >60 Normal >=60 [facility] Comment on above: Performed By: #### P T, PTT, DDIM #### [facility] [address] [address] [address] Clem Ward EGFR-NON AF [place] >60 Normal >=60 [facility] Comment on above: Performed By: #### P T, PTT, DDIM #### [facility] [address] [address] [address] Clem Ward Globulin (S) [Mass/Vol] 4.1 g/dL Normal [facility] Comment on above: Performed By: #### P T, PTT, DDIM #### [facility] [address] [address] [address] Clem Ward Glucose [Mass/Vol] 400 mg/dL Critically high 74-106 [facility] Comment on above: Performed By: #### P T, PTT, DDIM #### [facility] [address] [address] [address] Clem Ward Potassium [Moles/Vol] 4.0 mmol/L Normal 3.5-5.1 [facility] Comment on above: Performed By: #### P T, PTT, DDIM #### [facility] [address] [address] [address] Clem Ward Protein [Mass/Vol] 7.8 g/dL Normal 6.4-8.2 [facility] Comment on above: Performed By: #### P T, PTT, DDIM #### [facility] [address] [address] [address] Clem Ward Sodium [Moles/Vol] 137 mmol/L Normal 136-145 [facility] Comment on above: Performed By: #### P T, PTT, DDIM #### [facility] [address] [address] [address] Clem Ward Urea nitrogen [Mass/Vol] 9.0 mg/dL Normal 7.0-18.0 [facility] Comment on above: Performed By: #### P T, PTT, DDIM #### [facility] [address] [place] [address] Dr. Clem Ward Urea nitrogen/Creatinine [Mass ratio] 13.0 mg/mg Normal [facility] Comment on above: Performed By: #### P T, PTT, DDIM #### [facility] [address] [place] [address] Dr. Clem Ward TSHon 06-19-2022 TSH 0.820 uIU/mL Normal 0.358-3.740 [facility] Comment on above: Performed By: #### P T, PTT, DDIM #### [facility] [address] [place] [address] Dr. Clem Ward XR CHEST 1 Von [...] by: CALEB COLUNGA Date: 2022-06-14 22:12 Normal [facility] CBC AUTO DIFFon 06-14-2022 BASO # 0.0 103/ul Normal 0.0-0.1 [facility] Comment on above: Performed By: #### P OCGLUC #### [facility] [address] [place] [address] Dr. Clem Ward Basophils/100 WBC (Bld) 0.3 % Normal 0.2-2.0 [facility] Comment on above: Performed By: #### P OCGLUC #### [facility] [address] [place] [address] Dr. Clem Ward EO # 0.2 103/ul Normal 0.0-0.7 [facility] Comment on above: Performed By: #### P OCGLUC #### [facility] [address] [place] [address] Dr. Clem Ward Eosinophils/100 WBC (Bld) 3.2 % Normal 0.9-7.0 [facility] Comment on above: Performed By: #### P OCGLUC #### [facility] [address] [place] [address] Dr. Clem Ward Erythrocyte distribution width (RBC) [Ratio] 13.7 % Normal 11.0-15.0 [facility] Comment on above: Performed By: #### P OCGLUC #### [facility] [address] [place] [address] Dr. Clem Ward Hematocrit (Bld) [Volume fraction] 43.0 % Normal 36.0-48.0 [facility] Comment on above: Performed By: #### P OCGLUC #### [facility] [address] [place] [address] Dr. Clem Ward Hemoglobin (Bld) [Mass/Vol] 13.6 g/dL Normal 12.0-16.0 [facility] Comment on above: Performed By: #### P OCGLUC #### [facility] [address] [place] [address] Dr. Clem Ward IG # 0.02 10e3/ul Normal 0.00-0.[address] [facility] Comment on above: Performed By: #### P OCGLUC #### [facility] [address] [place] [address] Dr. Clem Ward IG % 0.3 % Normal 0.0-0.[address] [facility] Comment on above: Performed By: #### P OCGLUC #### [facility] [address] [place] [address] Dr. Clem Ward LYMPH # 2.5 103/ul Normal 1.2-3.[address] [facility] Comment on above: Performed By: #### P OCGLUC #### [facility] [address] [place] [address] Dr. Clem Ward Lymphocytes/100 WBC (Bld) 36.3 % Normal 20.5-60.0 [facility] Comment on above: Performed By: #### P OCGLUC #### [facility] [address] [place] [address] Dr. Clem Ward MANUAL DIFF REQ NO [facility] Comment on above: Performed By: #### P OCGLUC #### [facility] [address] [place] [address] Dr. Clem Ward MCH (RBC) [Entitic mass] 26.4 pg Critically low 26.7-34.0 [facility] Comment on above: Performed By: #### P OCGLUC #### [facility] [address] [place] [address] Dr. Clem Ward MCHC (RBC) [Mass/Vol] 31.6 g/dL Normal 29.9-35.2 [facility] Comment on above: Performed By: #### P OCGLUC #### [facility] [address] [place] [address] Dr. Clem Ward MCV (RBC) [Entitic vol] 83.3 fL Normal 81.0-99.0 [facility] Comment on above: Performed By: #### P OCGLUC #### [facility] [address] [place] [address] Dr. Clem Ward MONO # 0.5 103/ul Normal 0.3-0.8 [facility] Comment on above: Performed By: #### P OCGLUC #### [facility] [address] [place] [address] Dr. Clem Ward Monocytes/100 WBC (Bld) 7.0 % Normal 1.7-12.0 [facility] Comment on above: Performed By: #### P OCGLUC #### [facility] [address] [place] [address] Dr. Clem Ward NEUT # 3.6 103/ul Normal 1.4-6.5 [facility] Comment on above: Performed By: #### P OCGLUC #### [facility] [address] [place] [address] Dr. Clem Ward Neutrophils/100 WBC (Bld) 52.9 % Normal 43.0-75.0 [facility] Comment on above: Performed By: #### P OCGLUC #### [facility] [address] [place] [address] Dr. Clem Ward Platelet mean volume (Bld) [Entitic vol] 10.8 fL Normal 9.5-13.5 [facility] Comment on above: Performed By: #### P OCGLUC #### [facility] [address] [place] [address] Dr. Clem Ward PLT 300 103/ul Normal 150-450 [facility] Comment on above: Performed By: #### P OCGLUC #### [facility] [address] [place] [address] Dr. Clem Ward RBC 5.16 106/ul Normal 4.20-5.40 [facility] Comment on above: Performed By: #### P OCGLUC #### [facility] [address] [place] [address] Dr. Clem Ward WBC 6.8 103/ul Normal 4.0-11.0 [facility] Comment on above: Performed By: #### P OCGLUC #### [facility] [address] [place] [address] Dr. Clem Ward D-DIMERon 06-14-2022 D-DIMER <0.19 Normal <=0.59 [facility] Comment on above: Performed By: #### P OCGLUC #### [facility] [address] [place] [address] Dr. Clem Ward D-DIMER COMMENTS SEE BELOW Normal [facility] Comment on above: Result Comment: Incr eases [...] By: #### P OCGLUC #### [facility] [address] [address] [address] Clem Ward PROF CHEM 8 (BAS METB)on Anion gap [Moles/Vol] 11.7 mmol/L Normal [facility] Comment on above: Performed By: #### A 1C #### [facility] [address] [address] [address] Clem Ward Calcium [Mass/Vol] 8.7 mg/dL Normal 8.5-10.1 [facility] Comment on above: Performed By: #### A 1C #### [facility] [address] [address] [address] Clem Ward Chloride [Moles/Vol] 100 mmol/L Normal 98-107 [facility] Comment on above: Performed By: #### A 1C #### [facility] [address] [place] [address] Dr. Clem Ward CO2 [Moles/Vol] 26.2 mmol/L Normal 21.0-32.0 [facility] Comment on above: Performed By: #### A 1C #### [facility] [address] [place] [address] Dr. Clem Ward Creatinine [Mass/Vol] 0.94 mg/dL Normal 0.55-1.02 [facility] Comment on above: Performed By: #### A 1C #### [facility] [address] [place] [address] Dr. Clem Ward EGFR-AF [place] >60 Normal >=60 [facility] Comment on above: Performed By: #### A 1C #### [facility] [address] [place] [address] Dr. Clem Ward EGFR-NON AF [place] >60 Normal >=60 [facility] Comment on above: Performed By: #### A 1C #### [facility] [address] [place] [address] Dr. Clem Ward Glucose [Mass/Vol] 464 mg/dL Critically high 74-106 [facility] Comment on above: Performed By: #### A 1C #### [facility] [address] [address] [address] Clem Ward Potassium [Moles/Vol] 3.9 mmol/L Normal 3.5-5.1 [facility] Comment on above: Performed By: #### A 1C #### [facility] [address] [address] [address] Clem Ward Sodium [Moles/Vol] 134 mmol/L Critically low 136-[address] [facility] Comment on above: Performed By: #### A 1C #### [facility] [address] [address] [address] Clem Ward Urea nitrogen [Mass/Vol] 10.0 mg/dL Normal 7.0-18.0 [facility] Comment on above: Performed By: #### A 1C #### [facility] [address] [address] [address] Clem Ward Urea nitrogen/Creatinine [Mass ratio] 10.6 mg/mg Normal [facility] Comment on above: Performed By: #### A 1C #### [facility] [address] [address] [address] Clem Ward TROPONIN, HIGH SENSITIVITYon 06-14-2022 HSTROP 8.2 pg/mL Normal 4.0-51.3 [facility] Comment on above: Result Comment: CUT- OFF POINTS HAVE BEEN ESTABLISHED BASED ON THE FOURTH UNIVERSAL DEFINITIONS OF MYOCARDIAL INFARCTION. THE UPPER REFERENCE LIMIT (URL) OF TROPONIN, DEFINED THE 99TH PERCENTILE OF cTnI DISTRIBUTION IN A REFERENCE POPULATION, HAS BEEN CONFIRMED THE DECISION THRESHOLD FOR IN DIAGNOSIS. Performed By: #### A 1C #### [facility] [address] [address] [address] Clem Ward Cardiovascular Lab Reporton 02-24-2022 Cardiovascular Lab Report [facility] Patient Name: [facility] Jennifer Adam MR #: [id number] Department of Physician: Vishal Fowler MD Division of Service Date: 02/23/2022 Cardiology Birthdate: 1975 Adult Cardiovascular Room #: [address] [address] Cardiovascular Laboratory Report PROCEDURES PERFORMED: 1. Right [...] Fowler MD Date Trans: 02/24/2022 06:18 A/jovanna [id number] cc: Yoel Salinas M.D. [address], [facility] [id number] Normal [facility] Covid-19 PCR (CVDTB)on 01-30 SARS-CoV-2 (COVID-19) RNA BENTLEY+probe Ql (Unsp spec) Not detected Normal NOT DETECTED [facility] Comment on above: Result Comment: This test is not yet approved or cleared by the [place] FDA. When there are no FDA-approved or cleared tests available, and other criteria are met, FDA can make tests available under an emergency access mechanism called an Emergency Use Authorization (EUA). The EUA for this test is supported by the [place] of Health and Human Service's (HHS's) declaration [...] P T, PTT, DDIM #### [facility] [address] [place] [address] Dr. Clem Ward BNPon 02-04-2022 Natriuretic peptide B (Bld) [Mass/Vol] 608.0 pg/mL Critically high <=450.[address] [facility] Comment on above: Performed By: #### P T, PTT, DDIM #### [facility] [address] [place] [address] Dr. Clem Ward CBC AUTO DIFFon 02-04-2022 BASO # 0.0 103/ul Normal 0.0-0.1 [facility] Comment on above: Performed By: #### P T, PTT, DDIM #### [facility] [address] [place] [address] Dr. Clem Ward Basophils/100 WBC (Bld) 0.3 % Normal 0.2-2.0 [facility] Comment on above: Performed By: #### P T, PTT, DDIM #### [facility] [address] [place] [address] Dr. Clem Ward EO # 0.3 103/ul Normal 0.0-0.[address] [facility] Comment on above: Performed By: #### P T, PTT, DDIM #### [facility] [address] [place] [address] Dr. Clem Ward Eosinophils/100 WBC (Bld) 4.9 % Normal 0.9-7.[address] [facility] Comment on above: Performed By: #### P T, PTT, DDIM #### [facility] [address] [place] [address] Dr. Clem Ward Erythrocyte distribution width (RBC) [Ratio] 13.5 % Normal 11.0-15.0 [facility] Comment on above: Performed By: #### P T, PTT, DDIM #### [facility] [address] [place] [address] Dr. Clem Ward Hematocrit (Bld) [Volume fraction] 43.5 % Normal 36.0-48.0 [facility] Comment on above: Performed By: #### P T, PTT, DDIM #### [facility] [address] [place] [address] Dr. Clem Ward Hemoglobin (Bld) [Mass/Vol] 13.4 g/dL Normal 12.0-16.0 [facility] Comment on above: Performed By: #### P T, PTT, DDIM #### [facility] [address] [place] [address] Dr. Clem Ward IG # 0.01 10e3/ul Normal 0.00-0.03 [facility] Comment on above: Performed By: #### P T, PTT, DDIM #### [facility] [address] [place] [address] Dr. Clem Ward IG % 0.2 % Normal 0.0-0.5 [facility] Comment on above: Performed By: #### P T, PTT, DDIM #### [facility] [address] [place] [address] Dr. Clem Ward LYMPH # 3.1 103/ul Normal 1.2-3.8 [facility] Comment on above: Performed By: #### P T, PTT, DDIM #### [facility] [address] [place] [address] Dr. Clem Ward Lymphocytes/100 WBC (Bld) 48.3 % Normal 20.5-60.0 [facility] Comment on above: Performed By: #### P T, PTT, DDIM #### [facility] [address] [place] [address] Dr. Clem Ward MANUAL DIFF REQ NO Normal [facility] Comment on above: Performed By: #### P T, PTT, DDIM #### [facility] [address] [place] [address] Dr. Clem Ward MCH (RBC) [Entitic mass] 25.4 pg Critically low 26.7-34.0 [facility] Comment on above: Performed By: #### P T, PTT, DDIM #### [facility] [address] [place] [address] Dr. Clem Ward MCHC (RBC) [Mass/Vol] 30.8 g/dL Normal 29.9-35.[address] [facility] Comment on above: Performed By: #### P T, PTT, DDIM #### [facility] [address] [place] [address] Dr. Clem Ward MCV (RBC) [Entitic vol] 82.5 fL Normal 81.0-99.[address] [facility] Comment on above: Performed By: #### P T, PTT, DDIM #### [facility] [address] [place] [address] Dr. Clem Ward MONO # 0.5 103/ul Normal 0.3-0.[address] [facility] Comment on above: Performed By: #### P T, PTT, DDIM #### [facility] [address] [place] [address] Dr. Clem Ward Monocytes/100 WBC (Bld) 8.3 % Normal 1.7-12.0 [facility] Comment on above: Performed By: #### P T, PTT, DDIM #### [facility] [address] [place] [address] Dr. Clem Ward NEUT # 2.4 103/ul Normal 1.4-6.[address] [facility] Comment on above: Performed By: #### P T, PTT, DDIM #### [facility] [address] [place] [address] Dr. Clem Ward Neutrophils/100 WBC (Bld) 38.0 % Critically low 43.0-75.[address] [facility] Comment on above: Performed By: #### P T, PTT, DDIM #### [facility] [address] [place] [address] Dr. Clem Ward Platelet mean volume (Bld) [Entitic vol] 10.1 fL Normal 9.5-13.[address] [facility] Comment on above: Performed By: #### P T, PTT, DDIM #### [facility] [address] [place] [address] Dr. Clem Ward PLT 310 103/ul Normal 150-[address] [facility] Comment on above: Performed By: #### P T, PTT, DDIM #### [facility] [address] [address] [address] Clem Ward RBC 5.27 106/ul Normal 4.20-5.40 [facility] Comment on above: Performed By: #### P T, PTT, DDIM #### [facility] [address] [address] [address] Clem Ward WBC 6.4 103/ul Normal 4.0-11.0 [facility] Comment on above: Performed By: #### P T, PTT, DDIM #### [facility] [address] [place] [address] Dr. Clem Ward POINT OF CARE GLUCOSEon Glucose [Mass/Vol] 264 mg/dL Critically high 74-106 [facility] Comment on above: Performed By: #### P OCGLUC #### [facility] [address] [place] [address] Dr. Clem Ward Glucose [Mass/Vol] 222 mg/dL Critically high 74-106 [facility] Comment on above: Performed By: #### C MADM, BMP #### [facility] [address] [place] [address] Dr. Clem Ward Glucose [Mass/Vol] 184 mg/dL Critically high 74-106 [facility] Comment on above: Performed By: #### C DAQUANM, BMP #### [facility] [address] [place] [address] Dr. Clem Ward PROF 14(COMP METB)on 022 Albumin [Mass/Vol] 3.1 g/dL Critically low 3.4-5.0 [facility] Comment on above: Performed By: #### P T, PTT, DDIM #### [facility] [address] [place] [address] Dr. Clem Ward Albumin/Globulin [Mass ratio] 0.7 {ratio} Normal [facility] Comment on above: Performed By: #### P T, PTT, DDIM #### [facility] [address] [address] [address] Clem Ward ALP [Catalytic activity/Vol] 86 U/L Normal 46-116 [facility] Comment on above: Performed By: #### P T, PTT, DDIM #### [facility] [address] [place] [address] Dr. Clem Ward ALT [Catalytic activity/Vol] 14 U/L Normal 14-59 [facility] Comment on above: Performed By: #### P T, PTT, DDIM #### [facility] [address] [place] [address] Dr. Clem Ward Anion gap [Moles/Vol] 11.5 mmol/L Normal [facility] Comment on above: Performed By: #### P T, PTT, DDIM #### [facility] [address] [place] [address] Dr. Clem Ward AST [Catalytic activity/Vol] 11 U/L Critically low 15-37 [facility] Comment on above: Performed By: #### P T, PTT, DDIM #### [facility] [address] [place] [address] Dr. Clem Ward Bilirubin [Mass/Vol] 0.2 mg/dL Normal 0.2-1.0 [facility] Comment on above: Performed By: #### P T, PTT, DDIM #### [facility] [address] [place] [address] Dr. Clem Ward Calcium [Mass/Vol] 8.3 mg/dL Critically low 8.5-10.1 [facility] Comment on above: Performed By: #### P T, PTT, DDIM #### [facility] [address] [place] [address] Dr. Clem Ward Chloride [Moles/Vol] 100 mmol/L Normal 98-107 [facility] Comment on above: Performed By: #### P T, PTT, DDIM #### [facility] [address] [place] [address] Dr. Clem Ward CO2 [Moles/Vol] 26.8 mmol/L Normal 21.0-32.0 [facility] Comment on above: Performed By: #### P T, PTT, DDIM #### [facility] [address] [address] [address] Clem Ward Creatinine [Mass/Vol] 0.56 mg/dL Normal 0.55-1.02 [facility] Comment on above: Performed By: #### P T, PTT, DDIM #### [facility] [address] [address] [address] Clem Ward EGFR-AF [place] >60 Normal >=60 [facility] Comment on above: Performed By: #### P T, PTT, DDIM #### [facility] [address] [address] [address] Clem Ward EGFR-NON AF [place] >60 Normal >=60 [facility] Comment on above: Performed By: #### P T, PTT, DDIM #### [facility] [address] [address] [address] Clem Ward Globulin (S) [Mass/Vol] 4.3 g/dL Normal [facility] Comment on above: Performed By: #### P T, PTT, DDIM #### [facility] [address] [address] [address] Clem Ward Glucose [Mass/Vol] 228 mg/dL Critically high 74-106 [facility] Comment on above: Performed By: #### P T, PTT, DDIM #### [facility] [address] [address] [address] Clem Ward Potassium [Moles/Vol] 4.3 mmol/L Normal 3.5-5.1 [facility] Comment on above: Performed By: #### P T, PTT, DDIM #### [facility] [address] [address] [address] Clem Ward Protein [Mass/Vol] 7.4 g/dL Normal 6.4-8.2 [facility] Comment on above: Performed By: #### P T, PTT, DDIM #### [facility] [address] [address] [address] Clem Ward Sodium [Moles/Vol] 134 mmol/L Critically low 136-[address] [facility] Comment on above: Performed By: #### P T, PTT, DDIM #### [facility] [address] [place] [address] Dr. Clem Ward Urea nitrogen [Mass/Vol] 12.0 mg/dL Normal 7.0-18.0 [facility] Comment on above: Performed By: #### P T, PTT, DDIM #### [facility] [address] [place] [address] Dr. Clem Ward Urea nitrogen/Creatinine [Mass ratio] 21.4 mg/mg Normal [facility] Comment on above: Performed By: #### P T, PTT, DDIM #### [facility] [address] [place] [address] Dr. Clem Ward CARDIAC TAWNYA 3-6on 2 CK [Catalytic activity/Vol] 60 U/L Normal 26-192 [facility] Comment on above: Performed By: #### P OCGLUC #### [facility] [address] [place] [address] Dr. Clem Ward CK.MB [Mass/Vol] 1.19 ng/mL Normal <=3.60 [facility] Comment on above: Performed By: #### P OCGLUC #### [facility] [address] [place] [address] Dr. Clem Ward HSTROP 118.5 pg/mL Critically high 4.0-51.3 [facility] Comment on above: Result Comment: CUT- OFF POINTS HAVE BEEN ESTABLISHED BASED ON THE FOURTH UNIVERSAL DEFINITIONS OF MYOCARDIAL INFARCTION. THE UPPER REFERENCE LIMIT (URL) OF TROPONIN, DEFINED THE 99TH PERCENTILE OF cTnI DISTRIBUTION IN A REFERENCE POPULATION, HAS BEEN CONFIRMED THE DECISION THRESHOLD FOR IN DIAGNOSIS. Performed By: #### P OCGLUC #### [facility] [address] [place] [address] Dr. Clem Ward CK [Catalytic activity/Vol] 63 U/L Normal 26-[address] [facility] Comment on above: Performed By: #### P T, PTT, DDIM #### [facility] [address] [place] [address] Dr. Clem Ward CK.MB [Mass/Vol] 1.49 ng/mL Normal <=3.[address] [facility] Comment on above: Performed By: #### P T, PTT, DDIM #### [facility] [address] [place] [address] Dr. Clem Ward HSTROP 150.9 pg/mL Critically high 4.0-51.[address] [facility] Comment on above: Result Comment: CUT- OFF POINTS HAVE BEEN ESTABLISHED BASED ON THE FOURTH UNIVERSAL DEFINITIONS OF MYOCARDIAL INFARCTION. THE UPPER REFERENCE LIMIT (URL) OF TROPONIN, DEFINED THE 99TH PERCENTILE OF cTnI DISTRIBUTION IN A REFERENCE POPULATION, HAS BEEN CONFIRMED THE DECISION THRESHOLD FOR IN DIAGNOSIS. Performed By: #### P T, PTT, DDIM #### [facility] [address] [place] [address] Dr. Clem Ward CARDIAC TAWNYA ADMITon 022 CK [Catalytic activity/Vol] 73 U/L Normal 26-192 [facility] Comment on above: Performed By: #### C MADM, BMP #### [facility] [address] [place] [address] Dr. Clem Ward CK.MB [Mass/Vol] 1.49 ng/mL Normal <=3.[address] [facility] Comment on above: Performed By: #### C MADM, BMP #### [facility] [address] [place] [address] Dr. Clem Ward HSTROP 186.1 pg/mL Critically high 4.0-51.[address] [facility] Comment on above: Result Comment: CUT- OFF POINTS HAVE BEEN ESTABLISHED BASED ON THE FOURTH UNIVERSAL DEFINITIONS OF MYOCARDIAL INFARCTION. THE UPPER REFERENCE LIMIT (URL) OF TROPONIN, DEFINED THE 99TH PERCENTILE OF cTnI DISTRIBUTION IN A REFERENCE POPULATION, HAS BEEN CONFIRMED THE DECISION THRESHOLD FOR IN DIAGNOSIS. Performed By: #### C MADM, BMP #### [facility] [address] [place] [address] Dr. Clem Ward LANI 32 ng/mL Normal 9-[address] [facility] Comment on above: Performed By: #### C MADM, BMP #### [facility] [address] [place] [address] Dr. Clem Ward CBC AUTO DIFFon 02-03-2022 BASO # 0.0 103/ul Normal 0.0-0.[address] [facility] Comment on above: Performed By: #### C HARSHAD, BMP #### [facility] [address] [place] [address] Dr. Clem Ward Basophils/100 WBC (Bld) 0.4 % Normal 0.2-2.[address] [facility] Comment on above: Performed By: #### C HARSHAD, BMP #### [facility] [address] [place] [address] Dr. Clem Ward EO # 0.3 103/ul Normal 0.0-0.[address] [facility] Comment on above: Performed By: #### C HARSHAD, BMP #### [facility] [address] [place] [address] Dr. Clem Ward Eosinophils/100 WBC (Bld) 3.9 % Normal 0.9-7.[address] [facility] Comment on above: Performed By: #### C HARSHAD, BMP #### [facility] [address] [place] [address] Dr. Clem Ward Erythrocyte distribution width (RBC) [Ratio] 13.7 % Normal 11.0-15.0 [facility] Comment on above: Performed By: #### C HARSHAD, BMP #### [facility] [address] [place] [address] Dr. Clem Ward Hematocrit (Bld) [Volume fraction] 45.6 % Normal 36.0-48.0 [facility] Comment on above: Performed By: #### C HARSHAD, BMP #### [facility] [address] [place] [address] Dr. Clem Ward Hemoglobin (Bld) [Mass/Vol] 14.1 g/dL Normal 12.0-16.0 [facility] Comment on above: Performed By: #### C HARSHAD, BMP #### [facility] [address] [place] [address] Dr. Clem Ward IG # 0.01 10e3/ul Normal 0.00-0.03 [facility] Comment on above: Performed By: #### C MADM, BMP #### [facility] [address] [address] [address] Clem Ward IG % 0.1 % Normal 0.0-0.5 [facility] Comment on above: Performed By: #### C MADM, BMP #### [facility] [address] [address] [address] Clem Ward LYMPH # 3.4 103/ul Normal 1.2-3.8 [facility] Comment on above: Performed By: #### C MADM, BMP #### [facility] [address] [address] [address] Clem Ward Lymphocytes/100 WBC (Bld) 44.0 % Normal 20.5-60.0 [facility] Comment on above: Performed By: #### C MADM, BMP #### [facility] [address] [address] [address] Clem Ward MANUAL DIFF REQ NO Normal [facility] Comment on above: Performed By: #### C MADM, BMP #### [facility] [address] [address] [address] Clem Ward MCH (RBC) [Entitic mass] 25.6 pg Critically low 26.7-34.0 [facility] Comment on above: Performed By: #### C MADM, BMP #### [facility] [address] [address] [address] Clem Ward MCHC (RBC) [Mass/Vol] 30.9 g/dL Normal 29.9-35.2 [facility] Comment on above: Performed By: #### C MADM, BMP #### [facility] [address] [address] [address] Clem Ward MCV (RBC) [Entitic vol] 82.8 fL Normal 81.0-99.0 [facility] Comment on above: Performed By: #### C MADM, BMP #### [facility] [address] [address] [address] Clem Ward MONO # 0.6 103/ul Normal 0.3-0.8 [facility] Comment on above: Performed By: #### C DAQUANM, BMP #### [facility] [address] [place] [address] Dr. Clem Ward Monocytes/100 WBC (Bld) 7.6 % Normal 1.7-12.0 [facility] Comment on above: Performed By: #### C DAQUANM, BMP #### [facility] [address] [place] [address] Dr. Clem Ward NEUT # 3.4 103/ul Normal 1.4-6.5 [facility] Comment on above: Performed By: #### C DAQUANM, BMP #### [facility] [address] [place] [address] Dr. Clem Ward Neutrophils/100 WBC (Bld) 44.0 % Normal 43.0-75.0 [facility] Comment on above: Performed By: #### C HARSHAD, BMP #### [facility] [address] [place] [address] Dr. Clem Ward Platelet mean volume (Bld) [Entitic vol] 10.0 fL Normal 9.5-13.5 [facility] [facility] Comment on above: Performed By: #### C HARSHAD, BMP #### [facility] [address] [place] [address] Dr. Clem Ward PLT 296 103/ul Normal 150-[address] [facility] Comment on above: Performed By: #### C HARSHAD, BMP #### [facility] [address] [place] [address] Dr. Clem Ward RBC 5.51 106/ul Critically high 4.20-5.[address] [facility] Comment on above: Performed By: #### C HARSHAD, BMP #### [facility] [address] [place] [address] Dr. Clem Ward WBC 7.8 103/ul Normal 4.0-11.0 [facility] Comment on above: Performed By: #### C HARSHAD, BMP #### [facility] [address] [place] [address] STROKE HEAD WOon 05-06-[address] STROKE HEAD WO EXAM: CT [...] by: NESS BRAR Date: 2022-02-03 06:47 Normal [facility] CTA HEAD WO W CONon 02-04-20 [...] with the basilar artery. Basilar artery: Normal. rn operating room: Normal bilaterally. Aneurysm: None. BRAIN FINDINGS: No abnormal enhancement. IMPRESSION: No large vessel arterial occlusion, high-grade narrowing, or substantial luminal irregularity in the head. Electronically authenticated by: LILA KAISER Date: 2022-02-03 08:09 Normal [address] [facility] SARS-CoV-2 (COVID-19) RNA BENTLEY+probe Ql (Unsp spec) Not detected Normal NOT DETECTED [facility] Comment on above: Result Comment: When [...] for this test is supported by the [place] of Health and Human Service's declaration that [...] P T, PTT, DDIM #### [facility] [address] [place] [address] Dr. Clem Ward ECHO LIMITED STUDYon 022 ECHO LIMITED STUDY Patient: JENNIFER DIAZ Exam Date: 02/03/2022 : 1975 Gender:F Ordering : DR YOEL SALINAS . Admission #: [id number] Family : DR PATEL CAMPOS Order #: [id number] CLICK HERE TO VIEW EXAM ECHOCARDIOGRAM REPORT PROCEDURE: CARDIO PULMONARY ECHO LIMITED STUDY INDICATIONS: TIA, h/o [place], HTN, echocardiogram done at [facility] 02/01/2022 EF 20-25% COMPARISON: None. DESCRIPTION: Limited [...] Area(A4C): 13.80 cm2 Left Atrium Systolic Volume(A4C): 43290 mm3 Mitral Valve Right Ventricle Aorta AO Root Diam: 3.00 cm Aortic Valve Tricuspid Valve Pulmonic Valve Right Atrium Dictated by: Matt Montez M.D. on 02/03/2022 at 18:57 Approved by: Matt Montez M.D. on 02/03/2022 at 19:00 Normal [facility] GLYCOHEMOGLOBIN A1Con 2021 ADA RECOMMENDATION SEE BELOW Normal [facility] Comment on above: Result Comment: ADA RECOMMENDED LIMIT 4.0 - 6.0 ADA THERAPEUTIC TARGET < 7.0 ACTION SUGGESTED > 7.0 Performed By: #### A 1C #### [facility] [address] [place] [address] Dr. Clem Ward Glucose [Mass/Vol] 197 mg/dL Normal [facility] Comment on above: Performed By: #### A 1C #### [facility] [address] [address] [address] Clem Ward HbA1c (Bld) [Mass fraction] 8.5 % Critically high 4.5-6.2 [facility] Comment on above: Performed By: #### A 1C #### [facility] [address] [address] [address] Clem Ward LIPID PROFILEon 02-03-2022 CHOL-HDL RATIO NORM SEE BELOW Normal [facility] Comment on above: Result Comment: 3.3 - 4.4 LOW RISK 4.4 - 7.1 AVERAGE RISK 7.1 - 11.0 MODERATE RISK >11.0 HIGH RISK Performed By: #### P OCGLUC #### [facility] [address] [address] [address] Clem Ward Cholesterol [Mass/Vol] 168 mg/dL Normal <=200 [facility] Comment on above: Performed By: #### P OCGLUC #### [facility] [address] [address] [address] Clem Ward Cholesterol in HDL [Mass/Vol] 37 mg/dL Critically low 40-60 [facility] Comment on above: Performed By: #### P OCGLUC #### [facility] [address] [address] [address] Clem Ward Cholesterol in LDL [Mass/Vol] 108.4 mg/dL Normal [facility] Comment on above: Performed By: #### P OCGLUC #### [facility] [address] [address] [address] Clem Ward Cholesterol.total/Chol esterol in HDL [Mass ratio] 4.5 {ratio} Normal [facility] Comment on above: Performed By: #### P OCGLUC #### [facility] [address] [address] [address] Clem Ward HDL NORMAL > or = 60 mg/dl - LO W CARDIOVASCULAR RISK <40 mg/dl - HIGH CARDIOVASCULAR RISK Normal [facility] Comment on above: Performed By: #### P OCGLUC #### [facility] [address] [address] [address] Clem Ward LDL CALC NORMAL SEE BELOW Normal [facility] Comment on above: Result Comment: <100 mg/dl OPTIMAL 100 - 129 mg/dl NEAR OR ABOVE OPTIMAL 130 - 159 mg/dl BORDERLINE HIGH 160 - 189 mg/dl HIGH >190 mg/dl VERY HIGH Performed By: #### P OCGLUC #### [facility] [address] [place], [place] [address] Dr. Clem Ward Triglyceride [Mass/Vol] 113 mg/dL Normal <=[address] [facility] Comment on above: Performed By: #### P OCGLUC #### [facility] [address] [place], [place] [address] Dr. Clem Ward VLDL CALC 22.6 mg/dL Normal [facility] Comment on above: Performed By: #### P OCGLUC #### [facility] [address] [address] [address] Clem Ward MRI BRAIN WO CONon [...] aortic arch were not included in the [id number]. ICAs: Patent bilaterally from the skull base [...] aortic arch are not included in the [id number]. Electronically authenticated by: LILA KAISER Date: 2022-02-03 14:19 Normal [facility] POINT OF CARE GLUCOSEon 05-0 Glucose [Mass/Vol] 109 mg/dL Critically high 74-106 [facility] Comment on above: Performed By: #### P T, PTT, DDIM #### [facility] [address] [address] [address] Clem Ward Glucose [Mass/Vol] 362 mg/dL Critically high 74-106 [facility] Comment on above: Performed By: #### T 3TOTAL #### [facility] [address] [address] [address] Clem Ward PROF CHEM 8 (BAS METB)on Anion gap [Moles/Vol] 13.7 mmol/L Normal [facility] Comment on above: Performed By: #### C MADM, BMP #### [facility] [address] [address] [address] Clem Ward Calcium [Mass/Vol] 8.8 mg/dL Normal 8.5-10.1 [facility] Comment on above: Performed By: #### C MADM, BMP #### [facility] [address] [address] [address] Clem Ward Chloride [Moles/Vol] 99 mmol/L Normal 98-107 [facility] Comment on above: Performed By: #### C MADM, BMP #### [facility] [address] [address] [address] Clem Ward CO2 [Moles/Vol] 27.7 mmol/L Normal 21.0-32.0 [facility] Comment on above: Performed By: #### C MADM, BMP #### [facility] [address] [address] [address] Clem Ward Creatinine [Mass/Vol] 0.82 mg/dL Normal 0.55-1.02 [facility] Comment on above: Performed By: #### C MADM, BMP #### [facility] [address] [address] [address] Clem Ward EGFR-AF [place] >60 Normal >=60 [facility] Comment on above: Performed By: #### C MADM, BMP #### [facility] [address] [address] [address] Clem Ward EGFR-NON AF [place] >60 Normal >=60 [facility] Comment on above: Performed By: #### C MADM, BMP #### [facility] [address] [address] [address] Clem Ward Glucose [Mass/Vol] 236 mg/dL Critically high 74-[address] [facility] Comment on above: Performed By: #### C MADM, BMP #### [facility] [address] [address] [address] Clem Ward Potassium [Moles/Vol] 5.4 mmol/L Critically high 3.5-5.1 [facility] Comment on above: Performed By: #### C MADM, BMP #### [facility] [address] [address] [address] Clem Ward Sodium [Moles/Vol] 135 mmol/L Critically low 136-145 [facility] Comment on above: Performed By: #### C MADM, BMP #### [facility] [address] [address] [address] Clem Ward Urea nitrogen [Mass/Vol] 16.0 mg/dL Normal 7.0-18.0 [facility] Comment on above: Performed By: #### C MADM, BMP #### [facility] [address] [address] [address] Clem Ward Urea nitrogen/Creatinine [Mass ratio] 19.5 mg/mg Normal [facility] Comment on above: Performed By: #### C MADM, BMP #### [facility] [address] [address] [address] Clem Ward XR CHEST 2 Von [...] Date: 2022-02-03 06:50 Normal [address] [facility] Creatinine and Glomerular fi ltration rate.predicted panel (S/P/Bld)Ordered By: Zahraa Ferrara on 02-02-2022 Creatinine [Mass/Vol] 0.70 mg/dL 0.44-1.03 [facility] Estimated glomerular filtrat ion rate (GFR) non- AmericanOrdered By: Zahraa Ferrara on 02-02-2022 GFR/1.73 sq M.predicted among non-blacks MDRD (S/P/Bld) [Vol rate/Area] > 60 mL/Min [facility] Glucose Glucometer (BldC) [M ass/Vol]Ordered By: Zahraa Ferrara on 02-02-2022 Glucose [Mass/Vol] 240 mg/dL [facility] Comment on above: Random Glucose Refer ence Range is dependent on time and content of last meal. Glucose of more than 200 mg/dL in a nonstressed, ambulatory subject supports the diagnosis of Diabetes Mellitus. No Panel InformationOrdered By: Zahraa Ferrara on 02-02-2022 Estimated GFR () > 60 mL/Min [facility] Comment on above: GFR estimated refere nce range: According to KDOQI guidelines, <60 ml/min/1.73m2 is sufficient to diagnose a patient with chronic kidney disease. Pharmacy Creatinine Clearance (Chem 104.27 [facility] Serum or plasma calcium matthew urement (mass/volume)Ordered By: Zahraa Ferrara on 02-02-2022 Calcium [Mass/Vol] 9.3 mg/dL 8.2-10.2 [facility] Serum or plasma chloride roge surement (moles/volume)Ordered By: Zahraa Ferrara on 02-02-2022 Chloride [Moles/Vol] 102 mmol/L 95-114 [facility] Serum or plasma glucose matthew urement (mass/volume)Ordered By: Zahraa Ferrara on 02-02-2022 Glucose [Mass/Vol] 227 mg/dL 70-100 [facility] Comment on above: Delta: 119 on ADA recommended reference range Random Glucose Reference Range is dependent on time and content of last meal. Glucose of more than 200 mg/dL in a nonstressed, ambulatory subject supports the diagnosis of Diabetes Mellitus. Serum or plasma potassium me asurement (moles/volume)Ordered By: Zahraa Ferrara on 02-02-2022 Potassium [Moles/Vol] 4.8 mmol/L 3.5-5.1 [facility] Serum or plasma sodium measu rement (moles/volume)Ordered By: Zahraa Ferrara on 02-02-2022 Sodium [Moles/Vol] 137 mmol/L 136-146 [facility] Serum or plasma total carbon dioxide measurement (moles/volume)Ordered By: Zahraa Ferrara on 02-02-2022 CO2 [Moles/Vol] 25.8 mmol/L 22.0-30.0 [facility] Serum or plasma urea nitroge n measurement (mass/volume)Ordered By: Zahraa Ferrara on 02-02-2022 Urea nitrogen [Mass/Vol] 7 mg/dL 9-23 [facility] Albumin [Mass/volume] in Ser um or PlasmaOrdered By: Zahraa Ferrara on 02-01-2022 Albumin [Mass/Vol] 3.1 g/dL 3.2-5.5 [facility] Basophils Auto (Bld) [#/Vol] Ordered By: Zahraa Ferrara on 02-01-2022 Basophils (Bld) [#/Vol] 0.1 10*3/uL 0.0-0.2 [facility] Basophils/100 WBC Auto (Bld) Ordered By: Zahraa Ferrara on 02-01-2022 Basophils/100 WBC (Bld) 1.5 % [facility] Blood hemoglobin measurement (mass/volume)Ordered By: Zahraa Ferrara on 02-01-2022 Hemoglobin (Bld) [Mass/Vol] 12.3 g/dL 11.8-15.4 [facility] Blood leukocytes automated c ount (number/volume)Ordered By: Zahraa Ferrara on 02-01-2022 WBC (Bld) [#/Vol] 5.9 10*3/uL 4.5-11.0 [facility] Cholesterol [Mass/volume] in Serum or PlasmaOrdered By: Zahraa Ferrara on 02-01-2022 Cholesterol [Mass/Vol] 135 mg/dL 140-200 [facility] Comment on above: Chol less than 200 m g/dl low risk Chol 201-239 mg/dl borderline risk Chol 240 mg/dl and greater high risk Cholesterol in LDL Calc [Mas s/Vol]Ordered By: Zahraa Ferrara on 02-01-2022 Cholesterol in LDL [Mass/Vol] 86 mg/dL 0-100 [facility] Comment on above: LDL ATP III CLASSIFI CATION LDL less than 100 mg/dL Optimal LDL 100-129 mg/dL Near or above optimal LDL 130-159 mg/dL Borderline high LDL 160-189 mg/dL High LDL greater than 189 mg/dL Very high Cholesterol in VLDL Calc [Ma ss/Vol]Ordered By: Zahraa Ferrara on 02-01-2022 Cholesterol in VLDL [Mass/Vol] 23 mg/dL [facility] Eosinophils Auto (Bld) [#/Vo l]Ordered By: Zahraa Ferrara on 02-01-2022 Eosinophils (Bld) [#/Vol] 0.3 10*3/uL 0.0-0.45 [facility] Eosinophils/100 WBC Auto (Bl d)Ordered By: Zahraa Ferrara on 02-01-2022 Eosinophils/100 WBC (Bld) 5.7 % [facility] Erythrocyte distribution wid th Auto (RBC) [Ratio]Ordered By: Zahraa Ferrara on 02-01-2022 Erythrocyte distribution width (RBC) [Ratio] 14.3 % 11.9-15.3 [facility] Globulin Calc (S) [Mass/Vol] Ordered By: Zahraa Ferrara on 02-01-2022 Globulin (S) [Mass/Vol] 3.4 g/dL [facility] Hematocrit Auto (Bld) [Volum e fraction]Ordered By: Zahraa Ferrara on 02-01-2022 Hematocrit (Bld) [Volume fraction] 37.8 % 34.0-46.4 [facility] - Chemistry and C hemistry - challengeOrdered By: Zahraa Ferrara on 02-01-2022 Lipase [Catalytic activity/Vol] 39.0 U/L 22-51 [facility] - Hematology and Cell countsOrdered By: Zahraa Ferrara on 02-01-2022 Nucleated RBC/100 WBC (Bld) [Ratio] 0.0 % 0-0.5 [facility] Lymphocytes Auto (Bld) [#/Vo l]Ordered By: Zahraa Ferrara on 02-01-2022 Lymphocytes (Bld) [#/Vol] 2.2 10*3/uL 1.00-4.8 [facility] Lymphocytes/100 WBC Auto (Bl d)Ordered By: Zahraa Ferrara on 02-01-2022 Lymphocytes/100 WBC (Bld) 36.8 % [facility] MCH Auto (RBC) [Entitic mass ]Ordered By: Zahraa Ferrara on 02-01-2022 MCH (RBC) [Entitic mass] 26.1 pg 24.7-34.3 [facility] MCHC Auto (RBC) [Mass/Vol]Or dered By: Zahraa Ferrara on 02-01-2022 MCHC (RBC) [Mass/Vol] 32.6 g/dL 32.0-35.0 [facility] MCV Auto (RBC) [Entitic vol] Ordered By: Zahraa Ferrara on 02-01-2022 MCV (RBC) [Entitic vol] 80.1 fL 80-100 [facility] Monocytes Auto (Bld) [#/Vol] Ordered By: Zahraa Ferrara on 02-01-2022 Monocytes (Bld) [#/Vol] 0.7 10*3/uL 0.0-0.8 [facility] Monocytes/100 WBC Auto (Bld) Ordered By: Zahraa Ferrara on 02-01-2022 Monocytes/100 WBC (Bld) 11.8 % [facility] Neutrophils Auto (Bld) [#/Vo l]Ordered By: Zahraa Ferrara on 02-01-2022 Neutrophils (Bld) [#/Vol] 2.6 10*3/uL 1.8-7.7 [facility] Neutrophils/100 WBC Auto (Bl d)Ordered By: Zahraa Ferrara on 02-01-2022 Neutrophils/100 WBC (Bld) 44.2 % [facility] No Panel InformationOrdered By: Zahraa Ferrara on 02-01-2022 Bedside Glucose #2 Comment Follow hypoglycemic [facility] Bedside Glucose Comment Glu2: cleaned meter [facility] Platelet mean volume Auto (B ld) [Entitic vol]Ordered By: Zahraa Ferrara on 02-01-2022 Platelet mean volume (Bld) [Entitic vol] 9.0 fL 6.3-10.7 [facility] Platelets Auto (Bld) [#/Vol] Ordered By: Zahraa Ferrara on 02-01-2022 Platelets (Bld) [#/Vol] 244 10*3/uL 150-450 [facility] Protein [Mass/volume] in Ser um or PlasmaOrdered By: Zahraa Ferrara on 02-01-2022 Protein [Mass/Vol] 6.5 g/dL 6.1-7.9 [facility] RBC Auto (Bld) [#/Vol]Ordere d By: Zahraa Ferrara on 02-01-2022 RBC (Bld) [#/Vol] 4.71 10*6/uL 3.60-5.00 [facility] Serum or plasma alanine valdes otransferase measurement without P-5'-P (enzymatic activiOrdered By: Zahraa Ferrara on 02-01-2022 ALT No additional P-5'-P [Catalytic activity/Vol] 13 U/L 10-60 [facility] Serum or plasma albumin/glob ulin mass ratioOrdered By: Zahraa Ferrara on 02-01-2022 Albumin/Globulin [Mass ratio] 0.9 {ratio} [facility] Serum or plasma alkaline erica sphatase measurement (enzymatic activity/volume)Ordered By: Zahraa Ferrara on 02-01-2022 ALP [Catalytic activity/Vol] 76 U/L 32-92 [facility] Serum or plasma aspartate am inotransferase measurement (enzymatic activity/volume)Ordered By: Zahraa Ferrara on 02-01-2022 AST [Catalytic activity/Vol] 14 U/L 10-42 [facility] Serum or plasma high density lipoprotein (HDL) cholesterol measurementOrdered By: Zahraa Ferrara on 02-01-2022 Cholesterol in HDL [Mass/Vol] 26 mg/dL 35-85 [facility] Comment on above: HDL CHOL ATP-III CLA SSIFICATION Cardiovascular Risk HDL > or equal to 60 mg/dL LOW HDL < 40 mg/dL HIGH Serum or plasma total biliru bin measurement (mass/volume)Ordered By: Zahraa Ferrara on 02-01-2022 Bilirubin [Mass/Vol] 0.4 mg/dL 0.3-1.2 [facility] Serum or plasma total choles terol/high density lipoprotein (HDL) cholesterol mass ratOrdered By: Zahraa Ferrara on 02-01-2022 Cholesterol.total/Chol esterol in HDL [Mass ratio] 5.2 {ratio} [facility] TSH DL <= 0.005 mIU/L QnOrde red By: Zahraa Ferrara on 02-01-2022 TSH Qn 1.11 m[IU]/L 0.45-5.33 [facility] Triglyceride [Mass/volume] i n Serum or PlasmaOrdered By: Zahraa Ferrara on 02-01-2022 Triglyceride [Mass/Vol] 117 mg/dL 35-149 [facility] Comment on above: TRIG ATP III CLASSIF [...] High sensitivity method [Mass/Vol] 200 pg/mL 0-15 [facility] Comment on above: Results called at 0650 on 02/01/22 ACETONE SERUMon 01-31-2022 ACETONE Negative Normal NEGATIVE [facility] Comment on above: Performed By: #### A CETON #### [facility] [address] [place] [address] Dr. Clem Ward AMYLASEon 01-31-2022 Amylase [Catalytic activity/Vol] 37 U/L Normal 25-[address] [facility] Comment on above: Performed By: #### A 1C #### [facility] [address] [place] [address] Dr. Clem Ward BNPon 01-31-2022 Natriuretic peptide B (Bld) [Mass/Vol] 1567.0 pg/mL Critically high <=450.[address] [facility] Comment on above: Result Comment: TEST REPEATED CRITICAL VALUE VERIFIED Performed By: #### T 3TOTAL #### [facility] [address] [place] [address] Dr. Clem Ward CARDIAC TAWNYA 3-6on 2 CK [Catalytic activity/Vol] 97 U/L Normal 26-[address] [facility] Comment on above: Performed By: #### T 3TOTAL #### [facility] [address] [place] [address] Dr. Clem Ward CK.MB [Mass/Vol] 2.67 ng/mL Normal <=3.[address] [facility] Comment on above: Performed By: #### T 3TOTAL #### [facility] [address] [place] [address] Dr. Clem Ward HSTROP 335.7 pg/mL Critically high 4.0-51.[address] [facility] Comment on above: Result Comment: CUT- OFF POINTS HAVE BEEN ESTABLISHED BASED ON THE FOURTH UNIVERSAL DEFINITIONS OF MYOCARDIAL INFARCTION. THE UPPER REFERENCE LIMIT (URL) OF TROPONIN, DEFINED THE 99TH PERCENTILE OF cTnI DISTRIBUTION IN A REFERENCE POPULATION, HAS BEEN CONFIRMED THE DECISION THRESHOLD FOR IN DIAGNOSIS. TEST REPEATED CRITICAL VALUE VERIFIED Performed By: #### T 3TOTAL #### [facility] [address] [place] [address] Dr. Clem Ward CK [Catalytic activity/Vol] 102 U/L Normal 26-[address] [facility] Comment on above: Performed By: #### P T, PTT, DDIM #### [facility] [address] [place] [address] Dr. Clem Ward CK.MB [Mass/Vol] 2.99 ng/mL Normal <=3.[address] [facility] Comment on above: Performed By: #### P T, PTT, DDIM #### [facility] [address] [place] [address] Dr. Clem Ward HSTROP 371.5 pg/mL Critically high 4.0-51.[address] [facility] Comment on above: Result Comment: CUT- OFF POINTS HAVE BEEN ESTABLISHED BASED ON THE FOURTH UNIVERSAL DEFINITIONS OF MYOCARDIAL INFARCTION. THE UPPER REFERENCE LIMIT (URL) OF TROPONIN, DEFINED THE 99TH PERCENTILE OF cTnI DISTRIBUTION IN A REFERENCE POPULATION, HAS BEEN CONFIRMED THE DECISION THRESHOLD FOR IN DIAGNOSIS. Performed By: #### P T, PTT, DDIM #### [facility] [address] [place] [address] Dr. Clem Ward CARDIAC TAWNYA ADMITon 022 CK [Catalytic activity/Vol] 159 U/L Normal 26-[address] [facility] Comment on above: Performed By: #### C MADM, BMP #### [facility] [address] [place] [address] Dr. Clem Ward CK.MB [Mass/Vol] 2.80 ng/mL Normal <=3.[address] [facility] Comment on above: Performed By: #### C MADM, BMP #### [facility] [address] [place] [address] Dr. Clem Ward HSTROP 348.0 pg/mL Critically high 4.0-51.[address] [facility] Comment on above: Result Comment: CUT- OFF POINTS HAVE BEEN ESTABLISHED BASED ON THE FOURTH UNIVERSAL DEFINITIONS OF MYOCARDIAL INFARCTION. THE UPPER REFERENCE LIMIT (URL) OF TROPONIN, DEFINED THE 99TH PERCENTILE OF cTnI DISTRIBUTION IN A REFERENCE POPULATION, HAS BEEN CONFIRMED THE DECISION THRESHOLD FOR IN DIAGNOSIS. TEST REPEATED CRITICAL VALUE VERIFIED Performed By: #### C MADM, BMP #### [facility] [address] [place] [address] Dr. Clem Ward LANI 125 ng/mL Critically high 9-82 [facility] Comment on above: Performed By: #### C MADM, BMP #### [facility] [address] [place] [address] Dr. Clem Ward CBC AUTO DIFFon 0503-2022 BASO # 0.0 103/ul Normal 0.0-0.1 [facility] Comment on above: Performed By: #### P OCGLUC #### [facility] [address] [address] [address] Clem Ward Basophils/100 WBC (Bld) 0.2 % Normal 0.2-2.0 [facility] Comment on above: Performed By: #### P OCGLUC #### [facility] [address] [address] [address] Clem Ward EO # 0.2 103/ul Normal 0.0-0.[address] [facility] Comment on above: Performed By: #### P OCGLUC #### [facility] [address] [place] [address] Dr. Clem Ward Eosinophils/100 WBC (Bld) 2.2 % Normal 0.9-7.0 [facility] Comment on above: Performed By: #### P OCGLUC #### [facility] [address] [place] [address] Dr. Clem Ward Erythrocyte distribution width (RBC) [Ratio] 13.8 % Normal 11.0-15.0 [facility] Comment on above: Performed By: #### P OCGLUC #### [facility] Laboratory [address] [place] [address] Dr. Clem Ward Hematocrit (Bld) [Volume fraction] 46.1 % Normal 36.0-48.0 [facility] Comment on above: Performed By: #### P OCGLUC #### [facility] Laboratory [address] [place] [address] Dr. Clem Ward Hemoglobin (Bld) [Mass/Vol] 14.3 g/dL Normal 12.0-16.[address] [facility] Comment on above: Performed By: #### P OCGLUC #### [facility] Laboratory [address] [place] [address] Dr. Clem Ward IG # 0.03 10e3/ul Normal 0.00-0.03 [facility] Comment on above: Performed By: #### P OCGLUC #### [facility] Laboratory [address] [address] [address] Clem Ward IG % 0.3 % Normal 0.0-0.5 [facility] Comment on above: Performed By: #### P OCGLUC #### [facility] Laboratory [address] [address] [address] Clem Ward LYMPH # 2.6 103/ul Normal 1.2-3.[address] [facility] Comment on above: Performed By: #### P OCGLUC #### [facility] Laboratory [address] [address] [address] Clem Ward Lymphocytes/100 WBC (Bld) 27.6 % Normal 20.5-60.0 [facility] Comment on above: Performed By: #### P OCGLUC #### [facility] Laboratory [address] [place] [address] Dr. Clem Ward MANUAL DIFF REQ NO Normal The [facility] Comment on above: Performed By: #### P OCGLUC #### [facility] Laboratory [address] [address] [address] Clem Ward MCH (RBC) [Entitic mass] 25.7 pg Critically low 26.7-34.0 [facility] Comment on above: Performed By: #### P OCGLUC #### [facility] Laboratory [address] [place] [address] Dr. Clem Ward MCHC (RBC) [Mass/Vol] 31.0 g/dL Normal 29.9-35.[address] [facility] Comment on above: Performed By: #### P OCGLUC #### [facility] Laboratory [address] [place] [address] Dr. Clem Ward MCV (RBC) [Entitic vol] 82.9 fL Normal 81.0-99.[address] [facility] Comment on above: Performed By: #### P OCGLUC #### [facility] Laboratory [address] [place] [address] Dr. Clem Ward MONO # 0.8 103/ul Normal 0.3-0.[address] [facility] Comment on above: Performed By: #### P OCGLUC #### [facility] Laboratory [address] [place] [address] Dr. Clem Ward Monocytes/100 WBC (Bld) 7.8 % Normal 1.7-12.0 [facility] Comment on above: Performed By: #### P OCGLUC #### [facility] Laboratory [address] [place] [address] Dr. Clem Ward NEUT # 5.9 103/ul Normal 1.4-6.5 [facility] Comment on above: Performed By: #### P OCGLUC #### [facility] Laboratory [address] [place] [address] Dr. Clem Ward Neutrophils/100 WBC (Bld) 61.9 % Normal 43.0-75.0 [facility] Comment on above: Performed By: #### P OCGLUC #### [facility] Laboratory [address] [place] [address] Dr. Clem Ward Platelet mean volume (Bld) [Entitic vol] 10.6 fL Normal 9.5-13.5 [facility] Comment on above: Performed By: #### P OCGLUC #### [facility] Laboratory [address] [place] [address] Dr. Clem Ward PLT 270 103/ul Normal 150-[address] [facility] Comment on above: Performed By: #### P OCGLUC #### [facility] Laboratory [address] [place] [address] Dr. Clem Ward RBC 5.56 106/ul Critically high 4.20-5.[address] [facility] Comment on above: Performed By: #### P OCGLUC #### [facility] Laboratory [address] [place] [address] Dr. Clem Ward WBC 9.6 103/ul Normal 4.0-11.[address] [facility] Comment on above: Performed By: #### P OCGLUC #### [facility] Laboratory [address] [place] [address] Dr. Clem Ward CTA CHEST WO W [...] KATHY RAMÍREZ Date: 2022-01-31 13:25 Normal [address] [facility] Covid-19 PCR (CVDTBH)on SARS-CoV-2 (COVID-19) RNA BENTLEY+probe Ql (Unsp spec) Not detected Normal NOT DETECTED The [facility] Comment on above: Result Comment: When [...] for this test is supported by the [place] of Health and Human Service's declaration that [...] By: #### C VDTBH #### [facility] Laboratory [address] [place] [address] [id number] [address] Clem Ward D-DIMERon 01-31-2022 D-DIMER 0.74 mg/L FEU Critically high 0.19-0.50 The [facility] Comment on above: Performed By: #### P T, PTT, DDIM #### [facility] Laboratory [address] [place] [address] Dr. Clem Ward D-DIMER COMMENTS SEE BELOW Normal [facility] Comment on above: Result Comment: Incr [...] P T, PTT, DDIM #### [facility] Laboratory [address] [place] [address] Dr. Clem Ward LIPASEon 01-31-2022 Lipase [Catalytic activity/Vol] 120.0 U/L Normal 73.0-393.0 [facility] Comment on above: Performed By: #### P T, PTT, DDIM #### [facility] Laboratory [address] [place] [address] Dr. Clem Ward Laboratory - Chemistry and C hemistry - challengeOrdered By: Zahraa Ferrara on 01-31-2022 Magnesium [Mass/Vol] 1.4 mg/dL 1.6-2.6 [facility] POINT OF CARE GLUCOSEon 05- Glucose [Mass/Vol] 100 mg/dL Normal 74-106 [facility] Comment on above: Performed By: #### P OCGLUC #### [facility] Laboratory [address] [place] [address] Dr. Clem Ward Glucose [Mass/Vol] 163 mg/dL Critically high 74-106 [facility] Comment on above: Performed By: #### P T, PTT, DDIM #### [facility] Laboratory [address] [place] [address] Dr. Clem Ward PREG HCG QUALon 01-31-2022 , QUAL Negative Normal NEGATIVE [facility] Comment on above: Performed By: #### P OCGLUC #### [facility] Laboratory [address] [place] [address] Dr. Clem Ward PROF 14(COMP METB)on 022 Albumin [Mass/Vol] 3.5 g/dL Normal 3.4-5.0 [facility] Comment on above: Performed By: #### T 3TOTAL #### [facility] [address] [place] [address] Dr. Clem Ward Albumin/Globulin [Mass ratio] 0.7 {ratio} Normal [facility] Comment on above: Performed By: #### T 3TOTAL #### [facility] [address] [address] [address] Clem Ward ALP [Catalytic activity/Vol] 97 U/L Normal 46-116 [facility] Comment on above: Performed By: #### T 3TOTAL #### [facility] [address] [place] [address] Dr. Clem Ward ALT [Catalytic activity/Vol] 19 U/L Normal 14-59 [facility] Comment on above: Performed By: #### T 3TOTAL #### [facility] [address] [address] [address] Clem Ward Anion gap [Moles/Vol] 13.6 mmol/L Normal [facility] Comment on above: Performed By: #### T 3TOTAL #### [facility] [address] [place] [address] Dr. Clem Ward AST [Catalytic activity/Vol] 26 U/L Normal 15-37 [facility] Comment on above: Result Comment: SLIG HT HEMOLYSIS MAY AFFECT K+ AND AST Performed By: #### T 3TOTAL #### [facility] [address] [place] [address] Dr. Clem Ward Bilirubin [Mass/Vol] 0.4 mg/dL Normal 0.2-1.0 [facility] Comment on above: Performed By: #### T 3TOTAL #### [facility] [address] [place] [address] Dr. Clem Ward Calcium [Mass/Vol] 8.8 mg/dL Normal 8.5-10.1 [facility] Comment on above: Performed By: #### T 3TOTAL #### [facility] [address] [address] [address] Clem Ward Chloride [Moles/Vol] 100 mmol/L Normal 98-[address] [facility] Comment on above: Performed By: #### T 3TOTAL #### [facility] [address] [address] [address] Clem Ward CO2 [Moles/Vol] 26.2 mmol/L Normal 21.0-32.[address] [facility] Comment on above: Performed By: #### T 3TOTAL #### [facility] [address] [address] [address] Clem Ward Creatinine [Mass/Vol] 1.08 mg/dL Critically high 0.55-1.02 [facility] Comment on above: Performed By: #### T 3TOTAL #### [facility] [address] [address] [address] Clem Ward EGFR-AF [place] >60 Normal >=[address] [facility] Comment on above: Performed By: #### T 3TOTAL #### [facility] [address] [address] [address] Clem Ward EGFR-NON AF [place] 55 mL/min/1.73m2 Critically low >=60 [facility] Comment on above: Performed By: #### T 3TOTAL #### [facility] [address] [address] [address] Clem Ward Globulin (S) [Mass/Vol] 4.7 g/dL Normal [facility] Comment on above: Performed By: #### T 3TOTAL #### [facility] [address] [address] [address] Clem Ward Glucose [Mass/Vol] 150 mg/dL Critically high 74-106 [facility] Comment on above: Performed By: #### T 3TOTAL #### [facility] [address] [address] [address] Clem Ward Potassium [Moles/Vol] 4.8 mmol/L Normal 3.5-5.[address] [facility] Comment on above: Result Comment: SLIG HT HEMOLYSIS MAY AFFECT K+ AND AST Performed By: #### T 3TOTAL #### [facility] [address] [address] [address] Clem Ward Protein [Mass/Vol] 8.2 g/dL Normal 6.1-8.2 The [facility] Comment on above: Performed By: #### T 3TOTAL #### [facility] [address] [address] [address] Clem Ward Sodium [Moles/Vol] 135 mmol/L Critically low 136-145 Th [facility] Comment on above: Performed By: #### T 3TOTAL #### [facility] Laboratory [address] [place] [address] Dr. Clem Ward Urea nitrogen [Mass/Vol] 14.0 mg/dL Normal 7.0-18.0 [facility] Comment on above: Performed By: #### T 3TOTAL #### [facility] [address] [place] [address] Dr. Clem Ward Urea nitrogen/Creatinine [Mass ratio] 13.0 mg/mg Normal [facility] Comment on above: Performed By: #### T 3TOTAL #### [facility] [address] [place] [address] Dr. Clem Ward PROTIMEon 01-31-2022 INR Coag (PPP) [Relative time] 1.06 {INR} Normal [facility] Comment on above: Performed By: #### P T, PTT, DDIM #### [facility] Laboratory [address] [place] [address] Dr. Clem Ward INR GUIDELINES SEE BELOW Normal [facility] Comment on above: Result Comment: JOSH RED INR: 2.0 - 3.0 CONDITIONS NOT LISTED BELOW 2.5 - 3.5 FOR PROSTHETIC HEART VALVE REPLACEMENT 2.5 - 3.5 RECURRENT THROMBOSIS Performed By: #### P T, PTT, DDIM #### [facility] Laboratory [address] [place] [address] Dr. Clem Ward PT Coag (PPP) [Time] 11.4 s Normal 9.0-11.6 [facility] Comment on above: Performed By: #### P T, PTT, DDIM #### [facility] Laboratory [address] [place] [address] Dr. Clem Ward PTTon 01-31-2022 aPTT Coag (Bld) [Time] 23.0 s Normal 22.3-36.[address] [facility] Comment on above: Performed By: #### P T, PTT, DDIM #### [facility] Laboratory [address] [address] [address] Clem Ward XR CHEST 1 Von [...] by: KEYSHAWN ESCOBEDO Date: 2022-01-31 11:29 Normal [facility] Provider Letteron 12-09-2021 Provider Letter December 09, 2021 JENNIFER DIAZ [address] [place] [address] [place] [address] JENNIFER DIAZ 1975 Dear Jennifer , We have been trying to reach you with no success. It is important that you return our call regarding your referral from Kat Salmeron upon receiving this letter. Also, at the time of your call, please provide us with your current information. Thank you for your prompt attention to this matter. Sincerely, General Surgery [phone] Normal [facility] Physician Referralon 022 Physician Referral [phone] [id number] Normal [facility] NEW MICROALBUMINon 9 Creatinine (U) [Mass/Vol] 82.4 mg/dL Normal [facility] Comment on above: Order Comment: THE M ICROALBUMIN IS < 6.0 THEREFORE THE MICROALBUMIN/CREATININE RATIO IS UNDETECTABLE. Performed By: #### 8 00 #### [facility] Unless Otherwise Noted [address] [address] / COLA #4724/CLIA # [id number] Microalbumin <6.0 Normal 0.0-30.0 [facility] Diabetes [facility] Comment on above: Order Comment: THE M ICROALBUMIN IS < 6.0 THEREFORE THE MICROALBUMIN/CREATININE RATIO IS UNDETECTABLE. Performed By: #### 8 00 #### Endocrine [facility] Diabetes [facility] Unless Otherwise Noted [address] [address] / [facility] #4724/CLIA # [id number] Urine A/C Ratio -99.0 mg/g Low 0.0-30.0 [facility] and Diabetes [facility] Comment on above: Order Comment: THE M ICROALBUMIN IS < 6.0 THEREFORE THE MICROALBUMIN/CREATININE RATIO IS UNDETECTABLE. Performed By: #### 8 00 #### [facility] and Diabetes [facility] Unless Otherwise Noted [address] [address] / [facility] #4724/CLIA # [id number] Vital Signs Date Time Vital Sign Value Performing Clinician Facility 09-04-2023 13:55-0500 Diastolic blood pressure 71 mm[Hg] [employer] Vivi Salmeron Work Phone: [facility] 09-04-2023 13:55-0500 Heart rate 82 /min [employer] Vivi Salmeron Work Phone: [facility] 09-04-2023 13:55-0500 Respiratory rate 18 /min [employer] Vivi Chungmer Work Phone: [facility] 09-04-2023 13:55-0500 SaO2% (BldA) [Mass fraction] 98 % [employer] Vivi Chungmer Work Phone: [facility] 09-04-2023 13:55-0500 Systolic blood pressure 111 mm[Hg] [employer] Vivi Salmeron Work Phone: [facility] 09-04-2023 12:32-0500 Body height 152.4 cm [employer] Vivi Faviola Work Phone: [facility] 09-04-2023 12:32-0500 Body weight 78.47 kg [employer] Vivi Faviola Work Phone: [facility] 08-02-2023 13:15-0400 Body weight 79.7 kg Jose Carmona Other [facility] Other 08-02-2023 13:15-0400 Diastolic blood pressure 87 mm[Hg] Jose Olivaresy Other [facility] Other 08-02-2023 13:15-0400 Systolic blood pressure 129 mm[Hg] Jose Olivaresy Other [facility] Other 02-02-2022 15:01-0400 Body height 154.94 cm [employer] Vivi Faviola Work Phone: [facility] 02-02-2022 12:00-0400 Body temperature 98 [degF] [employer] Vivi Faviola Work Phone: [facility] 02-02-2022 12:00-0400 Diastolic blood pressure 114 mm[Hg] [employer] Vivi Faviola Work Phone: [facility] 02-02-2022 12:00-0400 Heart rate 91 /min [employer] Vivi Faviola Work Phone: [facility] 02-02-2022 12:00-0400 Respiratory rate 18 /min [employer] Vivi Faviola Work Phone: [facility] 02-02-2022 12:00-0400 SaO2% (BldA) [Mass fraction] 99 % [employer] Vivi Faviola Work Phone: [facility] 02-02-2022 12:00-0400 Systolic blood pressure 149 mm[Hg] [employer] Vivi Salmeron Work Phone: [facility] 02-02-2022 06:00-0400 Body weight 91 kg [employer] Vivi Salmeron Work Phone: [facility] 01-31-2022 18:18-0400 Body mass index (BMI) [Ratio] 38.1 kg/m2 [employer] Vivi Salmeron Work Phone: [facility] 01-31-2022 07:55-0400 25 1 Wilfredo Latham DO Work Phone: [facility] 250 DO Work Phone: Comment on above: [id number] Encounters Encounter Date Encounter Type Care Provider Facility Start: 11-12-2024 ambulatory [facility] Start: 07-09-2024 End: 07-09[facility] Start: 04-09-2024 End: 04-09-2024 ambulatory NIKO TORREZ Not Available Start: 01-08-2024 End: 01-08-2024 ambulatory [facility] Start: 09-04-2023 End: 09-04-2023 ambulatory Jose Olivaresrubio Facility:[facility] Start: 09-04-2023 End: 09-04-2023 Admission to same day surgery center [employer] Vivi Salmeron Work Phone: [facility] Work Phone: Start: 09-04-2023 End: 09-04-2023 ambulatory [employer] Vivi Salmeron Work Phone: [facility] Work Phone: Start: 08-02-2023 End: 08-02-2023 ambulatory Jose Olivaresrubio Other [facility] Other Start: 08-02-2023 [facility] visit new patient Jose Carmona [facility] Start: 03-02-2023 Rx Renewal Wilfredo nieves DO Work Phone: [facility] 250 DO Work Phone: Start: 01-17-2023 End: [...] Encounter for preprocedural laboratory examination VISHAL FOWLER [facility] Start: 02-23-2022 End: 02-24-2022 ambulatory VISHAL FOWLER Facility:[facility] Start: 02-21-2022 End: 02-22-2022 ambulatory VISHAL FOWLER Facility: Start: 02-21-2022 End: 02-22-2022 Encounter for preprocedural laboratory examination VISHAL FOWLER Facility:[facility] Start: 02-08-2022 FUV, Provider: Shanta Lentz, Status: Pen, Time: 12:00 PM Wilfredo Latham DO Work Phone: [facility] 250 DO Work Phone: Start: 02-03-2022 End: 02-04-[address] YOEL SALINAS . Facility:[facility] Start: 02-02-2022 Message Wilfredo nieves DO Work Phone: [facility] 250 DO Work Phone: Start: 01-31-2022 End: 02-02-2022 Evaluation and management of inpatient [employer] Vivi Salmeron Work Phone: [facility] [place] [facility] Start: 01-31-2022 End: 01-31-[address] KEYSHAWN ESCOBEDO Facility:[facility] Procedures Date Procedure Procedure Detail Performing Clinician Start: 01-08-2024 Follow-up visit Follow-up VISHAL FOWLER Start: 09-04-2023 Esophagogastroduodenoscopy [employer] Vivi Salmeron Work Phone: Cardiac catheterization Will herb Latham DO Work Phone: Cholecystectomy Wilfredo estrella DO Work Phone: Hysterectomy Wilfredo Latham DO Work Phone: Plan of Treatment Date Care Activity Detail Author Start: 09-04-2023 [facility] Start: 02-13-2022 SURGNONUH, Provider: Wilfredo Latham, Status: Pen, Time: 10:00 AM SURGNONUH, Provider: Wilfredo Latham, Status: Pen, Time: 10:00 AM [facility] 250 DO Work Phone: Start: 02-08-2022 FUV, Provider: Shanta Lentz, Status: Pen, Time: 12:00 PM FUV, Provider: Shanta Lentz, Status: Pen, Time: 12:00 PM [facility] 250 DO Work Phone: Patient Education Hiatal Hernia (DC) [facility] Work Phone: Patient referral [facility] Work Phone: Immunizations Immunization Date Immunization Notes Care Provider Mazin damico 09-22-2021 Moderna COVID-19 Vac cine 100 MCG/0.5ML Intramuscular Suspension Wilfredo Latham DO Work Phone: [facility] 10-29-2020 Moderna COVID-19 Vac cine 100 MCG/0.5ML Intramuscular Suspension Wilfredo Latham DO Work Phone: [facility] 09-29-2020 Moderna COVID-19 Vac cine 100 MCG/0.5ML Intramuscular Suspension Wilfredo Latham DO Work Phone: [facility] 07-01-2020 influenza, high dose seasonal, preservative-free Wilfredo Latham DO Work Phone: -[facility] 250 DO Work Phone: 09-02-2014 tetanus toxoid, redu sylvain diphtheria toxoid, and acellular pertussis vaccine, adsorbed Wilfredo Latham DO Work Phone: [facility] 250 DO Work Phone: Payers Date Payer Category Payer Unknown [id number] 2023 Self-pay [id number] 2022 Medicaid [id number] 1975 Unknown [id number] 1975 Unknown [id number] 1975 Unknown [id number] [id number] 1975 Unknown [id number] 1975 Unknown [id number] [id number] 1975 Unknown [id number] [id number] 1975 Unknown [id number] [id number] 1975 Unknown [id number] [id number] 1975 Unknown [id number] [id number] 1975 Unknown [id number] [id number] 1975 Unknown [id number] [id number] 1975 Unknown [id number] [id number] 1975 Unknown [id number] [id number] 1975 Unknown [id number] [id number] 1958 Medicaid [id number] Unknown [employer] Unknown [id number] Social History Date Type Detail Facility Start: 02-01-2022 End: 09-04-2023 Tobacco smoking status KYIS Smoker (finding) [facility] Start: 1975 Sex Assigned At Female F [facility] Sex Assigned At Sex Assigned At Bir th [place] [employer] Other Goals Date Patient Goal Desired Activity /State Functional Status Date Assessment Result Facility 02-02-2022 Functional status Patient at Baseline [facility] Work Phone: Mental Status Date Assessment Result Facility 02-02-2022 Cognitive function Cognitive Sta tus Patient at Baseline [facility] Work Phone: Clinical Notes 01-31-2022 to 07-09-2024 Note Date & Type Note Facility 07-09-2024 Note Patient here for 6 m o follow up HFimpEF, claudication, and non-obstructive CAD. Says her claudication is improving but she has some LE edema. Denies chest pain and SOB. Review of Systems Cardiovascular: Positive for claudication and leg swelling. All other systems reviewed and are negative. [facility] 07-09-2024 Note Cardiovascular Medic ine [facility] SUBJECTIVE Chief Complaint Patient presents with Congestive Heart Failure Hypertension Jennifer Diaz is a 48 y.o. female here for follow-up. HPI PMHx: NICM, HFimpEF, nonobstructive CAD, HTN, DM type II, HLD, TIA, hx of 3 IN's while using cocaine, no use of cocaine since 2019 She has been doing well from a cardiac standpoint. 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 Hydrochlorothiazide started by PCP, unsure of dose. She is also on Kcl 20mEq BID Trulicity - 3.0 Leg pain is doing better. Occasional dizziness. Leg swelling stable - she wears compression stockings while working. Denies CP, dyspnea, orthopnea, PND, palpitations, syncope. 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 Obesity Pneumonia Pruritus of vulva Syncope and collapse Vaginitis and vulvovaginitis Chronic systolic heart failure ([facility]) Mixed hyperlipidemia TIA (transient ischemic attack) Chest pain Cigarette smoker Diabetes mellitus type II, uncontrolled Food insecurity RAE (generalized anxiety disorder) Diabetic foot infection ([facility]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 ([facility]) Tobacco abuse Type 2 diabetes mellitus with hyperglycemia ([facility]) Ischemic cardiomyopathy Near syncope Troponin I above reference range Past Medical History: Diagnosis Date CHF (congestive heart failure) ([facility]) Coronary artery disease Diabetes mellitus ([facility]) 05/15/2022 Diabetes mellitus type I ([facility]) 05/15/2022 Essential hypertension 05/15/2022 Galactorrhea not associated with childbirth 05/15/2022 Genital herpes simplex 05/15/2022 Hemorrhoids 05/15/2022 Mammogram abnormal 05/15/2022 Mycoplasma infection 05/15/2022 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 05/15/2022 Obesity 05/15/2022 Pneumonia 05/15/2022 Pruritus of vulva 05/15/2022 Syncope and collapse 05/15/2022 Vaginitis and vulvovaginitis 05/15/2022 Family History Problem Relation Name Age of Onset Arthritis Mother Hypertension Mother Hyperlipidemia Mother Diabetes Paternal Grandmother Other (malignant mesothelioma) Paternal Grandfather Social History Tobacco Use Smoking status: Every Day Packs/day: .5 Types: Cigarettes Start date: 2002 Smokeless tobacco: Never Substance Use Topics Alcohol use: Yes Comment: occasional Drug use: Never Allergies Allergen Reactions Keflex [Cephalexin] Penicillins Rash ROS Cardiovascular: Positive for claudication and leg swelling. All other systems reviewed and are negative. OBJECTIVE Visit Vitals BP 104/79 Pulse 96 Ht 1.549 m (5' 1 ) Wt 81.6 kg (180 lb) SpO2 98% BMI 34.01 kg/m??? Smoking Status Every Day BSA 1.87 m??? Medications: Current Outpatient Medications: albuterol 90 mcg/actuation inhaler, Inhale 2 puffs every 6 (six) hours if needed., Disp: , Rfl: aspirin 81 mg EC tablet, take 1 tablet by mouth every morning, Disp: 90 tablet, Rfl: 3 atorvastatin (Lipitor) 80 mg tablet, take 1 tablet by mouth every morning, Disp: 90 tablet, Rfl: 3 carvedilol (Coreg) 25 mg tablet, take 1 tablet by mouth with breakfast and EVENING MEAL, Disp: 180 tablet, Rfl: 3 clopidogrel (Plavix) 75 mg tablet, take 1 tablet by mouth every morning, Disp: 90 tablet, Rfl: 3 dulaglutide (Trulicity) 3 mg/0.5 mL pen injector, Inject 3 mg under the skin every 7 (seven) days., Disp: , Rfl: furosemide (Lasix) 20 mg tablet, take 1 tablet by mouth once daily as directed, Disp: 90 tablet, Rfl: 3 hydroCHLOROthiazide 12.5 mg tablet, Take 12.5 mg by mouth in the morning., Disp: [...] (five) minutes if needed., Disp: , Rfl: potassium chloride CR (Klor-Con M20) 20 mEq ER tablet, Take 20 mEq by mouth two times daily. Do not crush or chew., Disp: , Rfl: sacubitril-valsartan (Entresto) 24-26 mg tablet, Take 1 tablet by mouth two times daily., Disp: 180 tablet, Rfl: 3 spironolactone (Aldactone) 50 mg tablet, take 1 tablet by mouth every morning, Disp: 90 tablet, Rfl: 3 valACYclovir (Valtrex) 500 mg tablet, Take 500 mg by mouth in the morning and at bedtime., Disp: , Rfl: venlafaxine XR (Effoxor-XR) 150 mg 24 hr capsule, Take 150 mg (more content not included)... [facility] 01-08-2024 Note Cardiology Clinic No te Subjective Jennifer Kia Melissa is a 48 y.o. 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 [facility] 09-04-2023 Procedure note [facility] 08-02-2023 Evaluation note Encounter Date Diagnosis Assessment Notes Aug, Chronic gastritis, presence of bleeding unspecified, unspecified gastritis type (ICD-10 - K29.50) Pt states everytime she eats something she has cramping and diarrhea. Pt to proceed with EGD Pt to keep taking Omeprazole 40 mg Aug, Dysphagia, unspecified type (ICD-10 - R13.10) Aug, Dyspepsia (ICD-10 - R10.13) Aug, Early satiety (ICD-10 - R68.81) [facility] 05-05-2022 Progress note Author Surjit Latham [facility] February 02, 2022 2:22pm Note Date/Time February 02, 2022 1:43pm [facility] [address] [place] [address] Cardiology Progress Note Signed Patient: Jennifer Diaz MR#: [id number] : 1975 Acct:[id number] Age/Sex: 46 / F Adm Date: 2 Loc: Room: [address] [place] [address] Type : ADM INOo Attending Dr: Zahraa Ferrara MD Copies to: ~ Date of Service: 02/02/2022 Subjective Principal diagnosis: Cardiomyopathy Interval history: Patient is stable and improved with no significant orthopnea, shortness of breath at this time denies any chest discomfort. We were able to successfully retrieve the October 2018 cardiac catheterization and echo from [facility] revealing 40% proximal LAD disease, otherwiseminimal [...] telemetry Documented By: Surjit Latham DO 02/02/22 1337 Signed By: <Electronically signed by Surjit Latham DO> 02/02/[address] [facility] Work Phone: 1(362) 632-273705-04-2022 Consult note Author Surjit Latham [facility] February 01, 2022 5:58pm Note Date/Time February 01, 2022 5:53pm [facility] [address] [place] [address] Cardiology Consult Note Signed Patient: Jennifer Diaz MR#: [id number] : 1975 Acct:[id number] Age/Sex: 46 / F Adm Date: 2 Loc: 4 Room: [address] [place] [address] Type : ADM INOo Attending Dr: Zahraa Ferrara MD Copies to: Vivi Salmeron, KARINA Ferrara MD W Chalo Latham, DO~ Cardiology HPI History of Present Illness [...] with a PMHx of CAD, 2 previous IN's, T2DM presented to the ED after a syncopal episode. She states that she has previously had 2 cardiac catheterizations in June 2018 and October of 2018 without any stents placement for acute coronary events. Presently, she initially presented to [facility] after her syncopal episode at work, where [...] angina. Her last cardiology visit was in [place] in 2019. Patient is a diabetic, active [...] arrhythmias. Recommendations: [facility] We will initiate Entresto 24/26 twice daily, discontinue losartan, initiate carvedilol 6.25 twice daily, spironolactone 25 daily, aspirin 81 daily, smoking cessation counseling, as wellas SGLT2 inhibitor Invokana once daily. Once I have been able to review her cardiac cath films from 2018 in 2019 and determine anatomy and LV [...] x10E3/uL Lymph # (Auto) 2.2 (1.00-4.8) x10E3/uL [place] # (Auto) 0.7 (0.0-0.8) x10E3/uL Eos # [...] ml @ 100 mls/hr IV .Q10H CARLY Rx#:[id number] Oral 350 / 350 300 / 300 [...] <Electronically signed by Surjit Latham DO> 02/01/[address] 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 Work Phone: 1(529) 196-529805-03-2022 History and physical note Author Zahraa Ferrara [facility] January 31, 2022 8:23pm Note Date/Time January 31, 2022 8:18pm [facility] [address] [place] [address] Hospitalist H&P Signed Patient: Jennifer Diaz MR#: [id number] : 1975 Acct:[id number] Age/Sex: 46 / F Adm Date: 2 Loc: Room: [address] [place] [address] Type : ADM IN Attending Dr: Zahraa Ferrara MD Copies to: Vivi Salmeron, COTTON GINNER Zahraa Ferrara MD~ HPI DATE OF EXAMINATION: 01/31/22 CHIEF COMPLAINT: Abnormal cardiac enzymes HISTORY OF PRESENT ILLNESS: 46 years old female with reported history of coronary artery disease and 2 MIs in the past, however without any intervention. Per patient she did have 2 cardiac catheterization with last being in 2019 without any stent placed. This time she presented with syncopal episode 2 [facility] emergency room where she was found to [...] <Electronically signed by Zahraa Ferrara MD> 01/31/222022 [facility] Work Phone: Discharge summary Author Zahraa Ferrara [facility] February 04, 2022 4:17pm Note Date/Time February 02, 2022 3:28pm [facility] [address] [place] [address] Discharge Summary Signed Patient: Jennifer Diaz MR#: [id number] : 1975 Acct:[id number] Age/Sex: 46 / F Adm Date: 2 Loc: Room: [address] [place] [address]: Zahraa Ferrara MD Copies to: Vivi Salmeron, COTTON GINNER Zahraa Ferrara MD~ Providers Date of Discharge: 02/02/22 Discharging Provider: Zahraa Ferrara Primary Care Provider: Vivi Salmeron Consults: 01/31/22 20:06 Consult to Cardiology Routine Discharge Diagnosis (1) Troponin I above reference range: (2) T2DM (type 2 diabetes mellitus): (3) Ischemic cardiomyopathy: (4) Near syncope: Final Diagnosis Final Discharge Diagnosis: Non-ST elevation IN type II; plan for cardiac catheterization as outpatient Newly found chronic systolic congestive heart failure with ejection fraction 25% Hypertension Diabetes mellitus type 2 Hypomagnesemia, replaced Summary Hospital Course Hospital course: 46 years old female was transferred with abnormal cardiac enzymes and non-ST elevation IN type II. Patient was admitted to rule [...] with nonspecific findings. 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 She [...] Creatinine Clear 104.27, Sodium 137, Potassium 4.8, [id number], Carbon Dioxide 25.8, BUN 7 L, Creatinine [...] are scheduled for outpatient Cardiac Cath at [facility] on 02/13/2022t 8:30am; please follow instructions You are scheduled for outpatient lab (pre surgery testing)work prior to Cardiac Cath at [facility] on 02/09/2022 at 8:30am Stand Alone Forms: [...] Ordered By: Zahraa Ferrara Follow Up: Shanta Lentz, STRUCTURAL STEEL ENGINEER [Nurse Practitioner] - 02/08/22 12:00 pm Documented By: Zahraa Ferrara MD 02/02/22 1524 Signed By: <Electronically signed by Zahraa Ferrara MD> 02/04/22 95[address] [facility] Work Phone: Evaluation note* Diagnosis Onset Date Resolution Status Ischemic cardiomyopathy acut e Near syncope acute T2DM (type 2 diabetes mellitus) acute Troponin I above reference range acute [facility] Work Phone: Evaluation noteNo assessment information available [facility] Work Phone: History and physical note Author Jose Carmona [facility] September 04, 2023 1:10pm Note Date/Time September 04, 2023 1 :10pm [facility] [address] [place] [address] Gastroenterology H&P Signed Patient: Jennifer Diaz MR#: [id number] : 1975 Acct:[id number] Age/Sex: 47 / F Adm Date: 3 Loc: Room: Type: [facility] Attending Dr: Jose Carmona MD Copies to: [...] signed by Jose Carmona MD> 09/04/23 1310 [facility] Work Phone: History general Narrative - Reported* Type Description Date Medical History high blood pressure Medical History diabetes Surgical History gall bladder Surgical History boil removed from stomach Surgical History keyloids removed from behind le ft ear and left wrist Hospitalization History possible heart attack Hospitalization History blood pressure [facility] Other Hospital Discharge instructions Additional Instructions You are scheduled for outpatient Cardiac Cath at [facility] on 02/13/2022 at 8:30am; please follow instructions You are scheduled for outpatient lab (pre surgery testing)work prior to Cardiac Cath at [facility] on 02[facility]09[facility]20[facility] Work Phone: Hospital Discharge instructions Additional Instructions [...] - Do NOT operate machinery such as [employer], [employer], snow blowers, sewing machines, etc. for 24 [...] problems. -Follow up with PCP. -Office number [phone].[facility] Work Phone: Summary Purpose Family History No [...] DATE CREATED AUTHOR AUTHOR'S ORGANIZ ATION 12/11/2021 [facility] DATE CREATED AUTHOR AUTHOR'S ORGANIZ ATION 03/23/2022 [facility] DATE CREATED AUTHOR AUTHOR'S ORGANIZ ATION 01/22/2023 [facility] DATE CREATED AUTHOR AUTHOR'S ORGANIZ ATION 11/09/2023 [facility] DATE CREATED AUTHOR AUTHOR'S ORGANIZ ATION 04/16/2024 [facility] EPIC DATE CREATED AUTHOR AUTHOR'S ORGANARLETTE ATION 11/14/2024 [facility] Care Teams (unrecognized sec tion and content) Team Status: Inactive Member Role Status Dates Vivi Salmeron NP-C Primary Care Provider Active Zahraa Ferrara MD Admit Provider, Attending Provide r Active Team Status: Active Member Role Status Dates Vivi Salmeron SALESFORCE TRAINER-C Primary Care Provider Active Team Status: Inactive Member Role Status Dates iVvi Salmeron NP-C Primary Care Provider Active Jose [...] BE BASED ON THE PRIMARY CLINICAL RECORDS. [facility]. provides no warranty or guarantee of the accuracy or completeness of information in this document.
[2024-11-17 05:05] VITALS: BP 138/102; PULSE 116; TEMP 38.3; O2SAT 99; BMI 35.2
--- NOTE | 2024-11-17 05:22 | ED.GENADUL1 ---
HPI HPI - General Adult General Chief complaint: Fever Stated complaint: FLU LIKE SYMPTOMS Time Seen by Provider: 11/17/24 05:03 Source: patient Mode of arrival: walk-in Limitations: no limitations History of Present Illness HPI narrative: This 49-year-old female with a history of heart disease and heart failure presents for evaluation of a cough for the past several days and development of a fever and bodyaches in the past 24 hours. She has nausea but no vomiting or diarrhea. She denies any specific chest pain but states her chest hurts when she coughs. She has nasal congestion, runny nose, dry cough, nausea, headache and generalized bodyaches. She is a diabetic but states she has not taken her sugar today because she has been laying in bed all day since yesterday. No medications were taken prior to arrival. Related Data Home Medications ?Medication ?Instructions ?Recorded ?Confirmed aspirin 81 mg tablet,delayed 81 mg PO .am 07/29/23 07/29/23 release atorvastatin 80 mg tablet 80 mg PO DAILY 07/29/23 07/29/23 carvedilol 25 mg tablet 25 mg PO BID 07/29/23 07/29/23 clopidogrel 75 mg tablet 75 mg PO DAILY 07/29/23 07/29/23 dulaglutide 1.5 mg/0.5 mL 0.75 mg subcut .WEEKLY 07/29/23 07/29/23 subcutaneous pen injector (Trulicity) furosemide 20 mg tablet 20 mg PO DAILY 07/29/23 07/29/23 insulin glargine 100 unit/mL (3 40 unit subcut BID 07/29/23 07/29/23 mL) subcutaneous pen (Lantus Solostar U-100 Insulin) metformin 1,000 mg tablet 1,000 mg PO BID 07/29/23 07/29/23 metoprolol succinate 100 mg 100 mg PO .am 07/29/23 07/29/23 tablet,extended release 24 hr omeprazole 40 mg capsule,delayed 40 mg PO BID 07/29/23 07/29/23 release sacubitril 24 mg-valsartan 26 mg 1 tab PO BID 07/29/23 07/29/23 tablet (Entresto) spironolactone 50 mg tablet 50 mg PO DAILY 07/29/23 07/29/23 venlafaxine 150 mg 150 mg PO DAILY 07/29/23 07/29/23 capsule,extended release 24 hr Allergies Allergy/AdvReac Type Severity Reaction Status Date / Time cephalexin (From Keflex) Allergy rash Verified 11/17/24 05:05 Opioid HPI Opioid Management Most Recent Opioid Data: Last Pain Scale 3 07/30/23 13:00 07/30/23 Review of Systems ROS Status of ROS 10 or more systems reviewed and unremarkable except as noted in history and below [facility] Medical History (Updated 11/17/24 @ 06:27 by Emerita Billings MD) Chest pain ?R07.9 - Chest pain, unspecified (ICD-10) Abdominal pain ?R10.9 - Unspecified abdominal pain (ICD-10) Social History Smoking status: Current every day smoker Little interest or pleasure in doing things: not at all Feeling down, depressed, or hopeless: not at all Exam Narrative Exam Narrative: Vital signs and Nursing Notes reviewed: Patient is febrile, tachycardic, blood pressure is elevated at 138/102, she is not hypoxic with pulse ox of 99% on room air General: Awake, alert, oriented, nontoxic but uncomfortable appearing -Citizen Of [place] female, no respiratory distress, occasional harsh cough noted HEENT: Normocephalic atraumatic, mucous membranes are moist and pink, eyes are clear, normal conjunctiva, vision is grossly intact, posterior pharynx is normal in appearance. Neck: Supple, no meningeal signs, no anterior or posterior cervical lymphadenopathy, no JVD Chest: Lungs are clear to auscultation with good air entry, occasional harsh coughing noted otherwise there is no wheezing rhonchi or rales appreciated no accessory muscle use, patient is speaking in complete sentences-no chest wall tenderness to palpation CVS: Regular rate and rhythm S1-S2, acute cardiac at 116 at triage no murmurs rubs or gallops, pulses are brisk and equal bilaterally ABD: Soft, nondistended, nontender, no rebound guarding or rigidity, bowel sounds are normal, no pulsatile masses appreciated Extremities: Moving all extremities, no lower extremity tenderness or swelling noted, negative Homans' sign, pulses are brisk and equal bilaterally Skin: Normal in appearance without rash,pallor, petechiae or purpura Neuro: No focal deficits Constitutional Vital Signs, click to edit/add: Last Vital Signs Temp 101.0 F H 11/17/24 05:05 Pulse 103 H 11/17/24 06:08 Resp 15 11/17/24 06:08 BP 124/84 11/17/24 06:08 Pulse Ox 96 11/17/24 06:08 O2 Del Method Room Air 11/17/24 05:05 Course Vital Signs Vital signs: Vital Signs Temperature 101.0 F H 11/17/24 05:05 Pulse Rate 116 H 11/17/24 05:05 Respiratory Rate 19 11/17/24 05:05 Blood Pressure 138/102 H 11/17/24 05:05 Pulse Oximetry 99 11/17/24 05:05 Oxygen Delivery Method Room Air 11/17/24 05:05 Temperature 101.0 F H 11/17/24 05:05 Pulse Rate 103 H 11/17/24 06:08 Respiratory Rate 15 11/17/24 06:08 Blood Pressure 124/84 11/17/24 06:08 Pulse Oximetry 96 11/17/24 06:08 Oxygen Delivery Method Room Air 11/17/24 05:05 Medical Decision Making [facility] Narrative Medical decision making narrative: This 49-year-old female with a history of heart disease presents for evaluation of 2 to 3 days of generalized illness with cough and in the past 24 hours has developed body aches with fever. No medications were taken prior to arrival. Upon arrival her temperature was noted to be 101 with a pulse of 116 and blood pressure of 138/102. She was not hypoxic with pulse ox of 99% on room air. She has audible nasal congestion. Otherwise her oropharynx is normal. Lungs are clear but she does have a harsh cough. She was tachycardic at triage with a pulse of 116. She is nauseated with no specific abdominal tenderness. She has no lower extremity pain or swelling. An EKG was ordered due to her complaint of pain with coughing and shows a sinus tachycardia at [address] changes and voltage criteria for LVH Chest x-ray was ordered due to her history of CHF and fever with cough. Chest x-ray does not show any acute findings. Accu-Chek was ordered due to her history of diabetes that is greater than 350. An IV was placed and she was given IV fluids for the hyperglycemia and routine labs are ordered. She has a normal white count and hemoglobin. Electrolytes are normal with an elevated glucose at 377 on the BMP. She has a normal CO2 indicating she does not have DKA. Creatinine is mildly elevated at 1.21. Influenza and COVID-19 testing was ordered and is negative She was medicated with Zofran, Tylenol and Motrin and IV fluids. The results of her labs and chest x-ray were discussed with her. In light of her comorbidities and negative COVID and influenza swabs she will be treated with antibiotics and cough medication. Will put her on doxycycline and Bromfed-DM. She will also be given a prescription for Zofran. She was encouraged to maintain compliance with her medications as she states she did not take her long-acting insulin last night. She will be given a note for work for the next 2 days as well. Medical Records Medical records reviewed: Yes I reviewed the patient's medical records Medical records narrative: The [address] [address] XRay Report Signed Patient: ANTONI DIAZ MR#: [id number] : 1975 Acct:[id number] Age/Sex: 49 / F ADM Date: 11/17/24 Loc: ER Attending Dr: Ordering Physician: Emerita Billings Date of Service: 11/17/24 Procedure(s): XR chest 1V Accession Number(s): [id number] cc: ANG SALMERON ; Emerita Billings~ The [address] [address] Patient Name: ANTONI DIAZ MRN: [id number] date: 1975 Sex: F Assigned Patient Location: ER Current Patient Location: ER Accession/Order Number: [id number] Exam Date: 11/17/2024 05:58 Report Date: 11/17/2024 06:15 At the request of: EMERITA BILLINGS Procedure: XR chest 1V EXAM: XR chest 1V HISTORY: Fever, cough COMPARISON: Portable chest radiograph dated 07/29/2023. TECHNIQUE: AP erect portable chest radiograph performed. FINDINGS: The trachea is midline. The heart size is normal. The cardiomediastinal silhouette and hilar shadows are unremarkable. There is no consolidation, pleural effusion or pulmonary vascular congestion. There is no acute osseous abnormality. XR/XR chest 1V IMPRESSION: There is no acute cardiopulmonary process. Electronically authenticated by: LISA Elizondo: 11/17/2024 06:15 Lab Data Lab results reviewed: Yes I reviewed the patient's lab results Labs: Lab Results 11/17/24 11/17/24 11/17/24 Range/Units 05:10 05:41 05:50 WBC 8.0 (4.0-11.0) 10^3/uL RBC 4.46 (4.20-5.40) 10^6/uL Hgb 11.9 L (12.0-16.0) g/dL Hct 37.5 (36.0-48.0) % MCV 84.1 (81.0-99.0) fL MCH 26.7 (26.7-34.0) pg MCHC 31.7 (29.9-35.2) g/dL RDW 12.4 (11.0-15.0) % Plt Count 267 (150-450) 10^3/uL MPV 10.1 (9.5-13.5) fL Neut % (Auto) 70.5 (43.0-75.0) % Lymph % (Auto) 13.3 L (20.5-60.0) % [place] % (Auto) 11.2 (1.7-12.0) % Eos % (Auto) 4.4 (0.9-7.0) % Baso % (Auto) 0.2 (0.2-2.0) % Neut # (Auto) 5.7 (1.4-6.5) 10^3/uL Lymph # (Auto) 1.1 L (1.2-3.8) 10^3/uL [place] # (Auto) 0.9 H (0.3-0.8) 10^3/uL Eos # (Auto) 0.4 (0.0-0.7) 10^3/uL Baso # (Auto) 0.0 (0.0-0.1) 10^3/uL Abs Immat Gran (auto) 0.03 (0.00-0.03) 10^3/uL Imm/Tot Granulo (auto) 0.4 (0.0-0.5) % Sodium 131 L (136-145) mmol/L Potassium 4.6 (3.5-5.1) mmol/L Chloride 97 L (98-107) mmol/L Carbon Dioxide 25.9 (21.0-32.0) mmol/L Anion Gap 12.7 BUN 18.0 (7.0-18.0) mg/dL Creatinine 1.21 H (0.55-1.02) mg/dL Est GFR ( Amer) 58 L (>=60 mL/min/1.73m^2) Est GFR (Non-Af Amer) 47 L (>=60 mL/min/1.73m^2) BUN/Creatinine Ratio 14.9 Glucose 377 H (74-106) mg/dL Calcium 9.0 (8.5-10.1) mg/dL Influenza Type A Ag Negative Influenza Type B Ag Negative SARS-CoV-2 Ag (CV2AG) Negative (NEGATIVE) POC Glucose 364 H (74-106) mg/dL ECG Data Attestation: I personally reviewed and interpreted this ECG as follows: (Sinus tachycardia at 106 bpm, normal axis, nonspecific ST changes, voltage criteria for LVH, no acute ST segment elevation) Discharge Plan Discharge Chief Complaint: Fever Clinical Impression: Viral URI with cough Patient Disposition: Home, Self-Care Time of Disposition Decision: 06:25 Condition: Good Prescriptions / Home Meds: No Action atorvastatin 80 mg tablet 80 mg PO DAILY carvedilol 25 mg tablet 25 mg PO BID metoprolol succinate 100 mg tablet extended release 24 hr 100 mg PO .am venlafaxine 150 mg capsule,extended release 24hr 150 mg PO DAILY clopidogrel 75 mg tablet 75 mg PO DAILY omeprazole 40 mg capsule,delayed release(DR/EC) 40 mg PO BID aspirin 81 mg tablet,delayed release (DR/EC) 81 mg PO .am metformin 1,000 mg tablet 1,000 mg PO BID furosemide 20 mg tablet 20 mg PO DAILY spironolactone 50 mg tablet 50 mg PO DAILY insulin glargine [Lantus Solostar U-100 Insulin] 100 unit/mL (3 mL) insulin pen 40 unit SUBCUT BID Trulicity 1.5 mg/0.5 mL pen injector 0.75 mg SUBCUT .WEEKLY Entresto 24-26 mg tablet 1 tab PO BID Print Language: Estonian Instructions: Upper Respiratory Infection (ED), Viral Syndrome (ED), Diabetic Hyperglycemia (ED) Referrals: ANG SALMERON [Primary Care Provider] - 1 week
--- NOTE | 2024-11-17 05:24 | ECG_ITS ---
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
--- NOTE | 2024-11-17 05:24 | XR_ITS ---
The [address] [address] Patient Name: ANTONI DIAZ MRN: [id number] date: 1975 Sex: F Assigned Patient Location: ER Current Patient Location: ER Accession/Order Number: [id number] Exam Date: 11/17/2024 05:58 Report Date: 11/17/2024 06:15 At the request of: DASHAWN MARKER Procedure: XR chest 1V EXAM: XR chest 1V HISTORY: Fever, cough COMPARISON: Portable chest radiograph dated 07/29/2023. TECHNIQUE: AP erect portable chest radiograph performed. FINDINGS: The trachea is midline. The heart size is normal. The cardiomediastinal silhouette and hilar shadows are unremarkable. There is no consolidation, pleural effusion or pulmonary vascular congestion. There is no acute osseous abnormality. XR/XR chest 1V IMPRESSION: There is no acute cardiopulmonary process. Electronically authenticated by: LISA PEREZ Date: 11/17/2024 06:15
[2024-11-17] MEDS: ACETAMINOPHEN 325 MG TABLET 650 MG PO (05:26)
[2024-11-17] MEDS: IBUPROFEN 600 MG TABLET PO (05:26)
[2024-11-17] MEDS: ONDANSETRON 4 MG RAPDIS TABLET SL (05:26)
[2024-11-17 05:30] VITALS: BP 132/91; PULSE 109; O2SAT 100
[2024-11-17 05:30] LABS: Influenza Virus A Antigen Negative; Influenza Virus B Antigen Negative; Internal Control Within Normal Limits; SARS-CoV-2 Ag NEGATIVE (NEGATIVE)
[2024-11-17 05:43] LABS: Glucometer 364 mg/dL (74-106)
[2024-11-17 06:02] LABS: Basophils Percent Auto 0.2 % (0.2-2.0); Eosinophils Absolute Auto 0.4 10^3/uL (0.0-0.7); Eosinophils Percent Auto 4.4 % (0.9-7.0); Hematocrit 37.5 % (36.0-48.0); Hemoglobin 11.9 g/dL (12.0-16.0); Immature Granulocytes Abs Auto 0.03 10^3/uL (0.00-0.03); Immature Granulocytes Pct Auto 0.4 % (0.0-0.5); Lymphocytes Absolute Auto 1.1 10^3/uL (1.2-3.8); Lymphocytes Percent Auto 13.3 % (20.5-60.0); Mean Corpuscular HGB Conc 31.7 g/dL (29.9-35.2); Mean Corpuscular Hemoglobin 26.7 pg (26.7-34.0); Mean Corpuscular Volume 84.1 fL (81.0-99.0); Mean Platelet Volume 10.1 fL (9.5-13.5); Monocytes Absolute Auto 0.9 10^3/uL (0.3-0.8); Monocytes Percent Auto 11.2 % (1.7-12.0); Neutrophils Absolute Auto 5.7 10^3/uL (1.4-6.5); Neutrophils Percent Auto 70.5 % (43.0-75.0); Platelet Count 267 10^3/uL (150-450); Red Blood Count 4.46 10^6/uL (4.20-5.40); Red Cell Distribution Width 12.4 % (11.0-15.0)
[2024-11-17] MEDS: 0.9 % SODIUM CHLORIDE 500 ML IV (06:07)
[2024-11-17 06:08] VITALS: BP 124/84; PULSE 103; O2SAT 96
[2024-11-17 06:11] LABS: Anion Gap 12.7; BUN Creatinine Ratio 14.9; Carbon Dioxide 25.9 mmol/L (21.0-32.0); Chloride 97 mmol/L (98-107); Estimated GFR (African America 58 (>=60 mL/min/1.73m^2); Estimated GFR (Non-African Ame 47 (>=60 mL/min/1.73m^2); Glucose 377 mg/dL (74-106); Potassium 4.6 mmol/L (3.5-5.1); Sodium 131 mmol/L (136-145)
[2024-11-17 06:45] VITALS: BP 124/77; PULSE 99; TEMP 37; O2SAT 99
== END 2024-11-17 07:12 | disposition home or self-care (01) ==
PROVIDERS: Emergency Provider Emergency Medicine; PCP Nurse Practitioner Family
DX: J06.9 Acute upper respiratory infection, unspecified (principal); R05.9 Cough, unspecified; I50.9 Heart failure, unspecified; Z79.85 Long-term (current) use of injectable non-insulin antidiabetic drugs; Z79.4 Long term (current) use of insulin; Z79.84 Long term (current) use of oral hypoglycemic drugs; E11.65 Type 2 diabetes mellitus with hyperglycemia; F17.200 Nicotine dependence, unspecified, uncomplicated; R50.9 Fever, unspecified
CPT/HCPCS: 36415; 71045; 80048; 85025; 87804; 87811; 93005; 99285; Q0162

== ENCOUNTER 2024-11-26 11:00 | Outpatient (OUT) | payer MEDICAID, SELFPAY ==
--- NOTE | 2024-11-26 11:09 | XR_ITS ---
The [address] [address] Patient Name: ANTONI DIAZ MRN: [id number] date: 1975 Sex: F Assigned Patient Location: LAB Current Patient Location: LAB Accession/Order Number: [id number] Exam Date: 11/26/2024 12:23 Report Date: 11/26/2024 12:27 At the request of: ANG SALMERON Procedure: XR chest 2V PA AND LATERAL CHEST: CLINICAL HISTORY: Influenza A COMPARISON: 11/17/2024 There is developing linear density at the lingula suggesting atelectasis. There is no additional consolidation, effusion or pneumothorax. The cardiac, hilar and mediastinal silhouettes are within normal limits. There is no vascular congestion. The visualized bony thorax is intact. Subtle levoscoliotic curvature is present XR/XR chest 2V IMPRESSION: LINGULAR ATELECTASIS. NO OTHER ACUTE FINDINGS. Impression dictated by: Tamica Rust M.D.11/26/2024 12:27 PM Dictation Location: [place] [address] Electronically authenticated by: [id number] Y Date: 11/26/2024 12:27
[2024-11-26 11:50] LABS: Estimated Average Glucose 338 mg/dL; Glycohemoglobin A1C 13.4 % (4.5-6.2)
== END 2024-11-26 11:01 | disposition home or self-care (01) ==
LOC: LAB 11:00
PROVIDERS: PCP Nurse Practitioner Family; Visit Provider Nurse Practitioner Family
DX: J10.1 Influenza due to other identified influenza virus with other respiratory manifestations (principal); E11.65 Type 2 diabetes mellitus with hyperglycemia
CPT/HCPCS: 36415; 71046; 83036